=== PATIENT | male | born 1960 | race Caucasian/White ===

== ENCOUNTER 2020-12-23 17:26 | Emergency (ER) | payer OTHER ==
[~2020-12-23] VITALS: Ht 177.8 cm; Wt 109.3 kg
--- NOTE | 2020-12-23 17:55 | NUR ---
TO ER BED 5, BIB EMS TO ER, SNF CALLED 911 - HE HAD CONTACT WITH A COVID + PERSON ABOUT A WEEK AGO, WANTS TO MAKE SURE HE IS NOT INFECTED, AWAITING MD BERTRAND
--- NOTE | 2020-12-23 19:34 | NUR ---
covid rapid and pcr taken sent for lab
[2020-12-23] MEDS ORDERED: HYDROCODONE/APAP 5/325MG TABLET ONE (21:00)
[2020-12-23] MEDS ORDERED: HYDROCODONE/APAP 5/325MG TABLET PO ONE (21:00)
--- NOTE | 2020-12-23 21:19 | NUR ---
discharge paperwork signed, pt is to return back to facility
--- NOTE | 2020-12-23 21:19 | NUR ---
[facility] ETA [phone]
--- NOTE | 2020-12-23 22:25 | NUR ---
REPORT GIVEN TO MAHNAZ FROM [facility], PT WILL BE RETURNING TO FACILITY.
--- NOTE | 2020-12-23 22:29 | NUR ---
REPORT GIVEN TO EMS AT BEDSIDE.
[2020-12-23 22:40] VITALS: BP 134/64
== END 2020-12-23 22:40 ==
LOC: ER 18:28
DX: Z20.822 Contact with and (suspected) exposure to COVID-19 (principal); I69.354 Hemiplegia and hemiparesis following cerebral infarction affecting left non-dominant side; J44.9 Chronic obstructive pulmonary disease, unspecified; I10 Essential (primary) hypertension; E11.9 Type 2 diabetes mellitus without complications; Z88.2 Allergy status to sulfonamides; Z88.8 Allergy status to other drugs, medicaments and biological substances; Z91.041 Radiographic dye allergy status
CPT/HCPCS: 71045; 87426; 99284; C9803 ×2; U0003

== ENCOUNTER 2020-12-28 16:59 | Emergency (ER) | payer OTHER ==
[~2020-12-28] VITALS: Ht 177.8 cm; Wt 107.0 kg
--- NOTE | 2020-12-28 17:21 | NUR ---
CALLED DR. BRITO [phone]
--- NOTE | 2020-12-28 17:24 | NUR ---
DR. QUINONES CLAY WASHER
--- NOTE | 2020-12-28 17:25 | NUR ---
TO ER BED 13 FOR EVAL,DR BRITO PAGED TO VERIFY WHAT PRE-OP HE WANTS AND IF IT'S OKAY TO DO IT NOW
[2020-12-28] MEDS ORDERED: oxyCODONE/APAP (5/325 MG) 1 UDTAB TABLET PO ONE (18:00)
[2020-12-28] MEDS ORDERED: oxyCODONE/APAP (5/325 MG) 1 UDTAB TABLET ONE (18:04)
[2020-12-28 18:18] LABS: BASOPHILS # (AUTO) 0.1 K/uL (0.0-0.2); BASOPHILS % (AUTO) 0.9 % (0.0-2.0); EOSINOPHILS % (AUTO) 6.3 % (0.0-6.0); HEMATOCRIT 40 % (39-51); HEMOGLOBIN 12.8 g/dL (13.5-17.5); LYMPHOCYTES % (AUTO) 15.4 % (20.0-44.0); MEAN CORPUSCULAR HGB CONC 32 g/dl (31.0-36.0); MEAN CORPUSCULAR VOLUME 83 fL (80-96); MONOCYTES # (AUTO) 0.5 K/uL (0.1-1.30); MONOCYTES % (AUTO) 7.5 % (2.0-12.0); NEUTROPHILS # (AUTO) 4.4 K/uL (1.8-8.9); NEUTROPHILS % (AUTO) 69.9 % (43.0-81.0); PLATELET COUNT (AUTO) 323 K/uL (150-450); RED BLOOD CELL COUNT(AUTO) 4.85 MIL/uL (4.5-6.0); WHITE BLOOD COUNT (AUTO) 6.3 K/uL (4.3-11.0)
[2020-12-28 18:27] LABS: CALCIUM, SERUM 8.3 mg/dL (8.5-10.1); CARBON DIOXIDE 32 mmol/L (21-32); CHLORIDE 96 mmol/L (98-107); GLUCOSE 118 mg/dL (74-106); POTASSIUM 2.9 mmol/L (3.5-5.1); SODIUM SERUM 137 mmol/L (136-145); UREA NITROGEN, BLOOD 11 mg/dL (7-18)
[2020-12-28] MEDS ORDERED: POTASSIUM CHLORIDE 20 MEQ TAB.PRT.SR PO ONE ×2 (18:59→19:00)
[2020-12-28 19:40] VITALS: BP 132/78
--- NOTE | 2020-12-28 19:41 | NUR ---
Patient discharged to home in stable condition. Written and verbal after care instructions given. Patient verbalizes understanding of instruction.Mr Harrison on his electric wheelchair able to operate exit imnstruction given
== END 2020-12-28 19:42 | disposition home or self-care (01) ==
LOC: ER 17:06
DX: Z00.8 Encounter for other general examination (principal); E87.6 Hypokalemia; I11.0 Hypertensive heart disease with heart failure; I50.9 Heart failure, unspecified; J44.9 Chronic obstructive pulmonary disease, unspecified; E11.9 Type 2 diabetes mellitus without complications; Z86.73 Personal history of transient ischemic attack (TIA), and cerebral infarction without residual deficits; Z88.2 Allergy status to sulfonamides; Z88.8 Allergy status to other drugs, medicaments and biological substances
CPT/HCPCS: 36415; 80048-TC; 84484-TC; 85025-TC

== ENCOUNTER 2020-12-31 13:55 | Outpatient (CLI) | payer OTHER | END 2020-12-31 23:59 | disposition home or self-care (01) | LOC: LAB 13:55 | PROVIDERS: ATTEND Specialist | DX: Z01.812 Encounter for preprocedural laboratory examination (principal); Z20.822 Contact with and (suspected) exposure to COVID-19 | CPT/HCPCS: C9803; U0003 ==

== ENCOUNTER 2021-01-04 10:30 | Inpatient (IN) | payer OTHER ==
[~2021-01-04] VITALS: Ht 177.8 cm; Wt 110.2 kg
[2021-01-04 11:10] VITALS: BP 111/74
--- NOTE | 2021-01-04 11:10 | NUR ---
MS DATA REPORT ANALYST NOTES RECEIVED PATIENT DIRECT ADMIT FROM HOME VIA WHEELCHAIR FOR LEFT HIP REPLACEMENT DAY SURGERY TOMORROW 01/05/2021. PATIENT IS AWAKE AND A/OX4. ON O2 AT 3LPM VIA NASAL CANNULA TOLERATING WELL WITH NO COMPLAINTS OF SOB. NOT IN DISTRESS. WITH COMPLAINTS OF PAIN ON BOTH HIPS. COMFORT MEASURES PROVIDED. MADE COMFORTABLE ON BED. SAFETY MEASURES IN PLACE. CALL LIGHT WITHIN REACH. BED ON LOWEST AND LOCKED POSITION SIDE RAILS UP X2.
[2021-01-04 12:00] VITALS: BP 111/74
[2021-01-04] MEDS ORDERED: TRAZ-182 PO (13:49)
[2021-01-04] MEDS ORDERED: NA P133E RC (13:49)
[2021-01-04] MEDS ORDERED: IPRA3AMP23 IH (13:49)
[2021-01-04] MEDS ORDERED: DICL100G34 TP (13:49)
[2021-01-04] MEDS ORDERED: LACT1CAP71 PO (13:49)
[2021-01-04] MEDS ORDERED: DIPH-1062 PO (13:49)
[2021-01-04] MEDS ORDERED: ONDA-97 PO (13:49)
[2021-01-04] MEDS ORDERED: FERR325T23 PO (13:49)
[2021-01-04] MEDS ORDERED: DIAZ2TAB PO (13:49)
[2021-01-04] MEDS ORDERED: NYST15PO4 TP (13:49)
[2021-01-04] MEDS ORDERED: CLOT12CR TP (13:49)
[2021-01-04] MEDS ORDERED: CAPS42.55 TP (13:49)
[2021-01-04] MEDS ORDERED: FURO-144 PO (13:49)
[2021-01-04] MEDS ORDERED: TAMS-12 PO (13:49)
[2021-01-04] MEDS ORDERED: FOLI0.4T6 PO (13:49)
[2021-01-04] MEDS ORDERED: FLUO20CA42 PO (13:49)
[2021-01-04] MEDS ORDERED: LACT10SO58 PO (13:49)
[2021-01-04] MEDS ORDERED: ASPI-1169 PO (13:49)
[2021-01-04] MEDS ORDERED: DOXE50CA4 PO (13:49)
[2021-01-04] MEDS ORDERED: PENT400T17 PO (13:49)
[2021-01-04] MEDS ORDERED: VARE1TAB PO (13:49)
[2021-01-04] MEDS ORDERED: MICO71PO11 TP (13:49)
[2021-01-04] MEDS ORDERED: LOPE2CAP14 PO (13:49)
[2021-01-04] MEDS ORDERED: LAMO200T10 PO (13:49)
[2021-01-04] MEDS ORDERED: POLY17PO4 PO (13:49)
[2021-01-04] MEDS ORDERED: HYDR-500 PO (13:49)
[2021-01-04] MEDS ORDERED: AMIT25TA9 PO (13:49)
[2021-01-04] MEDS ORDERED: FLUT1BLS6 IH (13:49)
[2021-01-04] MEDS ORDERED: OXYC15TA2 PO (13:49)
[2021-01-04] MEDS ORDERED: PANT40TA2 PO (13:49)
[2021-01-04] MEDS ORDERED: LORA10TA7 PO (13:49)
[2021-01-04] MEDS ORDERED: DOCU-141 PO (13:49)
[2021-01-04] MEDS ORDERED: LISI20TA30 PO (13:49)
[2021-01-04] MEDS ORDERED: HYDR-3895 PO (13:49)
[2021-01-04] MEDS ORDERED: Z GUARD REMEDY 2 OZ OINT TP PRN (14:00)
[2021-01-04] MEDS ORDERED: ZOLPIDEM TARTRATE 5 MG TABLET PO PRN (14:00)
[2021-01-04] MEDS ORDERED: HYDROCODONE/APAP 5/325MG TABLET PO PRN (14:00)
[2021-01-04] MEDS ORDERED: HYDROCODONE/APAP 10/325MG TABLET PO PRN (14:00)
[2021-01-04] MEDS ORDERED: ONDANSETRON HCL/PF 4 MG/2 ML VIAL IVP PRN (14:00)
[2021-01-04] MEDS ORDERED: MAGNESIUM HYDROXIDE 30 ML UDC PO PRN (14:00)
[2021-01-04] MEDS ORDERED: MAG HYDROX/AL HYDROX/SIMETH 30 ML UDC PO PRN (14:00)
[2021-01-04] MEDS ORDERED: ACETAMINOPHEN 325 MG TABLET PO PRN (14:00)
[2021-01-04] MEDS: MORPHINE SULFATE INJ 2 MG/ML DISP.SYRIN IV PRN ×2 (15:15→20:42)
[2021-01-04 16:00] VITALS: BP 117/60
[2021-01-04] MEDS ORDERED: methylPREDNISolone SOD SUCC 125 MG/2ML VIAL IV ONE (16:30)
[2021-01-04] MEDS ORDERED: diphenhydrAMINE HCL 50 MG/ML VIAL IV ONE (16:30)
--- NOTE | 2021-01-04 16:43 | NUR ---
SPOKE WITH RADHA, NURSING MOLECULAR GENETIC PATHOLOGIST - PATIENT IS NOT CLEARED FOR SURGERY TOMORROW PER CARDIO (DR. WALLACE). SURGERY IS CANCELLED. NURSING MOLECULAR GENETIC PATHOLOGIST AWARE - STATED SHE WILL CALL LOCO IN OR.
[2021-01-04] MEDS ORDERED: METOPROLOL TARTRATE 25 MG TABLET ONE (16:44)
[2021-01-04] MEDS ORDERED: diphenhydrAMINE HCL 50 MG/ML VIAL ONE (16:44)
--- NOTE | 2021-01-04 16:58 | NUR ---
Spoke with 's surgery coordinator Karuna about CTA order in am and pending cardiac clearance per dr. Torres. Karuna stated that surgery will be canceled for tomorrow. Pt informed and he agreed with new plan of care.
[2021-01-04] MEDS: METOPROLOL TARTRATE 25 MG TABLET PO SCH ×2 (17:17→21:00)
[2021-01-04] MEDS ORDERED: methylPREDNISolone SOD SUCC 125 MG/2ML VIAL IV PRN (17:30)
--- NOTE | 2021-01-04 19:26 | NUR ---
MS RN CLOSING NOTES PATIENT RESTING ON BED AND A/O X4. ON O2 AT 3LPM VIA NASAL CANNULA TOLERATING WELL WITH NO COMPLAINTS OF SOB. NOT IN DISTRESS. WITH NO COMPLAINTS OF PAIN OR DISCOMFORT AT THIS TIME. MADE COMFORTABLE ON BED. SAFETY MEASURES IN PLACE. CALL LIGHT WITHIN REACH. BED ON LOWEST AND LOCKED POSITION SIDE RAILS UP X2. WILL ENDORSE TO NEXT SHIFT FOR ANGELIC.
--- NOTE | 2021-01-04 19:41 | NUR ---
MS RN OPENING NOTES PATIENT WAS LAST SEEN AWAKE IN BED RESTING. PATIENT'S ON O2 AT 3LPM VIA NASAL CANNULA WITH NO RESPIRATORY DISTRESS NOTED. KAMLESH MIDLINE GAUGE#18 NOTED. PATIENT'S IN NO ACUTE DISTRESS AT THIS TIME. SAFETY MEASURES IN PLACE: BED LOCKED, BED ALARM ON, SIDE RAILS UPX3, AND CALL LIGHT WITHIN REACH. WILL CONTINUE TO MONITOR THE PATIENT.
[2021-01-04 21:02] VITALS: BP 101/44
[2021-01-05] MEDS: MORPHINE SULFATE INJ 2 MG/ML DISP.SYRIN IV PRN ×6 (00:46→23:28)
[2021-01-05] MEDS: methylPREDNISolone SOD SUCC 40 MG/ML VIAL IV SCH ×2 (03:03→07:00)
[2021-01-05 06:26] LABS: BASOPHILS % (AUTO) 0.3 % (0.0-2.0); EOSINOPHILS % (AUTO) 4.2 % (0.0-6.0); HEMATOCRIT 34 % (39-51); HEMOGLOBIN 11.2 g/dL (13.5-17.5); LYMPHOCYTES # (AUTO) 0.5 K/uL (0.8-4.8); LYMPHOCYTES % (AUTO) 7.4 % (20.0-44.0); MEAN CORPUSCULAR HGB CONC 33 g/dl (31.0-36.0); MEAN CORPUSCULAR VOLUME 82 fL (80-96); MONOCYTES # (AUTO) 0.2 K/uL (0.1-1.30); MONOCYTES % (AUTO) 3.3 % (2.0-12.0); NEUTROPHILS # (AUTO) 5.8 K/uL (1.8-8.9); NEUTROPHILS % (AUTO) 84.8 % (43.0-81.0); PLATELET COUNT (AUTO) 259 K/uL (150-450); RED BLOOD CELL COUNT(AUTO) 4.15 MIL/uL (4.5-6.0); WHITE BLOOD COUNT (AUTO) 6.8 K/uL (4.3-11.0)
[2021-01-05 06:59] LABS: ALBUMIN 2.5 g/dL (3.4-5.0); BILIRUBIN,TOTAL 0.2 mg/dL (0.2-1.0); CALCIUM, SERUM 8.2 mg/dL (8.5-10.1); CREATININE 0.9 mg/dL (0.6-1.3); MAGNESIUM 1.5 mg/dL (1.8-2.4); PHOSPHORUS 2.5 mg/dL (2.5-4.9); POTASSIUM 3.9 mmol/L (3.5-5.1); TOTAL PROTEIN, SERUM 7.2 g/dL (6.4-8.2)
[2021-01-05] MEDS ORDERED: diphenhydrAMINE HCL 50 MG/ML VIAL IV SCH (07:00)
[2021-01-05 07:06] LABS: THYROID STIMULATING HORMONE 0.708 uIU/mL (0.358-3.74)
--- NOTE | 2021-01-05 07:17 | NUR ---
RN MS NOTES RECEIVED PATIENT ON BED, ASLEEP BUT EASILY AROUSABLE. IN NO APPARENT RESPIRATORY DISTRESS NOTED. BREATHING EVEN AND UNLABORED. NO S&SX OF PAIN AND DISCOMFORT. PT. WITH KAMLESH MIDLINE, INTACT AND PATENT. FREQUENT VISUAL CHECKS RENDERED TO ENSURE SAFETY AND COMFORT. CALL LIGHT WITHIN EASY REACH. ALL NEEDS ATTENDED. WILL CONTINUE TO MONITOR
[2021-01-05] MEDS ORDERED: PANTOPRAZOLE 40 MG TABLET.DR PO SCH (07:30)
--- NOTE | 2021-01-05 07:30 | NUR ---
MS RN CLOSING NOTES PATIENT WAS LAST SEEN SLEEPING IN BED. PATIENT'S ALERT AND ORIENTED X4. PATIENT'S ON O2 AT 3LPM VIA NASAL CANNULA WITH NO RESPIRATORY DISTRESS NOTED. KAMLESH MIDLINE GAUGE#18 NOTED. PATIENT'S IN NO ACUTE DISTRESS AT THIS TIME. SAFETY MEASURES IN PLACE: BED LOCKED, BED ALARM ON, SIDE RAILS UPX3, AND CALL LIGHT WITHIN REACH. WILL ENDORSE CARE TO THE DAY SHIFT NURSE.
[2021-01-05 08:00] VITALS: BP_SYST 103; BP_SYST 116; BP_DIAS 51; BP_DIAS 63
[2021-01-05] MEDS ORDERED: diphenhydrAMINE HCL 50 MG/ML VIAL IV PRN (08:00)
[2021-01-05] MEDS ORDERED: EPINEPHRINE (1:10,000) SYRINGE 1 MG/10 ML DISP.SYRIN IV PRN (08:00)
[2021-01-05] MEDS: METOPROLOL TARTRATE 25 MG TABLET PO SCH ×2 (09:00→20:16)
[2021-01-05] MEDS ORDERED: METOPROLOL TARTRATE INJ 5 MG/5 ML AMPUL ONE (09:22)
[2021-01-05] MEDS ORDERED: IOHEXOL-350 100 ML VIAL IV ONE (09:22)
[2021-01-05] MEDS ORDERED: CT SWABBABLE VALVE TRANS SET 1 EA INFUS.SET MC ONE (09:23)
[2021-01-05] MEDS ORDERED: IV NS 0.9% 250 ML IV ONE (09:23)
[2021-01-05] MEDS ORDERED: NITROGLYCERIN 0.4 MG/TAB BOTTLE SL ONE (10:00)
[2021-01-05] MEDS ORDERED: METOPROLOL TARTRATE INJ 5 MG/5 ML AMPUL IVP PRN (10:00)
[2021-01-05] MEDS: Magnesium 1GM/D5W 100ML PREMIX 100 ML IV SCH ×2 (12:34→13:43)
[2021-01-05] MEDS ORDERED: ATOR40TA PO (13:29)
[2021-01-05] MEDS ORDERED: METO25TA20 PO (13:29)
--- NOTE | 2021-01-05 14:25 | NUR ---
spoke with Karuna from Dr. Franklin's office, she stated okay to discharge pt home and office will call him with new surgery schedule. Dr. Ponce informed and discharge order received. Will inform pt.
[2021-01-05 16:00] VITALS: BP 133/62
--- NOTE | 2021-01-05 19:30 | NUR ---
RN MS NOTES PT AWAKE, ALERT AND ORIENTED, PAIN MEDS GIVEN ORDERED, SEEN BY DR. ROBLES, DISCHARGE ORDER GIVEN, DISCHARGE AND MEDICATION INSTRUCTIONS PROVIDED TO PT, VERBALIZED UNDERSTANDING, NEW PRESCRIPTIONS CALLED IN TO PT'S OWN PHARMACY, BELONGINGS ACCOUNTED FOR, ASSISTED PT TO WHEELCHAIR, PER RADIATION THERAPY TECHNICIAN ELECTRONIC PREPRESS OPERATOR TIME AT 1800, FOLLOWED UP WITH TRANSPORT SERVICE, STATED THAT THE EARLIEST THEY CAN ELECTRONIC PREPRESS OPERATOR PT IS 10PM, PT WOULD LIKE TO GO ON HIS OWN BUT CONVINCED PT TO STAY AND WAIT FOR THE AMBULANCE, PT AGREED, PLACED PT ON ROOM 325-2 FOR NOW WHILE WAITING FOR TRANSPORT BACK TO [facility], ENDORSED TO BINGO CASHIER NURSE FISH FOR CONTINUITY OF CARE.
--- NOTE | 2021-01-05 20:00 | NUR ---
received patient sitting in his wheelchair alert and orientated requesting "MY Morphine" "4mg" given with effective relief placed in bed to take a nap D/T P/U transport will be arriving 10 PM or Later 02 N/C in place at 3 liters
[2021-01-05 20:30] VITALS: BP 108/59
[2021-01-05] MEDS ORDERED: ATORVASTATIN 40 MG TABLET PO SCH (22:00)
--- NOTE | 2021-01-06 | NUR ---
[facility] transportation arrived 4 people to take the Patient Hunter Meléndez back to [facility] living [phone] call them [phone] toalrt them of his late arrival and they said he could come even at this hour w/c his 0s his clothing and phone and brown bag(tote) and blue plastic bag all with the patient. He remains alert and orientated X4
== END 2021-01-06 00:30 | DRG 351 ==
LOC: MED 10:30 → EDSTATUS 01-05 09:30 → MED 01-05 23:37
DX: M16.12 Unilateral primary osteoarthritis, left hip (principal); I11.0 Hypertensive heart disease with heart failure; I50.32 Chronic diastolic (congestive) heart failure; E11.9 Type 2 diabetes mellitus without complications; I25.10 Atherosclerotic heart disease of native coronary artery without angina pectoris; Z99.3 Dependence on wheelchair; G47.33 Obstructive sleep apnea (adult) (pediatric); I25.2 Old myocardial infarction; Z86.73 Personal history of transient ischemic attack (TIA), and cerebral infarction without residual deficits; Z87.891 Personal history of nicotine dependence; Z87.892 Personal history of anaphylaxis; Z91.041 Radiographic dye allergy status; J44.9 Chronic obstructive pulmonary disease, unspecified; Z88.2 Allergy status to sulfonamides
CPT/HCPCS: 75574; 80053-TC; 80061-TC; 83735-TC; 84100-TC; 84443-TC; 85025-TC; 87081-TC; 93307-TC; G0378; J1200; J2270; J2920; J2930; J3475; J3490; J7050; Q9967

== ENCOUNTER 2021-02-26 12:16 | Inpatient (IN) | payer OTHER ==
[~2021-02-26] VITALS: Ht 177.8 cm; Wt 109.8 kg
[~2021-02-26 12:16] MED LIST: AMIT25TA9 PO; ASPI-1169 PO; ATOR40TA PO; CAPS42.55 TP; DIAZ2TAB PO; DICL100G34 TP; DOCU-141 PO; DOXE50CA4 PO; FERR325T23 PO; FLUO20CA42 PO; FLUT1BLS6 IH; FOLI0.4T6 PO; FURO-144 PO; HYDR-500 PO; IPRA3AMP23 IH; LACT10SO58 PO; LACT1CAP71 PO; LAMO200T10 PO; LISI20TA30 PO; LOPE2CAP14 PO; LORA10TA7 PO; METO25TA20 PO; MICO71PO11 TP; NA P133E RC; NYST15PO4 TP; ONDA-97 PO; OXYC15TA2 PO; PANT40TA2 PO; PENT400T17 PO; POLY17PO4 PO; TAMS-12 PO; TRAZ-182 PO; VARE1TAB PO
--- NOTE | 2021-02-26 12:41 | NUR ---
c/o sob, nausea vomiting, and chest discomfort x today. PT AAOX4, VSS. PT SEEN & EVAL'D BY DR. OTERO. PLACED ON WATER POLLUTION SPECIALIST, SR. WILL CONT TO MONITOR.
--- NOTE | 2021-02-26 12:45 | NUR ---
IV LINE IS ESTABLISHED, BLOOD SPECIMEN COLLECTED AND SENT TO THE LAB. THE LINE IS SALINE LOCKED.
--- NOTE | 2021-02-26 12:46 | NUR ---
X-RAY TECH AT THE BEDSIDE
[2021-02-26] MEDS ORDERED: IPRATROPIUM NEB FS 0.5 MG/2.5 ML AMPUL.NEB ONE (13:01)
[2021-02-26] MEDS ORDERED: ALBUTEROL FS 2.5 MG/3 ML VIAL.NEB ONE (13:01)
[2021-02-26 13:02] LABS: BASOPHILS # (AUTO) 0.1 K/uL (0.0-0.2); BASOPHILS % (AUTO) 0.6 % (0.0-2.0); EOSINOPHILS % (AUTO) 1.8 % (0.0-6.0); HEMATOCRIT 27 % (39-51); HEMOGLOBIN 8.6 g/dL (13.5-17.5); LYMPHOCYTES # (AUTO) 1.1 K/uL (0.8-4.8); LYMPHOCYTES % (AUTO) 12.4 % (20.0-44.0); MEAN CORPUSCULAR HGB CONC 32 g/dl (31.0-36.0); MEAN CORPUSCULAR VOLUME 81 fL (80-96); MONOCYTES # (AUTO) 0.6 K/uL (0.1-1.30); MONOCYTES % (AUTO) 6.4 % (2.0-12.0); NEUTROPHILS # (AUTO) 7.2 K/uL (1.8-8.9); NEUTROPHILS % (AUTO) 78.8 % (43.0-81.0); PLATELET COUNT (AUTO) 396 K/uL (150-450); RED BLOOD CELL COUNT(AUTO) 3.28 MIL/uL (4.5-6.0); WHITE BLOOD COUNT (AUTO) 9.2 K/uL (4.3-11.0)
--- NOTE | 2021-02-26 13:11 | NUR ---
PATIENT GIVEN 5.0 ALBUTEROL AND 0.[address] OTERO'S VERBAL ORDER.
[2021-02-26] MEDS ORDERED: methylPREDNISolone SOD SUCC 125 MG/2ML VIAL IV ONE (13:30)
[2021-02-26] MEDS ORDERED: methylPREDNISolone SOD SUCC 125 MG/2ML VIAL ONE (13:30)
[2021-02-26 13:33] LABS: ALBUMIN 2.2 g/dL (3.4-5.0); BILIRUBIN,DIRECT 0.1 mg/dL (0.0-0.2); BILIRUBIN,TOTAL 0.2 mg/dL (0.2-1.0); CREATININE 3.7 mg/dL (0.6-1.3); TOTAL PROTEIN, SERUM 7.1 g/dL (6.4-8.2)
[2021-02-26 13:40] LABS: POTASSIUM 2.6 mmol/L (3.5-5.1)
--- NOTE | 2021-02-26 13:41 | NUR ---
MEDICATED PER ERMD ORDER, PT GILDARDO WELL. WILL CONT TO MONITOR.
--- NOTE | 2021-02-26 13:53 | NUR ---
CALLED [employer] [phone] COMMAND AND CONTROL OFFICER IS LEXY WILL BE PAGED.
[2021-02-26] MEDS ORDERED: CEFTRIAXONE 1GM BAG (ER ONLY) 50 ML IV ONE (13:58)
[2021-02-26] MEDS ORDERED: POTASSIUM CL. PREMIX PERIPHER. 50 ML IV SCH (14:00)
[2021-02-26] MEDS ORDERED: CEFTRIAXONE 1 G in IV D5W 50 ML IV ONE (14:00)
--- NOTE | 2021-02-26 14:04 | NUR ---
COVID SWAB DONE AND SENT TO THE LAB
[2021-02-26] MEDS ORDERED: POTASSIUM CL. PREMIX PERIPHER. 50 ML ONE (14:10)
--- NOTE | 2021-02-26 14:10 | NUR ---
LEXY SPEAKING WITH SHANNA.
--- NOTE | 2021-02-26 14:52 | NUR ---
REPORT GIVEN TO NURSE BREONNA
[2021-02-26] MEDS ORDERED: Magnesium 1GM/D5W 100ML PREMIX 100 ML IV ONE (15:30)
[2021-02-26] MEDS: Magnesium 1GM/D5W 100ML PREMIX 100 ML IV SCH ×6 (15:39→23:42)
[2021-02-26] MEDS ORDERED: MAGNESIUM HYDROXIDE 30 ML UDC PO PRN (17:00)
[2021-02-26] MEDS ORDERED: MAG HYDROX/AL HYDROX/SIMETH 30 ML UDC PO PRN (17:00)
[2021-02-26] MEDS ORDERED: ACETAMINOPHEN 325 MG TABLET PO PRN (17:00)
[2021-02-26] MEDS ORDERED: ZOLPIDEM TARTRATE 5 MG TABLET PO PRN (17:00)
[2021-02-26] MEDS ORDERED: ONDANSETRON HCL/PF 4 MG/2 ML VIAL IVP PRN (17:00)
[2021-02-26] MEDS ORDERED: Z GUARD REMEDY 2 OZ OINT TP PRN (17:00)
[2021-02-26] MEDS ORDERED: CEFTRIAXONE 1 G in IV D5W 50 ML IV SCH (17:00)
[2021-02-26] MEDS ORDERED: HYDROCODONE/APAP 5/325MG TABLET PO PRN (17:00)
--- NOTE | 2021-02-26 17:00 | NUR ---
RN NOTES RECEIVED PT FROM ER VIA GLADYS. AWAKE, A/O X4. ON 2L O2 VIA NC. DENIES PAIN. NO SOB OR ANY S/S OF DISTRESS NOTED. IV ACCESS ON L AC #18 INTACT, PATENT AND FLUSHED. BELONGING LIST CHECKED AND SIGNED. SKIN IS INTACT. VACCINATIONS ALL UP TO DATE. SAFETY MEASURES IN PLACE. CALL LIGHT WITHIN REACH. BED LOCKED AND IN LOWEST POSITION WITH SIDE RAILS UP X2. MOTORIZED WHEELCHAIR AT BEDSIDE. WILL CONTINUE TO MONITOR.
[2021-02-26] MEDS ORDERED: LORATADINE 10 MG TABLET PO PRN (17:30)
[2021-02-26] MEDS ORDERED: NA PHOS,M-B/NA PHOS,DI-BA 1 EA ENEMA RC PRN (17:30)
[2021-02-26] MEDS ORDERED: LACTULOSE 10 G/15 ML UDC (PYXIS) PO PRN (17:30)
[2021-02-26] MEDS ORDERED: LOPERAMIDE HCL (2 MG CAP) 2 MG CAPSULE PO PRN (17:30)
[2021-02-26] MEDS ORDERED: DOCUSATE SODIUM 100 MG CAPSULE PO PRN (17:30)
[2021-02-26] MEDS ORDERED: hydrOXYzine PAMOATE 25 MG CAPSULE PO PRN (18:00)
[2021-02-26] MEDS ORDERED: ONDANSETRON 4 MG TAB.RAPDIS PO PRN (18:00)
[2021-02-26] MEDS: AZITHROMYCIN 500 MG in IV D5W 250 ML IV SCH (18:18)
[2021-02-26] MEDS: PENTOXIFYLLINE 400 MG TABLET.SA PO SCH (18:18)
[2021-02-26] MEDS: IPRATROPIUM/ALBUTEROL INHALER IH SCH (18:19)
--- NOTE | 2021-02-26 19:29 | NUR ---
RN CLOSING NOTES NO SIGNIFICANT CHANGES THROUGHOUT THE SHIFT. ALL DUE MEDS GIVEN. NEEDS ATTENDED. KEPT CLEAN AND COMFORTABLE. SAFETY MEASURES IMPLEMENTED. ENDORSED TO NIGHT RN FOR ANGELIC.
--- NOTE | 2021-02-26 19:30 | NUR ---
RN NOTE RECEIVED PATIENT IN BED, AWAKE, ALERT, AND VERBALLY RESPONSIVE. BREATHING EVEN AND UNLABORED. NO SOB NOTED. TOLERATING OXYGEN 2L/MIN VIA NASAL CANNULA. HOB ELEVATED 35 DEGREES. NOTED WITH LEFT AC 20G PERIPHERAL IV. NOTED WITH IV FLUIDS RUNNING, AZITHROMYCIN AT 250 ML/HR AND MAGNESIUM. NO INFILTRATION NOTED. BED LOW, IN LOCKED POSITION. CALL LIGHT WITHIN REACH.
[2021-02-26 20:00] VITALS: BP 142/59
[2021-02-26] MEDS: DOXEPIN HCL (25 MG) 25 MG CAPSULE PO SCH (21:19)
[2021-02-26] MEDS: ATORVASTATIN 40 MG TABLET PO SCH (21:19)
[2021-02-26] MEDS: LamoTRIgine 100 MG TABLET PO SCH (21:20)
[2021-02-26] MEDS: HEPARIN SODIUM, PORCINE 5000 UNITS/1 ML VIAL SQ SCH (21:22)
[2021-02-26] MEDS: methylPREDNISolone SOD SUCC 125 MG/2ML VIAL IV SCH (21:23)
--- NOTE | 2021-02-26 21:25 | NUR ---
RN NOTE PATIENT REQUESTING FOR PAIN MEDICATION. STATES PAIN IS COMING FROM LEFT HIP. PATIENT RATES PAIN 7/10. PATIENT UNABLE TO MOVE EXTREMITY. NO REDNESS NOTED. ADMINISTERED NORCO 5-325 PER MD ORDER. WILL CONTINUE TO MONITOR. CALL LIGHT WITHIN REACH.
--- NOTE | 2021-02-26 21:40 | NUR ---
RN NOTE PATIENT REFUSED NORCO 5-325. PATIENT STATES HE DOES NOT WANT NORCO. EXPLAINED RISK AND BENEFIT TO PATIENT. STILL REFUSED. OFFERED TO BE REPOSITIONED. WILL CONTINUE TO MONITOR. CALL LIGHT WITHIN REACH.
[2021-02-27] VITALS: BP 100/48
--- NOTE | 2021-02-27 00:18 | NUR ---
RN VERIFIED WITH MDTRAVIS, REGARDING PATIENTS MAGNESIUM ORDER. PATIENT HAS RECEIVED 5GM OF MAGNESIUM. PER MD ORDER, STAT MAGNESIUM LEVEL. ORDER NOTED AND CARRIED OUT.
[2021-02-27] MEDS: IPRATROPIUM/ALBUTEROL INHALER IH SCH ×4 (01:07→17:02)
[2021-02-27 01:31] LABS: CALCIUM, SERUM 6.3 mg/dL (8.5-10.1); CREATININE 3.7 mg/dL (0.6-1.3)
[2021-02-27 01:34] LABS: POTASSIUM 2.8 mmol/L (3.5-5.1)
--- NOTE | 2021-02-27 01:37 | NUR ---
RN NOTE RECEIVED A CALL FROM LAB WITH RESULTS, PER CAITLIN, POTASSIUM IS 2.8 AND MAGNESIUM IS 2.0. MD INFORMED, AWAITING RESPONSE. WILL CONTINUE TO MONITOR.
--- NOTE | 2021-02-27 02:21 | NUR ---
RN NOTE PER MD ORDER, STOP MAGNESIUM.
[2021-02-27 04:00] VITALS: BP 122/55
[2021-02-27] MEDS ORDERED: POTASSIUM CHLORIDE 20 MEQ TAB.PRT.SR PO ONE (04:00)
--- NOTE | 2021-02-27 04:01 | NUR ---
RN NOTE PER TRAVIS STRAUSS, GIVE POTASSIUM 40 MEQ BY MOUTH ONCE. NOTED AND CARRIED OUT.
[2021-02-27] MEDS: methylPREDNISolone SOD SUCC 125 MG/2ML VIAL IV SCH ×3 (04:38→21:36)
[2021-02-27 06:48] LABS: BASOPHILS % (AUTO) 0.2 % (0.0-2.0); HEMATOCRIT 23 % (39-51); HEMOGLOBIN 7.4 g/dL (13.5-17.5); LYMPHOCYTES # (AUTO) 0.5 K/uL (0.8-4.8); LYMPHOCYTES % (AUTO) 10.4 % (20.0-44.0); MEAN CORPUSCULAR HGB CONC 33 g/dl (31.0-36.0); MEAN CORPUSCULAR VOLUME 82 fL (80-96); MONOCYTES # (AUTO) 0.1 K/uL (0.1-1.30); MONOCYTES % (AUTO) 2.5 % (2.0-12.0); NEUTROPHILS # (AUTO) 4.2 K/uL (1.8-8.9); NEUTROPHILS % (AUTO) 86.9 % (43.0-81.0); PLATELET COUNT (AUTO) 293 K/uL (150-450); RED BLOOD CELL COUNT(AUTO) 2.78 MIL/uL (4.5-6.0); WHITE BLOOD COUNT (AUTO) 4.8 K/uL (4.3-11.0)
--- NOTE | 2021-02-27 07:00 | NUR ---
RN NOTES RECEIVED PT ON BED, A/Ox4, ON 3L O2 N/C , NO SOB NOTED, O2 SAT WNL, IV SITES CLEAN,DRY AND INTACT, SR UP x3, CALL LIGHT WITHIN EASY REACH, BED LOCKED AND IN LOWEST POSITION, CONTINUE TO MONITOR .
[2021-02-27 07:17] LABS: THYROID STIMULATING HORMONE 0.2 uIU/mL (0.358-3.74)
[2021-02-27] MEDS ORDERED: PANTOPRAZOLE 40 MG TABLET.DR PO SCH (07:30)
[2021-02-27 07:34] LABS: CALCIUM, SERUM 6.3 mg/dL (8.5-10.1); CREATININE 3.7 mg/dL (0.6-1.3); PHOSPHORUS 4.2 mg/dL (2.5-4.9); POTASSIUM 3.3 mmol/L (3.5-5.1)
[2021-02-27 08:00] VITALS: BP 122/55
[2021-02-27] MEDS: FOLIC ACID 1 MG TABLET PO SCH (08:35)
[2021-02-27] MEDS: FERROUS SULFATE (325 MG) 325 MG/TAB TABLET PO SCH (08:36)
[2021-02-27] MEDS: TAMSULOSIN 0.4 MG CAP.SR.24H PO SCH (08:36)
[2021-02-27] MEDS: ASPIRIN 81 MG TAB.CHEW PO SCH (08:36)
[2021-02-27] MEDS: ACIDOPHILUS/BULGARICUS 1 EACH TAB.CHEW PO SCH (08:36)
[2021-02-27] MEDS: PANTOPRAZOLE 40 MG TABLET.DR PO SCH ×2 (08:36→16:26)
[2021-02-27] MEDS: FLUOXETINE HCL 20 MG CAPSULE PO SCH (08:36)
[2021-02-27] MEDS: TRAZODONE 50 MG TABLET PO SCH ×2 (08:36→16:25)
[2021-02-27] MEDS: POLYETHYLENE GLYCOL 3350 17 GM POWD.PACK PO SCH (08:36)
[2021-02-27] MEDS: NYSTATIN TOP POWDER 15 GM BOTTLE TP SCH ×2 (08:37→16:26)
[2021-02-27] MEDS: PENTOXIFYLLINE 400 MG TABLET.SA PO SCH ×3 (08:38→17:01)
[2021-02-27] MEDS: AMITRIPTYLINE HCL 25 MG TABLET PO SCH (08:38)
[2021-02-27] MEDS: HEPARIN SODIUM, PORCINE 5000 UNITS/1 ML VIAL SQ SCH ×2 (08:40→09:00)
[2021-02-27] MEDS: DIAZEPAM 2 MG TABLET PO SCH ×2 (08:43→16:25)
[2021-02-27] MEDS ORDERED: Medication Not On Formulary EA (Fluticasone/Umeclidin/Vilanter (Trelegy Ellipta 100-62.5 IH SCH (09:00)
[2021-02-27 12:00] VITALS: BP 121/62
[2021-02-27 12:42] LABS: BILIRUBIN,URINE NEGATIVE (NEGATIVE); LEUKOCYTE ESTERASE ,URINE LARGE (NEGATIVE); NITRITE, URINE NEGATIVE (NEGATIVE); PROTEIN,URINE 100 mg/dl (NEGATIVE); UGLUCOSE NEGATIVE (NEGATIVE); UROBILINOGEN,URINE 0.2 EU/dL (0.2)
[2021-02-27 12:46] LABS: COLOR,URINE BROWN (YELLOW)
[2021-02-27 12:51] LABS: CREATININE, URINE 83.3 MG/DL (30.0-125.0); URINE TOTAL PROTEIN 133.7 mg/dL (0-11.9)
[2021-02-27] MEDS ORDERED: MORPHINE SULFATE INJ 4 MG/ML DISP.SYRIN IV ONE (13:00)
[2021-02-27] MEDS: CEFTRIAXONE 2 G in IV D5W 100 ML IV SCH (13:02)
[2021-02-27 13:11] LABS: BACTERIA,URINE Many /HPF (None Seen); RBC,URINE TOO NUMEROUS TO COUN /HPF (0-2); SQUAMOUS EPITHELIAL CELL,UR Moderate /HPF (None Seen); WBC,URINE TOO NUMEROUS TO COUN /HPF (0-3)
[2021-02-27 16:00] VITALS: BP 126/64
[2021-02-27 16:46] LABS: EOSINOPHIL,URINE Few
[2021-02-27] MEDS: AZITHROMYCIN 500 MG in IV D5W 250 ML IV SCH (17:01)
--- NOTE | 2021-02-27 17:28 | NUR ---
RN NOTES UNABLE TO GIVE PO MEDS , PT IS LETHARGIC AND DOES NOT FOLLOW COMMAND, MD WEN, FAMILY REFUSED NGT PLACEMENT. Addendum: 02/27/21 at 1730 by JOSUÉ LONDON RN PLEASE DISREGARD ABOVE CHARTING , CHARTED ON WRONG PT
--- NOTE | 2021-02-27 18:29 | NUR ---
RN NOTES NO SIGNIFICANT CHANGES NOTED ON THIS SHIFT, WILL ENDORSE TO PUBLIC RELATIONS MANAGER NURSE FOR CONTINUITY OF CARE.
--- NOTE | 2021-02-27 19:30 | NUR ---
RN OPENING NOTE RECEIVED PATIENT IN BED. A/OX3. ON ISOLATION FOR R/O COVID. INFORMED PATIENT IT TAKES 3 DAYS FOR RESULTS TO COME BACK. HE IS SUSPECTING THAT WE ARE KEEPING HIM AND NOT TELLING HIM THAT HE HAS COVID/ PATIENT IS STILL IN R/IO PROCESS. ON OXYGEN 3L/MIN VIA NASAL CANNULA. RESPIRATIONS ARE EVEN AND UNLABORED. NO S/S SOB NOTED. STATES HIS PAIN IS A 6/10 BUT WILL WAIT UNTIL HIS MORPHINE IS DUE. TELE MONITOR READS SINUS RHYTHM WITH PVC HR 82. IN NO APPARENT DISTRESS. IV ACCESS IN LAC#20 PATENT AND SALINE LOCKED. BED IS LOW AND LOCKED, HOB ELEVTAED IN SEMI FOWLERS, SIDE RIALS UP X2, CALL LIGHT WITHIN REACH.
[2021-02-27 20:00] VITALS: BP 113/64
[2021-02-27] MEDS: ATORVASTATIN 40 MG TABLET PO SCH (21:36)
[2021-02-27] MEDS: LamoTRIgine 100 MG TABLET PO SCH (21:36)
[2021-02-27] MEDS: DOXEPIN HCL (25 MG) 25 MG CAPSULE PO SCH (21:36)
[2021-02-27] MEDS: MORPHINE SULFATE SR 15 MG TABLET.SA PO SCH (22:22)
[2021-02-28] VITALS: BP 123/68
[2021-02-28] MEDS: IPRATROPIUM/ALBUTEROL INHALER IH SCH ×4 (00:11→17:32)
[2021-02-28 04:00] VITALS: BP 123/64
[2021-02-28] MEDS: methylPREDNISolone SOD SUCC 125 MG/2ML VIAL IV SCH ×3 (06:03→21:15)
--- NOTE | 2021-02-28 07:33 | NUR ---
RN OPENING NOTES; RECEIVED PT SLEEPING, PT A/OX4, NO SOB NOTED, NO C/O PAIN AT THIS TIME. SAFETY MEASURES RENDERED, BED IN LOWEST POS. LOCKED WITH CALL LIGHT WITHIN REACH. WILL CONTINUE TO MONITOR.
--- NOTE | 2021-02-28 07:38 | NUR ---
RN NOTE RESTING IN BED. A/OX3. REMAINS ON OXYGEN 3L/MIN VIA NASAL CANNULA.NO RESP DISTRESS. NO C/O ADDITIONAL PAIN PATIENT IS SINUS RHYTHM. NO DISTRESS. LAC#20 SALINE LOCKED. BED REMAINS LOW AND LOCKED, HOB ELEVATED IN SEMI FOWLERS, SIDE RIALS UP X2, CALL LIGHT WITHIN REACH. WILL ENDORSE TO ONCOMING SHIFT.
[2021-02-28 08:00] VITALS: BP 123/64
[2021-02-28] MEDS: AMITRIPTYLINE HCL 25 MG TABLET PO SCH (08:02)
[2021-02-28] MEDS: FLUTICASONE/VILANTEROL 1 EACH BLST.W.DEV IH SCH (08:02)
[2021-02-28] MEDS: PENTOXIFYLLINE 400 MG TABLET.SA PO SCH ×3 (08:02→17:31)
[2021-02-28] MEDS: MORPHINE SULFATE SR 15 MG TABLET.SA PO SCH ×2 (09:03→21:16)
[2021-02-28] MEDS: FLUOXETINE HCL 20 MG CAPSULE PO SCH (09:03)
[2021-02-28] MEDS: PANTOPRAZOLE 40 MG TABLET.DR PO SCH ×2 (09:03→16:34)
[2021-02-28] MEDS: FOLIC ACID 1 MG TABLET PO SCH (09:03)
[2021-02-28] MEDS: TAMSULOSIN 0.4 MG CAP.SR.24H PO SCH (09:04)
[2021-02-28] MEDS: TRAZODONE 50 MG TABLET PO SCH ×2 (09:04→16:34)
[2021-02-28] MEDS: ASPIRIN 81 MG TAB.CHEW PO SCH (09:04)
[2021-02-28] MEDS: ACIDOPHILUS/BULGARICUS 1 EACH TAB.CHEW PO SCH (09:04)
[2021-02-28] MEDS: FERROUS SULFATE (325 MG) 325 MG/TAB TABLET PO SCH (09:04)
[2021-02-28] MEDS: POLYETHYLENE GLYCOL 3350 17 GM POWD.PACK PO SCH (09:04)
[2021-02-28] MEDS: DIAZEPAM 2 MG TABLET PO SCH ×2 (09:06→16:34)
[2021-02-28] MEDS: NYSTATIN TOP POWDER 15 GM BOTTLE TP SCH ×2 (09:07→16:36)
[2021-02-28 12:00] VITALS: BP 105/62
[2021-02-28] MEDS: CEFTRIAXONE 2 G in IV D5W 100 ML IV SCH (13:01)
[2021-02-28 16:00] VITALS: BP 112/68
[2021-02-28] MEDS ORDERED: IV NS 0.9% 500 ML IV ONE (16:30)
[2021-02-28 16:54] LABS: BASOPHILS % (AUTO) 0.1 % (0.0-2.0); HEMATOCRIT 23 % (39-51); HEMOGLOBIN 7.5 g/dL (13.5-17.5); LYMPHOCYTES # (AUTO) 0.8 K/uL (0.8-4.8); LYMPHOCYTES % (AUTO) 6.7 % (20.0-44.0); MEAN CORPUSCULAR HGB CONC 33 g/dl (31.0-36.0); MEAN CORPUSCULAR VOLUME 81 fL (80-96); MONOCYTES # (AUTO) 0.3 K/uL (0.1-1.30); MONOCYTES % (AUTO) 2.8 % (2.0-12.0); NEUTROPHILS # (AUTO) 10.2 K/uL (1.8-8.9); NEUTROPHILS % (AUTO) 90.4 % (43.0-81.0); PLATELET COUNT (AUTO) 332 K/uL (150-450); RED BLOOD CELL COUNT(AUTO) 2.87 MIL/uL (4.5-6.0); WHITE BLOOD COUNT (AUTO) 11.3 K/uL (4.3-11.0)
[2021-02-28] MEDS: AZITHROMYCIN 250 MG TABLET PO SCH (17:31)
[2021-02-28 17:37] LABS: BILIRUBIN,TOTAL 0.1 mg/dL (0.2-1.0); CALCIUM, SERUM 6.5 mg/dL (8.5-10.1); CREATININE 3.2 mg/dL (0.6-1.3); MAGNESIUM 1.6 mg/dL (1.8-2.4); PHOSPHORUS 4.2 mg/dL (2.5-4.9); POTASSIUM 3.5 mmol/L (3.5-5.1); TOTAL PROTEIN, SERUM 6.4 g/dL (6.4-8.2)
--- NOTE | 2021-02-28 18:28 | NUR ---
RN CLOSING NOTES; PT A/OX4, NO SOB NOTED, NO C/O PAIN AT THIS TIME. NO DISTRESS NOTED. ALL MEDICATION GIVEN AND TOLERATED WELL. PT KEPT CLEAN, DRY, AND COMFORTABLE. ALL SAFETY MEASURES RENDERED, BED IN LOWEST POS. LOCKED WITH CALL LIGHT WITHIN REACH. NO SIGNIFICANT CHANGES IN PT HEALTH STATUS DURING SHIFT. WILL ENDORSE TO POWERHOUSE ELECTRICIAN. PT IN STABLE CONDITION.
--- NOTE | 2021-02-28 19:20 | NUR ---
RN NOTE PT RECEIVED IN BED. PT IS ON 3L OF O2 VIA NC SHOWING NO S/S OF RESP DISTRESS. BREATHING EVEN AND UNLABORED. PT IS A/OX4. ON AUTOMATIC LATHE SETTER SHOWING NSR. SKIN INTACT. ON CARDIAC DIET. IV ACCESS NOTED ON RIGHT UPPER ARM MIDLINE #18. LINE FLUSHED, PATENT, AND INTACT WITH NO S/SX OF INFILTRATION. ALL SAFETY MEASURES IMPLEMENTED. CALL LIGHT WITHIN REACH. BED ALARM ON. BED LOCKED AND IN LOWEST POSITION. SIDE RAILS UP. WILL CONTINUE TO MONITOR AND ASSESS FOR ANY CHANGES DURING SHIFT.
[2021-02-28 19:22] LABS: LYMPHOCYTES % (MANUAL) 8 % (16-48); MONOCYTES % (MANUAL) 2 % (0-11.0); NEUTROPHILS % (MANUAL) 90 (42-76)
[2021-02-28 20:00] VITALS: BP 124/73
[2021-02-28] MEDS: LamoTRIgine 100 MG TABLET PO SCH (21:16)
[2021-02-28] MEDS: ATORVASTATIN 40 MG TABLET PO SCH (21:16)
[2021-02-28] MEDS: DOXEPIN HCL (25 MG) 25 MG CAPSULE PO SCH (21:16)
[2021-03-01] VITALS: BP 121/66
[2021-03-01] MEDS: Magnesium 1GM/D5W 100ML PREMIX 100 ML IV SCH ×2 (00:01→01:19)
[2021-03-01] MEDS: IPRATROPIUM/ALBUTEROL INHALER IH SCH ×4 (00:04→17:17)
[2021-03-01 04:00] VITALS: BP 120/60
[2021-03-01] MEDS: methylPREDNISolone SOD SUCC 125 MG/2ML VIAL IV SCH ×3 (05:36→21:48)
[2021-03-01 06:27] LABS: BASOPHILS % (AUTO) 0.1 % (0.0-2.0); HEMATOCRIT 23 % (39-51); HEMOGLOBIN 7.4 g/dL (13.5-17.5); LYMPHOCYTES # (AUTO) 0.9 K/uL (0.8-4.8); LYMPHOCYTES % (AUTO) 7.8 % (20.0-44.0); MEAN CORPUSCULAR HGB CONC 33 g/dl (31.0-36.0); MEAN CORPUSCULAR VOLUME 81 fL (80-96); MONOCYTES # (AUTO) 0.5 K/uL (0.1-1.30); MONOCYTES % (AUTO) 4.8 % (2.0-12.0); NEUTROPHILS # (AUTO) 9.8 K/uL (1.8-8.9); NEUTROPHILS % (AUTO) 87.3 % (43.0-81.0); PLATELET COUNT (AUTO) 318 K/uL (150-450); RED BLOOD CELL COUNT(AUTO) 2.78 MIL/uL (4.5-6.0); WHITE BLOOD COUNT (AUTO) 11.2 K/uL (4.3-11.0)
--- NOTE | 2021-03-01 06:33 | NUR ---
RN NOTE NO CHANGES IN PT CONDITION DURING SHIFT. PT IS ON 3L OF O2 VIA NC SHOWING NO S/S OF RESP DISTRESS. BREATHING EVEN AND UNLABORED. PT IS A/OX4. IV ACCESS NOTED ON RIGHT UPPER ARM MIDLINE #18. LINE FLUSHED, PATENT, AND INTACT WITH NO S/SX OF INFILTRATION. ALL DUE MEDS GIVEN ORDERED. ALL SAFETY MEASURES IMPLEMENTED. CALL LIGHT WITHIN REACH. BED ALARM ON. BED LOCKED AND IN LOWEST POSITION. SIDE RAILS UP. WILL ENDORSE TO MORNING SHIFT RN FOR ANGELIC.
[2021-03-01 07:03] LABS: MAGNESIUM 1.9 mg/dL (1.8-2.4); PHOSPHORUS 4.4 mg/dL (2.5-4.9); POTASSIUM 3.7 mmol/L (3.5-5.1)
--- NOTE | 2021-03-01 07:30 | NUR ---
RN OPEN NOTE PT RECEIVED RESTING IN BED WITH NO SIGN OF SOB OR DISTRESS AT THIS TIME, PT IS ON 3L/ MIN NC, TOLERATING WELL, BREATHING EVEN AND UNLABORED. PT IS A/OX4. MIDLINE ON RIGHT UPPER ARM, FLUSHING WELL, PATENT, AND INTACT WITH NO S/SX OF INFILTRATION. SAFETY MEASURES IMPLEMENTED. CALL LIGHT WITHIN REACH. BED ALARM ON. BED LOCKED AND IN LOWEST POSITION. SIDE RAILS UP. WILL CONTINUE TO MONITOR
[2021-03-01 08:00] VITALS: BP 127/65
[2021-03-01] MEDS: POLYETHYLENE GLYCOL 3350 17 GM POWD.PACK PO SCH (09:19)
[2021-03-01] MEDS: ACIDOPHILUS/BULGARICUS 1 EACH TAB.CHEW PO SCH (09:20)
[2021-03-01] MEDS: FOLIC ACID 1 MG TABLET PO SCH (09:20)
[2021-03-01] MEDS: MORPHINE SULFATE SR 15 MG TABLET.SA PO SCH ×2 (09:20→21:48)
[2021-03-01] MEDS: FLUOXETINE HCL 20 MG CAPSULE PO SCH (09:21)
[2021-03-01] MEDS: ASPIRIN 81 MG TAB.CHEW PO SCH (09:21)
[2021-03-01] MEDS: TAMSULOSIN 0.4 MG CAP.SR.24H PO SCH (09:21)
[2021-03-01] MEDS: FERROUS SULFATE (325 MG) 325 MG/TAB TABLET PO SCH (09:21)
[2021-03-01] MEDS: AMITRIPTYLINE HCL 25 MG TABLET PO SCH (09:22)
[2021-03-01] MEDS: DIAZEPAM 2 MG TABLET PO SCH ×2 (09:22→16:23)
[2021-03-01] MEDS: PANTOPRAZOLE 40 MG TABLET.DR PO SCH ×2 (09:22→16:23)
[2021-03-01] MEDS: TRAZODONE 50 MG TABLET PO SCH ×2 (09:22→16:23)
[2021-03-01] MEDS: FLUTICASONE/VILANTEROL 1 EACH BLST.W.DEV IH SCH (09:27)
[2021-03-01] MEDS: NYSTATIN TOP POWDER 15 GM BOTTLE TP SCH ×2 (09:27→16:23)
[2021-03-01] MEDS: PENTOXIFYLLINE 400 MG TABLET.SA PO SCH ×3 (09:44→17:17)
[2021-03-01 12:00] VITALS: BP 124/74
[2021-03-01 12:06] LABS: *SPE A/G RATIO 0.6 (0.7-1.7); *SPE ALPHA-1-GLOBULIN 0.3 g/dL (0.0-0.4); *SPE ALPHA-2-GLOBULIN 1.2 g/dL (0.4-1.0); *SPE BETA GLOBULIN 0.9 g/dL (0.7-1.3); *SPE M-SPIKE Not Observed g/dL (Not Observed)
[2021-03-01] MEDS: CEFTRIAXONE 2 G in IV D5W 100 ML IV SCH (13:30)
[2021-03-01 16:00] VITALS: BP 136/65
[2021-03-01] MEDS: AZITHROMYCIN 250 MG TABLET PO SCH (17:19)
--- NOTE | 2021-03-01 18:51 | NUR ---
RN CLOSING NOTE PT REMAINS RESTING IN BED WITH NO SIGN OF SOB OR DISTRESS AT THIS TIME, PT IS ON 3L/ MIN NC, TOLERATING WELL, BREATHING EVEN AND UNLABORED. PT IS A/OX4. MIDLINE ON RIGHT UPPER ARM, FLUSHING WELL, PATENT, AND INTACT WITH NO S/SX OF INFILTRATION. ALL NEEDS MET, SAFETY MEASURES IMPLEMENTED. CALL LIGHT WITHIN REACH. BED ALARM ON. BED LOCKED AND IN LOWEST POSITION. SIDE RAILS UP. WILL ENDORSE TO CHAIN BUILDER RN
--- NOTE | 2021-03-01 19:30 | NUR ---
RN OPENING NOTE RECEIVED PATIENT RESTING IN BED. A/OX3. ON OXYGEN 3L/MIN VIA NASAL CANNULA.NO RESP DISTRESS. C/O PAIN . TELE MONITOR READS SINUS RHYTHM. IN NO APPARENT DISTRESS. KAMLESH MIDLINE PATENT AND SALINE LOCKED. PATIENT STATES HE SPOKE WITH [facility] AND THEY HAVE ORDERED HIM A BIG BAG OF FLUIDS, INFORMED HIM I WILL LOOK AT THE ORDERS. BED IS LOW AND LOCKED, HOB ELEVATED IN SEMI FOWLERS, SIDE RIALS UP X2, CALL LIGHT WITHIN REACH.
[2021-03-01 20:00] VITALS: BP 139/82
[2021-03-01] MEDS: ATORVASTATIN 40 MG TABLET PO SCH (21:37)
[2021-03-01] MEDS: LamoTRIgine 100 MG TABLET PO SCH (21:37)
[2021-03-01] MEDS: IV NS 0.9% 1,000 ML IV PRN (21:37)
[2021-03-01] MEDS: DOXEPIN HCL (25 MG) 25 MG CAPSULE PO SCH (21:37)
[2021-03-02] VITALS: BP 129/73
[2021-03-02] MEDS: IPRATROPIUM/ALBUTEROL INHALER IH SCH ×4 (00:34→18:37)
[2021-03-02 04:00] VITALS: BP 135/71
[2021-03-02] MEDS: methylPREDNISolone SOD SUCC 125 MG/2ML VIAL IV SCH ×3 (05:58→21:06)
--- NOTE | 2021-03-02 07:17 | NUR ---
WOUND CARE CONSULT: PT PRESENTS WITH SOME REDNESS TO GROIN FOLDS AND PERINEUM, PRESENT ON ADMISSION. RECOMMENDATIONS MADE FOR SKIN PROTECTION. DISCUSSED WITH NURSING STAFF. MD IN AGREEMENT WITH PLAN OF CARE.
[2021-03-02 08:00] VITALS: BP 134/79
--- NOTE | 2021-03-02 08:22 | NUR ---
RN CLOSING NOTE RESTING IN BED. A/OX3. REMAINS ON OXYGEN 3L/MIN VIA NASAL CANNULA.NO RESP DISTRESS. PATIENT IS SINUS RHYTHM. NO DISTRESS. KAMLESH MIDLINE RUNNING NS@75ML/HR. BED IS LOW AND LOCKED, HOB ELEVATED IN SEMI FOWLERS, SIDE RIALS UP X2, CALL LIGHT WITHIN REACH. WILL ENDORSE TO ONCOMING SHIFT.
[2021-03-02 08:28] LABS: BASOPHILS % (AUTO) 0.1 % (0.0-2.0); HEMATOCRIT 23 % (39-51); HEMOGLOBIN 7.5 g/dL (13.5-17.5); LYMPHOCYTES # (AUTO) 0.9 K/uL (0.8-4.8); LYMPHOCYTES % (AUTO) 7.8 % (20.0-44.0); MEAN CORPUSCULAR HGB CONC 33 g/dl (31.0-36.0); MEAN CORPUSCULAR VOLUME 81 fL (80-96); MONOCYTES # (AUTO) 0.5 K/uL (0.1-1.30); MONOCYTES % (AUTO) 4.9 % (2.0-12.0); NEUTROPHILS # (AUTO) 9.6 K/uL (1.8-8.9); NEUTROPHILS % (AUTO) 87.2 % (43.0-81.0); PLATELET COUNT (AUTO) 325 K/uL (150-450); RED BLOOD CELL COUNT(AUTO) 2.78 MIL/uL (4.5-6.0)
[2021-03-02 08:44] LABS: CREATININE 2.8 mg/dL (0.6-1.3); MAGNESIUM 1.5 mg/dL (1.8-2.4); PHOSPHORUS 3.8 mg/dL (2.5-4.9); POTASSIUM 4.2 mmol/L (3.5-5.1)
[2021-03-02] MEDS: FOLIC ACID 1 MG TABLET PO SCH (08:50)
[2021-03-02] MEDS: FLUOXETINE HCL 20 MG CAPSULE PO SCH (08:50)
[2021-03-02] MEDS: TAMSULOSIN 0.4 MG CAP.SR.24H PO SCH (08:50)
[2021-03-02] MEDS: AMITRIPTYLINE HCL 25 MG TABLET PO SCH (08:50)
[2021-03-02] MEDS: MORPHINE SULFATE SR 15 MG TABLET.SA PO SCH ×2 (08:51→21:07)
[2021-03-02] MEDS: ACIDOPHILUS/BULGARICUS 1 EACH TAB.CHEW PO SCH (09:00)
[2021-03-02] MEDS: POLYETHYLENE GLYCOL 3350 17 GM POWD.PACK PO SCH (09:01)
[2021-03-02] MEDS: TRAZODONE 50 MG TABLET PO SCH ×2 (09:01→16:26)
[2021-03-02] MEDS: FERROUS SULFATE (325 MG) 325 MG/TAB TABLET PO SCH (09:01)
[2021-03-02] MEDS: ASPIRIN 81 MG TAB.CHEW PO SCH (09:01)
[2021-03-02] MEDS: PENTOXIFYLLINE 400 MG TABLET.SA PO SCH ×3 (09:01→18:04)
[2021-03-02] MEDS: DIAZEPAM 2 MG TABLET PO SCH ×2 (09:22→16:26)
[2021-03-02] MEDS: CLOTRIMAZOLE 1% 15 GM TUBE TP SCH ×2 (09:22→16:26)
[2021-03-02] MEDS: FLUTICASONE/VILANTEROL 1 EACH BLST.W.DEV IH SCH (09:29)
[2021-03-02] MEDS: NYSTATIN TOP POWDER 15 GM BOTTLE TP SCH ×2 (09:31→16:26)
[2021-03-02] MEDS: Magnesium 1GM/D5W 100ML PREMIX 100 ML IV SCH ×2 (09:59→11:17)
--- NOTE | 2021-03-02 11:10 | NUR ---
MS RN OPENING NOTE PT RECEIVED RESTING IN BED WITH NO SIGN OF SOB OR DISTRESS AT THIS TIME, PT IS ON 3L/ MIN NC, TOLERATING WELL, BREATHING EVEN AND UNLABORED. PT IS A/OX4. MIDLINE ON RIGHT UPPER ARM, FLUSHING WELL, PATENT, AND INTACT WITH NO S/SX OF INFILTRATION. SAFETY MEASURES IN PLACE. BED IN LOWEST LOCKED POSITION, CALL LIGHT WITHIN REACH.
[2021-03-02 12:00] VITALS: BP 129/71
[2021-03-02] MEDS: CEFTRIAXONE 2 G in IV D5W 100 ML IV SCH (14:31)
[2021-03-02 16:00] VITALS: BP 151/73
[2021-03-02] MEDS: AZITHROMYCIN 250 MG TABLET PO SCH (18:04)
[2021-03-02] MEDS: IV NS 0.9% 1,000 ML IV PRN (18:29)
--- NOTE | 2021-03-02 19:02 | NUR ---
MS RN CLOSING NOTES PT IS RESTING IN BED. A/OX4. REMAINS ON OXYGEN 3L/MIN VIA NASAL CANNULA. NO SIGNS OF RESP DISTRESS AND NO COMPLAINTS OF PAIN. PATIENT IS SINUS RHYTHM. KAMLESH MIDLINE RUNNING NS@75ML/HR. ALL SAFETY MEASURES IN PLACE. BED IN LOWEST AND LOCKED POSITION, HOB ELEVATED IN SEMI FOWLERS, SIDE RIALS UP X2, CALL LIGHT WITHIN REACH. WILL ENDORSE TO ONCOMING SHIFT.
--- NOTE | 2021-03-02 19:15 | NUR ---
RN NOTES RECEIVED REPORT FROM MORNING NURSE. PATIENT A/O X4 ABLE TO MAKE NEEDS KNOWN. NO SOB NO DISTRESS. WITH KAMLESH ML PATENT FLUSHES WELL NO INFILTRATION NOTED. WITH ONGOING IVF OF PNS @75CC/HR. WITH OXYGEN INHALATION AT 3LPM VIA NC. HOB ELEVATED ALL SAFETY MEASURES IN PLACE AT ALL TIMES. CALL LIGHT WITHIN REACH. BED ON LOWEST POSITION AND LOCKED. WILL CONTINUE TO MONITOR THE PATIENT
[2021-03-02] MEDS: MEROPENEM 1 G in IV NS 0.9% 100 ML IV SCH (19:44)
[2021-03-02 20:00] VITALS: BP 130/53
[2021-03-02] MEDS: ATORVASTATIN 40 MG TABLET PO SCH (21:07)
[2021-03-02] MEDS: LamoTRIgine 100 MG TABLET PO SCH (21:07)
[2021-03-02] MEDS: DOXEPIN HCL (25 MG) 25 MG CAPSULE PO SCH (21:07)
[2021-03-03] VITALS: BP 110/62
[2021-03-03] MEDS: IPRATROPIUM/ALBUTEROL INHALER IH SCH ×4 (00:21→17:24)
[2021-03-03 04:00] VITALS: BP 141/52
[2021-03-03] MEDS: methylPREDNISolone SOD SUCC 125 MG/2ML VIAL IV SCH ×3 (04:41→21:09)
[2021-03-03 06:15] LABS: HEMATOCRIT 22 % (39-51); HEMOGLOBIN 7.1 g/dL (13.5-17.5); LYMPHOCYTES # (AUTO) 0.8 K/uL (0.8-4.8); LYMPHOCYTES % (AUTO) 7.1 % (20.0-44.0); MEAN CORPUSCULAR HGB CONC 32 g/dl (31.0-36.0); MEAN CORPUSCULAR VOLUME 82 fL (80-96); MONOCYTES # (AUTO) 0.7 K/uL (0.1-1.30); MONOCYTES % (AUTO) 5.7 % (2.0-12.0); NEUTROPHILS # (AUTO) 10.4 K/uL (1.8-8.9); NEUTROPHILS % (AUTO) 87.2 % (43.0-81.0); PLATELET COUNT (AUTO) 313 K/uL (150-450); RED BLOOD CELL COUNT(AUTO) 2.69 MIL/uL (4.5-6.0); WHITE BLOOD COUNT (AUTO) 11.9 K/uL (4.3-11.0)
--- NOTE | 2021-03-03 06:42 | NUR ---
RN NOTES PATIENT REMAINS STABLE THE WHOLE SHIFT NO SIGNIFICANT CHANGES IN HEALTH CONDITION. NO DISTRESS NO SOB NOTED THIS SHIFT ALL DUE MEDS GIVEN ORDERED. KEPT CLEAN AND DRY AT ALL TIMES ALL NEEDS ATTENDED. HOB ELEVATED, CALL LIGHT WITHIN REACH. BED ON LOWEST POSITION AND LOCKED. ENDORSED
[2021-03-03] MEDS: MEROPENEM 1 G in IV NS 0.9% 100 ML IV SCH ×2 (06:43→20:14)
[2021-03-03 07:16] LABS: CALCIUM, SERUM 6.8 mg/dL (8.5-10.1); CREATININE 2.6 mg/dL (0.6-1.3); MAGNESIUM 1.6 mg/dL (1.8-2.4); POTASSIUM 4.3 mmol/L (3.5-5.1)
[2021-03-03 08:00] VITALS: BP 125/71
--- NOTE | 2021-03-03 08:01 | NUR ---
RN OPENING NOTE PATIENT RECEIVED IN BED, AWAKE, A&OX4. PATIENT ON 3L O2 NC WITH NO SIGNS OF LABORED BREATHING AT THIS TIME. RIGHT UA MIDLINE IN PLACE, PATENT WITH NO SIGNS OF INFILTRATION AND RUNNING NS AT 75CC/HR. NO SIGNS OF DISTRESS NOTED AT THIS TIME. BED LOCKED AND IN LOWEST POSITION, CALL LIGHT WITHIN REACH, 3 SIDE RAILS UP, BED ALARM ON. WILL CONTINUE TO MONITOR.
[2021-03-03] MEDS: POLYETHYLENE GLYCOL 3350 17 GM POWD.PACK PO SCH ×2 (09:00→09:07)
[2021-03-03] MEDS: TAMSULOSIN 0.4 MG CAP.SR.24H PO SCH (09:07)
[2021-03-03] MEDS: Magnesium 1GM/D5W 100ML PREMIX 100 ML IV SCH ×2 (09:07→10:13)
[2021-03-03] MEDS: ASPIRIN 81 MG TAB.CHEW PO SCH (09:07)
[2021-03-03] MEDS: ACIDOPHILUS/BULGARICUS 1 EACH TAB.CHEW PO SCH (09:07)
[2021-03-03] MEDS: NYSTATIN TOP POWDER 15 GM BOTTLE TP SCH ×2 (09:08→16:28)
[2021-03-03] MEDS: DIAZEPAM 2 MG TABLET PO SCH ×2 (09:08→16:28)
[2021-03-03] MEDS: TRAZODONE 50 MG TABLET PO SCH ×2 (09:08→16:28)
[2021-03-03] MEDS: CLOTRIMAZOLE 1% 15 GM TUBE TP SCH ×2 (09:08→16:28)
[2021-03-03] MEDS: FOLIC ACID 1 MG TABLET PO SCH (09:08)
[2021-03-03] MEDS: FERROUS SULFATE (325 MG) 325 MG/TAB TABLET PO SCH (09:08)
[2021-03-03] MEDS: FLUOXETINE HCL 20 MG CAPSULE PO SCH (09:08)
[2021-03-03] MEDS: PENTOXIFYLLINE 400 MG TABLET.SA PO SCH ×3 (09:08→17:24)
[2021-03-03] MEDS: IV NS 0.9% 1,000 ML IV PRN (09:09)
[2021-03-03] MEDS: FLUTICASONE/VILANTEROL 1 EACH BLST.W.DEV IH SCH (09:24)
[2021-03-03] MEDS: MORPHINE SULFATE SR 15 MG TABLET.SA PO SCH ×2 (09:26→21:09)
[2021-03-03] MEDS: AMITRIPTYLINE HCL 25 MG TABLET PO SCH (09:26)
[2021-03-03] MEDS ORDERED: PRED20TA PO (15:34)
[2021-03-03 16:00] VITALS: BP 139/73
--- NOTE | 2021-03-03 18:48 | NUR ---
RN CLOSING NOTE PATIENT IN HIS CHAIR, AWAKE, A&OX4. PATIENT ON 3L O2 NC WITH NO SIGNS OF LABORED BREATHING AT THIS TIME. RIGHT UA MIDLINE IN PLACE, PATENT WITH NO SIGNS OF INFILTRATION. AWAITING TRANSPORT FOR DISCHARGE, REPORT GIVEN TO RK PLASTICS PLATER AT [facility]. ALL NEEDS ATTENDED DURING SHIFT. NO SIGNS OF DISTRESS NOTED AT THIS TIME. BED LOCKED AND IN LOWEST POSITION, CALL LIGHT WITHIN REACH, 3 SIDE RAILS UP. WILL ENDORSE TO SUPERVISOR DECORATING NURSE.
--- NOTE | 2021-03-03 19:15 | NUR ---
RN NOTES RECEIVED REPORT FROM MORNING RN PATIENT IN HIS CHAIR A/O X4. NO SOB AT THIS TIME. WITH KAMLESH MIDLINE PATENT FLUSHES WELL. WITH OXYGEN INHALATION AT 3LPM VIA NC TOLERATED WELL. FOR POSSIBLE DC TONIGHT. VITAL SIGNS TAKEN AND RECORDED. WILL CONTINUE TO MONITOR
--- NOTE | 2021-03-03 19:30 | NUR ---
1929 Claritza from [facility] called and said ok to discharge patient to facility and they will deliver IV ATB once patient is there.
--- NOTE | 2021-03-03 19:41 | NUR ---
194 Called [facility] transportation for patient pickling operator spoke with Tequila and she said transportation was cancelled. Per Tequila they cannot transport patient tonight but will do tomorrow between 1230pm to 1pm. Patient was made aware and agreed.
--- NOTE | 2021-03-03 20:30 | NUR ---
RN NOTES PATIENT STILL IN THE UNIT FOR D/C TIMBO AM. PATIENT PUT BACK TO BED. WILL CONTINUE TO MONITOR
[2021-03-03] MEDS: DOXEPIN HCL (25 MG) 25 MG CAPSULE PO SCH (21:09)
[2021-03-03] MEDS: LamoTRIgine 100 MG TABLET PO SCH (21:09)
[2021-03-03] MEDS: ATORVASTATIN 40 MG TABLET PO SCH (21:09)
[2021-03-04] VITALS: BP 149/74
[2021-03-04] MEDS: IPRATROPIUM/ALBUTEROL INHALER IH SCH ×3 (00:20→12:04)
[2021-03-04] MEDS: IV NS 0.9% 1,000 ML IV PRN (00:21)
[2021-03-04] MEDS: methylPREDNISolone SOD SUCC 125 MG/2ML VIAL IV SCH (04:24)
[2021-03-04] MEDS: MEROPENEM 1 G in IV NS 0.9% 100 ML IV SCH (06:45)
--- NOTE | 2021-03-04 06:50 | NUR ---
RN NOTE PATIENT REMAINS STABLE THE WHOLE SHIFT NO SIGNIFICANT CHANGES IN HEALTH CONDITION. ALL DUE MEDS GIVEN ORDERED. ALL NEEDS ATTENDED. HOB ELEVATED. CALL LIGHT WITHIN REACH. FOR D/C TODAY.
--- NOTE | 2021-03-04 07:10 | NUR ---
RN OPENING NOTES RECEIVED PT IN BED. A/O X4. ON 3L O2 VIA NC. NO SOB OR ANY S/SX OF ACUTE DISTRESS AT THIS TIME. SATURATION @97%. IV ACCESS ON KAMLESH MIDLINE INTACT, PATENT AND FLUSHED. INFUSING NS @75 ML/HR. SAFETY MEASURES IMPLEMENTED. CALL LIGHT WITHIN REACH. BED LOCKED AND IN LOWEST POSITION WITH SIDE RAILS UP X3. WILL CONTINUE TO MONITOR.
[2021-03-04 08:00] VITALS: BP 135/58
[2021-03-04] MEDS: POLYETHYLENE GLYCOL 3350 17 GM POWD.PACK PO SCH (08:31)
[2021-03-04] MEDS: ACIDOPHILUS/BULGARICUS 1 EACH TAB.CHEW PO SCH (08:31)
[2021-03-04] MEDS: FLUOXETINE HCL 20 MG CAPSULE PO SCH (08:31)
[2021-03-04] MEDS: DIAZEPAM 2 MG TABLET PO SCH (08:31)
[2021-03-04] MEDS: AMITRIPTYLINE HCL 25 MG TABLET PO SCH (08:31)
[2021-03-04] MEDS: PENTOXIFYLLINE 400 MG TABLET.SA PO SCH (08:31)
[2021-03-04] MEDS: TAMSULOSIN 0.4 MG CAP.SR.24H PO SCH (08:31)
[2021-03-04] MEDS: FOLIC ACID 1 MG TABLET PO SCH (08:31)
[2021-03-04] MEDS: TRAZODONE 50 MG TABLET PO SCH (08:31)
[2021-03-04] MEDS: FERROUS SULFATE (325 MG) 325 MG/TAB TABLET PO SCH (08:31)
[2021-03-04] MEDS: ASPIRIN 81 MG TAB.CHEW PO SCH (08:31)
[2021-03-04] MEDS: CLOTRIMAZOLE 1% 15 GM TUBE TP SCH (08:32)
[2021-03-04] MEDS: NYSTATIN TOP POWDER 15 GM BOTTLE TP SCH (08:33)
[2021-03-04] MEDS: MORPHINE SULFATE SR 15 MG TABLET.SA PO SCH (08:36)
[2021-03-04] MEDS: FLUTICASONE/VILANTEROL 1 EACH BLST.W.DEV IH SCH (08:36)
--- NOTE | 2021-03-04 12:56 | NUR ---
RN NOTES DISCHARGED PT BACK TO FACILITY IN STABLE CONDITION. LEFT WITH HIS POWERED WHEELCHAIR ACCOMPANIED BY AMBULANCE CREW. NO SOB OR ANY DISTRESS. DENIES PAIN. VACCINATIONS ALL UP TO DATE. SKIN IS INTACT. DISCHARGE INSTRUCTIONS PROVIDED TO PT, VERBALIZED UNDERSTANDING. VS STABLE.
== END 2021-03-04 14:30 | disposition home health service (06) | DRG 140 ==
LOC: ER 12:33 → ICUOV 14:45 → TELE1 17:02 → TELE-TD 17:14 → TELE1 02-27 17:12 → MEDSG1 03-02 09:51
PROVIDERS: ADMIT Student in an Organized Health Care Education/Training Program; ATTEND Nurse Practitioner Family
PROC: 05H533Z Insertion of Infusion Device into Right Subclavian Vein, Percutaneous Approach (ICD-10-PCS; principal; 2021-02-28)
PROC: B546ZZA Ultrasonography of Right Subclavian Vein, Guidance (ICD-10-PCS; 2021-02-28)
DX: J44.1 Chronic obstructive pulmonary disease with (acute) exacerbation (principal); N17.0 Acute kidney failure with tubular necrosis; E44.0 Moderate protein-calorie malnutrition; N00.9 Acute nephritic syndrome with unspecified morphologic changes; D63.8 Anemia in other chronic diseases classified elsewhere; I69.354 Hemiplegia and hemiparesis following cerebral infarction affecting left non-dominant side; E11.9 Type 2 diabetes mellitus without complications; B96.1 Klebsiella pneumoniae [K. pneumoniae] as the cause of diseases classified elsewhere; Z99.81 Dependence on supplemental oxygen; N39.0 Urinary tract infection, site not specified; B96.20 Unspecified Escherichia coli [E. coli] as the cause of diseases classified elsewhere; D64.9 Anemia, unspecified; E78.5 Hyperlipidemia, unspecified; E83.42 Hypomagnesemia; I25.10 Atherosclerotic heart disease of native coronary artery without angina pectoris; J44.9 Chronic obstructive pulmonary disease, unspecified; E87.6 Hypokalemia; F17.200 Nicotine dependence, unspecified, uncomplicated; Z79.82 Long term (current) use of aspirin; Z99.3 Dependence on wheelchair; R07.9 Chest pain, unspecified; Z68.34 Body mass index [BMI] 34.0-34.9, adult; Z16.12 Extended spectrum beta lactamase (ESBL) resistance; M16.12 Unilateral primary osteoarthritis, left hip; I25.2 Old myocardial infarction; N40.1 Benign prostatic hyperplasia with lower urinary tract symptoms; Z20.822 Contact with and (suspected) exposure to COVID-19; I10 Essential (primary) hypertension
CPT/HCPCS: 36410; 36415; 71045-TC; 76770-TC; 80048-TC; 80053-TC; 80076-TC; 81001; 82550-TC; 82570-TC; 82728-TC; 83540-TC; 83735-TC; 83880; 83970; 84100-TC; 84155; 84155-TC; 84165; 84300-TC; 84439-TC; 84443-TC; 84484-TC; 85025-TC; 87081-TC; 87086-TC; 87186-TC; G0378; J0456; J0696; J1644; J2185; J2270; J2930; J3475; J3480; J7030; J7040; J7050; J7060; Q0177; U0003

== ENCOUNTER 2021-04-07 13:36 | Emergency (ER) | payer OTHER ==
[~2021-04-07] VITALS: Ht 177.8 cm; Wt 100.7 kg
[~2021-04-07 13:36] MED LIST changes: -DICL100G34 TP; -FURO-144 PO; -METO25TA20 PO; -MICO71PO11 TP; -NA P133E RC; -NYST15PO4 TP; +PRED20TA PO
--- NOTE | 2021-04-07 13:53 | NUR ---
BIB RA C/O BILATERAL LOWER EXTREMITY PAIN X 1 MONTH, WORSE TODAY. +NAUSEA/VOMITING. AAOX4, BREATHING EVEN AND UNLABORED. AWAITING MD FOR EVAL
--- NOTE | 2021-04-07 14:49 | NUR ---
PT LAYING IN BED. NO PRESENT COMPLAINTS. NEEDS MET
--- NOTE | 2021-04-07 15:22 | NUR ---
VS STABLE, WILL CONTINUE TO MONITOR
--- NOTE | 2021-04-07 16:03 | NUR ---
PT'S DIAPER CHANGED, ADDITIONAL BLANKETS GIVEN, VS STABLE
--- NOTE | 2021-04-07 17:20 | NUR ---
CLAIMS ACCOUNT MANAGER AT PT'S BEDSIDE
[2021-04-07 18:05] LABS: BASOPHILS % (AUTO) 0.6 % (0.0-2.0); EOSINOPHILS % (AUTO) 1.5 % (0.0-6.0); HEMATOCRIT 26 % (39-51); HEMOGLOBIN 8.7 g/dL (13.5-17.5); LYMPHOCYTES # (AUTO) 1.2 K/uL (0.8-4.8); LYMPHOCYTES % (AUTO) 28.1 % (20.0-44.0); MEAN CORPUSCULAR HGB CONC 34 g/dl (31.0-36.0); MEAN CORPUSCULAR VOLUME 88 fL (80-96); MONOCYTES # (AUTO) 0.5 K/uL (0.1-1.30); MONOCYTES % (AUTO) 11.4 % (2.0-12.0); NEUTROPHILS # (AUTO) 2.5 K/uL (1.8-8.9); NEUTROPHILS % (AUTO) 58.4 % (43.0-81.0); PLATELET COUNT (AUTO) 182 K/uL (150-450); RED BLOOD CELL COUNT(AUTO) 2.92 MIL/uL (4.5-6.0); WHITE BLOOD COUNT (AUTO) 4.3 K/uL (4.3-11.0)
[2021-04-07 18:19] LABS: CALCIUM, SERUM 7.3 mg/dL (8.5-10.1); CREATININE 2.5 mg/dL (0.6-1.3); POTASSIUM 3.5 mmol/L (3.5-5.1)
[2021-04-07 18:55] LABS: EOSINOPHILS % (MANUAL) 3 % (0-4); LYMPHOCYTES % (MANUAL) 31 % (16-48); MONOCYTES % (MANUAL) 4 % (0-11.0); NEUTROPHILS % (MANUAL) 62 (42-76)
--- NOTE | 2021-04-07 18:56 | NUR ---
[facility] ETA 90 MIN TO 2 HOURS
--- NOTE | 2021-04-07 19:53 | NUR ---
PATIENT BEING TRANSFERRED BACK TO FACILITY VIA AMBULANCE IN STABLE CONDITION WITH DISCHARGE PAPERS.
[2021-04-07 19:54] VITALS: BP 133/66
== END 2021-04-07 20:04 ==
LOC: ER 14:05
DX: G89.29 Other chronic pain (principal); M79.662 Pain in left lower leg; M79.661 Pain in right lower leg; I11.0 Hypertensive heart disease with heart failure; I50.9 Heart failure, unspecified; J44.9 Chronic obstructive pulmonary disease, unspecified; E11.9 Type 2 diabetes mellitus without complications; Z86.73 Personal history of transient ischemic attack (TIA), and cerebral infarction without residual deficits; Z88.2 Allergy status to sulfonamides; Z88.8 Allergy status to other drugs, medicaments and biological substances; Z79.899 Other long term (current) drug therapy; Z79.82 Long term (current) use of aspirin
CPT/HCPCS: 36415; 80048-TC; 85025-TC; 93970-TC

== ENCOUNTER 2021-04-11 23:32 | Inpatient (IN) | payer OTHER ==
[~2021-04-11] VITALS: Ht 208.3 cm; Wt 99.8 kg
[2021-04-12] MEDS ORDERED: HYDROCODONE/APAP 5/325MG TABLET PO ONE
[2021-04-12 00:05] LABS: BASOPHILS # (AUTO) 0.1 K/uL (0.0-0.2); BASOPHILS % (AUTO) 0.6 % (0.0-2.0); EOSINOPHILS % (AUTO) 2.3 % (0.0-6.0); HEMATOCRIT 26 % (39-51); HEMOGLOBIN 8.6 g/dL (13.5-17.5); LYMPHOCYTES # (AUTO) 1.5 K/uL (0.8-4.8); LYMPHOCYTES % (AUTO) 16.1 % (20.0-44.0); MEAN CORPUSCULAR HGB CONC 33 g/dl (31.0-36.0); MEAN CORPUSCULAR VOLUME 90 fL (80-96); MONOCYTES # (AUTO) 0.7 K/uL (0.1-1.30); NEUTROPHILS # (AUTO) 6.6 K/uL (1.8-8.9); PLATELET COUNT (AUTO) 256 K/uL (150-450); RED BLOOD CELL COUNT(AUTO) 2.93 MIL/uL (4.5-6.0)
[2021-04-12 00:25] LABS: CREATININE 2.4 mg/dL (0.6-1.3); POTASSIUM 3.6 mmol/L (3.5-5.1)
--- NOTE | 2021-04-12 00:25 | NUR ---
pt bibra c/o chest pain radiating to his shoulders, pt states pain 9/10.pt placed on monitor vss.
[2021-04-12] MEDS ORDERED: IPRATROPIUM NEB FS 0.5 MG/2.5 ML AMPUL.NEB NEB ONE (00:30)
[2021-04-12] MEDS ORDERED: predniSONE 20 MG TABLET PO ONE (00:30)
[2021-04-12] MEDS ORDERED: ALBUTEROL FS 2.5 MG/3 ML VIAL.NEB NEB ONE (00:30)
[2021-04-12] MEDS ORDERED: HYDROCODONE/APAP 5/325MG TABLET ONE (00:31)
[2021-04-12] MEDS ORDERED: predniSONE 20 MG TABLET ONE ×2 (00:32→00:33)
[2021-04-12] MEDS ORDERED: ALBUTEROL FS 2.5 MG/3 ML VIAL.NEB ONE (00:35)
[2021-04-12] MEDS ORDERED: IPRATROPIUM NEB FS 0.5 MG/2.5 ML AMPUL.NEB ONE (00:35)
[2021-04-12] MEDS ORDERED: MORPHINE SULFATE INJ 4 MG/ML DISP.SYRIN IV STA (00:41)
[2021-04-12] MEDS ORDERED: MORPHINE SULFATE INJ 4 MG/ML DISP.SYRIN ONE ×3 (00:44→22:00)
[2021-04-12 00:50] LABS: CALCIUM, SERUM 5.5 mg/dL (8.5-10.1)
[2021-04-12] MEDS ORDERED: DICYCLOMINE HCL 10 MG CAPSULE PO ONE ×2 (01:00→01:06)
--- NOTE | 2021-04-12 01:12 | NUR ---
[facility] SWAB COLLECTED AND SENT TO LAB. PATIENT'S BELONGINGS LIST DONE.
[2021-04-12] MEDS ORDERED: Calcium Gluconate 1GM/10ML 4.65 MEQ in IV D5W 50 ML IV ONE (02:30)
[2021-04-12] MEDS ORDERED: Calcium Gluconate 0.465 MEQ/ML VIAL IV ONE (03:07)
[2021-04-12] MEDS: HEPARIN SODIUM, PORCINE 5000 UNITS/1 ML VIAL SQ SCH ×3 (03:30→22:00)
[2021-04-12] MEDS ORDERED: ACETAMINOPHEN 325 MG TABLET PO PRN (03:30)
[2021-04-12] MEDS ORDERED: ONDANSETRON HCL/PF 4 MG/2 ML VIAL IVP PRN (03:30)
[2021-04-12] MEDS ORDERED: ALBUTEROL FS 2.5 MG/3 ML VIAL.NEB NEB PRN ×2 (04:00→08:30)
[2021-04-12] MEDS ORDERED: IPRATROPIUM NEB FS 0.5 MG/2.5 ML AMPUL.NEB NEB PRN ×2 (04:00→08:30)
[2021-04-12] MEDS ORDERED: HEPARIN SODIUM, PORCINE 5000 UNITS/1 ML VIAL ONE ×3 (05:15→21:59)
[2021-04-12] MEDS ORDERED: methylPREDNISolone SOD SUCC 125 MG/2ML VIAL ONE (05:16)
[2021-04-12] MEDS: methylPREDNISolone SOD SUCC 40 MG/ML VIAL IV SCH ×3 (05:18→22:00)
--- NOTE | 2021-04-12 06:22 | NUR ---
PT RESTING COMFORTABLY. VSS. STATED HE IS HUNGRY. GAVE PT FOOD.
[2021-04-12] MEDS ORDERED: LACTULOSE 10 G/15 ML UDC (PYXIS) PO PRN (09:30)
[2021-04-12] MEDS ORDERED: CHANTIX 1MG PO SCH (09:30)
[2021-04-12] MEDS: FERROUS SULFATE (325 MG) 325 MG/TAB TABLET PO SCH (09:30)
[2021-04-12] MEDS ORDERED: DOCUSATE SODIUM 100 MG CAPSULE PO PRN (09:30)
[2021-04-12] MEDS ORDERED: LORATADINE 10 MG TABLET PO PRN (09:30)
[2021-04-12] MEDS ORDERED: ASPIRIN 81 MG TAB.CHEW ONE (09:46)
[2021-04-12] MEDS: ASPIRIN 81 MG TAB.CHEW PO SCH (09:48)
[2021-04-12] MEDS: AMITRIPTYLINE HCL 25 MG TABLET PO SCH (10:30)
[2021-04-12] MEDS ORDERED: hydrOXYzine PAMOATE 25 MG CAPSULE PO PRN (10:30)
[2021-04-12 10:57] LABS: ALBUMIN 2.5 g/dL (3.4-5.0); PHOSPHORUS 4.2 mg/dL (2.5-4.9)
[2021-04-12] MEDS: CEFEPIME 1 GM in IV D5W 50 ML IV SCH ×2 (11:00→21:45)
[2021-04-12] MEDS: ACIDOPHILUS/BULGARICUS 1 EACH TAB.CHEW PO SCH (11:00)
--- NOTE | 2021-04-12 12:32 | NUR ---
HEPARIN 5000 UNITS HELD DUE TO PATIENT ALREADY RECEIVED A DOSE. PER TIM WOOD.
[2021-04-12] MEDS: MORPHINE SULFATE INJ 4 MG/ML DISP.SYRIN IV PRN ×2 (12:49→22:15)
--- NOTE | 2021-04-12 12:49 | NUR ---
PT C/O 10/09 PAIN. MORPHINE 4MG IVP GIVEN ORDERED.
[2021-04-12 13:04] LABS: MAGNESIUM 0.7 mg/dL (1.8-2.4)
[2021-04-12] MEDS: PENTOXIFYLLINE 400 MG TABLET.SA PO SCH ×2 (13:06→19:56)
[2021-04-12] MEDS ORDERED: methylPREDNISolone SOD SUCC 40 MG/ML VIAL ONE ×2 (13:12→22:00)
--- NOTE | 2021-04-12 13:46 | NUR ---
RECEIVED AN ORDER FROM TIM WOOD: MAGENSIUM 4G IV OVER 4 HOURS X1. THE ORDER IS READ BACK, VERIFIED. NOTED AND CARRIED OUT.
[2021-04-12] MEDS ORDERED: ALBUTEROL SULFATE 8 GM HFA.AER.AD IH PRN (14:30)
[2021-04-12] MEDS ORDERED: Magnesium 1GM/D5W 100ML PREMIX 100 ML IV ONE (14:46)
[2021-04-12] MEDS: Magnesium 1GM/D5W 100ML PREMIX PIGGYBACK IV SCH ×4 (14:52→17:42)
[2021-04-12] MEDS ORDERED: Magnesium 1GM/D5W 100ML PREMIX 300 ML IV ONE (16:01)
[2021-04-12] MEDS ORDERED: DIAZEPAM 5 MG TABLET ONE (16:27)
[2021-04-12] MEDS ORDERED: HYDROMORPHONE 1 MG/1 ML DISP.SYRIN ONE (16:27)
[2021-04-12] MEDS: DIAZEPAM 2 MG TABLET PO SCH (16:34)
[2021-04-12] MEDS: HYDROMORPHONE 1 MG/1 ML DISP.SYRIN IV PRN (16:35)
[2021-04-12] MEDS ORDERED: PANTOPRAZOLE 40 MG TABLET.DR PO SCH (17:00)
[2021-04-12] MEDS ORDERED: LOPERAMIDE HCL (2 MG CAP) 2 MG CAPSULE ONE (18:16)
--- NOTE | 2021-04-12 18:50 | NUR ---
bed assigned,203, for next shift
--- NOTE | 2021-04-12 20:22 | NUR ---
REPORT GIVEN TO LAURA VILLARREAL FOR ANGELIC
[2021-04-12] MEDS: LamoTRIgine 100 MG TABLET PO SCH (22:00)
[2021-04-12] MEDS: DOXEPIN HCL (25 MG) 25 MG CAPSULE PO SCH (22:00)
[2021-04-13 00:45] VITALS: BP 114/61
--- NOTE | 2021-04-13 00:54 | NUR ---
patient transferred, vss, no acute distress noted.
--- NOTE | 2021-04-13 01:00 | NUR ---
TELE/RN ADMITTING NOTE RECEIVED REPORT FROM MANAGER INVESTMENT CAITLIN. PATIENT ARRIVED TO UNIT VIA GURNEY AND STAFF MEMBER. PATIENT IS BEING ADMITTED FOR COPD EXACERBATION AND R/O PNA. PMHX INCLUDES CHF, COPD, CVA X 2 WITH LEFT SIDED WEAKNESS AND DM. PATIENT IS FULLY VACCINATED AGAINST COVID-19 WITH BOTH PFIZER DOSES AND BOOSTER. PATIENT IS ALERT AND ORIENTED X 4. ABLE TO MAKE NEEDS KNOWN. C/O PAIN TO LOWER BACK AND BLE - WILL ADMINISTER PAIN MEDICATION PER MD ORDERS. CONTINUES ON O2 4L VIA NC WITH NO S/SX OF RESPIRATORY DISTRESS NOTED. IV ACCESS TO RIGHT HAND #22G AND LEFT AC #20G BOTH INTACT AND PATENT. TELE MONITOR APPLIED WITH CURRENT READING SR. SKIN CHECK PERFORMED ON ADMISSION WITH NO SKIN ISSUES NOTED. BLE NON-PITTING EDEMA NOTED. PATIENT IS WHEELCHAIR BOUND. PATIENT ORIENTED TO ROOM, CALL LIGHT AND UNIT. CALL LIGHT WITHIN REACH. ASPIRATION, FALL AND SAFETY PRECAUTIONS MAINTAINED. WILL CONTINUE TO MONITOR.
--- NOTE | 2021-04-13 01:15 | NUR ---
TELE/RN NOTE PATIENT WITH C/O PAIN TO RIGHT HAND IV SITE. REQUESTING IV TO BE REMOVED. IV DISCONTINUED WITH PRESSURE DRESSING APPLIED. MINIMAL DRAINAGE NOTED. TIP OF CATH INTACT. PATIENT TOLERATED WELL. IV TO LEFT AC #20G INTACT, PATENT AND SALINE LOCKED.
[2021-04-13] MEDS: IPRATROPIUM BROMIDE 14 GM INHALER (or 12.9 GM) IH SCH ×2 (01:30→22:58)
--- NOTE | 2021-04-13 01:45 | NUR ---
TELE/RN NOTE ADMINISTERED PRN DILAUDID FOR LOWER BACK/BLE PAIN 09/09. WILL RECHECK PAIN LEVEL.
[2021-04-13] MEDS: HYDROMORPHONE 1 MG/1 ML DISP.SYRIN IV PRN ×4 (01:47→21:46)
--- NOTE | 2021-04-13 02:30 | NUR ---
TELE/RN NOTE PATIENT REQUESTING CONTINUOUS IVF. PATIENT STATES HE HAD THEM IN ER AND WOULD LIKE THEM CONTINUED UP HERE. REVIEWED PATIENTS MEDICAL HISTORY WITH CHF NOTED. EXPLAINED TO PATIENT RISKS/BENEFITS OF HAVING IVF WITH THIS DIAGNOSIS. PATIENT INSISTING ON HAVING THEM BECAUSE "MY URINE IS DARK - IM DEHYDRATED". PATIENT WITH GOOD PO INTAKE. NOTIFIED INFORMATION TECHNOLOGY ACCOUNT MANAGER MD NUNEZ WHO DOES NOT WANT IVF FOR THIS PATIENT AT THIS TIME. EXPLAINED TO PATIENT MD'S RESPONSE WITH PATIENT UNDERSTANDING.
[2021-04-13] MEDS ORDERED: LOPERAMIDE HCL (2 MG CAP) 2 MG CAPSULE ONE (03:01)
[2021-04-13] MEDS: LOPERAMIDE HCL (2 MG CAP) 2 MG CAPSULE PO PRN (03:05)
[2021-04-13] MEDS: methylPREDNISolone SOD SUCC 40 MG/ML VIAL IV SCH ×3 (05:25→21:18)
[2021-04-13] MEDS: MORPHINE SULFATE INJ 4 MG/ML DISP.SYRIN IV PRN ×3 (05:25→19:12)
--- NOTE | 2021-04-13 06:00 | NUR ---
TELE/RN CLOSING NOTE PATIENT CURRENTLY RESTING IN BED. AWAKE, ALERT AND ORIENTED X 4. ABLE TO MAKE NEEDS KNOWN. DENIES PAIN AT THIS TIME. CONTINUES ON O2 4L VIA NC WITH NO S/SX OF RESPIRATORY DISTRESS NOTED. IV ACCESS TO LEFT AC #20G INTACT, PATENT AND SALINE LOCKED. CONTINUES ON TELE MONITOR WITH CURRENT READING SR WITH PACS. CONTINUES WITH CONDOM CATH WITH CLEAR, YELLOW URINE DRAINING TO GRAVITY. CONTINUES ON IV ABX. CALL LIGHT WITHIN REACH. ASPIRATION, FALL AND SAFETY PRECAUTIONS MAINTAINED. WILL ENDORSE PLAN OF CARE TO ONCOMING SHIFT.
[2021-04-13 07:04] LABS: BASOPHILS % (AUTO) 0.1 % (0.0-2.0); HEMATOCRIT 22 % (39-51); HEMOGLOBIN 7.3 g/dL (13.5-17.5); LYMPHOCYTES # (AUTO) 0.7 K/uL (0.8-4.8); LYMPHOCYTES % (AUTO) 7.5 % (20.0-44.0); MEAN CORPUSCULAR HGB CONC 34 g/dl (31.0-36.0); MEAN CORPUSCULAR VOLUME 87 fL (80-96); MONOCYTES # (AUTO) 0.5 K/uL (0.1-1.30); MONOCYTES % (AUTO) 4.9 % (2.0-12.0); NEUTROPHILS # (AUTO) 8.4 K/uL (1.8-8.9); NEUTROPHILS % (AUTO) 87.5 % (43.0-81.0); PLATELET COUNT (AUTO) 218 K/uL (150-450); RED BLOOD CELL COUNT(AUTO) 2.51 MIL/uL (4.5-6.0); WHITE BLOOD COUNT (AUTO) 9.6 K/uL (4.3-11.0)
--- NOTE | 2021-04-13 07:23 | NUR ---
RN NOTE PATIENT IS IN BED WITH HOB AT SEMI FOWLERS POSITION. PATIENT IS ON NC 4L WITH NO SIGNS OF LABORED BREATHING. PATIENT IS AOX4. LAC 20G IS PATENT AND INTACT. BED IS LOCKED IN THE LOWEST POSITION, 3 GUARD RAILS RAISED, CALL PERRY WITHIN REACH, AND ALL HOSPITAL SAFETY PRECAUTIONS ARE BEING FOLLOWED. WILL CONTINUE TO MONITOR THROUGHOUT SHIFT.
[2021-04-13 07:31] LABS: CALCIUM, SERUM 6.2 mg/dL (8.5-10.1); CREATININE 2.2 mg/dL (0.6-1.3); MAGNESIUM 1.6 mg/dL (1.8-2.4); PHOSPHORUS 4.1 mg/dL (2.5-4.9); POTASSIUM 3.8 mmol/L (3.5-5.1)
--- NOTE | 2021-04-13 08:30 | NUR ---
RN NOTE NOTIFIED DR. ADAMES X2 FOR PATIENTS DOWNTRENDING HGB AND IF HE WANTS TO STILL ADMINISTER THE HEPARIN. AWAITING RESPONSE.
[2021-04-13] MEDS: FLUOXETINE HCL 20 MG CAPSULE PO SCH (08:32)
[2021-04-13] MEDS: TAMSULOSIN 0.4 MG CAP.SR.24H PO SCH (08:32)
[2021-04-13] MEDS: ASPIRIN 81 MG TAB.CHEW PO SCH (08:32)
[2021-04-13] MEDS: FERROUS SULFATE (325 MG) 325 MG/TAB TABLET PO SCH (08:32)
[2021-04-13] MEDS: ACIDOPHILUS/BULGARICUS 1 EACH TAB.CHEW PO SCH (08:32)
[2021-04-13] MEDS: FOLIC ACID 1 MG TABLET PO SCH (08:32)
[2021-04-13] MEDS: LISINOPRIL (20MG) 20 MG TABLET PO SCH (08:32)
[2021-04-13] MEDS: POLYETHYLENE GLYCOL 3350 17 GM POWD.PACK PO SCH ×2 (08:32→08:51)
[2021-04-13] MEDS: HEPARIN SODIUM, PORCINE 5000 UNITS/1 ML VIAL SQ SCH ×2 (09:00→21:00)
[2021-04-13] MEDS: CEFEPIME 1 GM in IV D5W 50 ML IV SCH ×2 (09:01→21:48)
[2021-04-13] MEDS: PENTOXIFYLLINE 400 MG TABLET.SA PO SCH ×3 (09:01→17:07)
[2021-04-13] MEDS: Magnesium 1GM/D5W 100ML PREMIX 100 ML IV SCH ×2 (09:02→10:52)
[2021-04-13] MEDS: AMITRIPTYLINE HCL 25 MG TABLET PO SCH (10:05)
[2021-04-13] MEDS: DIAZEPAM 2 MG TABLET PO SCH ×2 (10:06→17:07)
[2021-04-13] MEDS ORDERED: Calcium Gluconate 1GM/10ML 4.65 MEQ in IV D5W 50 ML IV ONE (12:00)
[2021-04-13] MEDS ORDERED: INFLUENZA VACCINE 2021-22 0.5 ML DISP.SYRIN IM ONE (12:00)
--- NOTE | 2021-04-13 18:57 | NUR ---
RN NOTE PATIENT IS IN BED WITH HOB AT SEMI FOWLERS POSITION. PATIENT IS ON NC 4L WITH NO SIGNS OF LABORED BREATHING. PATIENT IS AOX4. KAMLESH PICC IS PATENT AND INTACT. BED IS LOCKED IN THE LOWEST POSITION, 3 GUARD RAILS RAISED, CALL PERRY WITHIN REACH, AND ALL HOSPITAL SAFETY PRECAUTIONS ARE BEING FOLLOWED. WILL ENDORSE TO RECEIVER SETTER RN.
[2021-04-13 20:00] VITALS: BP 106/66
--- NOTE | 2021-04-13 20:33 | NUR ---
CONTINUITY OF CARE Patient in bed, awake. KAMLESH PICC line intact. On supplemental Oxygen at 4L via NC. Denies SOB. Pe patient patient less pain after Morphine was given. PCR test pending. Contact/Droplet precaution maintained.
[2021-04-13] MEDS: DOXEPIN HCL (25 MG) 25 MG CAPSULE PO SCH (21:16)
[2021-04-13] MEDS: LamoTRIgine 100 MG TABLET PO SCH (21:16)
[2021-04-14] VITALS: BP 128/74
--- NOTE | 2021-04-14 00:08 | NUR ---
ANTICOAGULANT H/H 7.06/[address] Mcgrath with orders to hold Heparin injection 2100 dose.
[2021-04-14] MEDS: IPRATROPIUM BROMIDE 14 GM INHALER (or 12.9 GM) IH SCH ×4 (01:30→19:30)
[2021-04-14] MEDS: MORPHINE SULFATE INJ 4 MG/ML DISP.SYRIN IV PRN ×4 (02:24→22:47)
--- NOTE | 2021-04-14 02:26 | NUR ---
INHALER Atrovent inhaler non administer, too close from previous administration.
[2021-04-14 04:00] VITALS: BP 130/81
[2021-04-14] MEDS: methylPREDNISolone SOD SUCC 40 MG/ML VIAL IV SCH ×2 (05:19→12:50)
[2021-04-14] MEDS: HYDROMORPHONE 1 MG/1 ML DISP.SYRIN IV PRN ×3 (05:36→20:46)
[2021-04-14 05:56] LABS: BASOPHILS % (AUTO) 0.1 % (0.0-2.0); HEMATOCRIT 22 % (39-51); HEMOGLOBIN 7.3 g/dL (13.5-17.5); LYMPHOCYTES # (AUTO) 0.9 K/uL (0.8-4.8); LYMPHOCYTES % (AUTO) 9.3 % (20.0-44.0); MEAN CORPUSCULAR HGB CONC 34 g/dl (31.0-36.0); MEAN CORPUSCULAR VOLUME 87 fL (80-96); MONOCYTES # (AUTO) 0.5 K/uL (0.1-1.30); MONOCYTES % (AUTO) 5.6 % (2.0-12.0); NEUTROPHILS # (AUTO) 8.2 K/uL (1.8-8.9); PLATELET COUNT (AUTO) 240 K/uL (150-450); RED BLOOD CELL COUNT(AUTO) 2.51 MIL/uL (4.5-6.0); WHITE BLOOD COUNT (AUTO) 9.7 K/uL (4.3-11.0)
--- NOTE | 2021-04-14 06:20 | NUR ---
END OF SHIFT REPORT Patient is A/O x4. On Oxygen support 4L Oxygen via NC. Sinus rhythm in the Tele monitor. Denies chest pain. KAMLESH PICC line intact. On IV abx. Afebrile. Lower back pain managed with PRN Morphine and Dilaudid. Pending sputum for resp cx w/ G/S. No sputum available to collect at this time. Will endorse to oncoming RN. Covid PCR test pending result.
[2021-04-14 06:40] LABS: CALCIUM, SERUM 6.6 mg/dL (8.5-10.1); CREATININE 1.9 mg/dL (0.6-1.3); POTASSIUM 4.5 mmol/L (3.5-5.1)
[2021-04-14 08:00] VITALS: BP 126/74
--- NOTE | 2021-04-14 08:00 | NUR ---
ms rn received on bed, awake,alert,oriented x4,not in any form of distress ,respirations even and unlabored,no sob noted, lungs are clear,abdomen soft,positive bowel sounds,denies pain at this time,all needs attended.
[2021-04-14] MEDS: POLYETHYLENE GLYCOL 3350 17 GM POWD.PACK PO SCH ×2 (09:00→09:04)
[2021-04-14] MEDS: CEFEPIME 1 GM in IV D5W 50 ML IV SCH ×2 (09:03→20:16)
[2021-04-14] MEDS: TAMSULOSIN 0.4 MG CAP.SR.24H PO SCH (09:04)
[2021-04-14] MEDS: ACIDOPHILUS/BULGARICUS 1 EACH TAB.CHEW PO SCH (09:04)
[2021-04-14] MEDS: PENTOXIFYLLINE 400 MG TABLET.SA PO SCH ×3 (09:04→16:52)
[2021-04-14] MEDS: DIAZEPAM 2 MG TABLET PO SCH ×2 (09:04→16:52)
[2021-04-14] MEDS: FOLIC ACID 1 MG TABLET PO SCH (09:04)
[2021-04-14] MEDS: AMITRIPTYLINE HCL 25 MG TABLET PO SCH (09:05)
[2021-04-14] MEDS: FLUOXETINE HCL 20 MG CAPSULE PO SCH (09:05)
[2021-04-14] MEDS: FERROUS SULFATE (325 MG) 325 MG/TAB TABLET PO SCH (09:05)
[2021-04-14] MEDS: ASPIRIN 81 MG TAB.CHEW PO SCH (09:05)
[2021-04-14] MEDS: LISINOPRIL (20MG) 20 MG TABLET PO SCH (09:06)
[2021-04-14] MEDS: NICOTINE PATCH (14MG) 14 MG PATCH.TD24 TD SCH (09:07)
[2021-04-14] MEDS: HEPARIN SODIUM, PORCINE 5000 UNITS/1 ML VIAL SQ SCH ×2 (09:27→20:15)
[2021-04-14] MEDS: FLUTICASONE/VILANTEROL 1 EACH BLST.W.DEV IH SCH (09:28)
--- NOTE | 2021-04-14 09:30 | NUR ---
ms dan breakfast served,due meds given,tolerated well.
--- NOTE | 2021-04-14 14:27 | NUR ---
ms rn on bed, all needs attended.
--- NOTE | 2021-04-14 15:54 | NUR ---
ms dan was seen by victor hugo w/ orders made and carried out.
[2021-04-14 16:00] VITALS: BP 128/61
--- NOTE | 2021-04-14 17:40 | NUR ---
ms rn on bed, no distress noted.
[2021-04-14] MEDS ORDERED: oxyCODONE IR immediate release 5 MG PO PRN ×2 (18:00)
[2021-04-14 20:18] VITALS: BP 131/67
[2021-04-14] MEDS: LamoTRIgine 100 MG TABLET PO SCH (22:38)
[2021-04-14] MEDS: DOXEPIN HCL (25 MG) 25 MG CAPSULE PO SCH (22:38)
[2021-04-15] MEDS: IPRATROPIUM BROMIDE 14 GM INHALER (or 12.9 GM) IH SCH ×4 (01:30→19:30)
[2021-04-15 02:55] VITALS: BP 123/75
[2021-04-15 04:00] VITALS: BP 130/66
[2021-04-15] MEDS: HYDROMORPHONE 1 MG/1 ML DISP.SYRIN IV PRN ×3 (04:08→17:47)
--- NOTE | 2021-04-15 07:02 | NUR ---
PIN PUSHER NOTES AWAKE & RESPONSIVE. NOT IN ANY DISTRESS. NO SOB NOTED. DENIES ANY PAIN OR DISCOMFORT AT THIS TIME. ON TELE SR @ 75 WITH PICC LINE PATENT & INTACT. AM CARE DONE. MONITORED ACCORDINGLY. CALL LIGHT WITHIN REACH. BED IN LOWEST POSITION. SR UP X 3 WITH BED ALARM ON FOR SAFETY. WILL ENDORSE TO NEXT SHIFT.
[2021-04-15 07:53] LABS: CALCIUM, SERUM 7.4 mg/dL (8.5-10.1); MAGNESIUM 1.6 mg/dL (1.8-2.4); POTASSIUM 4.1 mmol/L (3.5-5.1)
[2021-04-15 08:00] VITALS: BP 128/73
--- NOTE | 2021-04-15 08:00 | NUR ---
RN OPENING NOTE PT IN STABLE CONDITION. WILL CONTINUE TO MONITOR.
[2021-04-15] MEDS: PENTOXIFYLLINE 400 MG TABLET.SA PO SCH ×3 (08:25→17:47)
[2021-04-15] MEDS: methylPREDNISolone SOD SUCC 40 MG/ML VIAL IV SCH (08:26)
[2021-04-15] MEDS: AMITRIPTYLINE HCL 25 MG TABLET PO SCH (08:26)
[2021-04-15] MEDS: ASPIRIN 81 MG TAB.CHEW PO SCH (08:26)
[2021-04-15] MEDS: TAMSULOSIN 0.4 MG CAP.SR.24H PO SCH (08:26)
[2021-04-15] MEDS: FERROUS SULFATE (325 MG) 325 MG/TAB TABLET PO SCH (08:26)
[2021-04-15] MEDS: FLUOXETINE HCL 20 MG CAPSULE PO SCH (08:27)
[2021-04-15] MEDS: DIAZEPAM 2 MG TABLET PO SCH ×2 (08:27→17:47)
[2021-04-15] MEDS: FOLIC ACID 1 MG TABLET PO SCH (08:27)
[2021-04-15] MEDS: ACIDOPHILUS/BULGARICUS 1 EACH TAB.CHEW PO SCH (08:27)
[2021-04-15] MEDS: MORPHINE SULFATE INJ 4 MG/ML DISP.SYRIN IV PRN (08:27)
[2021-04-15] MEDS: POLYETHYLENE GLYCOL 3350 17 GM POWD.PACK PO SCH (08:27)
[2021-04-15] MEDS: NICOTINE PATCH (14MG) 14 MG PATCH.TD24 TD SCH (08:27)
[2021-04-15] MEDS: HEPARIN SODIUM, PORCINE 5000 UNITS/1 ML VIAL SQ SCH ×2 (08:32→21:42)
[2021-04-15] MEDS: Magnesium 1GM/D5W 100ML PREMIX 100 ML IV SCH ×2 (08:48→09:51)
[2021-04-15] MEDS: LOPERAMIDE HCL (2 MG CAP) 2 MG CAPSULE PO PRN ×2 (08:48→22:53)
[2021-04-15] MEDS: FLUTICASONE/VILANTEROL 1 EACH BLST.W.DEV IH SCH (08:49)
[2021-04-15] MEDS: LISINOPRIL (20MG) 20 MG TABLET PO SCH (08:49)
[2021-04-15] MEDS: CEFEPIME 1 GM in IV D5W 50 ML IV SCH (09:51)
[2021-04-15 12:00] VITALS: BP 140/82
[2021-04-15 16:00] VITALS: BP 120/62
[2021-04-15] MEDS: CEFEPIME 2 GM in IV D5W 100 ML IV SCH (17:47)
[2021-04-15] MEDS: MORPHINE SULFATE IR 15 MG TABLET PO PRN (18:05)
--- NOTE | 2021-04-15 19:30 | NUR ---
RN opening notes Received Pt from morning nurse. Pt is laying in bed comfortably watching TV. Pt is alert and orientedX4. Respiration is normal in 2 L NC. No SOB. No S/s of distress noted. KAMLESH midline is clean, intact and SL. LAC# 20 is clean, intact and SL. Tele monitor showed SR. Condom cath is intact and draining yellow urine. safety precautions is maintained. Bed at low position, brakes locked, side rails upX3, hob elevated, bed alarm is on and call light is within reach. Will continue to monitor.
--- NOTE | 2021-04-15 19:57 | NUR ---
RN NOTE PT IN STABLE CONDITION. REPORT GIVEN TO NIGHT NURSE FOR ANGELIC.
[2021-04-15 20:00] VITALS: BP 137/73
[2021-04-15] MEDS: LamoTRIgine 100 MG TABLET PO SCH (21:32)
[2021-04-15] MEDS: DOXEPIN HCL (25 MG) 25 MG CAPSULE PO SCH (21:32)
--- NOTE | 2021-04-15 22:58 | NUR ---
RN notes Pt is having soft BM no diarrhea and requesting imodium. Pt stated "I don't want to poop again." Explained risks and benefits. Administered imodium 2mg/po/prn as ordered per Pt' requested. Will continue to monitor.
[2021-04-16] VITALS: BP_SYST 121; BP_SYST 122; BP_DIAS 52; BP_DIAS 59
[2021-04-16] MEDS: HYDROMORPHONE 1 MG/1 ML DISP.SYRIN IV PRN ×5 (01:08→21:05)
--- NOTE | 2021-04-16 01:08 | NUR ---
RN notes Pt is complaining of back and hip pain 10/10 on pain scale and requesting pain meds. Administered dilaudid 1mg/iv push/prn as ordered for pain. VS is stable. Safety precautions is maintained. Will continue to monitor.
[2021-04-16] MEDS: IPRATROPIUM BROMIDE 14 GM INHALER (or 12.9 GM) IH SCH ×3 (01:13→13:39)
[2021-04-16 04:00] VITALS: BP 108/59
[2021-04-16] MEDS: CEFEPIME 2 GM in IV D5W 100 ML IV SCH ×2 (06:17→17:45)
--- NOTE | 2021-04-16 06:30 | NUR ---
RN closing notes Pt is resting in bed comfortably. Pt is alert and orientedX4. Respiration is normal in 2 L NC. No SOB. No S/s of distress noted. KAMLESH midline is clean, intact and SL. LAC# 20 is clean, intact and SL. Tele monitor showed SR. Routine meds were given as ordered. Kept Pt clean, dry and comfortable. Condom cath is intact and draining yellow urine. safety precautions is maintained. Bed at low position, brakes locked, side rails upX3, hob elevated, bed alarm is on and call light is within reach. Will endorse to am nurse for ANGELIC.
[2021-04-16] MEDS: MORPHINE SULFATE IR 15 MG TABLET PO PRN ×2 (06:35→22:22)
--- NOTE | 2021-04-16 07:30 | NUR ---
CLINIC ASSISTANT NOTES PT IN BED, AWAKE, ALERT AND ORIENTED, NO COMPLAINT OF PAIN AT THIS TIME, RESPIRATIONS NORMAL, ON 2L OF O2 VIA N/C, WITH O2 SAT OF 99%, CALL LIGHT WITHIN REACG, NEEDS ATTENDED.
[2021-04-16 08:00] VITALS: BP 105/56
[2021-04-16] MEDS: ASPIRIN 81 MG TAB.CHEW PO SCH (08:28)
[2021-04-16] MEDS: NICOTINE PATCH (14MG) 14 MG PATCH.TD24 TD SCH (08:28)
[2021-04-16] MEDS: FERROUS SULFATE (325 MG) 325 MG/TAB TABLET PO SCH (08:28)
[2021-04-16] MEDS: TAMSULOSIN 0.4 MG CAP.SR.24H PO SCH (08:28)
[2021-04-16] MEDS: ACIDOPHILUS/BULGARICUS 1 EACH TAB.CHEW PO SCH (08:28)
[2021-04-16] MEDS: PENTOXIFYLLINE 400 MG TABLET.SA PO SCH ×3 (08:28→17:45)
[2021-04-16] MEDS: FLUOXETINE HCL 20 MG CAPSULE PO SCH (08:28)
[2021-04-16] MEDS: POLYETHYLENE GLYCOL 3350 17 GM POWD.PACK PO SCH ×2 (08:28→08:50)
[2021-04-16] MEDS: FOLIC ACID 1 MG TABLET PO SCH (08:28)
[2021-04-16] MEDS: predniSONE 20 MG TABLET PO SCH (08:29)
[2021-04-16] MEDS: AMITRIPTYLINE HCL 25 MG TABLET PO SCH (08:29)
[2021-04-16] MEDS: DIAZEPAM 2 MG TABLET PO SCH ×2 (08:30→17:45)
[2021-04-16] MEDS: HEPARIN SODIUM, PORCINE 5000 UNITS/1 ML VIAL SQ SCH ×2 (08:32→21:02)
[2021-04-16] MEDS: FLUTICASONE/VILANTEROL 1 EACH BLST.W.DEV IH SCH (08:48)
[2021-04-16] MEDS: LISINOPRIL (20MG) 20 MG TABLET PO SCH (08:50)
[2021-04-16 12:00] VITALS: BP 119/58
--- NOTE | 2021-04-16 12:16 | NUR ---
RAISIN SEPARATOR OPERATOR NOTES PT IN BED, AWAKE, ALERT AND ORIENTED, NO COMPLAINT AT THIS TIME, SEEN AND EXAMINED BY DR. WOOD, PLAN OF CARE DISCUSSED WITH PT, VERBALIZED UNDERSTANDING, NEW ORDERS GIVEN, NOTED AND CARRIED OUT.
--- NOTE | 2021-04-16 18:48 | NUR ---
RN MS NOTES PT IN BED, RESTING, PAIN MEDS GIVEN ORDERED, PM MEDS ADMINISTERED SCHEDULED, PM CARE RENDERED, ASSISTED WITH DINNER, CONDOM CATH IN PLACE, DRAINING WELL WITH CLEAR, YELLOW URINE, KEPT COMFORTABLE IN BED.
--- NOTE | 2021-04-16 19:27 | NUR ---
PHOSPHORUS PROCESSING SUPERVISOR NOTES PT IN BED, AWAKE, ALERT AND ORIENTED, NO COMPLAINT OF PAIN AT THIS TIME, RESPIRATIONS NORMAL, ON 2L OF O2 VIA N/C, WITH O2 SAT OF 99%, CALL LIGHT WITHIN REACH, NEEDS ATTENDED.
[2021-04-16 20:00] VITALS: BP_SYST 131; BP_SYST 152; BP_DIAS 76; BP_DIAS 95
[2021-04-16] MEDS: LamoTRIgine 100 MG TABLET PO SCH (21:03)
[2021-04-16] MEDS: DOXEPIN HCL (25 MG) 25 MG CAPSULE PO SCH (21:03)
--- NOTE | 2021-04-16 21:05 | NUR ---
FITTER WELDER NOTES PRN DILAUDID GIVEN FOR PACK PAIN TOLERATED WELL WILL CONTINUE TO MONITOR.
--- NOTE | 2021-04-16 22:22 | NUR ---
SILK WASHING MACHINE OPERATOR NOTES PRN MORPHINE GIVEN FOR BACK PAIN TOLERATED WELL. WILL CONTINUE TO MONITOR.
[2021-04-17] MEDS: HYDROMORPHONE 1 MG/1 ML DISP.SYRIN IV PRN ×6 (01:18→21:33)
--- NOTE | 2021-04-17 01:18 | NUR ---
NEWS AGENT NOTES PRN DILAUDID GIVEN FOR BACK PIN TOLERATED WELL. WILL CONTINUE TO MONITOR.
[2021-04-17 04:00] VITALS: BP 121/62
[2021-04-17] MEDS: CEFEPIME 2 GM in IV D5W 100 ML IV SCH ×2 (05:26→17:17)
--- NOTE | 2021-04-17 06:00 | NUR ---
CURLING MACHINE OPERATOR NOTES PRN DILAUDID GIVEN FOR BACK PAIN TOLERATED WELL. WILL CONTINUE TO MONITOR.
--- NOTE | 2021-04-17 07:25 | NUR ---
TAPE COATER OPENING NOTES RECEIVED PATIENT ON BED, AWAKE, VERBALLY RESPONSIVE, NO SIGNS OF ACUTE DISTRESS NOTED. ON O2 @2LPM VIA N/C, NO SOB NOTED, BREATHING EVEN AND UNLABORED. ON TELE MONITOR WITH CURRENT READING OF SR @78. IV ACCESS ON KAMLESH PICC LINE AND LAC #20G, INTACT AND PATENT. SAFETY MEASURES IN PLACE. WILL CONTINUE TO MONITOR.
[2021-04-17 07:55] LABS: CREATININE 1.9 mg/dL (0.6-1.3); POTASSIUM 4.1 mmol/L (3.5-5.1)
[2021-04-17] MEDS: PENTOXIFYLLINE 400 MG TABLET.SA PO SCH ×3 (08:19→17:18)
[2021-04-17] MEDS: predniSONE 20 MG TABLET PO SCH (08:44)
[2021-04-17] MEDS: TAMSULOSIN 0.4 MG CAP.SR.24H PO SCH (08:44)
[2021-04-17] MEDS: DIAZEPAM 2 MG TABLET PO SCH ×2 (08:44→16:52)
[2021-04-17] MEDS: NICOTINE PATCH (14MG) 14 MG PATCH.TD24 TD SCH (08:44)
[2021-04-17] MEDS: ASPIRIN 81 MG TAB.CHEW PO SCH (08:44)
[2021-04-17] MEDS: FLUOXETINE HCL 20 MG CAPSULE PO SCH (08:44)
[2021-04-17] MEDS: FOLIC ACID 1 MG TABLET PO SCH (08:44)
[2021-04-17] MEDS: ACIDOPHILUS/BULGARICUS 1 EACH TAB.CHEW PO SCH (08:44)
[2021-04-17] MEDS: FERROUS SULFATE (325 MG) 325 MG/TAB TABLET PO SCH (08:44)
[2021-04-17] MEDS: AMITRIPTYLINE HCL 25 MG TABLET PO SCH (08:44)
[2021-04-17] MEDS: POLYETHYLENE GLYCOL 3350 17 GM POWD.PACK PO SCH (08:45)
[2021-04-17] MEDS: HEPARIN SODIUM, PORCINE 5000 UNITS/1 ML VIAL SQ SCH (08:48)
[2021-04-17] MEDS: FLUTICASONE/VILANTEROL 1 EACH BLST.W.DEV IH SCH (08:49)
[2021-04-17] MEDS: LOPERAMIDE HCL (2 MG CAP) 2 MG CAPSULE PO PRN (08:49)
[2021-04-17] MEDS: LISINOPRIL (20MG) 20 MG TABLET PO SCH (09:00)
[2021-04-17] MEDS: MORPHINE SULFATE IR 15 MG TABLET PO PRN (15:05)
--- NOTE | 2021-04-17 18:55 | NUR ---
MS RN CLOSING NOTES PATIENT ON BED, AWAKE, VERBALLY RESPONSIVE, NO SIGNS OF ACUTE DISTRESS NOTED. ON O2 @2LPM VIA N/C SATTING @97%, NO SOB NOTED, BREATHING EVEN AND UNLABORED. ALL DUE MEDS GIVEN TOLERATED WELL. MEDICATED FOR PAIN NEEDED. IV ACCESS ON KAMLESH PICC LINE AND LAC #20G, INTACT AND PATENT. SAFETY MEASURES IN PLACE. WILL ENDORSE TO NEXT SHIFT.
[2021-04-17] MEDS: IPRATROPIUM BROMIDE 14 GM INHALER (or 12.9 GM) IH SCH (19:30)
[2021-04-17 20:00] VITALS: BP 120/72
[2021-04-17] MEDS: DOXEPIN HCL (25 MG) 25 MG CAPSULE PO SCH (21:33)
[2021-04-17] MEDS: LamoTRIgine 100 MG TABLET PO SCH (21:33)
--- NOTE | 2021-04-17 21:47 | NUR ---
atrovent inhaler not at bedside or in cubby. Will call pharm in AM -non-emergency.
--- NOTE | 2021-04-17 22:47 | NUR ---
Dr. Mcgrath paged because Hgb 7.3 (on 04/14)and hasn't been repeated in 3 days. New order to check CBC now and if less than 7 hold heparin.
--- NOTE | 2021-04-18 00:20 | NUR ---
lab PRESENT FOR CBC DRAW
[2021-04-18 01:28] LABS: BASOPHILS % (AUTO) 0.1 % (0.0-2.0); EOSINOPHILS % (AUTO) 1.8 % (0.0-6.0); HEMATOCRIT 22 % (39-51); HEMOGLOBIN 7.3 g/dL (13.5-17.5); LYMPHOCYTES # (AUTO) 1.4 K/uL (0.8-4.8); LYMPHOCYTES % (AUTO) 16.2 % (20.0-44.0); MEAN CORPUSCULAR HGB CONC 33 g/dl (31.0-36.0); MEAN CORPUSCULAR VOLUME 88 fL (80-96); MONOCYTES # (AUTO) 0.4 K/uL (0.1-1.30); MONOCYTES % (AUTO) 5.1 % (2.0-12.0); NEUTROPHILS # (AUTO) 6.8 K/uL (1.8-8.9); NEUTROPHILS % (AUTO) 76.8 % (43.0-81.0); PLATELET COUNT (AUTO) 261 K/uL (150-450); RED BLOOD CELL COUNT(AUTO) 2.51 MIL/uL (4.5-6.0); WHITE BLOOD COUNT (AUTO) 8.8 K/uL (4.3-11.0)
[2021-04-18] MEDS: IPRATROPIUM BROMIDE 14 GM INHALER (or 12.9 GM) IH SCH (01:38)
[2021-04-18] MEDS: HEPARIN SODIUM, PORCINE 5000 UNITS/1 ML VIAL SQ SCH ×2 (01:45→08:27)
--- NOTE | 2021-04-18 01:46 | NUR ---
cbc RESULTS JUST CAME BACK. hGB IS HOLDING STEADY AT 7.3 BUT IS NOW TOO LATE TO ADMIN 2100 DOSE FROM LAST NIGHT. NON-ADMIN. CONTINUE IN AM.
--- NOTE | 2021-04-18 01:47 | NUR ---
Atrovent inhaler found -put at bedside. administered.
[2021-04-18] MEDS: HYDROMORPHONE 1 MG/1 ML DISP.SYRIN IV PRN ×3 (03:11→12:49)
--- NOTE | 2021-04-18 04:04 | NUR ---
Urine collected called lab for pickup
[2021-04-18] MEDS: CEFEPIME 2 GM in IV D5W 100 ML IV SCH (05:26)
[2021-04-18] MEDS: MORPHINE SULFATE IR 15 MG TABLET PO PRN (05:34)
--- NOTE | 2021-04-18 06:07 | NUR ---
RN CLOSING NOTES Patient has been stable A&Ox4 overnight. Pain managed with PRN dilaudid and morphine. KAMLESH PICC line flushed and patent -both ports. Tolerating IV ABX well, no ase. Still pending UA results.
[2021-04-18 07:44] LABS: CALCIUM, SERUM 7.4 mg/dL (8.5-10.1); CREATININE 1.5 mg/dL (0.6-1.3); POTASSIUM 4.1 mmol/L (3.5-5.1)
--- NOTE | 2021-04-18 07:55 | NUR ---
MS RN OPENING NOTE RECEIVED PT ASLEEP IN BED, EASY TO AROUSE. ALERT AND ORIENTED X 2, FORGETFUL WITH CONFUSION. PT ON 2L O2 VIA NASAL CANNULA, TOLERATING WELL. BREATHING IS EVEN AND UNLABORED. NO S/SX OF DISTRESS NOTED. NO C/O PAIN. IV ACCESS KAMLESH PICC AND LAC#20 PATENT AND INTACT.CONDOM CATH INTACT AND PATENT. SAFETY MEASURES IN PLACE WITH BED LOCKED AND LOW POSITION;SIDE RAILS UP X2. CALL LIGHT IS WITHIN REACH. WILL MONITOR PATIENT FOR CHANGES IN CONDITION.
[2021-04-18 08:00] VITALS: BP 137/66
[2021-04-18] MEDS: predniSONE 20 MG TABLET PO SCH (08:24)
[2021-04-18] MEDS: TAMSULOSIN 0.4 MG CAP.SR.24H PO SCH (08:24)
[2021-04-18] MEDS: AMITRIPTYLINE HCL 25 MG TABLET PO SCH (08:24)
[2021-04-18] MEDS: ASPIRIN 81 MG TAB.CHEW PO SCH (08:24)
[2021-04-18] MEDS: FOLIC ACID 1 MG TABLET PO SCH (08:24)
[2021-04-18] MEDS: DIAZEPAM 2 MG TABLET PO SCH (08:24)
[2021-04-18] MEDS: FERROUS SULFATE (325 MG) 325 MG/TAB TABLET PO SCH (08:25)
[2021-04-18] MEDS: FLUOXETINE HCL 20 MG CAPSULE PO SCH (08:25)
[2021-04-18] MEDS: NICOTINE PATCH (14MG) 14 MG PATCH.TD24 TD SCH (08:30)
[2021-04-18] MEDS: PENTOXIFYLLINE 400 MG TABLET.SA PO SCH ×2 (08:30→12:49)
[2021-04-18] MEDS: POLYETHYLENE GLYCOL 3350 17 GM POWD.PACK PO SCH (08:30)
[2021-04-18] MEDS: ACIDOPHILUS/BULGARICUS 1 EACH TAB.CHEW PO SCH (08:30)
[2021-04-18] MEDS: FLUTICASONE/VILANTEROL 1 EACH BLST.W.DEV IH SCH (08:30)
[2021-04-18 08:42] VITALS: BP 137/66
[2021-04-18] MEDS: LISINOPRIL (20MG) 20 MG TABLET PO SCH (08:42)
--- NOTE | 2021-04-18 14:00 | NUR ---
SOLAR PROJECT MANAGER NOTES PT WAS PICKED UP AT THIS TIME WITH STABLE VITAL SIGNS. NO S/SX OF DISTRESS. BREATHING IS EVEN AND UNLABORED. IV ACCESS KEPT IN PLACE X2. FC KEPT IN PLACE. ALL BELONGINGS ACCOUNTED FOR AND RETURNED. ID BAND REMOVED. REPORT GIVEN TO LAURA CARRASQUILLO AT [facility].
--- NOTE | 2021-04-18 15:16 | NUR ---
RN NOTE SPOKE WITH LAURA BECKMAN AT [facility] AND GAVE REPORT.
[2021-04-18 18:10] LABS: BILIRUBIN,URINE NEGATIVE (NEGATIVE); COLOR,URINE YELLOW (YELLOW); LEUKOCYTE ESTERASE ,URINE NEGATIVE (NEGATIVE); NITRITE, URINE NEGATIVE (NEGATIVE); PH,URINE 5.5 (5.0-8.0); PROTEIN,URINE NEGATIVE (NEGATIVE); UGLUCOSE NEGATIVE (NEGATIVE); UROBILINOGEN,URINE 0.2 EU/dL (0.2)
[2021-04-18 18:16] LABS: BACTERIA,URINE None seen /HPF (None Seen); RBC,URINE 21-50 /HPF (0-2); WBC,URINE 0-2 /HPF (0-3)
[2021-04-18 18:17] LABS: YEAST,URINE Moderate /HPF (None Seen)
== END 2021-04-18 14:30 | DRG 139 ==
LOC: ER 23:34 → TRANSITION 04-12 00:38 → TELE2 04-12 18:49 → MEDSG2 04-17 09:33
PROVIDERS: ADMIT Nurse Practitioner Acute Care; ATTEND Nurse Practitioner Acute Care
PROC: 02HV33Z Insertion of Infusion Device into Superior Vena Cava, Percutaneous Approach (ICD-10-PCS; principal; 2021-04-13)
PROC: B548ZZA Ultrasonography of Superior Vena Cava, Guidance (ICD-10-PCS; 2021-04-13)
DX: J15.9 Unspecified bacterial pneumonia (principal); N17.0 Acute kidney failure with tubular necrosis; D63.8 Anemia in other chronic diseases classified elsewhere; E83.51 Hypocalcemia; E88.09 Other disorders of plasma-protein metabolism, not elsewhere classified; I69.354 Hemiplegia and hemiparesis following cerebral infarction affecting left non-dominant side; I50.32 Chronic diastolic (congestive) heart failure; R07.9 Chest pain, unspecified; I48.91 Unspecified atrial fibrillation; E66.9 Obesity, unspecified; E83.42 Hypomagnesemia; E87.6 Hypokalemia; I11.0 Hypertensive heart disease with heart failure; J44.1 Chronic obstructive pulmonary disease with (acute) exacerbation; Z87.440 Personal history of urinary (tract) infections; Z87.891 Personal history of nicotine dependence; Z79.82 Long term (current) use of aspirin; J44.0 Chronic obstructive pulmonary disease with (acute) lower respiratory infection; F32.A Depression, unspecified; Z20.822 Contact with and (suspected) exposure to COVID-19; I25.10 Atherosclerotic heart disease of native coronary artery without angina pectoris; Z68.23 Body mass index [BMI] 23.0-23.9, adult; Z71.3 Dietary counseling and surveillance; J90 Pleural effusion, not elsewhere classified; G47.30 Sleep apnea, unspecified; Z99.3 Dependence on wheelchair; G89.4 Chronic pain syndrome; N40.0 Benign prostatic hyperplasia without lower urinary tract symptoms; Z99.81 Dependence on supplemental oxygen; E11.9 Type 2 diabetes mellitus without complications
CPT/HCPCS: 36415; 71045-TC; 71250-TC; 80048-TC; 80061-TC; 81001; 82040-TC; 82570-TC; 83735-TC; 83970; 84100-TC; 84300-TC; 84484-TC; 85025-TC; 86140-TC; 87081-TC; 87086-TC; A4349; G0378; J0610; J0692; J1170; J1644; J2270; J2405; J2920; J2930; J3475; J7030; J7050; J7060; Q0177; Q2036; U0003

== ENCOUNTER 2021-04-29 12:41 | Inpatient (IN) | payer OTHER ==
[~2021-04-29] VITALS: Ht 177.8 cm; Wt 92.5 kg
[~2021-04-29 12:41] MED LIST changes: -ATOR40TA PO; -CAPS42.55 TP; -PRED20TA PO
--- NOTE | 2021-04-29 12:41 | NUR ---
PT BIB SELF C/O SOB. PT WAS ADMITTED AT [facility] FOR [facility] 3 DAYS AGO. PT IS AAOX4, NOT IN RESPIRATORY DISTRESS, HOOKED TO [place], KEPT RESTED AND COMFORTABLE. WILL CONTINUE TO MONITOR.
--- NOTE | 2021-04-29 13:14 | NUR ---
CALLED TO TRIAGE, NO ANSWER
--- NOTE | 2021-04-29 13:26 | NUR ---
AT BEDSIDE FOR EVAL.
--- NOTE | 2021-04-29 13:52 | NUR ---
UNABLE TO ESTABLISHED IV LINE. CALLED HOUSE SUP FOR MIDLINE.
[2021-04-29] MEDS ORDERED: FUROSEMIDE 40 MG/4 ML VIAL IV ONE (14:30)
--- NOTE | 2021-04-29 14:44 | NUR ---
MID LINE RN AT BEDSIDE.
[2021-04-29] MEDS ORDERED: FUROSEMIDE 40 MG/4 ML VIAL ONE (15:13)
[2021-04-29 15:45] LABS: BASOPHILS # (AUTO) 0.1 K/uL (0.0-0.2); BASOPHILS % (AUTO) 0.8 % (0.0-2.0); EOSINOPHILS % (AUTO) 5.7 % (0.0-6.0); HEMATOCRIT 23 % (39-51); HEMOGLOBIN 7.4 g/dL (13.5-17.5); LYMPHOCYTES % (AUTO) 19.1 % (20.0-44.0); MEAN CORPUSCULAR HGB CONC 33 g/dl (31.0-36.0); MEAN CORPUSCULAR VOLUME 89 fL (80-96); MONOCYTES # (AUTO) 0.9 K/uL (0.1-1.30); MONOCYTES % (AUTO) 8.3 % (2.0-12.0); NEUTROPHILS % (AUTO) 66.1 % (43.0-81.0); PLATELET COUNT (AUTO) 240 K/uL (150-450); RED BLOOD CELL COUNT(AUTO) 2.54 MIL/uL (4.5-6.0); WHITE BLOOD COUNT (AUTO) 10.7 K/uL (4.3-11.0)
[2021-04-29] MEDS ORDERED: HYDR4TAB4 PO (15:48)
[2021-04-29] MEDS ORDERED: MORP15TA PO (15:48)
[2021-04-29] MEDS ORDERED: MORPHINE SULFATE INJ 4 MG/ML DISP.SYRIN ONE (15:50)
[2021-04-29] MEDS ORDERED: MORPHINE SULFATE INJ 2 MG/ML DISP.SYRIN IV ONE (16:00)
[2021-04-29] MEDS ORDERED: MAGNESIUM HYDROXIDE 30 ML UDC PO PRN (17:00)
[2021-04-29] MEDS ORDERED: LACTULOSE 10 G/15 ML UDC (PYXIS) PO PRN (17:00)
[2021-04-29] MEDS ORDERED: LORATADINE 10 MG TABLET PO PRN (17:00)
[2021-04-29] MEDS ORDERED: Z GUARD REMEDY 4 OZ OINT TP PRN (17:00)
[2021-04-29] MEDS ORDERED: ACETAMINOPHEN 325 MG TABLET PO PRN (17:00)
[2021-04-29] MEDS ORDERED: MAG HYDROX/AL HYDROX/SIMETH 30 ML UDC PO PRN (17:00)
[2021-04-29] MEDS ORDERED: LOPERAMIDE HCL (2 MG CAP) 2 MG CAPSULE PO PRN (17:00)
[2021-04-29 17:07] LABS: CALCIUM, SERUM 8.9 mg/dL (8.5-10.1); CARBON DIOXIDE 24 mmol/L (21-32); CHLORIDE 102 mmol/L (98-107); CREATININE 2.8 mg/dL (0.6-1.3); GLUCOSE 100 mg/dL (74-106); SODIUM SERUM 134 mmol/L (136-145); UREA NITROGEN, BLOOD 49 mg/dL (7-18)
[2021-04-29 17:20] LABS: ALANINE AMINOTRANSFERASE 30 U/L (12-78); ALBUMIN 2.7 g/dL (3.4-5.0); ALKALINE PHOSPHATASE 71 U/L (46-116); ASPARTATE AMINOTRANSFERASE 16 U/L (15-37); BILIRUBIN,DIRECT 0.1 mg/dL (0.0-0.2); BILIRUBIN,TOTAL 0.2 mg/dL (0.2-1.0); TOTAL PROTEIN, SERUM 7.2 g/dL (6.4-8.2)
[2021-04-29] MEDS ORDERED: hydrOXYzine PAMOATE 25 MG CAPSULE PO PRN (17:30)
[2021-04-29] MEDS ORDERED: DIAZEPAM 5 MG TABLET ONE (17:34)
[2021-04-29] MEDS ORDERED: PANTOPRAZOLE 40 MG TABLET.DR PO ONE (17:34)
[2021-04-29] MEDS ORDERED: TRAZODONE 50 MG TABLET ONE (17:35)
[2021-04-29] MEDS ORDERED: LEVE500T9 PO (17:37)
[2021-04-29] MEDS ORDERED: CARV3.12 PO (17:37)
[2021-04-29] MEDS ORDERED: ATOR40TA PO (17:37)
[2021-04-29] MEDS ORDERED: FURO-144 PO (17:37)
[2021-04-29] MEDS ORDERED: OXYC15TA2 PO (17:37)
[2021-04-29] MEDS ORDERED: PRED20TA PO (17:37)
[2021-04-29] MEDS ORDERED: METO25TA6 PO (17:37)
[2021-04-29] MEDS: PANTOPRAZOLE 40 MG TABLET.DR PO SCH (17:50)
[2021-04-29] MEDS: TRAZODONE 50 MG TABLET PO SCH (17:50)
[2021-04-29] MEDS: DIAZEPAM 2 MG TABLET PO SCH (17:50)
[2021-04-29] MEDS: IPRATROPIUM/ALBUTEROL INHALER IH SCH (18:00)
[2021-04-29] MEDS ORDERED: PENTOXIFYLLINE 400 MG TABLET.SA PO SCH (18:00)
[2021-04-29] MEDS ORDERED: methylPREDNISolone SOD SUCC 125 MG/2ML VIAL ONE (18:02)
[2021-04-29] MEDS ORDERED: methylPREDNISolone SOD SUCC 40 MG/ML VIAL ONE (18:02)
[2021-04-29] MEDS: methylPREDNISolone SOD SUCC 40 MG/ML VIAL IV SCH (18:03)
--- NOTE | 2021-04-29 18:35 | NUR ---
COMBIVENT INHALER NOT AVAILABLE.
[2021-04-29] MEDS ORDERED: HYDROMORPHONE HCL 2 MG TABLET ONE (18:37)
[2021-04-29] MEDS ORDERED: LOPERAMIDE HCL (2 MG CAP) 2 MG CAPSULE ONE (18:37)
[2021-04-29] MEDS: HYDROMORPHONE HCL 2 MG TABLET PO PRN (18:38)
[2021-04-29] MEDS ORDERED: FUROSEMIDE 40 MG/4 ML VIAL IV SCH (21:00)
--- NOTE | 2021-04-29 21:16 | NUR ---
TRANSFERRED TO 304 VIA ACLS
[2021-04-29 21:20] VITALS: BP 106/62
--- NOTE | 2021-04-29 21:20 | NUR ---
RN NOTE RECEIVED PATIENT FROM ER VIA GURNEY ACCOMPANIED BY 2 ER STAFF AND TRANSFERRED TO BED VIA 2 PERSON ASSIST. PT IS AO X 4, IN NO SIGN OF ACUTE DISTRESS, RESPIRATIONS EVEN AND UNLABORED, SATURATION AT 99% ON 4L VIA NC. COMPREHENSIVE PHYSICAL ASSESSMENT AND PATIENT CARE DONE. NO SKIN ISSUES NOTED. NOTED KAMLESH MIDLINE, PATENT AND FLUSHING WELL, NO S/S OF INFECTION NOTED. SAFETY MEASURES AND ISOLATION PRECAUTION IN PLACE, CALL LIGHT WITHIN REACH OF PATIENT, BED ON LOWEST POSITION, SIDE RAILS UP X 2. WILL CONTINUE MONITOR AND ASSESS THROUGHOUT THE SHIFT. WILL CARRY OUT MD ORDERS ACCORDINGLY. CEMENT FINISHER HELPER MADE AWARE.
[2021-04-29] MEDS: MORPHINE SULFATE IR 15 MG TABLET PO SCH (21:44)
[2021-04-29] MEDS: LamoTRIgine 100 MG TABLET PO SCH (21:45)
[2021-04-29] MEDS: DOXEPIN HCL (25 MG) 25 MG CAPSULE PO SCH (21:46)
[2021-04-30] VITALS (7 sets, daily range): BP systolic 91–113; BP diastolic 50–72
[2021-04-30] MEDS: methylPREDNISolone SOD SUCC 40 MG/ML VIAL IV SCH ×2 (00:09→05:10)
[2021-04-30] MEDS: HYDROMORPHONE HCL 2 MG TABLET PO PRN ×2 (00:09→03:49)
[2021-04-30] MEDS: IPRATROPIUM/ALBUTEROL INHALER IH SCH ×4 (00:20→20:13)
[2021-04-30 07:23] LABS: BASOPHILS % (AUTO) 0.2 % (0.0-2.0); EOSINOPHILS % (AUTO) 0.2 % (0.0-6.0); HEMATOCRIT 21 % (39-51); HEMOGLOBIN 7.1 g/dL (13.5-17.5); LYMPHOCYTES # (AUTO) 0.9 K/uL (0.8-4.8); LYMPHOCYTES % (AUTO) 11.1 % (20.0-44.0); MEAN CORPUSCULAR HGB CONC 33 g/dl (31.0-36.0); MEAN CORPUSCULAR VOLUME 88 fL (80-96); MONOCYTES # (AUTO) 0.1 K/uL (0.1-1.30); MONOCYTES % (AUTO) 1.5 % (2.0-12.0); NEUTROPHILS # (AUTO) 7.3 K/uL (1.8-8.9); PLATELET COUNT (AUTO) 228 K/uL (150-450); RED BLOOD CELL COUNT(AUTO) 2.43 MIL/uL (4.5-6.0); WHITE BLOOD COUNT (AUTO) 8.4 K/uL (4.3-11.0)
--- NOTE | 2021-04-30 07:30 | NUR ---
AUTOMATIC FURNACE OPERATOR OPENING NOTES RECEIVED PATIENT ON BED AWAKE AND A/O X4. ON TELE MONITOR CURRENTLY READING SINUS RHYTHM AT 78BPM. ON O2 AT 4LPM TOLERATING WELL. NO SOB NOTED. NOT IN DISTRESS. WITH IV ACCESS AT RIGHT UPPER ARM MIDLINE G18 SALINE LOCKED, PATENT AND INTACT. SAFETY MEASURES IN PLACED. CALL LIGHT WITHIN REACH. BED ON LOWEST LOCKED POSITION, SIDE RAILS UP X2. WILL CONTINUE TO MONITOR.
[2021-04-30 07:36] LABS: CALCIUM, SERUM 8.3 mg/dL (8.5-10.1); CREATININE 2.9 mg/dL (0.6-1.3)
[2021-04-30 08:04] LABS: MAGNESIUM 1.2 mg/dL (1.8-2.4); POTASSIUM 6.4 mmol/L (3.5-5.1)
[2021-04-30] MEDS ORDERED: SODIUM POLYSTYRENE SULFONATE 15 G/60 ML BOTTLE PO ONE (08:30)
[2021-04-30] MEDS ORDERED: FERROUS SULFATE (325 MG) 325 MG/TAB TABLET PO SCH (09:00)
[2021-04-30] MEDS ORDERED: Medication Not On Formulary EA (Fluticasone/Umeclidin/Vilanter (Trelegy Ellipta 100-62.5 IH SCH (09:00)
[2021-04-30] MEDS: MORPHINE SULFATE IR 15 MG TABLET PO SCH ×2 (09:00→21:54)
[2021-04-30] MEDS ORDERED: LISINOPRIL (20MG) 20 MG TABLET PO SCH (09:00)
[2021-04-30] MEDS: POLYETHYLENE GLYCOL 3350 17 GM POWD.PACK PO SCH (09:00)
[2021-04-30] MEDS: TAMSULOSIN 0.4 MG CAP.SR.24H PO SCH (09:28)
[2021-04-30] MEDS: PANTOPRAZOLE 40 MG TABLET.DR PO SCH ×2 (09:28→16:34)
[2021-04-30] MEDS: ASPIRIN 81 MG TAB.CHEW PO SCH (09:28)
[2021-04-30] MEDS: DIAZEPAM 2 MG TABLET PO SCH ×2 (09:28→16:34)
[2021-04-30] MEDS: FLUOXETINE HCL 20 MG CAPSULE PO SCH (09:28)
[2021-04-30] MEDS: FOLIC ACID 1 MG TABLET PO SCH (09:28)
[2021-04-30] MEDS: AMITRIPTYLINE HCL 25 MG TABLET PO SCH (09:29)
[2021-04-30] MEDS: TRAZODONE 50 MG TABLET PO SCH ×2 (09:29→16:34)
[2021-04-30] MEDS: LACTOBACILLUS RHAMNOSUS GG 1 EACH CAP.SPRINK PO SCH (09:29)
[2021-04-30] MEDS: FUROSEMIDE 100 MG/10 ML VIAL IV SCH ×3 (09:30→17:30)
[2021-04-30] MEDS: HEPARIN SODIUM, PORCINE 5000 UNITS/1 ML VIAL SQ SCH ×2 (09:30→21:56)
[2021-04-30] MEDS ORDERED: INSULIN REGULAR, HUMAN 100 UNIT/ML 10 ML VIAL IV ONE (10:30)
[2021-04-30] MEDS ORDERED: DEXTROSE 50%-WATER 50 ML DISP.SYRIN IVP ONE (10:30)
[2021-04-30] MEDS ORDERED: Calcium Gluconate 1GM/10ML 4.65 MEQ in IV D5W 50 ML IV ONE (11:00)
[2021-04-30] MEDS: HYDROMORPHONE INJ 2 MG/ML DISP.SYRIN IV PRN ×3 (14:19→19:56)
--- NOTE | 2021-04-30 14:25 | NUR ---
RN NOTES GIVEN PATIENT DILAUDID 4MG IV AT 0929 FOR GENERALIZED PAIN AT THE SCALE OF 8/10 BUT FORGOT TO SCAN THE MEDICATION.
--- NOTE | 2021-04-30 19:30 | NUR ---
ASSISTANT ACTIVITIES DIRECTOR CLOSING NOTES PATIENT ON BED AWAKE AND A/O X4. ON TELE MONITOR CURRENTLY READING SINUS RHYTHM AT 81BPM. ON O2 AT 4LPM TOLERATING WELL. NO SOB NOTED. NOT IN DISTRESS. WITH IV ACCESS AT RIGHT UPPER ARM MIDLINE G18 SALINE LOCKED, PATENT AND INTACT. DUE MEDS GIVEN. SAFETY MEASURES IN PLACED. CALL LIGHT WITHIN REACH. BED ON LOWEST LOCKED POSITION, SIDE RAILS UP X2. WILL ENDORSE TO NEXT SHIFT FOR ANGELIC.
--- NOTE | 2021-04-30 20:30 | NUR ---
RN NOTE RECEIVED PATIENT ALERT ORIENTED X4 VERBALLY RESPONSIVE ON 4L OXYGEN VIA NASAL CANNULA, O2:99% IV SITE IS RIGHT UPPER ARM INTACT PATENT,CONDOM CATHETER IN PLACE URINE DRAINING YELLOW AND CLEAR BY GRAVITY,SAFETY MEASURE IMPLEMENT,BED IN LOW POSITION AND LOCKED,CALL LIGHT WITHIN REACH CONTINUE TO MONITOR
[2021-04-30] MEDS: DOXEPIN HCL (25 MG) 25 MG CAPSULE PO SCH (22:09)
[2021-04-30] MEDS: LamoTRIgine 100 MG TABLET PO SCH (22:09)
--- NOTE | 2021-04-30 22:45 | NUR ---
RN NOTE REPORT GIVEN TO KANDY SANCHEZ FOR CONTINUATION OF CARE
--- NOTE | 2021-04-30 22:50 | NUR ---
DESIGN ARCHITECT NOTES RECEIVED REPORT FROM TAWNY. PATIENT LAYING AWAKE IN BED. A/O X4. PATIENT WITH REGULAR AND UNLABORED BREATHING, ON 4 LPM VIA NASAL CANULA TOLERATED WELL. NO SIGNS AND SYMPTOMS OF DISCOMFORT AT THIS TIME. NO COMPLAINS OF PAIN OR DISCOMFORT AT THIS TIME. IV ACCESS KAMLESH MIDLINE SL. IV ACCESS PATENT AND INTACT. SAFETY PRECAUTIONS ENFORCED WITH BED LOCKED AND AT LOWEST POSITION. SIDERAILS UP X2. CALL LIGHT WITHIN REACH AT ALL TIMES. WILL CONTINUE TO MONITOR PATIENT.
[2021-05-01] VITALS (11 sets, daily range): BP systolic 87–105; BP diastolic 49–59
[2021-05-01] MEDS: HYDROMORPHONE INJ 2 MG/ML DISP.SYRIN IV PRN ×6 (00:10→20:35)
[2021-05-01] MEDS: IPRATROPIUM/ALBUTEROL INHALER IH SCH ×4 (00:39→17:17)
[2021-05-01 07:05] LABS: BASOPHILS # (AUTO) 0.1 K/uL (0.0-0.2); BASOPHILS % (AUTO) 0.9 % (0.0-2.0); EOSINOPHILS % (AUTO) 2.6 % (0.0-6.0); LYMPHOCYTES # (AUTO) 2.8 K/uL (0.8-4.8); LYMPHOCYTES % (AUTO) 23.6 % (20.0-44.0); MEAN CORPUSCULAR HGB CONC 33 g/dl (31.0-36.0); MEAN CORPUSCULAR VOLUME 88 fL (80-96); MONOCYTES # (AUTO) 0.7 K/uL (0.1-1.30); MONOCYTES % (AUTO) 6.2 % (2.0-12.0); NEUTROPHILS # (AUTO) 7.8 K/uL (1.8-8.9); NEUTROPHILS % (AUTO) 66.7 % (43.0-81.0); PLATELET COUNT (AUTO) 203 K/uL (150-450); RED BLOOD CELL COUNT(AUTO) 2.18 MIL/uL (4.5-6.0); WHITE BLOOD COUNT (AUTO) 11.8 K/uL (4.3-11.0)
--- NOTE | 2021-05-01 07:10 | NUR ---
MARRIAGE AND FAMILY THERAPIST OPENING NOTES RECEIVED PT IN BED, AWAKE, AO X4, VERBALLY RESPONSIVE, NO SIGNS OF ACUTE DISTRESS NOTED. ON O2 @4LPM VIA N/C. NO SOB NOTED. WITH IV ACCESS ON KAMLESH MIDLINE, SL. CONDOM CATH INTACT, DRAINING CLEAR YELLOW URINE. ON SENIOR CATEGORY MANAGER WITH CURRENT READING OF NSR @68. SAFETY MEASURES IN PLACE. WILL CONTINUE TO MONITOR.
[2021-05-01 07:14] LABS: HEMATOCRIT 19 % (39-51); HEMOGLOBIN 6.4 g/dL (13.5-17.5)
[2021-05-01 07:15] LABS: ALBUMIN 2.5 g/dL (3.4-5.0); BILIRUBIN,TOTAL 0.1 mg/dL (0.2-1.0); CALCIUM, SERUM 7.8 mg/dL (8.5-10.1); CREATININE 2.6 mg/dL (0.6-1.3); PHOSPHORUS 5.4 mg/dL (2.5-4.9); POTASSIUM 5.8 mmol/L (3.5-5.1); TOTAL PROTEIN, SERUM 6.5 g/dL (6.4-8.2)
--- NOTE | 2021-05-01 07:35 | NUR ---
HAND BUTTON SPLITTER CLOSING NOTES PATIENT STILL LAYING AWAKE IN BED. A/O X4. PATIENT WITH REGULAR AND UNLABORED BREATHING, ON 4 LPM VIA NASAL CANULA TOLERATED WELL. NO SIGNS AND SYMPTOMS OF DISCOMFORT AT THIS TIME. NO COMPLAINS OF PAIN OR DISCOMFORT AT THIS TIME. PATIENT ON TELE MONITOR READING SR @ 82 BPM. IV ACCESS KAMLESH MIDLINE SL. IV ACCESS PATENT AND INTACT. SAFETY PRECAUTIONS ENFORCED WITH BED LOCKED AND AT LOWEST POSITION. SIDERAILS UP X2. CALL LIGHT WITHIN REACH AT ALL TIMES. WILL ENDORSE CONTINUITY OF CARE TO DAY SHIFT NURSE.
[2021-05-01 07:43] LABS: MAGNESIUM 1.1 mg/dL (1.8-2.4)
--- NOTE | 2021-05-01 08:15 | NUR ---
RN NOTES MD MADE AWRE REGARDING PATIENTS HGB (6.4) WITH NEW ORDERS RECEIVED, CARRIED OUT.
[2021-05-01] MEDS: PANTOPRAZOLE 40 MG TABLET.DR PO SCH ×2 (08:36→16:13)
[2021-05-01] MEDS: TRAZODONE 50 MG TABLET PO SCH ×2 (08:36→16:13)
[2021-05-01] MEDS: FLUOXETINE HCL 20 MG CAPSULE PO SCH (08:36)
[2021-05-01] MEDS: TAMSULOSIN 0.4 MG CAP.SR.24H PO SCH (08:36)
[2021-05-01] MEDS: AMITRIPTYLINE HCL 25 MG TABLET PO SCH (08:36)
[2021-05-01] MEDS: DIAZEPAM 2 MG TABLET PO SCH ×2 (08:37→16:13)
[2021-05-01] MEDS: LACTOBACILLUS RHAMNOSUS GG 1 EACH CAP.SPRINK PO SCH (08:37)
[2021-05-01] MEDS: FOLIC ACID 1 MG TABLET PO SCH (08:37)
[2021-05-01] MEDS: MORPHINE SULFATE IR 15 MG TABLET PO SCH ×2 (08:37→20:28)
[2021-05-01] MEDS: ASPIRIN 81 MG TAB.CHEW PO SCH (08:37)
[2021-05-01 08:38] LABS: EOSINOPHILS % (MANUAL) 4 % (0-4); LYMPHOCYTES % (MANUAL) 21 % (16-48); MONOCYTES % (MANUAL) 7 % (0-11.0); NEUTROPHILS % (MANUAL) 68 (42-76)
[2021-05-01] MEDS: POLYETHYLENE GLYCOL 3350 17 GM POWD.PACK PO SCH (08:41)
[2021-05-01] MEDS: HEPARIN SODIUM, PORCINE 5000 UNITS/1 ML VIAL SQ SCH ×2 (08:41→20:32)
--- NOTE | 2021-05-01 08:41 | NUR ---
RN NOTES HEPARIN DOSE HELD R/T LOW HGB (6.4).
[2021-05-01] MEDS ORDERED: SODIUM POLYSTYRENE SULFONATE 15 G/60 ML BOTTLE PO ONE (11:00)
--- NOTE | 2021-05-01 11:40 | NUR ---
RN NOTES BLOOD TRANSFUSION OF 1 UNIT PRBC STARTED, WILL MONITOR FOR A/R. VITAL SIGNS RECORDED.
--- NOTE | 2021-05-01 11:55 | NUR ---
RN NOTES BLOOD TRANSFUSION OF 1 UNIT PRBC ONGOING. NO ADVERSE REACTION NOTED. VITAL SIGNS TAKEN AND RECORDED. WILL CONTINUE TO MONITOR.
[2021-05-01 14:50] LABS: THYROID STIMULATING HORMONE 1.703 uIU/mL (0.358-3.74)
--- NOTE | 2021-05-01 18:54 | NUR ---
CHOIR ACCOMPANIST CLOSING NOTES PATIENT IN BED, AWAKE, A/O X4, VERBALLY RESPONSIVE, NO SIGNS OF ACUTE DISTRESS NOTED. REMAINS ON O2 @4LPM VIA N/C. NO SOB NOTED. WITH IV ACCESS ON KAMLESH MIDLINE #18G, INTACT AND PATENT, SL. CONDOM CATH INTACT, DRAINING CLEAR YELLOW URINE. ON STUNT WOMAN WITH CURRENT READING OF NSR @77. S/P BLOOD TRANSFUSION OF 1UNIT PRBC, NO ADVERSE REACTION NOTED. ALL DUE MEDS GIVEN, MEDICATED FOR PAIN NEEDED. SAFETY MEASURES MAINTAINED, BED LOCKED AND IN LOWEST POSITION, SR UP, CALL LIGHT PLACED WITHIN EASY REACH. WILL ENDORSE TO NEXT SHIFT.
--- NOTE | 2021-05-01 19:30 | NUR ---
UNDRAPED ARTIST MODEL OPENING NOTES RECEIVED REPORT AT PATIENT'S BEDSIDE. PATIENT IS COMMUNICATIVE. ALERT AND ORIENTED X4. SPO2 STABLE ON O2 @4LPM VIA N/C. NO SOB NOTED. IV TO KAMLESH MIDLINE #18G SL, DRESSING C/D/I. FLUSHED AND PATENT. NO S/SX OF ERYTHEMA/INFILTRATION TO OR SURROUNDING INSERTION SITE. CONDOM CATH INTACT, DRAINING CLEAR YELLOW URINE. TELEMETRY READING SR 77. S/P BLOOD TRANSFUSION OF 1UNIT PRBC, NO ADVERSE REACTION NOTED. BED IN LOW/LOCKED POSITION, SIDE RAILS UP X2. HOB ELEVATED TO SEMI-FOWLERS POSITION. PATIENT DEMONSTRATES ABILITY TO USE CALL LIGHT AND VERBALIZE NEEDS EFFECTIVELY. CALL LIGHT AND FREQUENTLY USED ITEMS WITHIN REACH.
--- NOTE | 2021-05-01 20:32 | NUR ---
PHLEBOTOMY LAB ASSISTANT NOTE: HEPARIN HELD D/T HGB 6.4, HCT 19
[2021-05-01] MEDS: DOXEPIN HCL (25 MG) 25 MG CAPSULE PO SCH (21:15)
[2021-05-01] MEDS: LamoTRIgine 100 MG TABLET PO SCH (21:15)
--- NOTE | 2021-05-02 00:17 | NUR ---
FIELD ACCOUNT DIRECTOR NOTE: ADJUSTED/REPOSITIONED PATIENT IN BED, SUPINE. PATIENT SLEEPING, SNORING. RR EVEN AND UNLABORED. EASILY AROUSED BY VOICE COMMAND, IS A&O X4; STATES, "I FEEL FINE." REASSESSED BP 113/55, HR 88. PATIENT IN NAD.
[2021-05-02 00:23] VITALS: BP 113/55
[2021-05-02 04:00] VITALS: BP 111/51
[2021-05-02 06:03] LABS: BASOPHILS % (AUTO) 0.2 % (0.0-2.0); HEMATOCRIT 25 % (39-51); HEMOGLOBIN 8.4 g/dL (13.5-17.5); LYMPHOCYTES # (AUTO) 0.7 K/uL (0.8-4.8); LYMPHOCYTES % (AUTO) 5.8 % (20.0-44.0); MEAN CORPUSCULAR HGB CONC 34 g/dl (31.0-36.0); MEAN CORPUSCULAR VOLUME 88 fL (80-96); MONOCYTES # (AUTO) 0.5 K/uL (0.1-1.30); MONOCYTES % (AUTO) 4.6 % (2.0-12.0); NEUTROPHILS # (AUTO) 10.4 K/uL (1.8-8.9); NEUTROPHILS % (AUTO) 87.4 % (43.0-81.0); PLATELET COUNT (AUTO) 169 K/uL (150-450); RED BLOOD CELL COUNT(AUTO) 2.82 MIL/uL (4.5-6.0); WHITE BLOOD COUNT (AUTO) 11.9 K/uL (4.3-11.0)
--- NOTE | 2021-05-02 06:15 | NUR ---
WARDROBE STYLIST NOTE: STOOL SAMPLE COLLECTED FOR OCCULT BLOOD SCREEN, PICKED UP BY LAB. STOOL LOOSE AND LIGHT BROWN. NO OVERT SIGNS OF BLOOD.
--- NOTE | 2021-05-02 07:04 | NUR ---
RISK ASSESSMENT ANALYST CLOSING NOTES: PATIENT AWAKE AND COMMUNICATIVE. ALERT AND ORIENTED X4. NAD AND VSS. SLEPT WELL THROUGHOUT MAJORITY OF THE NIGHT. SPO2 STABLE ON O2 @4LPM VIA N/C. NO SOB NOTED. IV TO KAMLESH MIDLINE #18G SL, DRESSING C/D/I. NO S/SX OF ERYTHEMA/INFILTRATION TO OR SURROUNDING INSERTION SITE. CONDOM CATH INTACT, DRAINING CLEAR YELLOW URINE. TELEMETRY READING SR 80'S. S/P BLOOD TRANSFUSION OF 1UNIT PRBC, NO ADVERSE REACTION NOTED. BED IN LOW/LOCKED POSITION, SIDE RAILS UP X2. HOB ELEVATED TO SEMI-FOWLERS POSITION. PATIENT DEMONSTRATES ABILITY TO USE CALL LIGHT AND VERBALIZE NEEDS EFFECTIVELY. CALL LIGHT AND FREQUENTLY USED ITEMS WITHIN REACH.
[2021-05-02] MEDS: BUDESONIDE RESPULE INH 0.5 MG/2 ML AMPUL.NEB NEB SCH ×2 (07:05→15:00)
--- NOTE | 2021-05-02 07:25 | NUR ---
CRM SPECIALIST OPENING NOTES RECEIVED PT IN BED, AWAKE, A/O X4, VERBALLY RESPONSIVE, NO SIGNS OF ACUTE DISTRESS NOTED. REMAINS ON O2 @4LPM VIA N/C. NO SOB NOTED. NO C/O PAIN OR DISCOMFORT AT THIS TIME. WITH IV ACCESS ON KAMLESH MIDLINE, INTACT AND PATENT, SL. CONDOM CATH INTACT, DRAINING CLEAR YELLOW URINE. ON ADJUNCT FACULTY WITH CURRENT READING OF NSR @99. SAFETY MEASURES IN PLACE. BED LOCKED AND IN LOWEST POSITION, SR UP, CALL LIGHT PLACED WITHIN EASY REACH. WILL CONTINUE TO MONITOR.
[2021-05-02 08:00] VITALS: BP 104/54
[2021-05-02 08:04] LABS: CALCIUM, SERUM 7.9 mg/dL (8.5-10.1); CREATININE 2.3 mg/dL (0.6-1.3); PHOSPHORUS 5.1 mg/dL (2.5-4.9); POTASSIUM 5.3 mmol/L (3.5-5.1)
[2021-05-02 08:15] LABS: IRON, SERUM 59 ug/dl (50-175); TOTAL IRON BINDING CAPACITY 207 ug/dl (250-450)
[2021-05-02] MEDS: HEPARIN SODIUM, PORCINE 5000 UNITS/1 ML VIAL SQ SCH ×2 (08:39→21:51)
[2021-05-02] MEDS: AMITRIPTYLINE HCL 25 MG TABLET PO SCH (08:47)
[2021-05-02] MEDS: TRAZODONE 50 MG TABLET PO SCH ×2 (08:47→16:47)
[2021-05-02] MEDS: MORPHINE SULFATE IR 15 MG TABLET PO SCH ×2 (08:47→21:00)
[2021-05-02] MEDS: ASPIRIN 81 MG TAB.CHEW PO SCH (08:47)
[2021-05-02] MEDS: FLUOXETINE HCL 20 MG CAPSULE PO SCH (08:47)
[2021-05-02] MEDS: LACTOBACILLUS RHAMNOSUS GG 1 EACH CAP.SPRINK PO SCH (08:47)
[2021-05-02] MEDS: PANTOPRAZOLE 40 MG TABLET.DR PO SCH ×2 (08:47→16:47)
[2021-05-02] MEDS: DIAZEPAM 2 MG TABLET PO SCH ×2 (08:47→16:47)
[2021-05-02] MEDS: TAMSULOSIN 0.4 MG CAP.SR.24H PO SCH (08:47)
[2021-05-02] MEDS: FOLIC ACID 1 MG TABLET PO SCH (08:47)
[2021-05-02] MEDS: POLYETHYLENE GLYCOL 3350 17 GM POWD.PACK PO SCH (08:48)
[2021-05-02 08:51] LABS: OCCULT BLOOD STOOL NEGATIVE (NEGATIVE)
[2021-05-02] MEDS: HYDROMORPHONE INJ 2 MG/ML DISP.SYRIN IV PRN ×4 (09:07→21:42)
--- NOTE | 2021-05-02 09:21 | NUR ---
WOUND CARE CONSULT: PT PRESENTS WITH REDNESS AND IRRITATION TO LOWER LEGS WITH SOME SCRATCH BLOOM, PRESENT ON ADMISSION. DPM CONSULT CALLED TO DR PUENTES. RECOMMENDATIONS MADE FOR SKIN PROTECTION. DISCUSSED WITH NURSING STAFF. CONDOM CATH IN USE. MD IN AGREEMENT WITH PLAN OF CARE.
[2021-05-02] MEDS ORDERED: BUMETANIDE INJ 16 MG in IV NS 0.9% 16 ML IV ONE (10:00)
[2021-05-02] MEDS ORDERED: Magnesium 1GM/D5W 100ML PREMIX 100 ML IV SCH (10:00)
[2021-05-02] MEDS ORDERED: SODIUM POLYSTYRENE SULFONATE 15 G/60 ML BOTTLE PO ONE (10:00)
[2021-05-02] MEDS: Magnesium 1GM/D5W 100ML PREMIX 100 ML IV SCH ×2 (10:01→11:17)
[2021-05-02 12:00] VITALS: BP 96/50
[2021-05-02] MEDS: IPRATROPIUM/ALBUTEROL INHALER IH SCH ×4 (12:06→17:12)
[2021-05-02] MEDS: PENTOXIFYLLINE 400 MG TABLET.SA PO SCH ×5 (13:37→17:10)
[2021-05-02 16:00] VITALS: BP 90/48
[2021-05-02] MEDS: CLOTRIMAZOLE/BETAMETASONE DIPROPIONATE 15 GM TUBE TP SCH (16:49)
[2021-05-02] MEDS: methylPREDNISolone SOD SUCC 125 MG/2ML VIAL IV SCH ×2 (17:41→21:47)
--- NOTE | 2021-05-02 18:49 | NUR ---
CHEMISTRY QUALITY CONTROL TECHNICIAN CLOSING NOTES PATIENT IN BED, AWAKE, A/O X4, VERBALLY RESPONSIVE, NO SIGNS OF ACUTE DISTRESS NOTED. REMAINS ON O2 @4LPM VIA N/C, SATURATING @97%. NO SOB NOTED. WITH IV ACCESS ON KAMLESH MIDLINE #18G, INTACT AND PATENT, SL. CONDOM CATH INTACT, DRAINING CLEAR YELLOW URINE. ON LAV CREWMAN WITH CURRENT READING OF NSR @88. ALL DUE MEDS GIVEN, MEDICATED FOR PAIN NEEDED. SAFETY MEASURES MAINTAINED, BED LOCKED AND IN LOWEST POSITION, SR UP, CALL LIGHT PLACED WITHIN EASY REACH. WILL ENDORSE TO NEXT SHIFT.
--- NOTE | 2021-05-02 19:45 | NUR ---
CONDUIT MECHANIC OPENING NOTE RECEIVED PATIENT IN BED. A/OX4. NO S/S OF APPARENT DISTRESS ON 4LPM OF O2 VIA NC. TELE MONITOR READING SR. PAIN TOLERABLE AT THIS TIME PER PATIENT. KAMLESH MIDLINE IN SALINE LOCK, NO FLUIDS RUNNING AT THIS TIME. PATIENT NOTED TO HAVE OWN ELECTRIC WHEELCHAIR AT BED SIDE. SAFETY IN PLACE. WILL CONTINUE WITH PATIENT CARE PLAN.
[2021-05-02] MEDS: IPRATROPIUM NEB FS 0.5 MG/2.5 ML AMPUL.NEB NEB SCH (19:50)
[2021-05-02] MEDS: ALBUTEROL FS 2.5 MG/3 ML VIAL.NEB NEB SCH (19:50)
--- NOTE | 2021-05-02 19:57 | NUR ---
Pt recvd awake and verbal on 4 lpm NC 96% SPO2, pt advise he uses bipap at night, Charge nurse klever informed that order is needed.
[2021-05-02 20:00] VITALS: BP 93/44
--- NOTE | 2021-05-02 20:53 | NUR ---
ACCOUNT ASSOCIATE NOTE CALLED [facility] DOCTOR FOR BiPAP ORDER BECAUSE PER PATIENT HE USES BiPAP AT HOME. PER WILL NUNEZ IT IS OKAY. PER CHARGE NURSE GOMEZ JUST PUT IN THE ORDER MISCELLANEOUS OK TO GIVE BIPAP. ORDER CARRIED OUT.
[2021-05-02] MEDS: LamoTRIgine 100 MG TABLET PO SCH (21:52)
[2021-05-02] MEDS: DOXEPIN HCL (25 MG) 25 MG CAPSULE PO SCH (21:53)
--- NOTE | 2021-05-02 22:00 | NUR ---
DIGITAL CAMPAIGN MANAGER NOTE PATIENT REFUSED SCHEDULED 2100 MORPHINE IR TAB, PATIENT RATHER WOULD HAVE THE DILAUDID. PER PATIENT'S REQUEST GIVEN DILAUDID. RETURNED UNOPENED TAB OF MORPHINE IN THE OMNICELL.
--- NOTE | 2021-05-02 23:59 | NUR ---
LUMBER CHAIN OFFBEARER NOTE ORDER PUT IN CPAP. RT IN THE ROOM RIGHT NOW TO PUT PATIENT ON BiPAP.
[2021-05-03] VITALS: BP 107/53
--- NOTE | 2021-05-03 00:15 | NUR ---
RT PT PLACED ON NOC BIPAP PER MILLING OPERATOR MAYRA ORDER. PT ADVISE HIS SETTINGS ARE IPAP 14, EPAP 7, RR 12 FIO2 36%. BIPAP PLUGGED INTO RED OUTLET, ALARMS ARE ON AND AUDIBLE. PT COMFORTABLE ON CURRENT SETTINGS WITH NO RESPIRATORY DISTRESS NOTED. WILL CONTINUE TO MONITOR
--- NOTE | 2021-05-03 00:21 | NUR ---
ENGINEER BYPRODUCT NOTE BiPAP SETTIN/7, RR-12, 36%. PER RT SHE BASED IT ON PATIENT'S CLAIMED SETTING AT HOME. WILL MONITOR.
[2021-05-03] MEDS: ALBUTEROL FS 2.5 MG/3 ML VIAL.NEB NEB SCH ×4 (01:44→20:16)
[2021-05-03] MEDS: IPRATROPIUM NEB FS 0.5 MG/2.5 ML AMPUL.NEB NEB SCH ×4 (01:44→20:16)
--- NOTE | 2021-05-03 02:36 | NUR ---
RT FIO2 INCREASED TO 50% DUE TO DESATURATION. RN INFORMED.
--- NOTE | 2021-05-03 03:37 | NUR ---
OTR OWNER OPERATOR NOTE PATIENT TAKEN OFF BiPAP PER PATIENT REQUEST.
[2021-05-03 04:00] VITALS: BP 98/45
--- NOTE | 2021-05-03 04:22 | NUR ---
SCHOOL BASED THERAPIST NOTE RECHECKED BP: 98/45. O2 TITRATED TO 5LPM VIA NC BECAUSE SATURATING IN THE MD 80'S ON 4LPM. SATURATION 90% ON 5LPM . PATIENT HX OF COPD. PATIENT MOUTH BREATHER. PATIENT STABLE.
[2021-05-03] MEDS: IPRATROPIUM/ALBUTEROL INHALER IH SCH ×4 (05:08→18:40)
[2021-05-03] MEDS: methylPREDNISolone SOD SUCC 125 MG/2ML VIAL IV SCH ×3 (05:09→21:15)
[2021-05-03 06:41] LABS: BASOPHILS % (AUTO) 0.1 % (0.0-2.0); HEMATOCRIT 23 % (39-51); HEMOGLOBIN 7.9 g/dL (13.5-17.5); LYMPHOCYTES # (AUTO) 0.5 K/uL (0.8-4.8); LYMPHOCYTES % (AUTO) 4.5 % (20.0-44.0); MEAN CORPUSCULAR HGB CONC 35 g/dl (31.0-36.0); MEAN CORPUSCULAR VOLUME 88 fL (80-96); MONOCYTES # (AUTO) 0.3 K/uL (0.1-1.30); MONOCYTES % (AUTO) 2.8 % (2.0-12.0); NEUTROPHILS # (AUTO) 9.3 K/uL (1.8-8.9); NEUTROPHILS % (AUTO) 92.6 % (43.0-81.0); PLATELET COUNT (AUTO) 166 K/uL (150-450); RED BLOOD CELL COUNT(AUTO) 2.58 MIL/uL (4.5-6.0); WHITE BLOOD COUNT (AUTO) 10.1 K/uL (4.3-11.0)
[2021-05-03] MEDS: BUDESONIDE RESPULE INH 0.5 MG/2 ML AMPUL.NEB NEB SCH ×2 (07:05→14:36)
[2021-05-03 07:19] LABS: CREATININE 2.4 mg/dL (0.6-1.3); MAGNESIUM 1.4 mg/dL (1.8-2.4); PHOSPHORUS 5.3 mg/dL (2.5-4.9); POTASSIUM 4.5 mmol/L (3.5-5.1)
--- NOTE | 2021-05-03 07:36 | NUR ---
BABBITTER CLOSING NO SIGNIFICANT CHANGE SINCE LAST ENDORSEMENT. REPORT GIVEN TO RUDY FOR CONTINUITY OF CARE.
--- NOTE | 2021-05-03 07:45 | NUR ---
RN OPENING NOTES PATIENT AWAKE IN BED RESTING. A/O X4. NO S/S OF PAIN NOTED AT THIS TIME. ON ROOM AIR, NO DISTRESS OR SHORTNESS OF BREATH NOTED. IV KAMLESH MIDLINE INTACT, PATENT AND FLUSHING WELL. PATIENT HAS AN EXTERNAL ELECTRONIC RESOURCES LIBRARIAN, NO CARDIAC DISTRESS NOTED. FALL AND SAFETY MEASURES IN PLACE, BED ALARM ON, BED IN LOW AND LOCK POSITION, CALL LIGHT AND TABLE WITHIN EASY REACH SIDE RAILS UP X2. WILL CONTINUE TO MONITOR.
[2021-05-03 08:00] VITALS: BP 107/50
[2021-05-03 08:06] LABS: IMMUNOGLOBULIN A, SERUM 377 mg/dL (90-386); IMMUNOGLOBULIN G, SERUM 889 mg/dL (603-1613); IMMUNOGLOBULIN M, SERUM 29 mg/dL (20-172)
[2021-05-03] MEDS: POLYETHYLENE GLYCOL 3350 17 GM POWD.PACK PO SCH ×2 (09:00→10:12)
[2021-05-03] MEDS ORDERED: PRED50TA PO (09:50)
[2021-05-03 10:07] LABS: *SPE A/G RATIO 0.8 (0.7-1.7); *SPE ALPHA-1-GLOBULIN 0.3 g/dL (0.0-0.4); *SPE M-SPIKE 0.2 g/dL (Not Observed)
[2021-05-03] MEDS: FLUOXETINE HCL 20 MG CAPSULE PO SCH (10:12)
[2021-05-03] MEDS: PANTOPRAZOLE 40 MG TABLET.DR PO SCH ×2 (10:12→18:20)
[2021-05-03] MEDS: ASPIRIN 81 MG TAB.CHEW PO SCH (10:12)
[2021-05-03] MEDS: FOLIC ACID 1 MG TABLET PO SCH (10:13)
[2021-05-03] MEDS: MORPHINE SULFATE IR 15 MG TABLET PO SCH ×2 (10:13→21:00)
[2021-05-03] MEDS: DIAZEPAM 2 MG TABLET PO SCH ×2 (10:13→18:20)
[2021-05-03] MEDS: AMITRIPTYLINE HCL 25 MG TABLET PO SCH (10:13)
[2021-05-03] MEDS: LACTOBACILLUS RHAMNOSUS GG 1 EACH CAP.SPRINK PO SCH (10:13)
[2021-05-03] MEDS: TRAZODONE 50 MG TABLET PO SCH ×2 (10:13→18:20)
[2021-05-03] MEDS: TAMSULOSIN 0.4 MG CAP.SR.24H PO SCH (10:13)
[2021-05-03] MEDS: HEPARIN SODIUM, PORCINE 5000 UNITS/1 ML VIAL SQ SCH ×2 (10:15→21:20)
[2021-05-03] MEDS ORDERED: HYDROMORPHONE HCL 2 MG TABLET PO PRN (10:30)
[2021-05-03] MEDS: PENTOXIFYLLINE 400 MG TABLET.SA PO SCH ×3 (11:04→18:20)
[2021-05-03] MEDS: CLOTRIMAZOLE/BETAMETASONE DIPROPIONATE 15 GM TUBE TP SCH ×2 (11:04→18:20)
[2021-05-03] MEDS: Magnesium 1GM/D5W 100ML PREMIX 100 ML IV SCH ×2 (11:04→18:48)
[2021-05-03] MEDS: ONDANSETRON HCL/PF 4 MG/2 ML VIAL IVP PRN ×2 (11:33→18:24)
[2021-05-03 12:00] VITALS: BP 111/66
[2021-05-03] MEDS: HYDROMORPHONE 1 MG/1 ML DISP.SYRIN IV PRN ×3 (12:31→21:20)
[2021-05-03 16:00] VITALS: BP 121/62
[2021-05-03] MEDS ORDERED: Magnesium 1GM/D5W 100ML PREMIX 100 ML IV SCH (19:00)
--- NOTE | 2021-05-03 19:00 | NUR ---
RN NOTES PATIENT VOMITED TWICE DURING THE MORNING SHIFT. FIRST WAS ABOUT 350 ML EMESIS OUTPUT AND SECOND ONE WAS ABOUT 300 ML EMESIS OUTPUT. I GAVE PATIENT SHAKIRA, DOCTOR BONNY WAS NOTIFIED, NO NEW ORDERS. WILL ENDORSE TO NEXT SHIFT.
--- NOTE | 2021-05-03 19:32 | NUR ---
RN CLOSING NOTES PATIENT AWAKE IN BED RESTING. A/O X4. NO S/S OF PAIN NOTED AT THIS TIME. ON ROOM AIR, NO DISTRESS OR SHORTNESS OF BREATH NOTED. IV LAC #20G INTACT, PATENT AND FLUSHING WELL. PATIENT HAS AN EXTERNAL BUSINESS CASE ANALYST, NO CARDIAC DISTRESS NOTED. FALL AND SAFETY MEASURES IN PLACE, BED ALARM ON, BED IN LOW AND LOCK POSITION, CALL LIGHT AND TABLE WITHIN EASY REACH SIDE RAILS UP X2. WILL ENDORSE TO LANDING MAN.
--- NOTE | 2021-05-03 19:33 | NUR ---
RN OPENING NOTES RECEIVED PT IN BED, ASLEEP, AWAKENS TO VERBAL STIMULI. AOx4, ABLE TO MAKE NEEDS KNOWN. ON 4LPM VIA NC AND TOLERATING WELL. NO SOB NOTED. NO S/SX OF RESPIRATORY DISTRESS NOTED. TELE MONITOR DETECTS SINUS RHYTHM WITH RATE IN 60s. IV ACCESS IN KAMLESH MIDLINE. IV IS INTACT, PATENT, AND FLUSHING WELL. SAFETY PRECAUTIONS IN PLACE: BED IN LOWEST, LOCKED POSITION, SIDERAILS UPx2, AND BRAKES ON. TABLE AND CALL LIGHT WITHIN REACH. WILL CONTINUE TO MONITOR.
[2021-05-03 20:00] VITALS: BP 123/71
[2021-05-03] MEDS ORDERED: ONDANSETRON HCL/PF 4 MG/2 ML VIAL IV ONE (21:00)
[2021-05-03] MEDS: LamoTRIgine 100 MG TABLET PO SCH (21:13)
[2021-05-03] MEDS: DOXEPIN HCL (25 MG) 25 MG CAPSULE PO SCH (21:15)
[2021-05-04] VITALS: BP 103/50
[2021-05-04] MEDS: ALBUTEROL FS 2.5 MG/3 ML VIAL.NEB NEB SCH ×3 (01:10→14:59)
[2021-05-04] MEDS: IPRATROPIUM NEB FS 0.5 MG/2.5 ML AMPUL.NEB NEB SCH ×3 (01:10→14:59)
[2021-05-04] MEDS: ONDANSETRON HCL/PF 4 MG/2 ML VIAL IV PRN ×2 (01:19→09:35)
[2021-05-04] MEDS: HYDROMORPHONE 1 MG/1 ML DISP.SYRIN IV PRN ×3 (01:19→17:24)
[2021-05-04 04:00] VITALS: BP 91/46
[2021-05-04] MEDS: methylPREDNISolone SOD SUCC 125 MG/2ML VIAL IV SCH ×2 (05:03→13:15)
[2021-05-04] MEDS: IPRATROPIUM/ALBUTEROL INHALER IH SCH ×3 (06:01→13:22)
--- NOTE | 2021-05-04 06:44 | NUR ---
RN CLOSING NOTES PT IN BED, ASLEEP, AWAKENS TO VERBAL STIMULI. AOx4, ABLE TO MAKE NEEDS KNOWN. ON 4LPM VIA NC AND TOLERATING WELL. NO SOB NOTED. NO S/SX OF RESPIRATORY DISTRESS NOTED. TELE MONITOR DETECTS SINUS RHYTHM WITH RATE IN 60s. IV ACCESS IN [place] MIDLINE. IV IS INTACT, PATENT, AND FLUSHING WELL. ALL NEEDS MET. PT KEPT CLEAN AND DRY. TREATED PAIN AND N/V TWICE DURING SHIFT WITH ZOFRAN AND DILAUDID. TWO EPISODES OF EMESIS, ABOUT 500 ML. SAFETY PRECAUTIONS IN PLACE: BED IN LOWEST, LOCKED POSITION, SIDERAILS UPx2, AND BRAKES ON. TABLE AND CALL LIGHT WITHIN REACH. WILL ENDORSE TO ONCOMING SHIFT FOR ANGELIC.
[2021-05-04 07:13] LABS: CALCIUM, SERUM 8.3 mg/dL (8.5-10.1); CREATININE 2.3 mg/dL (0.6-1.3); MAGNESIUM 1.4 mg/dL (1.8-2.4); PHOSPHORUS 5.3 mg/dL (2.5-4.9); POTASSIUM 3.7 mmol/L (3.5-5.1)
[2021-05-04 07:18] LABS: HEMATOCRIT 21 % (39-51); HEMOGLOBIN 7.3 g/dL (13.5-17.5); LYMPHOCYTES # (AUTO) 0.8 K/uL (0.8-4.8); LYMPHOCYTES % (AUTO) 7.5 % (20.0-44.0); MEAN CORPUSCULAR HGB CONC 35 g/dl (31.0-36.0); MEAN CORPUSCULAR VOLUME 88 fL (80-96); MONOCYTES # (AUTO) 0.5 K/uL (0.1-1.30); MONOCYTES % (AUTO) 4.5 % (2.0-12.0); NEUTROPHILS # (AUTO) 9.1 K/uL (1.8-8.9); PLATELET COUNT (AUTO) 217 K/uL (150-450); RED BLOOD CELL COUNT(AUTO) 2.42 MIL/uL (4.5-6.0); WHITE BLOOD COUNT (AUTO) 10.3 K/uL (4.3-11.0)
[2021-05-04 08:00] VITALS: BP 103/49
[2021-05-04] MEDS: BUDESONIDE RESPULE INH 0.5 MG/2 ML AMPUL.NEB NEB SCH ×2 (08:04→14:59)
[2021-05-04] MEDS: DIAZEPAM 2 MG TABLET PO SCH ×2 (09:00→17:00)
[2021-05-04] MEDS: HEPARIN SODIUM, PORCINE 5000 UNITS/1 ML VIAL SQ SCH (09:00)
[2021-05-04] MEDS: PANTOPRAZOLE 40 MG TABLET.DR PO SCH ×2 (09:00→17:23)
[2021-05-04] MEDS: Magnesium 1GM/D5W 100ML PREMIX 100 ML IV SCH ×2 (09:00→10:24)
[2021-05-04] MEDS: LACTOBACILLUS RHAMNOSUS GG 1 EACH CAP.SPRINK PO SCH (09:00)
[2021-05-04] MEDS: POLYETHYLENE GLYCOL 3350 17 GM POWD.PACK PO SCH (09:00)
[2021-05-04] MEDS: MORPHINE SULFATE IR 15 MG TABLET PO SCH (09:00)
[2021-05-04] MEDS: FLUOXETINE HCL 20 MG CAPSULE PO SCH (09:00)
[2021-05-04] MEDS: FOLIC ACID 1 MG TABLET PO SCH (09:01)
[2021-05-04] MEDS: ASPIRIN 81 MG TAB.CHEW PO SCH (09:01)
[2021-05-04] MEDS: AMITRIPTYLINE HCL 25 MG TABLET PO SCH (09:01)
[2021-05-04] MEDS: TRAZODONE 50 MG TABLET PO SCH ×2 (09:05→17:23)
[2021-05-04] MEDS: PENTOXIFYLLINE 400 MG TABLET.SA PO SCH ×2 (09:05→13:15)
[2021-05-04] MEDS: TAMSULOSIN 0.4 MG CAP.SR.24H PO SCH (09:05)
[2021-05-04] MEDS: CLOTRIMAZOLE/BETAMETASONE DIPROPIONATE 15 GM TUBE TP SCH ×2 (09:34→17:24)
--- NOTE | 2021-05-04 10:30 | NUR ---
Patient Hgb level 7.3 this morning, informed MD and received order d/c heparin. Noted and carry out.
[2021-05-04 12:00] VITALS: BP 96/52
[2021-05-04 16:00] VITALS: BP 100/46
--- NOTE | 2021-05-04 18:30 | NUR ---
Given discharge instruction include hop picker new medications. patient in stable condition.
== END 2021-05-04 21:42 | disposition home or self-care (01) | DRG 194 ==
LOC: ER 12:49 → TRANSITION 16:42 → TELE 19:37 → MED 05-04 19:11
PROVIDERS: ADMIT Internal Medicine; ATTEND Internal Medicine
PROC: 05H533Z Insertion of Infusion Device into Right Subclavian Vein, Percutaneous Approach (ICD-10-PCS; 2021-04-29)
PROC: B546ZZA Ultrasonography of Right Subclavian Vein, Guidance (ICD-10-PCS; 2021-04-29)
PROC: 30233N1 Transfusion of Nonautologous Red Blood Cells into Peripheral Vein, Percutaneous Approach (ICD-10-PCS; principal; 2021-05-01)
DX: I13.0 Hypertensive heart and chronic kidney disease with heart failure and stage 1 through stage 4 chronic kidney disease, or unspecified chronic kidney disease (principal); J96.21 Acute and chronic respiratory failure with hypoxia; N17.0 Acute kidney failure with tubular necrosis; E46 Unspecified protein-calorie malnutrition; D63.8 Anemia in other chronic diseases classified elsewhere; E83.51 Hypocalcemia; I69.354 Hemiplegia and hemiparesis following cerebral infarction affecting left non-dominant side; I50.33 Acute on chronic diastolic (congestive) heart failure; D72.829 Elevated white blood cell count, unspecified; E11.22 Type 2 diabetes mellitus with diabetic chronic kidney disease; I25.10 Atherosclerotic heart disease of native coronary artery without angina pectoris; N18.9 Chronic kidney disease, unspecified; E66.9 Obesity, unspecified; E83.42 Hypomagnesemia; Z79.82 Long term (current) use of aspirin; Z87.440 Personal history of urinary (tract) infections; Z87.891 Personal history of nicotine dependence; Z99.3 Dependence on wheelchair; G47.30 Sleep apnea, unspecified; G89.4 Chronic pain syndrome; F32.A Depression, unspecified; J44.1 Chronic obstructive pulmonary disease with (acute) exacerbation; E87.5 Hyperkalemia; Z20.822 Contact with and (suspected) exposure to COVID-19; N40.0 Benign prostatic hyperplasia without lower urinary tract symptoms; Z74.09 Other reduced mobility; Z68.29 Body mass index [BMI] 29.0-29.9, adult; Y23.0XXS Shotgun discharge, undetermined intent, sequela; I87.2 Venous insufficiency (chronic) (peripheral); D47.2 Monoclonal gammopathy; R53.1 Weakness; Z79.891 Long term (current) use of opiate analgesic; Z99.81 Dependence on supplemental oxygen
CPT/HCPCS: 36410; 36415; 71045-TC; 80048-TC; 80053-TC; 80076-TC; 82232; 82272-TC; 82668; 82728-TC; 82784; 83540-TC; 83735-TC; 83880; 84100-TC; 84132-TC; 84155; 84165; 84443-TC; 84484-TC; 85025-TC; 85610-TC; 85730-TC; 86334; 86850-TC; 87081-TC; 94799-TC; A4349; C9803; G0378; J0610; J1170; J1644; J1815; J1940; J2270; J2405; J2920; J2930; J3475; J3490; J7050; J7060; P9016; Q0177

== ENCOUNTER 2021-05-23 15:50 | Emergency (ER) | payer OTHER ==
[~2021-05-23] VITALS: Ht 172.7 cm; Wt 93.2 kg
[~2021-05-23 15:50] MED LIST changes: +ATOR40TA PO; +CARV3.12 PO; +FURO-144 PO; +HYDR4TAB4 PO; +LEVE500T9 PO; +METO25TA6 PO; +MORP15TA PO; -ONDA-97 PO; -POLY17PO4 PO; +PRED20TA PO; +PRED50TA PO
--- NOTE | 2021-05-23 16:00 | NUR ---
DR SMITH AT THE BEDSIDE
--- NOTE | 2021-05-23 16:03 | NUR ---
[id number] FOR NON-RADIATING BURNING CP 08/09 STARTED 2 HR IRRADIATED FUEL HANDLER AND LOWER MID ABD PAIN 07/10 X2 DAYS. DENIES N/V. ALSO, C/O SOB. RESPIRATION REGULAR AND UNLABORED. ATTACHED TO THE MONITOR. WARM BLANKET PROVIDED FOR COMFORT. WILL CONTINUE TO MONITOR THE PATIENT.
[2021-05-23 16:18] LABS: BASOPHILS # (AUTO) 0.1 K/uL (0.0-0.2); BASOPHILS % (AUTO) 1.4 % (0.0-2.0); EOSINOPHILS % (AUTO) 3.3 % (0.0-6.0); HEMATOCRIT 25 % (39-51); HEMOGLOBIN 8.5 g/dL (13.5-17.5); LYMPHOCYTES # (AUTO) 2.5 K/uL (0.8-4.8); LYMPHOCYTES % (AUTO) 24.3 % (20.0-44.0); MEAN CORPUSCULAR HGB CONC 34 g/dl (31.0-36.0); MEAN CORPUSCULAR VOLUME 88 fL (80-96); MONOCYTES # (AUTO) 0.8 K/uL (0.1-1.30); MONOCYTES % (AUTO) 7.9 % (2.0-12.0); NEUTROPHILS # (AUTO) 6.5 K/uL (1.8-8.9); NEUTROPHILS % (AUTO) 63.1 % (43.0-81.0); PLATELET COUNT (AUTO) 374 K/uL (150-450); RED BLOOD CELL COUNT(AUTO) 2.83 MIL/uL (4.5-6.0); WHITE BLOOD COUNT (AUTO) 10.3 K/uL (4.3-11.0)
[2021-05-23] MEDS ORDERED: TIOT4MIS5 IH (16:24)
[2021-05-23] MEDS ORDERED: FLUO60SO3 TP (16:24)
[2021-05-23] MEDS ORDERED: LORA-259 SL (16:24)
[2021-05-23] MEDS ORDERED: ACET650S11 RC (16:24)
[2021-05-23] MEDS ORDERED: CLOT15CR27 TP (16:24)
[2021-05-23] MEDS ORDERED: ASPI-1420 PO (16:24)
[2021-05-23] MEDS ORDERED: ONDA4TAB11 SL (16:24)
[2021-05-23] MEDS ORDERED: NALO4SPR (16:24)
[2021-05-23] MEDS ORDERED: PROM118S5 PO (16:24)
[2021-05-23] MEDS ORDERED: BISA10SU11 RC (16:24)
[2021-05-23] MEDS ORDERED: NITR0.4T48 SL (16:24)
[2021-05-23] MEDS ORDERED: DICL100G34 TP (16:24)
[2021-05-23] MEDS ORDERED: MORP100S3 PO (16:24)
[2021-05-23] MEDS ORDERED: ATRO2DRO4 SL (16:24)
[2021-05-23] MEDS ORDERED: HYDR-500 PO (16:24)
[2021-05-23] MEDS ORDERED: HYDR-3895 PO (16:24)
[2021-05-23] MEDS ORDERED: CAPS42.55 TP (16:24)
[2021-05-23] MEDS ORDERED: MORPHINE SULFATE INJ 2 MG/ML DISP.SYRIN IV ONE ×2 (16:30→20:00)
[2021-05-23] MEDS ORDERED: MORPHINE SULFATE INJ 4 MG/ML DISP.SYRIN ONE ×2 (16:31→19:58)
[2021-05-23 17:04] LABS: EOSINOPHILS % (MANUAL) 2 % (0-4); LYMPHOCYTES % (MANUAL) 28 % (16-48); MONOCYTES % (MANUAL) 7 % (0-11.0); NEUTROPHILS % (MANUAL) 63 (42-76)
[2021-05-23 18:18] LABS: CALCIUM, SERUM 8.2 mg/dL (8.5-10.1); CARBON DIOXIDE 29 mmol/L (21-32); CHLORIDE 97 mmol/L (98-107); CREATININE 1.6 mg/dL (0.6-1.3); GLUCOSE 108 mg/dL (74-106); POTASSIUM 3.8 mmol/L (3.5-5.1); SODIUM SERUM 133 mmol/L (136-145); UREA NITROGEN, BLOOD 20 mg/dL (7-18)
--- NOTE | 2021-05-23 20:53 | NUR ---
report given to de at [facility] at
--- NOTE | 2021-05-23 20:58 | NUR ---
[facility] ETA BACK TO FACILITY: 75-90 MIN
[2021-05-23 21:43] LABS: ALANINE AMINOTRANSFERASE 19 U/L (12-78); ALBUMIN 2.8 g/dL (3.4-5.0); ALKALINE PHOSPHATASE 79 U/L (46-116); ASPARTATE AMINOTRANSFERASE 16 U/L (15-37); BILIRUBIN,TOTAL 0.2 mg/dL (0.2-1.0); TOTAL PROTEIN, SERUM 6.5 g/dL (6.4-8.2)
--- NOTE | 2021-05-23 23:20 | NUR ---
[facility] HERE FOR TRANSPORT. PATIENT IN STABLE CONDITION WITH DISCHARGE PAPERS GIVEN.
[2021-05-23 23:21] VITALS: BP 136/80
== END 2021-05-23 23:49 ==
LOC: ER 15:55
DX: R07.89 Other chest pain (principal); G89.29 Other chronic pain; M79.606 Pain in leg, unspecified; I11.0 Hypertensive heart disease with heart failure; I50.9 Heart failure, unspecified; J44.9 Chronic obstructive pulmonary disease, unspecified; E11.9 Type 2 diabetes mellitus without complications; Z86.73 Personal history of transient ischemic attack (TIA), and cerebral infarction without residual deficits; Z91.013 Allergy to seafood; Z88.2 Allergy status to sulfonamides; Z91.040 Latex allergy status; Z88.8 Allergy status to other drugs, medicaments and biological substances; Z79.891 Long term (current) use of opiate analgesic; Z79.1 Long term (current) use of non-steroidal anti-inflammatories (NSAID); Z79.82 Long term (current) use of aspirin; Z79.52 Long term (current) use of systemic steroids; Z79.899 Other long term (current) drug therapy
CPT/HCPCS: 36415; 71045; 80048; 80076; 83880; 84484 ×2; 85007; 85025; 85378; 93005 ×2; 96374; 96376; 99285; J2270 ×2

== ENCOUNTER 2021-07-09 05:27 | Inpatient (IN) | payer OTHER ==
[~2021-07-09] VITALS: Ht 172.7 cm; Wt 97.5 kg
[~2021-07-09 05:27] MED LIST changes: +ACET650S11 RC; -ASPI-1169 PO; +ASPI-1420 PO; +ATRO2DRO4 SL; +BISA10SU11 RC; +CAPS42.55 TP; +CLOT15CR27 TP; -DIAZ2TAB PO; +DICL100G34 TP; -FLUO20CA42 PO; +FLUO60SO3 TP; +HYDR-3895 PO; -LACT10SO58 PO; -LOPE2CAP14 PO; +LORA-259 SL; +MORP100S3 PO; +NALO4SPR; +NITR0.4T48 SL; +ONDA4TAB11 SL; -PRED50TA PO; +PROM118S5 PO; +TIOT4MIS5 IH; -VARE1TAB PO
--- NOTE | 2021-07-09 05:40 | NUR ---
SUBHASH FROM [facility] C/O CHEST PAIN AND SOB after being changed in facility. pt A/O x 3 placed on NRB 15L O2. sat 96%. v/s stable.
--- NOTE | 2021-07-09 05:57 | NUR ---
business office technician at bedside
--- NOTE | 2021-07-09 06:38 | NUR ---
Labs collected and sent to lab
[2021-07-09 07:00] LABS: BASOPHILS % (AUTO) 0.3 % (0.0-2.0); EOSINOPHILS % (AUTO) 1.7 % (0.0-6.0); HEMATOCRIT 22 % (39-51); HEMOGLOBIN 7.4 g/dL (13.5-17.5); LYMPHOCYTES # (AUTO) 0.9 K/uL (0.8-4.8); LYMPHOCYTES % (AUTO) 10.2 % (20.0-44.0); MEAN CORPUSCULAR HGB CONC 33 g/dl (31.0-36.0); MEAN CORPUSCULAR VOLUME 87 fL (80-96); MONOCYTES # (AUTO) 0.5 K/uL (0.1-1.30); MONOCYTES % (AUTO) 5.2 % (2.0-12.0); NEUTROPHILS # (AUTO) 7.5 K/uL (1.8-8.9); NEUTROPHILS % (AUTO) 82.6 % (43.0-81.0); PLATELET COUNT (AUTO) 269 K/uL (150-450); RED BLOOD CELL COUNT(AUTO) 2.57 MIL/uL (4.5-6.0)
[2021-07-09 07:23] LABS: CALCIUM, SERUM 6.9 mg/dL (8.5-10.1); CARBON DIOXIDE 29 mmol/L (21-32); CHLORIDE 100 mmol/L (98-107); CREATININE 1.5 mg/dL (0.6-1.3); GLUCOSE 118 mg/dL (74-106); POTASSIUM 3.2 mmol/L (3.5-5.1); SODIUM SERUM 137 mmol/L (136-145); UREA NITROGEN, BLOOD 13 mg/dL (7-18)
[2021-07-09 07:27] LABS: ALANINE AMINOTRANSFERASE 9 U/L (12-78); ALBUMIN 2.2 g/dL (3.4-5.0); ALKALINE PHOSPHATASE 71 U/L (46-116); ASPARTATE AMINOTRANSFERASE 11 U/L (15-37); BILIRUBIN,DIRECT 0.1 mg/dL (0.0-0.2); BILIRUBIN,TOTAL 0.2 mg/dL (0.2-1.0); TOTAL PROTEIN, SERUM 6.4 g/dL (6.4-8.2)
--- NOTE | 2021-07-09 09:45 | NUR ---
GOT BED 109 AFTER 1100
[2021-07-09] MEDS ORDERED: ASPIRIN 81 MG TAB.CHEW PO ONE (10:30)
[2021-07-09] MEDS ORDERED: ATROPINE SULFATE OPHTH SOLN 15 ML BOTTLE SL PRN (11:30)
[2021-07-09] MEDS ORDERED: predniSONE 20 MG TABLET PO SCH (11:30)
[2021-07-09] MEDS ORDERED: Medication Not On Formulary EA (Levetiracetam (Keppra) 750 MG) PO SCH (11:30)
[2021-07-09] MEDS ORDERED: Medication Not On Formulary EA (Tiotropium Bromide (Spiriva Respimat) 2 PUFF) IH SCH (11:30)
[2021-07-09] MEDS: FUROSEMIDE 40 MG/4 ML VIAL IV SCH ×3 (11:59→20:10)
[2021-07-09] MEDS ORDERED: Z GUARD REMEDY 4 OZ OINT TP PRN (12:00)
[2021-07-09] MEDS ORDERED: IPRATROPIUM/ALBUTEROL INHALER IH SCH (12:00)
[2021-07-09] MEDS: TAMSULOSIN 0.4 MG CAP.SR.24H PO SCH (12:00)
[2021-07-09] MEDS ORDERED: MAGNESIUM HYDROXIDE 30 ML UDC PO PRN (12:00)
[2021-07-09] MEDS: ASPIRIN EC 81 MG TABLET.DR PO SCH (12:00)
[2021-07-09] MEDS ORDERED: HYDROCODONE/APAP 10/325MG TABLET PO PRN (12:00)
[2021-07-09] MEDS ORDERED: NALOXONE PREFILLED SYRINGE 2 MG/2 ML SYRINGE IJ PRN (12:00)
[2021-07-09] MEDS ORDERED: DEXTROSE 50%-WATER 50 ML DISP.SYRIN IV PRN (12:00)
[2021-07-09] MEDS ORDERED: ACETAMINOPHEN 325 MG TABLET PO PRN (12:00)
[2021-07-09] MEDS ORDERED: MAG HYDROX/AL HYDROX/SIMETH 30 ML UDC PO PRN (12:00)
[2021-07-09] MEDS ORDERED: CEFEPIME 1 GM in IV D5W 50 ML IV SCH (12:00)
[2021-07-09] MEDS: LISINOPRIL (20MG) 20 MG TABLET PO SCH (12:01)
[2021-07-09] MEDS ORDERED: predniSONE 20 MG TABLET ONE (12:05)
[2021-07-09] MEDS ORDERED: LISINOPRIL (20MG) 20 MG TABLET ONE (12:05)
[2021-07-09] MEDS ORDERED: FUROSEMIDE 40 MG/4 ML VIAL ONE (12:05)
[2021-07-09] MEDS ORDERED: TAMSULOSIN 0.4 MG CAP.SR.24H ONE (12:05)
[2021-07-09] MEDS ORDERED: ASPIRIN 81 MG TAB.CHEW ONE (12:06)
[2021-07-09] MEDS: POTASSIUM CHLORIDE 20 MEQ TAB.PRT.SR PO SCH ×3 (12:13→15:45)
[2021-07-09] MEDS: PANTOPRAZOLE 40 MG TABLET.DR PO SCH ×2 (12:13→16:42)
--- NOTE | 2021-07-09 12:15 | NUR ---
TRANSFERRED PT TO [facility] 109 PER PROTOCOL. REPORT GIVEN TO ISMAEL SANCHEZ AT BEDSIDE. VS STABLE. DENIES PAIN
[2021-07-09] MEDS: IPRATROPIUM NEB FS 0.5 MG/2.5 ML AMPUL.NEB NEB SCH ×4 (12:30→23:43)
--- NOTE | 2021-07-09 12:30 | NUR ---
RN OPENING NOTE PT AWAKE UPON ASSESSMENT. RECD PT FROM ER STABLE. REPORT RECEIVED FROM ALISON. PT A/0X4. PT BREATHING EVEN AND UNLABORED ON 6L NC WITH 02SAT OF 97%. PT HAS KAMLESH ML INTACT AND PATENT. PT IS NSR ON TELE. PT HAS BILATERAL LOWER LEG CELLULITIS. WOUND CONSULT ORDERED. PT V/S FOLLOWS T 98.8 136/66 98HR RR 22 02 94%. PT IS STABLE AT PRESENT TIME. ALL SAFETY MEASURES IN PLACE. BED IN LOWEST POSITION. WHEELS LOCKED. CALL LIGHT WITHIN REACH. WILL CONTINUE TO MONITOR.
[2021-07-09] MEDS ORDERED: ONDANSETRON HCL/PF 4 MG/2 ML VIAL ONE (12:33)
[2021-07-09] MEDS ORDERED: MORPHINE SULFATE INJ 4 MG/ML DISP.SYRIN ONE (12:34)
[2021-07-09] MEDS: HYDROMORPHONE 1 MG/1 ML DISP.SYRIN IV PRN ×2 (12:49→16:44)
[2021-07-09] MEDS: CEFEPIME 2 GM in IV D5W 100 ML IV SCH (13:38)
[2021-07-09] MEDS: PENTOXIFYLLINE 400 MG TABLET.SA PO SCH ×2 (13:39→16:44)
[2021-07-09] MEDS: methylPREDNISolone SOD SUCC 40 MG/ML VIAL IV SCH ×2 (13:39→21:23)
[2021-07-09] MEDS: BLOOD SUGAR DIAGNOSTIC 1 EACH STRIP IN SCH ×3 (13:53→21:24)
[2021-07-09] MEDS: INSULIN REGULAR, HUMAN 100 UNIT/ML 3 ML VIAL SQ PRN ×3 (13:56→21:29)
[2021-07-09 16:00] VITALS: BP 118/58
[2021-07-09] MEDS ORDERED: POTASSIUM CHLORIDE 20 MEQ TAB.PRT.SR PO ONE (16:00)
--- NOTE | 2021-07-09 16:00 | NUR ---
RT NOTE PATIENT AWAKE/ALERT. PATIENT REFUSED ABG AT THIS TIME AND STATES WANTING IT DONE AFTER DINNER. NO SOB NOTED AT THIS TIME. RN NOTIFIED AND AWARE.
[2021-07-09] MEDS: ALBUTEROL FS 2.5 MG/3 ML VIAL.NEB NEB SCH ×3 (16:23→23:43)
[2021-07-09] MEDS: CARVEDILOL 3.125 MG TABLET PO SCH (16:43)
--- NOTE | 2021-07-09 17:23 | NUR ---
RN NOTE CHANGE DILAUDID PRN MED TO MORPHINE 4MG Q4H PER LEAD MASON TENDER NINA. Addendum: 07/09/21 at 1838 by ISMAEL MCCANN RN MORPHINE Q4HR PRN FOR SEVERE PAIN.
[2021-07-09] MEDS ORDERED: APIXABAN 5 MG TABLET PO SCH (17:30)
--- NOTE | 2021-07-09 18:38 | NUR ---
RN CLOSING NOTE PT REMAINED STABLE THROUGHOUT SHIFT. PT RESTING IN BED. PT A/0X4. PT BREATHING EVEN AND UNLABORED ON 6L NC WITH 02SAT OF 97%. PT HAS KAMLESH ML INTACT AND PATENT SALINE LOCK. PT IS NSR ON TELE. PT HAS CONDOM CATHETER INTACT AND PATENT DRAINING CLEAR YELLOW URINE. ALL SAFETY MEASURES IN PLACE. BED IN LOWEST POSITION. WHEELS LOCKED. CALL LIGHT WITHIN REACH. WILL ENDORSE TO ETL DATABASE DEVELOPER RN.
[2021-07-09 20:00] VITALS: BP 99/58
--- NOTE | 2021-07-09 20:00 | NUR ---
EIGHT ARM OPERATOR OPENING NOTE PATIENT AWAKE IN BED, ALERT/ORIENTED X 4, PT ABLE TO MAKE NEEDS KNOWN. PATIENT STABLE ON 6 LPM OF OXYGEN VIA NASAL CANNULA, NO S/S OF DISTRESS OR SOB NOTED, BREATHING EVEN AND UNLABORED, SPO2: 99%. PT ON EXTERNAL MOLECULAR BIOLOGY SCIENTIST READING SINUS RHYTHM, HR: 88. CONDOM CATHETER INTACT AND DRAINING YELLOW URINE. DRESSING ON BILATERAL LEGS CLEAN, DRY AND INTACT. KAMLESH MIDLINE INTACT AND FLUSHING WELL, SALINE LOCKED. SAFETY MEASURES IN PLACE: CALL LIGHT WITHIN REACH, SIDE RAILS UP X 2, BED LOCKED IN LOWEST POSITION, HOB ELEVATED, BED ALARM ON. WILL CONTINUE TO MONITOR PATIENT
[2021-07-09] MEDS: MORPHINE SULFATE INJ 4 MG/ML DISP.SYRIN IV PRN (21:01)
[2021-07-09 21:06] LABS: ABG BASE EXCESS 4.7 mmol/L; ABG PCO2 42.3 mmHg (35.0-45.0); ABG PH 7.455 (7.350-7.450); ABG PO2 84.2 mmHg (75.0-100.0); COHb 0.3 % (0.5-1.5); MetHb 0.5 % (0.0-1.5); O2Hb 95.1 % (94.0-97.0); SITE, ABG Right Radial; VENT MODE, BG Nasal Cannula
[2021-07-09] MEDS: ATORVASTATIN 40 MG TABLET PO SCH (21:23)
[2021-07-09] MEDS: TRAZODONE 50 MG TABLET PO SCH (21:23)
[2021-07-09] MEDS: DOXEPIN HCL (25 MG) 25 MG CAPSULE PO SCH (21:24)
[2021-07-09] MEDS: LamoTRIgine 100 MG TABLET PO SCH (21:24)
[2021-07-10] VITALS (12 sets, daily range): BP systolic 98–136; BP diastolic 43–86
[2021-07-10] MEDS: CEFEPIME 2 GM in IV D5W 100 ML IV SCH ×2 (01:00→16:30)
[2021-07-10] MEDS: MORPHINE SULFATE INJ 4 MG/ML DISP.SYRIN IV PRN ×5 (01:01→21:08)
[2021-07-10] MEDS: IPRATROPIUM NEB FS 0.5 MG/2.5 ML AMPUL.NEB NEB SCH ×6 (03:53→23:33)
[2021-07-10] MEDS: ALBUTEROL FS 2.5 MG/3 ML VIAL.NEB NEB SCH ×6 (03:54→23:33)
[2021-07-10] MEDS: methylPREDNISolone SOD SUCC 40 MG/ML VIAL IV SCH ×3 (05:04→21:08)
--- NOTE | 2021-07-10 07:09 | NUR ---
BOOT MAKER CLOSING NOTE PATIENT AWAKE IN BED, ALERT/ORIENTED X 4, PT ABLE TO MAKE NEEDS KNOWN. PATIENT STABLE ON 6 LPM OF OXYGEN VIA NASAL CANNULA, NO S/S OF DISTRESS OR SOB NOTED, BREATHING EVEN AND UNLABORED. PT ON EXTERNAL ELECTRICAL SYSTEMS DESIGNER READING SINUS RHYTHM, HR: 69. CONDOM CATHETER INTACT AND DRAINING YELLOW URINE. DRESSING ON BILATERAL LEGS CLEAN, DRY AND INTACT. KAMLESH MIDLINE INTACT AND FLUSHING WELL, SALINE LOCKED. MEDICATIONS GIVEN ORDERED, PT NEEDS MET THROUGHOUT SHIFT. SAFETY MEASURES IN PLACE: CALL LIGHT WITHIN REACH, SIDE RAILS UP X 2, BED LOCKED IN LOWEST POSITION, HOB ELEVATED, BED ALARM ON. WILL ENDORSE TO DAY SHIFT NURSE FOR CONTINUITY OF CARE
--- NOTE | 2021-07-10 07:57 | NUR ---
RN OPENING NOTES Patient seen comfortably lying in bed, no apparent distress noted, respirations even and unlabored, no shortness of breath, denies any pain or discomfort at this time, no grimacing. Call light left within reach, safety precautions in place, brakes locked, side rails up X 2, will monitor closely for any changes.
[2021-07-10 08:03] LABS: BASOPHILS % (AUTO) 0.1 % (0.0-2.0); LYMPHOCYTES # (AUTO) 0.6 K/uL (0.8-4.8); LYMPHOCYTES % (AUTO) 8.6 % (20.0-44.0); MEAN CORPUSCULAR HGB CONC 33 g/dl (31.0-36.0); MEAN CORPUSCULAR VOLUME 87 fL (80-96); MONOCYTES # (AUTO) 0.2 K/uL (0.1-1.30); MONOCYTES % (AUTO) 3.3 % (2.0-12.0); NEUTROPHILS # (AUTO) 5.7 K/uL (1.8-8.9); PLATELET COUNT (AUTO) 196 K/uL (150-450); RED BLOOD CELL COUNT(AUTO) 2.08 MIL/uL (4.5-6.0); WHITE BLOOD COUNT (AUTO) 6.5 K/uL (4.3-11.0)
--- NOTE | 2021-07-10 08:06 | NUR ---
Received a call from laboratory spoke to Yobany Neves regarding patients hgb level which resulted to 6.0 previously 7.4, patient seen comfortably lying in bed, no apparent distress noted, no s/s of bleeding, no unusual bleeding noted. Hospitalist made aware and ordered repeat H&H STAT will continue to monitor for any changes.
[2021-07-10 08:07] LABS: HEMATOCRIT 18 % (39-51)
[2021-07-10] MEDS: INSULIN REGULAR, HUMAN 100 UNIT/ML 3 ML VIAL SQ PRN ×4 (08:23→22:58)
[2021-07-10] MEDS: FLUTICASONE/VILANTEROL 1 EACH BLST.W.DEV IH SCH (08:28)
[2021-07-10] MEDS: TAMSULOSIN 0.4 MG CAP.SR.24H PO SCH (08:28)
[2021-07-10] MEDS: PENTOXIFYLLINE 400 MG TABLET.SA PO SCH ×3 (08:28→17:10)
[2021-07-10] MEDS: PANTOPRAZOLE 40 MG TABLET.DR PO SCH ×2 (08:28→17:10)
[2021-07-10] MEDS: AMITRIPTYLINE HCL 25 MG TABLET PO SCH (08:28)
[2021-07-10] MEDS: TRAZODONE 50 MG TABLET PO SCH ×2 (08:28→21:22)
[2021-07-10] MEDS: BLOOD SUGAR DIAGNOSTIC 1 EACH STRIP IN SCH ×4 (08:36→22:52)
[2021-07-10] MEDS: LISINOPRIL (20MG) 20 MG TABLET PO SCH (09:00)
[2021-07-10] MEDS: CARVEDILOL 3.125 MG TABLET PO SCH ×2 (09:00→17:10)
[2021-07-10] MEDS: ASPIRIN EC 81 MG TABLET.DR PO SCH (09:00)
[2021-07-10 09:49] LABS: LYMPHOCYTES % (MANUAL) 7 % (16-48); MONOCYTES % (MANUAL) 3 % (0-11.0); NEUTROPHILS % (MANUAL) 90 (42-76)
[2021-07-10 09:59] LABS: HEMOGLOBIN 6.3 g/dL (13.5-17.5)
--- NOTE | 2021-07-10 09:59 | NUR ---
Received a call from laboratory spoke to Yobany Neves regarding patients hgb level which resulted to 6.3 previously 6.0, patient seen comfortably lying in bed, no dizziness, no unusual bruising, no apparent distress noted, no s/s of bleeding, noted. Hospitalist made aware that engineering mathematician already ordered blood transfusion 1 pack RBCs, hospitalist agreed with order, call light left within patient's reach, will continue to monitor for any changes.
[2021-07-10 10:39] LABS: ALBUMIN 1.9 g/dL (3.4-5.0); BILIRUBIN,TOTAL 0.1 mg/dL (0.2-1.0); CREATININE 1.7 mg/dL (0.6-1.3); PHOSPHORUS 3.2 mg/dL (2.5-4.9); POTASSIUM 3.7 mmol/L (3.5-5.1); TOTAL PROTEIN, SERUM 5.7 g/dL (6.4-8.2)
[2021-07-10] MEDS: FUROSEMIDE 100 MG/10 ML VIAL IV SCH ×3 (10:46→17:11)
[2021-07-10] MEDS: POTASSIUM CHLORIDE 20 MEQ TAB.PRT.SR PO SCH ×3 (10:47→12:32)
--- NOTE | 2021-07-10 11:08 | NUR ---
Received a call from laboratory spoke to Marvin Chen regarding patients Magnesium level, patient seen comfortably lying in bed, no dizziness, no palpitations, no apparent distress noted, hospitalist made aware and ordered Magnesium 2gram to be given intravenously. Call light left within patient's reach, will continue to monitor for any changes.
[2021-07-10 11:10] LABS: MAGNESIUM 1.1 mg/dL (1.8-2.4)
[2021-07-10 11:27] LABS: IRON, SERUM 19 ug/dl (50-175); TOTAL IRON BINDING CAPACITY 229 ug/dl (250-450)
[2021-07-10 12:33] LABS: FERRITIN 505 ng/mL (8-388)
--- NOTE | 2021-07-10 15:00 | NUR ---
Patient seen by hospitalist and stated that medical records from [facility] needs to be obtained, called medical records phone [phone], fax number [phone]; [phone], spoke to Anna and she stated that records from May 2021 and July 2021 will be faxed to [phone]. Will properly endorse to next shift.
[2021-07-10] MEDS: Magnesium 1GM/D5W 100ML PREMIX 100 ML IV SCH ×4 (17:06→23:31)
[2021-07-10] MEDS: ONDANSETRON HCL/PF 4 MG/2 ML VIAL IVP PRN ×2 (17:34→23:52)
--- NOTE | 2021-07-10 19:30 | NUR ---
COMPLAINT MANAGER OPENING NOTE RECEIVED PT AWAKE IN BED. A/O X4, ABLE TO MAKE NEEDS KNOWN, NO PAIN OR DISCOMFORT AT THIS TIME. PT ON 6 LPM VIA NC, SATURATING WELL. NO SOB OR S/S OF RESPIRATORY DISTRESS NOTED. ON EXTERNAL EYEGLASS CUTTER READING SR 82 BPM. IV ACCESS KAMLESH MIDLINE SL, INTACT AND PATENT. SAFETY PRECAUTIONS IN PLACE. BED IN LOWEST LOCKED POSITION, HOB ELEVATED, SIDE RAILS UP X2, AND CALL LIGHT AND TABLE WITHIN REACH. ALL NEED MET AT THIS TIME.
--- NOTE | 2021-07-10 19:50 | NUR ---
RN CLOSING NOTES Patient lying in bed, no shortness of breath, respirations even and unlabored, no apparent distress noted, no dizziness, no palpitations, no chest pain, remained afebrile. All due medications given per MD order, tolerating well. Pain medications given per MD order when non pharmacological measures ineffective. Patient S/P blood transfusion today (one pack RBCs), tolerated blood transfusion well, no rashes, no shortness of breath, no itching, no signs and symptoms of fluid overload, vital signs remained within normal limits. Patient has an order for IV ATB, IV midline site on right upper arm remained patent, intact, flushing well, covered with dry dressings, no swelling, and no redness, no c/o pain or discomfort at site. No s/s of hypo or hyperglycemia, no tremors, no change in level of consciousness, insulin given per sliding scale as needed per MD order. Aspiration precautions observed at all times, kept head of bed elevated, all needs anticipated, kept clean and dry, patient repositioned frequently, safety precautions in place, frequent visual checks rendered, side rails up X 2, brakes locked, call light left within reach, will endorse to next shift for continuity of care.
[2021-07-10] MEDS: ATORVASTATIN 40 MG TABLET PO SCH (22:29)
[2021-07-10] MEDS: LamoTRIgine 100 MG TABLET PO SCH (22:29)
[2021-07-10] MEDS: DOXEPIN HCL (25 MG) 25 MG CAPSULE PO SCH (22:29)
--- NOTE | 2021-07-10 23:53 | NUR ---
RN NOTE PT COMPLAINED OF AN EPISODE OF EMESIS. ADMINISTERED ZOFRAN FOR NAUSEA ORDERED.
[2021-07-11] VITALS: BP 124/65
[2021-07-11] MEDS: Magnesium 1GM/D5W 100ML PREMIX 100 ML IV SCH ×2 (00:31→02:15)
[2021-07-11] MEDS: CEFEPIME 2 GM in IV D5W 100 ML IV SCH ×2 (01:31→13:27)
[2021-07-11] MEDS: MORPHINE SULFATE INJ 4 MG/ML DISP.SYRIN IV PRN ×3 (01:40→22:35)
[2021-07-11 04:00] VITALS: BP 132/77
--- NOTE | 2021-07-11 04:45 | NUR ---
RN NOTE PT HAD 3 MORE EPISODES OF EMESIS. LAST EPISODE WAS ABOUT 50 ML OF COFFEE GROUND COLORED EMESIS. AWAITING LAB TO COME SO THAT WE CAN MONITOR H/H. CLEANED UP PT AND MADE COMFORTABLE. ALL NEEDS MET AT THIS TIME.
[2021-07-11] MEDS: methylPREDNISolone SOD SUCC 40 MG/ML VIAL IV SCH ×3 (05:08→21:58)
[2021-07-11] MEDS: ALBUTEROL FS 2.5 MG/3 ML VIAL.NEB NEB SCH ×6 (05:22→23:20)
[2021-07-11] MEDS: IPRATROPIUM NEB FS 0.5 MG/2.5 ML AMPUL.NEB NEB SCH ×6 (05:22→23:20)
--- NOTE | 2021-07-11 06:37 | NUR ---
RIVET PASSER CLOSING NOTE PT AWAKE IN BED. A/O X4, ABLE TO MAKE NEEDS KNOWN, NO PAIN OR DISCOMFORT AT THIS TIME. PT ON 6 LPM VIA NC, SATURATING WELL. NO SOB OR S/S OF RESPIRATORY DISTRESS NOTED. ON EXTERNAL PROGRAM COORDINATOR READING SR 80 BPM. IV ACCESS KAMLESH MIDLINE SL, INTACT AND PATENT. ALL DUE MEDS GIVEN ORDERED. SAFETY PRECAUTIONS IN PLACE AT ALL TIMES. BED IN LOWEST LOCKED POSITION, HOB ELEVATED, SIDE RAILS UP X2, AND CALL LIGHT AND TABLE WITHIN REACH. ALL NEEDS MET AT THIS TIME. WILL ENDORSE TO ONCOMING NURSE FOR ANGELIC.
[2021-07-11 06:48] LABS: HEMATOCRIT 26 % (39-51); HEMOGLOBIN 8.9 g/dL (13.5-17.5); LYMPHOCYTES # (AUTO) 1.1 K/uL (0.8-4.8); MEAN CORPUSCULAR HGB CONC 34 g/dl (31.0-36.0); MEAN CORPUSCULAR VOLUME 86 fL (80-96); MONOCYTES # (AUTO) 0.7 K/uL (0.1-1.30); MONOCYTES % (AUTO) 5.6 % (2.0-12.0); NEUTROPHILS # (AUTO) 11.4 K/uL (1.8-8.9); NEUTROPHILS % (AUTO) 86.4 % (43.0-81.0); PLATELET COUNT (AUTO) 299 K/uL (150-450); WHITE BLOOD COUNT (AUTO) 13.2 K/uL (4.3-11.0)
--- NOTE | 2021-07-11 07:30 | NUR ---
ASSURANCE MANAGER OPENING NOTES: RECEIVED PATIENT ALERT ,ORIENTED X 4 ,RESPIRATION IS EVEN AND UNLABORED, ON O2 2LVIA NC,NO SOB NOTED, RIGHT UPPER ARM MIDLINE PATENT, INTACT AND FLUSHED WELL, CONDOM CATH IN PLACE., BED KEPT IN LOW AND LOCKED POSITION,CALL LIGHT WITHIN REACH, ALL NEEDS MET
[2021-07-11] MEDS: BLOOD SUGAR DIAGNOSTIC 1 EACH STRIP IN SCH ×4 (07:49→22:24)
[2021-07-11] MEDS: ONDANSETRON HCL/PF 4 MG/2 ML VIAL IVP PRN ×2 (07:51→14:11)
[2021-07-11 07:58] LABS: ALBUMIN 2.3 g/dL (3.4-5.0); BILIRUBIN,TOTAL 0.4 mg/dL (0.2-1.0); CALCIUM, SERUM 7.5 mg/dL (8.5-10.1); CREATININE 1.7 mg/dL (0.6-1.3); MAGNESIUM 2.6 mg/dL (1.8-2.4); PHOSPHORUS 3.9 mg/dL (2.5-4.9); POTASSIUM 3.5 mmol/L (3.5-5.1); TOTAL PROTEIN, SERUM 6.7 g/dL (6.4-8.2)
[2021-07-11 08:00] VITALS: BP 137/73
[2021-07-11] MEDS: AMITRIPTYLINE HCL 25 MG TABLET PO SCH (08:45)
[2021-07-11] MEDS: LISINOPRIL (20MG) 20 MG TABLET PO SCH (08:46)
[2021-07-11] MEDS: PANTOPRAZOLE 40 MG TABLET.DR PO SCH ×2 (08:47→16:16)
[2021-07-11] MEDS: TAMSULOSIN 0.4 MG CAP.SR.24H PO SCH (08:47)
[2021-07-11] MEDS: CARVEDILOL 3.125 MG TABLET PO SCH ×2 (08:47→17:28)
[2021-07-11] MEDS: TRAZODONE 50 MG TABLET PO SCH ×2 (08:48→21:00)
[2021-07-11] MEDS: PENTOXIFYLLINE 400 MG TABLET.SA PO SCH ×3 (08:50→18:15)
[2021-07-11] MEDS: FLUTICASONE/VILANTEROL 1 EACH BLST.W.DEV IH SCH (08:51)
[2021-07-11] MEDS: INSULIN REGULAR, HUMAN 100 UNIT/ML 3 ML VIAL SQ PRN ×2 (08:57→22:29)
--- NOTE | 2021-07-11 09:00 | NUR ---
WOUND CARE CONSULT: PT PRESENTS WITH DRY INTACT DRESSINGS TO BILATERAL LOWER LEGS WHICH HE REFUSED TO HAVE REMOVED. ADMISSION PHOTOS INDICATE REDNESS WITH SOME EXCORIATED AREAS AND DISCOLORATION, PRESENT ON ADMISSION. DR PUENTES NOTIFIED OF DPM CONSULT REQUEST. RECOMMENDATIONS MADE FOR SKIN PROTECTION. DISCUSSED WITH NURSING STAFF. M D IN AGREEMENT WITH PLAN OF CARE.
[2021-07-11 12:00] VITALS: BP 135/81
[2021-07-11] MEDS: IV NS 0.9% 1,000 ML IV PRN ×2 (12:28→23:30)
[2021-07-11] MEDS ORDERED: PANTOPRAZOLE 40 MG VIAL IV SCH (15:00)
[2021-07-11 15:07] LABS: HEMOGLOBIN 9.2 g/dL (13.5-17.5)
[2021-07-11 16:00] VITALS: BP 153/83
[2021-07-11] MEDS ORDERED: METOCLOPRAMIDE HCL 10 MG/2 ML VIAL IV PRN (18:00)
--- NOTE | 2021-07-11 19:26 | NUR ---
BRUSH MAKER NOTES: RECEIVED A CALL FROM NINA ADAMES GANG RIPSAW OPERATOR PATIENT WITH POSSIBLE BOWEL ISCHEMIA, PATIENT NEED TO BE NPO, HE PLACED AN ORDER FOR STAT CT SCAN OF ABDOMEN WITH CONTRAST(CONTRAST IS USED DOES NOT CONTAIN IODINE, PT MADE AWARE
--- NOTE | 2021-07-11 19:36 | NUR ---
RN OPENING NOTES: RECEIVED PT IN BED AWAKE, ALERTX4 AND VERBALLY RESPONSIVE. ON O2 AT 6L/MIN VIA N/C AND PT TOLERATED WELL. BREATHING EVEN AND UNLABORED. NO SOB NOTED. IV ACCESS ON KAMLESH MIDLINE INTACT AND PATENT, RUNNING NS 100CC/HR/. NO C/O PAIN OR DISCOMFORT. NO ACUTE DISTRESS. PT STARTED NPO NOW DUE TO WILL HAVE CT OF THE ABDOMEN/PELVIS WITH CONTRAST. ALL SAFETY MEASURES IN PLACE. BED IN LOWEST POSITION AND LOCKED. SIDE RAILS UP X2, PLACE CALL LIGHT WITH IN REACH. WILL CONTINUE TO MONITOR
[2021-07-11 20:00] VITALS: BP 148/74
[2021-07-11 20:05] LABS: CALCIUM, SERUM 7.9 mg/dL (8.5-10.1); CREATININE 1.7 mg/dL (0.6-1.3)
[2021-07-11 20:14] LABS: POTASSIUM 3.4 mmol/L (3.5-5.1)
--- NOTE | 2021-07-11 20:16 | NUR ---
RN CLOSING NOTES Patient lying in bed, no shortness of breath, respirations even and unlabored, no apparent distress noted, no dizziness, no palpitations, no chest pain, remained afebrile. All due medications given per MD order, tolerating well. Pain medications given per MD order when non pharmacological measures ineffective. PATIENT START NPO PER CRIMPING MACHINE OPERATOR NINA ADAMES FOR ABNORMAL CT ABDOMEN., vital signs remained within normal limits. Patient has an order for IV FLUID NS AT 100 ML/HR DUE TO MULTIPLE EPISODES OF VOMITING., IV midline site on right upper arm remained patent, intact, flushing well, covered with dry dressings, no swelling, and no redness, no c/o pain or discomfort at site. No s/s of hypo or hyperglycemia, no tremors, no change in level of consciousness, . Aspiration precautions observed at all times, kept head of bed elevated, all needs anticipated, kept clean and dry, patient repositioned frequently, safety precautions in place, frequent visual checks rendered, side rails up X 2, brakes locked, call light left within reach, will endorse to next shift for continuity of care.
--- NOTE | 2021-07-11 20:34 | NUR ---
RN NOTES: RECEIVED CRITICAL LAB RESULTS. TALKED TO YAMINI. CO2 LEVEL 44. NOTIFIED DR ISABEL CHOW WITH NNO. WILL CONTINUE TO MONITOR
--- NOTE | 2021-07-11 21:34 | NUR ---
RN NOTES: RADIOLOGY CALLED, TALKED TO MARELY AND MENTIONED PT'S CREATININE LEVEL 1.7, JUST WANT TO KNOW IF IT'S OKAY TO DO THE CT SCAN ON ABDOMEN WITH CONTRAST. NOTIFIED GERALDO CUTLER AND STATED OKAY TO DO THE CT SCAN. MADE AWARE RADIOLOGY.
[2021-07-11] MEDS: LamoTRIgine 100 MG TABLET PO SCH (22:00)
[2021-07-11] MEDS: DOXEPIN HCL (25 MG) 25 MG CAPSULE PO SCH (22:00)
[2021-07-11] MEDS: ATORVASTATIN 40 MG TABLET PO SCH (22:00)
[2021-07-11] MEDS ORDERED: acetaZOLAMIDE SODIUM 500 MG/VIAL VIAL ONE (22:14)
--- NOTE | 2021-07-11 22:15 | NUR ---
RN NOTES: ALL PO MEDS ON HOLD BECAUSE PT REMAIN NPO DUE TO CT SCAN ON ABDOMEN W/ CONTRAST. WILL CONTINUE TO MONITOR
[2021-07-11] MEDS: acetaZOLAMIDE SODIUM 500 MG/VIAL VIAL IV SCH (22:17)
--- NOTE | 2021-07-11 22:39 | NUR ---
RN NOTES: PT'S BLOOD SUGAR 137, 2 UNITS OF REGULAR INSULIN GIVEN PER SLIDING SCALE. NO S/S OF HYPER/HYPOGLYCEMIA. C/O SEVERE PAIN ON BOTH LOWER LEG9/10 PAIN SCALE. MORPHINE GIVEN PER PRN ORDERED. WILL CONTINUE TO MONITOR
[2021-07-12] MEDS: CEFEPIME 2 GM in IV D5W 100 ML IV SCH ×2 (01:16→13:23)
[2021-07-12] MEDS: MORPHINE SULFATE INJ 4 MG/ML DISP.SYRIN IV PRN ×4 (03:32→21:02)
--- NOTE | 2021-07-12 03:40 | NUR ---
RN NOTES: C/O SEVERE PAIN ON BOTH LOWER LEG, 9/10 PAIN SCALE. MORPHINE GIVEN PER PRN ORDERED. WILL CONTINUE TO MONITOR
[2021-07-12] MEDS: IPRATROPIUM NEB FS 0.5 MG/2.5 ML AMPUL.NEB NEB SCH ×5 (03:54→19:54)
[2021-07-12] MEDS: ALBUTEROL FS 2.5 MG/3 ML VIAL.NEB NEB SCH ×5 (03:54→19:54)
[2021-07-12 04:00] VITALS: BP 131/68
[2021-07-12] MEDS: methylPREDNISolone SOD SUCC 40 MG/ML VIAL IV SCH ×3 (05:00→21:10)
--- NOTE | 2021-07-12 06:32 | NUR ---
RN CLOSING NOTES: PT IN BED AWAKE, ALERT X 4 AND VERBALLY RESPONSIVE. ON O2 AT 6L/MIN VIA N/C, O2 SAT 100% AND PT TOLERATED WELL. BREATHING EVEN AND UNLABORED. NO SOB. IV ACCESS ON KAMLESH MIDLINE INTACT AND PATENT, RUNNING NS 125CC/HR/. NO C/O PAIN OR DISCOMFORT. NO ACUTE DISTRESS. PT STILL NPO DUE TO WILL HAVE CT OF THE ABDOMEN/PELVIS WITH CONTRAST. ALL DUE MEDS GIVEN ORDERED. ALL SAFETY MEASURES IN PLACE. BED IN LOWEST POSITION AND LOCKED. SIDE RAILS UP X2, PLACE CALL LIGHT WITH IN REACH. WILL ENDORSE TO MORNING SHIFT NURSE. Addendum: 07/12/21 at 0701 by YADIRA PRADHAN RN WRONG CHART
--- NOTE | 2021-07-12 06:36 | NUR ---
RN CLOSING NOTES: PT IN BED AWAKE, ALERT X 4 AND VERBALLY RESPONSIVE. ON O2 AT 6L/MIN VIA N/C, O2 SAT 100% AND PT TOLERATED WELL. BREATHING EVEN AND UNLABORED. NO SOB. IV ACCESS ON KAMLESH MIDLINE INTACT AND PATENT, RUNNING NS 125CC/HR/. NO C/O PAIN OR DISCOMFORT. NO ACUTE DISTRESS. PT STILL NPO DUE TO WILL HAVE CT OF THE ABDOMEN/PELVIS WITH CONTRAST. ALL IV MEDS GIVEN ORDERED. PO MEDS ON HOLD DUE TO NPO STATUS. ALL SAFETY MEASURES IN PLACE. BED IN LOWEST POSITION AND LOCKED. SIDE RAILS UP X2, PLACE CALL LIGHT WITH IN REACH. WILL ENDORSE TO MORNING SHIFT NURSE.
[2021-07-12 07:30] LABS: CALCIUM, SERUM 7.5 mg/dL (8.5-10.1); CREATININE 1.5 mg/dL (0.6-1.3); POTASSIUM 3.2 mmol/L (3.5-5.1)
[2021-07-12 07:37] LABS: HEMATOCRIT 23 % (39-51); HEMOGLOBIN 7.9 g/dL (13.5-17.5); LYMPHOCYTES # (AUTO) 0.9 K/uL (0.8-4.8); LYMPHOCYTES % (AUTO) 11.3 % (20.0-44.0); MEAN CORPUSCULAR HGB CONC 35 g/dl (31.0-36.0); MEAN CORPUSCULAR VOLUME 88 fL (80-96); MONOCYTES # (AUTO) 0.5 K/uL (0.1-1.30); MONOCYTES % (AUTO) 6.2 % (2.0-12.0); NEUTROPHILS # (AUTO) 6.5 K/uL (1.8-8.9); NEUTROPHILS % (AUTO) 82.5 % (43.0-81.0); PLATELET COUNT (AUTO) 258 K/uL (150-450); WHITE BLOOD COUNT (AUTO) 7.9 K/uL (4.3-11.0)
[2021-07-12 08:00] VITALS: BP 137/89
[2021-07-12] MEDS: PENTOXIFYLLINE 400 MG TABLET.SA PO SCH ×3 (08:00→17:21)
[2021-07-12] MEDS: BLOOD SUGAR DIAGNOSTIC 1 EACH STRIP IN SCH ×4 (08:53→21:32)
[2021-07-12] MEDS: CARVEDILOL 3.125 MG TABLET PO SCH ×2 (09:00→17:00)
[2021-07-12] MEDS: AMITRIPTYLINE HCL 25 MG TABLET PO SCH (09:00)
[2021-07-12] MEDS: TAMSULOSIN 0.4 MG CAP.SR.24H PO SCH (09:00)
[2021-07-12] MEDS: LISINOPRIL (20MG) 20 MG TABLET PO SCH (09:00)
[2021-07-12] MEDS: TRAZODONE 50 MG TABLET PO SCH ×2 (09:00→21:00)
[2021-07-12] MEDS: PANTOPRAZOLE 40 MG TABLET.DR PO SCH ×2 (09:00→17:00)
[2021-07-12] MEDS ORDERED: IV NS 0.9% 250 ML IV ONE (09:26)
[2021-07-12] MEDS ORDERED: IOHEXOL-300 100 ML VIAL IV ONE (09:26)
[2021-07-12] MEDS: IV NS 0.9% 1,000 ML IV PRN ×2 (09:34→21:23)
[2021-07-12] MEDS: FLUTICASONE/VILANTEROL 1 EACH BLST.W.DEV IH SCH (09:57)
--- NOTE | 2021-07-12 10:58 | NUR ---
RN OPENING NOTE PT IN BED ASLEEP. A/0X4. ON O2 AT 6L/MIN VIA N/C, O2 SAT 100% AND PT TOLERATED WELL. BREATHING EVEN AND UNLABORED. NO SOB. IV ACCESS ON KAMLESH MIDLINE INTACT AND PATENT, RUNNING NS 125CC/HR/. NO C/O PAIN OR DISCOMFORT. NO ACUTE DISTRESS. PT STILL NPO DUE TO WILL HAVE CT OF THE ABDOMEN/PELVIS WITH CONTRAST. PO MEDS ON HOLD DUE TO NPO STATUS. ALL SAFETY MEASURES IN PLACE. BED IN LOWEST POSITION AND LOCKED. SIDE RAILS UP X2, PLACE CALL LIGHT WITH IN REACH. WILL CONTINUE TO MONITOR
[2021-07-12] MEDS: POTASSIUM CL. PREMIX PERIPHER. 50 ML IV SCH ×3 (11:14→13:54)
[2021-07-12 12:00] VITALS: BP 137/89
--- NOTE | 2021-07-12 13:45 | NUR ---
RN NOTE ALL PO MEDS HELD DUE TO NPO STATUS. ALL IV MEDS ADM PER MD ORDER.
--- NOTE | 2021-07-12 15:30 | NUR ---
RN NOTE MAINTAIN NPO STATUS POST CT W/CONTRAST PER MD CABRERA.
[2021-07-12 16:00] VITALS: BP 118/63
--- NOTE | 2021-07-12 18:55 | NUR ---
RN CLOSING NOTE PT REMAINED STABLE THROUGHOUT SHIFT. PT RESTING IN BED. A/0X4. ON O2 AT 5L/MIN VIA N/C, O2 SAT 100% AND PT TOLERATING WELL. BREATHING EVEN AND UNLABORED. NO SOB. IV ACCESS ON KAMLESH MIDLINE INTACT AND PATENT, RUNNING NS 125CC/HR/. NO C/O PAIN OR DISCOMFORT. NO ACUTE DISTRESS. PT STILL NPO PER MD ORDER. PO MEDS ON HOLD DUE TO NPO STATUS. ALL NEEDS MET. ALL SAFETY MEASURES IN PLACE. BED IN LOWEST POSITION AND LOCKED. SIDE RAILS UP X2, PLACE CALL LIGHT WITH IN REACH. WILL ENDORSE TO SLOT FLOOR PERSON RN.
--- NOTE | 2021-07-12 19:40 | NUR ---
RN OPENING NOTES: RECEIVED PT IN BED AWAKE, ALERTX4 AND VERBALLY RESPONSIVE. ON O2 AT 4L/MIN VIA N/C AND PT TOLERATED WELL. BREATHING EVEN AND UNLABORED. NO SOB NOTED. IV ACCESS ON KAMLESH MIDLINE INTACT AND PATENT, RUNNING NS 125CC/HR/. NO C/O PAIN OR DISCOMFORT. NO ACUTE DISTRESS. PT STILL NPO S/P ABDOMEN/PELVIS WITH CONTRAST. ALL SAFETY MEASURES IN PLACE. BED IN LOWEST POSITION AND LOCKED. SIDE RAILS UP X2, PLACE CALL LIGHT WITH IN REACH. WILL CONTINUE TO MONITOR
[2021-07-12 20:00] VITALS: BP 133/64
--- NOTE | 2021-07-12 21:05 | NUR ---
RN NOTES: PT C/O PAIN ON BOTH LOWER EXTREMITIES, 9/10 PAIN SCALE. MORPHINE GIVEN PRN ORDERED. WILL CONTINUE TO MONITOR
[2021-07-12] MEDS: acetaZOLAMIDE SODIUM 500 MG/VIAL VIAL IV SCH (21:11)
--- NOTE | 2021-07-12 21:33 | NUR ---
RN NOTES: BLOOD SUGAR 100. NO COVERAGE NEEDED. NO S/S OF HYPER/HYPOGLYCEMIA. WILL CONTINUE TO MONITOR
[2021-07-12] MEDS: LamoTRIgine 100 MG TABLET PO SCH (22:00)
[2021-07-12] MEDS: ATORVASTATIN 40 MG TABLET PO SCH (22:00)
[2021-07-12] MEDS: DOXEPIN HCL (25 MG) 25 MG CAPSULE PO SCH (22:00)
--- NOTE | 2021-07-12 22:55 | NUR ---
RN NOTES: ALL PO MEDS ON HOLD DUE TO PT STILL NPO. WILL CONTINUE TO MONITOR
[2021-07-13] MEDS: CEFEPIME 2 GM in IV D5W 100 ML IV SCH ×2 (01:07→13:43)
[2021-07-13] MEDS: MORPHINE SULFATE INJ 4 MG/ML DISP.SYRIN IV PRN ×5 (02:04→21:11)
--- NOTE | 2021-07-13 02:10 | NUR ---
RN NOTES: PT STILL C/O PAIN ON BOTH LOWER EXTREMITIES, 9/10 PAIN SCALE. MORPHINE GIVEN PRN ORDERED. WILL CONTINUE TO MONITOR
[2021-07-13] MEDS: ALBUTEROL FS 2.5 MG/3 ML VIAL.NEB NEB SCH ×6 (03:55→19:55)
[2021-07-13] MEDS: IPRATROPIUM NEB FS 0.5 MG/2.5 ML AMPUL.NEB NEB SCH ×6 (03:55→19:55)
[2021-07-13 04:00] VITALS: BP 129/70
[2021-07-13] MEDS: methylPREDNISolone SOD SUCC 40 MG/ML VIAL IV SCH ×3 (05:10→16:00)
[2021-07-13 06:19] LABS: CALCIUM, SERUM 7.6 mg/dL (8.5-10.1); CREATININE 1.3 mg/dL (0.6-1.3); MAGNESIUM 2.3 mg/dL (1.8-2.4); POTASSIUM 3.4 mmol/L (3.5-5.1)
[2021-07-13 06:25] LABS: BASOPHILS % (AUTO) 0.1 % (0.0-2.0); EOSINOPHILS % (AUTO) 0.1 % (0.0-6.0); HEMATOCRIT 22 % (39-51); HEMOGLOBIN 7.4 g/dL (13.5-17.5); LYMPHOCYTES # (AUTO) 0.9 K/uL (0.8-4.8); LYMPHOCYTES % (AUTO) 16.7 % (20.0-44.0); MEAN CORPUSCULAR HGB CONC 34 g/dl (31.0-36.0); MEAN CORPUSCULAR VOLUME 91 fL (80-96); MONOCYTES # (AUTO) 0.4 K/uL (0.1-1.30); MONOCYTES % (AUTO) 6.7 % (2.0-12.0); NEUTROPHILS # (AUTO) 4.1 K/uL (1.8-8.9); NEUTROPHILS % (AUTO) 76.4 % (43.0-81.0); PLATELET COUNT (AUTO) 214 K/uL (150-450); RED BLOOD CELL COUNT(AUTO) 2.43 MIL/uL (4.5-6.0); WHITE BLOOD COUNT (AUTO) 5.4 K/uL (4.3-11.0)
--- NOTE | 2021-07-13 06:36 | NUR ---
RN CLOSING NOTES: PT IN BED AWAKE, ALERT X 4 AND VERBALLY RESPONSIVE. ON O2 AT 4L/MIN VIA N/C, O2 SAT 97% AND PT TOLERATED WELL. BREATHING EVEN AND UNLABORED. NO SOB. IV ACCESS ON KAMLESH MIDLINE INTACT AND PATENT, RUNNING NS 125CC/HR/. NO C/O PAIN OR DISCOMFORT. NO ACUTE DISTRESS. PT STILL NPO. ALL IV MEDS GIVEN ORDERED. PO MEDS ON HOLD DUE TO NPO STATUS. ALL SAFETY MEASURES IN PLACE. BED IN LOWEST POSITION AND LOCKED. SIDE RAILS UP X2, PLACE CALL LIGHT WITH IN REACH. WILL ENDORSE TO MORNING SHIFT NURSE.
[2021-07-13] MEDS: BLOOD SUGAR DIAGNOSTIC 1 EACH STRIP IN SCH ×4 (07:30→21:27)
[2021-07-13] MEDS: IV NS 0.9% 1,000 ML IV PRN ×2 (07:38→16:43)
--- NOTE | 2021-07-13 07:48 | NUR ---
RN NOTES AWAKE AND VERBALLY RESPONSIVE, ABLE TO MAKE NEEDS KNOWN. REQUESTED FOR MORPHINE FOR PAIN; ASSESSED ACCORDINGLY. NPO AT THIS TIME. NO COMPLAINT OF NAUSEA/VOMITING. WILL CONTINUE TO MONITOR.
[2021-07-13] MEDS: PENTOXIFYLLINE 400 MG TABLET.SA PO SCH ×3 (08:00→16:15)
[2021-07-13] MEDS: TRAZODONE 50 MG TABLET PO SCH ×2 (08:01→21:07)
[2021-07-13] MEDS: AMITRIPTYLINE HCL 25 MG TABLET PO SCH (08:02)
[2021-07-13] MEDS: TAMSULOSIN 0.4 MG CAP.SR.24H PO SCH (08:02)
[2021-07-13] MEDS: PANTOPRAZOLE 40 MG TABLET.DR PO SCH ×2 (08:02→16:14)
[2021-07-13] MEDS: CARVEDILOL 3.125 MG TABLET PO SCH ×2 (08:04→16:14)
[2021-07-13] MEDS: LISINOPRIL (20MG) 20 MG TABLET PO SCH (08:04)
[2021-07-13] MEDS: FLUTICASONE/VILANTEROL 1 EACH BLST.W.DEV IH SCH (08:16)
--- NOTE | 2021-07-13 10:16 | NUR ---
RN NOTES PATIENT SEEN BY DR. CABRERA AT BEDSIDE, MADE AWARE OF PLAN OF CARE.
[2021-07-13] MEDS: POTASSIUM CL. PREMIX PERIPHER. 50 ML IV SCH ×2 (11:19→12:30)
[2021-07-13 12:00] VITALS: BP 138/71
[2021-07-13] MEDS: INSULIN REGULAR, HUMAN 100 UNIT/ML 3 ML VIAL SQ PRN (12:09)
[2021-07-13] MEDS: VANCOMYCIN 1 GM in IV D5W 250ml IV SCH ×2 (13:01→23:14)
--- NOTE | 2021-07-13 17:40 | NUR ---
RN NOTES CONDOM CATH CHANGED SECONDARY TO BEING DISLODGED.
[2021-07-13] MEDS ORDERED: CEFTRIAXONE 1 G in IV D5W 50 ML IV SCH (18:00)
--- NOTE | 2021-07-13 18:52 | NUR ---
RN NOTES ANDREW BARFIELD ABLE TO SPEAK W/ PATIENT'S UNCLE, ARPAN; INFORMED THAT PATIENT WANTS TO SPEAK W/ HIM WELL. EXPLAINED SITUATION TO PATIENT AND VERBALIZED UNDERSTANDING BUT HAS MOMENTS OF OUTBURSTS. IVF CONTINUOUS. CONDOM CATH IN PLACE, DRAINING YELLOW-COLORED URINE. SAFETY MEASURES MAINTAINED. WILL ENDORSE TO IRONWORKER APPRENTICE SHOP RN FOR ANGELIC.
[2021-07-13 20:00] VITALS: BP 141/57
--- NOTE | 2021-07-13 20:53 | NUR ---
RN NOTE INFORMED COMMERCIAL CLEANER DR. TRAVIS DINH THAT PATIENT IS VERY UPSET. HAD COFFEE GROUND EMESIS 07/11/21, HAS BEEN NPO. NO GI CONSULT DONE. DR. PETERSEN, GI DOC IS AWARE. PATIENT IS REQUESTING TO ADVANCE DIET SINCE NO ONE HAS SEEN HIM NOR ANY PROCEDURES ARE SCHEDULED. RECEIVED ORDER FOR CLEAR LIQUID DIET. ORDER READ BACK NOTED AND CARRIED OUT.
[2021-07-13] MEDS: ATORVASTATIN 40 MG TABLET PO SCH (21:06)
[2021-07-13] MEDS: LamoTRIgine 100 MG TABLET PO SCH (21:06)
[2021-07-13] MEDS: acetaZOLAMIDE SODIUM 500 MG/VIAL VIAL IV SCH (21:07)
[2021-07-13] MEDS: DOXEPIN HCL (25 MG) 25 MG CAPSULE PO SCH (21:08)
[2021-07-14] MEDS: IPRATROPIUM NEB FS 0.5 MG/2.5 ML AMPUL.NEB NEB SCH ×7 (00:28→23:29)
[2021-07-14] MEDS: ALBUTEROL FS 2.5 MG/3 ML VIAL.NEB NEB SCH ×7 (00:28→23:29)
[2021-07-14] MEDS: IV NS 0.9% 1,000 ML IV PRN ×3 (01:58→19:50)
[2021-07-14] MEDS: MORPHINE SULFATE INJ 4 MG/ML DISP.SYRIN IV PRN ×4 (01:59→19:51)
[2021-07-14 04:00] VITALS: BP 121/57
--- NOTE | 2021-07-14 06:36 | NUR ---
RN CLOSING NOTE PATIENT RESTING IN BED. VERY UPSET THAT HAS NOT BEEN CONSULTED BY PAIN MANAGEMENT OR GI. A/OX4. ON OXYGEN 3L VIA NASAL CANNULA. NO RESPIRATORY DISTRESS. MANAGED PAIN WITH MORPHINE X2. IV RUNNING NS@125ML/HR. CONDOM CATH IN PLACE. NO BM THIS SHIFT. ADVANCED DIET TO CLEAR LIQUIDS PER DR. ROBLES ORDER. NO EPISODE OF EMESIS. SAFETY MEASURES IN PLACE.
[2021-07-14 07:00] LABS: CALCIUM, SERUM 7.5 mg/dL (8.5-10.1); CREATININE 1.3 mg/dL (0.6-1.3); MAGNESIUM 2.1 mg/dL (1.8-2.4); PHOSPHORUS 2.3 mg/dL (2.5-4.9)
[2021-07-14 07:17] LABS: BASOPHILS % (AUTO) 0.1 % (0.0-2.0); EOSINOPHILS % (AUTO) 0.3 % (0.0-6.0); HEMATOCRIT 22 % (39-51); HEMOGLOBIN 7.3 g/dL (13.5-17.5); LYMPHOCYTES # (AUTO) 1.6 K/uL (0.8-4.8); LYMPHOCYTES % (AUTO) 14.7 % (20.0-44.0); MEAN CORPUSCULAR HGB CONC 33 g/dl (31.0-36.0); MEAN CORPUSCULAR VOLUME 90 fL (80-96); MONOCYTES # (AUTO) 0.6 K/uL (0.1-1.30); MONOCYTES % (AUTO) 5.3 % (2.0-12.0); NEUTROPHILS # (AUTO) 8.8 K/uL (1.8-8.9); NEUTROPHILS % (AUTO) 79.6 % (43.0-81.0); PLATELET COUNT (AUTO) 227 K/uL (150-450); RED BLOOD CELL COUNT(AUTO) 2.48 MIL/uL (4.5-6.0); WHITE BLOOD COUNT (AUTO) 11.1 K/uL (4.3-11.0)
--- NOTE | 2021-07-14 07:27 | NUR ---
MS RN OPENING NOTES: RECEIVED PATIENT IN BED. A/O X4 AND VERBALLY RESPONSIVE. ON OXYGEN 3LITERS VIA NC , O2 SAT 98% AND PT TOLERATING WELL. BREATHING EVEN AND UNLABORED. IV ACCESS ON KAMLESH MIDLINE INTACT AND PATENT. NO S/S OF INFILTRATIONS. RUNNING NS @ 125 ML/HR. NO C/O PAIN OR DISCOMFORT. NO ACUTE DISTRESS. ALL SAFETY PRECAUTIONS IN PLACE. BED IN LOWEST POSITION AND LOCKED. SIDE RAILS UP X2. PLACE CALL LIGHT WITHIN REACH. WILL CONTINUE TO MONITOR.
[2021-07-14] MEDS: BLOOD SUGAR DIAGNOSTIC 1 EACH STRIP IN SCH ×4 (07:56→22:40)
[2021-07-14] MEDS: PENTOXIFYLLINE 400 MG TABLET.SA PO SCH ×3 (08:18→17:44)
[2021-07-14] MEDS: TRAZODONE 50 MG TABLET PO SCH ×2 (08:18→21:29)
[2021-07-14] MEDS: TAMSULOSIN 0.4 MG CAP.SR.24H PO SCH (08:18)
[2021-07-14] MEDS: AMITRIPTYLINE HCL 25 MG TABLET PO SCH (08:18)
[2021-07-14] MEDS: methylPREDNISolone SOD SUCC 40 MG/ML VIAL IV SCH (08:18)
[2021-07-14] MEDS: PANTOPRAZOLE 40 MG TABLET.DR PO SCH ×2 (08:19→16:00)
[2021-07-14] MEDS: FLUTICASONE/VILANTEROL 1 EACH BLST.W.DEV IH SCH (08:19)
[2021-07-14] MEDS: LISINOPRIL (20MG) 20 MG TABLET PO SCH (08:36)
[2021-07-14] MEDS: CARVEDILOL 3.125 MG TABLET PO SCH ×2 (08:36→16:00)
[2021-07-14] MEDS: POTASSIUM CHLORIDE 20 MEQ TAB.PRT.SR PO SCH ×3 (10:08→12:33)
[2021-07-14] MEDS: VANCOMYCIN 1 GM in IV D5W 250ml IV SCH ×2 (11:02→23:00)
[2021-07-14 12:00] VITALS: BP 145/63
--- NOTE | 2021-07-14 15:40 | NUR ---
WRECKING SUPERVISOR NOTES: PATIENT IN BED AWAKE, DENIED ANY PAIN OR DISCOMFORT, CONDOM CATH DISLODGED, REPLACED CONDOM CATHETER AND SECURED,ble DRESSING DONE, PATIENT NOT IN ANY DISTRESS, CONTINUE IVF OF NORMAL SALINE AT 125ML/HR,SIGNED CONSENT FOR EGD IN AM, BED REMAIN IN LOW AND LOCKEWD POSITION
[2021-07-14 16:00] VITALS: BP 139/70
[2021-07-14] MEDS ORDERED: K PHOS NEUTRAL 250 MG TABLET PO ONE (16:00)
--- NOTE | 2021-07-14 19:00 | NUR ---
RN CLOSING NOTES: PATIENT IN BED AWAKE, ALERT AND ORIENTED X 4 ,RESPIRATION IS EVEN AND UNLABORED,NO SOB NOTED. ALL DUE MEDS WAS GIVEN ORDERED,CONDOM CATH IN PLACE, RIGHT UPPER ARM MIDLINE PATENT FLUSHED WELL , ONGOING IVF OF NORMAL SALINE AT 125 ML/HR WELL TOLERATED. BED KEPT IN LOW AND LOCKED POSITION,AL NEEDS MET, ENDORSE TO TOOL PUSHER NURSE PT WILL BE NPO MIDNIGHT FOR EGD AT 6AM.
--- NOTE | 2021-07-14 19:15 | NUR ---
RN OPENING NOTES RECEIVED PATIENT ON BED, AWAKE, A/O X 4 . ON NASAL CANULA @ 3LPM SATING AT 98%. RESPIRATORY EVEN AND UNLABORED, NO SOB NOTED. REMAIN AFEBRILE. NO S/S OF DISTRESS NOTED. NOTED WITH KAMLESH MID LINE INTACT PATENT, FLUSHED WITH NS. NO INFILTRATION NOTED AT SITE. RUNNING WITH NS 1L @ 50 ML/HR. WITH CONDOM CATHETER DRAINING VIA GRAVITY WITH CLEAR YELLOW URINE. SAFETY MEASURE PROVIDED. BED IN LOWEST POSITION, LOCKED. BED ALARM ARMED. CONTINUE TO MONITOR.
--- NOTE | 2021-07-14 19:51 | NUR ---
RN NOTES PATIENT C/O OF 9/10 HIP AND BILATERAL LOWER EXTREMITIES PAIN, MORPHINE 4MG GIVEN, BP- 145/66, PULSE- 71, RR- 20.
[2021-07-14 20:00] VITALS: BP 145/66
[2021-07-14] MEDS: LamoTRIgine 100 MG TABLET PO SCH (21:29)
[2021-07-14] MEDS: ATORVASTATIN 40 MG TABLET PO SCH (21:30)
[2021-07-14] MEDS: DOXEPIN HCL (25 MG) 25 MG CAPSULE PO SCH (21:31)
--- NOTE | 2021-07-14 22:00 | NUR ---
RN NOTES PATIENT PLACE ON NPO PRIOR TO PROCEDURE TOMORROW.
[2021-07-14] MEDS: INSULIN REGULAR, HUMAN 100 UNIT/ML 3 ML VIAL SQ PRN (22:41)
--- NOTE | 2021-07-14 22:41 | NUR ---
RN NOTES BLOOD SUGAR 101 mg/dL, NO INSULIN COVERAGE PER SLIDING SCALE.
--- NOTE | 2021-07-14 23:35 | NUR ---
RN NOTES RECEIVED VANCO TROUGH RESULT- 21, HOLD VANCO DOSE @ 2300, CHARGE NURSE AWARE.
[2021-07-15] MEDS: MORPHINE SULFATE INJ 4 MG/ML DISP.SYRIN IV PRN ×4 (02:55→20:03)
--- NOTE | 2021-07-15 02:55 | NUR ---
RN NOTES PATIENT C/O OF 8/10 HIP AND BILATERAL LOWER EXTREMITIES PAIN, MORPHINE 4MG GIVEN, BP- 134/68, PULSE- 67, RR- 20.
[2021-07-15] MEDS: ALBUTEROL FS 2.5 MG/3 ML VIAL.NEB NEB SCH ×6 (03:12→23:30)
[2021-07-15] MEDS: IPRATROPIUM NEB FS 0.5 MG/2.5 ML AMPUL.NEB NEB SCH ×6 (03:12→23:30)
[2021-07-15 04:00] VITALS: BP 130/62
--- NOTE | 2021-07-15 05:33 | NUR ---
RN NOTES LATEST BLOOD SUGAR- 85mg/dL @ 0530
--- NOTE | 2021-07-15 05:39 | NUR ---
RN NOTES PATIENT PICKED UP BY 2 OR NURSE FOR EGD PROCEDURE, ALL CONSENT DONE, PRE OP CHECK LIST DONE, PATIENT IN STABLE CONDITION.
[2021-07-15 06:08] LABS: CALCIUM, SERUM 7.3 mg/dL (8.5-10.1); PHOSPHORUS 1.5 mg/dL (2.5-4.9); POTASSIUM 3.4 mmol/L (3.5-5.1)
[2021-07-15] MEDS ORDERED: ANESTHESIA TRAY IN PYXIS 1 EA TRAY MC ONE (06:24)
[2021-07-15 06:40] LABS: BASOPHILS % (AUTO) 0.1 % (0.0-2.0); EOSINOPHILS % (AUTO) 2.8 % (0.0-6.0); HEMATOCRIT 22 % (39-51); HEMOGLOBIN 7.4 g/dL (13.5-17.5); LYMPHOCYTES # (AUTO) 2.2 K/uL (0.8-4.8); LYMPHOCYTES % (AUTO) 23.3 % (20.0-44.0); MEAN CORPUSCULAR HGB CONC 34 g/dl (31.0-36.0); MEAN CORPUSCULAR VOLUME 88 fL (80-96); MONOCYTES # (AUTO) 0.5 K/uL (0.1-1.30); NEUTROPHILS # (AUTO) 6.5 K/uL (1.8-8.9); NEUTROPHILS % (AUTO) 68.8 % (43.0-81.0); PLATELET COUNT (AUTO) 198 K/uL (150-450); RED BLOOD CELL COUNT(AUTO) 2.49 MIL/uL (4.5-6.0); WHITE BLOOD COUNT (AUTO) 9.5 K/uL (4.3-11.0)
--- NOTE | 2021-07-15 07:00 | NUR ---
RN NOTES PATIENT CAME BACK FROM EGD PROCEDURE, PER DR. PETERSEN, CONTINUE MEDS, RESUME DIET. PATIENT COMPLAIN OF 8/10 HIP AND BILATERAL LOWER EXTREMITIES PAIN, MORPHINE 4MG GIVEN.
--- NOTE | 2021-07-15 07:30 | NUR ---
RN OPENING NOTES: NIGHT NURSE NOTES: PATIENT IN BED ASLEEP BUT RESPONSIVE TO VERBAL STIMULI, DENIED ANY PAIN OR DISCOMFORT, CONDOM CATH IN PLACE. NOT IN ANY DISTRESS, CONTINUE IVF OF NORMAL SALINE AT 50ML/HR. PER NIGHT RN PATIENT JUST CAME BACK FROM EGD WITHOUT ANY SIGNIFICANT FINDINGS. BED REMAIN IN LOW AND LOCKED POSITION
[2021-07-15] MEDS: BLOOD SUGAR DIAGNOSTIC 1 EACH STRIP IN SCH ×4 (07:37→21:37)
[2021-07-15 08:00] VITALS: BP 130/62
[2021-07-15] MEDS: PENTOXIFYLLINE 400 MG TABLET.SA PO SCH ×3 (08:57→17:06)
[2021-07-15] MEDS: TRAZODONE 50 MG TABLET PO SCH ×2 (08:58→21:25)
[2021-07-15] MEDS: AMITRIPTYLINE HCL 25 MG TABLET PO SCH (08:58)
[2021-07-15] MEDS: TAMSULOSIN 0.4 MG CAP.SR.24H PO SCH (08:58)
[2021-07-15] MEDS: LISINOPRIL (20MG) 20 MG TABLET PO SCH (08:58)
[2021-07-15] MEDS: PANTOPRAZOLE 40 MG TABLET.DR PO SCH ×2 (08:58→17:06)
[2021-07-15] MEDS: methylPREDNISolone SOD SUCC 40 MG/ML VIAL IV SCH (08:59)
[2021-07-15] MEDS: CARVEDILOL 3.125 MG TABLET PO SCH ×2 (08:59→17:06)
[2021-07-15] MEDS: FLUTICASONE/VILANTEROL 1 EACH BLST.W.DEV IH SCH (09:07)
[2021-07-15] MEDS ORDERED: POTASSIUM CHLORIDE 20 MEQ TAB.PRT.SR PO SCH (10:00)
[2021-07-15] MEDS ORDERED: K PHOS NEUTRAL 250 MG TABLET PO ONE (10:00)
[2021-07-15] MEDS: VANCOMYCIN 500 MG in IV D5W 100ml IV SCH ×2 (11:23→22:55)
--- NOTE | 2021-07-15 11:50 | NUR ---
RN NOTES: RT AT BEDSIDE ASKING PT TO DRAW ABG ORDERED PATIENT ASKED TO TAKE MORPHINE ORDERED NEEDED BEFORE ABG DRAWN,MORPHINE 4 MG IV GIVEN, O2 SAT 975,NO SOB, WELL TOLERATED AND HE ASKED THE RT TO DRAW THE ABG.
[2021-07-15 12:13] LABS: ABG BASE EXCESS -0.8 mmol/L; ABG OXYGEN SATURATION 89.6 % (92.0-98.5); ABG PCO2 33.7 mmHg (35.0-45.0); ABG PH 7.449 (7.350-7.450); ABG PO2 53.4 mmHg (75.0-100.0); AaDO2 77.6 mmHg; COHb 0.9 % (0.5-1.5); MetHb 0.2 % (0.0-1.5); O2Hb 88.6 % (94.0-97.0); SITE, ABG Right Radial; VENT MODE, BG NASAL CANNULA
[2021-07-15] MEDS: SOD FERRIC GLUC 125 MG in IV NS 0.9% 100 ML IV SCH (14:13)
--- NOTE | 2021-07-15 15:30 | NUR ---
RN NOTES: RELAYED ABG RESULT TO DR TYLER DRAWN WHILE PT ON 1 LITER OXYGEN WITH ORDER TO INCREASE OXYGEN TO 1.5 LITER/NC, OXYGEN ADJUSTED, RESPIRATION IS EVEN AND UNLABORED, NO SOB NOTED
[2021-07-15 16:00] VITALS: BP 137/67
[2021-07-15] MEDS: IV NS 0.9% 1,000 ML IV PRN (17:14)
--- NOTE | 2021-07-15 19:10 | NUR ---
N OPENING NOTES RECEIVED PATIENT ON BED, AWAKE, ALERT AND VERBALLY RESPONSIVE . ON NASAL CANULA @ 1.5LPM SATING AT 98%. RESPIRATORY EVEN AND UNLABORED, NO SOB NOTED. REMAIN AFEBRILE. NO S/S OF DISTRESS NOTED. NOTED WITH KAMLESH MID LINE INTACT PATENT, FLUSHED WITH NS. NO INFILTRATION NOTED AT SITE. RUNNING WITH NS 1L @ 50 ML/HR. WITH CONDOM CATHETER DRAINING VIA GRAVITY WITH CLEAR YELLOW URINE. SAFETY MEASURE PROVIDED. BED IN LOWEST POSITION, LOCKED. BED ALARM ARMED. CONTINUE TO MONITOR.
--- NOTE | 2021-07-15 19:28 | NUR ---
RN closing notes: PATIENT in bed awake , alert x 4. A/OX4. ON OXYGEN 1.5L VIA NASAL CANNULA. NO RESPIRATORY DISTRESS. MANAGED PAIN WITH MORPHINE X1. IV RUNNING NS@50ML/HR. CONDOM CATH IN PLACE. NO BM THIS SHIFT. TOLERATED REGULAR DIET,BLE CELLULITIS DRESSING CHANGED. NO EPISODE OF EMESIS. SAFETY MEASURES IN PLACE, CALL LIGHT WITHIN REACH, LL NEEDS MET, ENDORSE TO CLERICAL OFFICE
--- NOTE | 2021-07-15 20:04 | NUR ---
RN NOTES RN NOTES PATIENT C/O OF 9/10 HIP AND BILATERAL LOWER EXTREMITIES PAIN, MORPHINE 4MG GIVEN, BP- 133/72, PULSE- 62, RR- 18.
[2021-07-15] MEDS: ATORVASTATIN 40 MG TABLET PO SCH (21:24)
[2021-07-15] MEDS: LamoTRIgine 100 MG TABLET PO SCH (21:25)
[2021-07-15] MEDS: DOXEPIN HCL (25 MG) 25 MG CAPSULE PO SCH (21:28)
[2021-07-15] MEDS: INSULIN REGULAR, HUMAN 100 UNIT/ML 3 ML VIAL SQ PRN (21:37)
[2021-07-16] VITALS: BP 133/72
[2021-07-16] MEDS: IPRATROPIUM NEB FS 0.5 MG/2.5 ML AMPUL.NEB NEB SCH ×6 (03:21→23:27)
[2021-07-16] MEDS: ALBUTEROL FS 2.5 MG/3 ML VIAL.NEB NEB SCH ×6 (03:22→23:27)
[2021-07-16] MEDS: MORPHINE SULFATE INJ 4 MG/ML DISP.SYRIN IV PRN ×5 (04:54→22:43)
--- NOTE | 2021-07-16 04:54 | NUR ---
RN NOTES PATIENT C/O OF 9/10 HIP AND BILATERAL LOWER EXTREMITIES PAIN, MORPHINE 4MG GIVEN, BP- 145/81, PULSE- 66, RR- 17.
[2021-07-16 07:12] LABS: CALCIUM, SERUM 7.3 mg/dL (8.5-10.1); POTASSIUM 3.5 mmol/L (3.5-5.1)
--- NOTE | 2021-07-16 07:18 | NUR ---
RN NOTES PATIENT REMAIN STABLE. RESPIRATORY EVEN AND UNLABORED, NO SOB NOTED. REMAIN AFEBRILE. NO S/S OF DISTRESS NOTED. RUNNING WITH NS 1L @ 50 ML/HR. WITH CONDOM CATHETER DRAINING VIA GRAVITY WITH CLEAR YELLOW URINE. SAFETY MEASURE PROVIDED. BED IN LOWEST POSITION, LOCKED. BED ALARM ARMED. CONTINUE TO MONITOR.
[2021-07-16] MEDS: BLOOD SUGAR DIAGNOSTIC 1 EACH STRIP IN SCH ×4 (07:30→21:10)
[2021-07-16 08:00] VITALS: BP 146/76
[2021-07-16] MEDS: PENTOXIFYLLINE 400 MG TABLET.SA PO SCH ×3 (08:47→17:34)
[2021-07-16] MEDS: TRAZODONE 50 MG TABLET PO SCH ×2 (08:47→21:24)
[2021-07-16] MEDS: TAMSULOSIN 0.4 MG CAP.SR.24H PO SCH (08:47)
[2021-07-16] MEDS: PANTOPRAZOLE 40 MG TABLET.DR PO SCH ×2 (08:47→17:36)
[2021-07-16] MEDS: AMITRIPTYLINE HCL 25 MG TABLET PO SCH (08:48)
[2021-07-16] MEDS: LISINOPRIL (20MG) 20 MG TABLET PO SCH (08:49)
[2021-07-16] MEDS: CARVEDILOL 3.125 MG TABLET PO SCH ×2 (08:49→17:35)
[2021-07-16] MEDS: FLUTICASONE/VILANTEROL 1 EACH BLST.W.DEV IH SCH (09:00)
[2021-07-16] MEDS: methylPREDNISolone SOD SUCC 40 MG/ML VIAL IV SCH (09:01)
[2021-07-16] MEDS: VANCOMYCIN 500 MG in IV D5W 100ml IV SCH ×2 (11:00→23:13)
[2021-07-16] MEDS: LOPERAMIDE HCL (2 MG CAP) 2 MG CAPSULE PO PRN (13:48)
[2021-07-16] MEDS: SOD FERRIC GLUC 125 MG in IV NS 0.9% 100 ML IV SCH (14:00)
[2021-07-16 16:00] VITALS: BP 142/68
--- NOTE | 2021-07-16 19:30 | NUR ---
CONTINUITY OF CARE Patient in bed, upset and angry. Alert Oriented x4. IV fluids not infusing, KAMLESH midline infiltrated per report, awaiting PICC line nurse to insert new Midline. Made comfortable in bed, appreciated care.
--- NOTE | 2021-07-16 19:50 | NUR ---
MIDLINE BULMARO 18 gauge inserted by PICC nurse. Continue IVF. KAMLESH midline cath removed, gauze applied, no bleeding.
[2021-07-16 20:00] VITALS: BP 110/74
--- NOTE | 2021-07-16 20:00 | NUR ---
FAMILY CONCERN Patient on the phone with his uncle/person to notify,next of kin- Martha wants to speak with the nurse. Primary nurse Helen, informed Martha plan of care-IVF, abx, pain control. Martha wants to know more updates, explained that I need to look into the chart to get more updates. Martha questioned why there is no labs in the hosp on weekends, discussed to Martha some test like culture takes 2-3 days to be resulted or some test would be sent out to other lab, but there is lab in the hosp even weekends. Martha states, patient spitted blood yesterday and nothing is being done. Informed Martha that there was no report patient spitted blood yesterday but will look into it and review the chart. Explained to Martha, the need to see other patient and make shift rounds. Martha wants to speak with the Charge nurse.
[2021-07-16] MEDS: INSULIN REGULAR, HUMAN 100 UNIT/ML 3 ML VIAL SQ PRN (21:10)
[2021-07-16] MEDS: IV NS 0.9% 1,000 ML IV PRN (21:13)
[2021-07-16] MEDS: LamoTRIgine 100 MG TABLET PO SCH (21:25)
[2021-07-16] MEDS: ATORVASTATIN 40 MG TABLET PO SCH (21:25)
[2021-07-16] MEDS: DOXEPIN HCL (25 MG) 25 MG CAPSULE PO SCH (21:26)
--- NOTE | 2021-07-16 23:29 | NUR ---
FAMILY CONCERN 20:30 LAURA Palmer updated patients Uncle. Patient apologized to Primary LAURA Cervantes for his uncle rudeness.
--- NOTE | 2021-07-17 00:30 | NUR ---
DIARRHEA Patient requested medication for diarrhea, PRATEEK Zapata states, patient had 4x bowel movement, stool not loose, not watery but soft and large. Patient with current order for C diff stool pending. Discussed with patient if he's having diarrhea, nurse to collect specimen for C Diff test, that stool needs to meet criteria for testing prior sending to the lab so as to give him the right treatment and medication for his diarrhea, patient verbalized understanding.
[2021-07-17 04:00] VITALS: BP 128/62
[2021-07-17] MEDS: IPRATROPIUM NEB FS 0.5 MG/2.5 ML AMPUL.NEB NEB SCH ×6 (04:08→23:30)
[2021-07-17] MEDS: ALBUTEROL FS 2.5 MG/3 ML VIAL.NEB NEB SCH ×6 (04:08→23:30)
[2021-07-17] MEDS: MORPHINE SULFATE INJ 4 MG/ML DISP.SYRIN IV PRN ×4 (04:42→20:42)
--- NOTE | 2021-07-17 06:14 | NUR ---
END OF SHIFT REPORT Patient is Alert Oriented x4. BULMARO Midline cath intact, IV fluids infusing. On IV abx Remains afebrile. Moises hips and leg pain managed with Morphine. VSS. Good appetite. Patient changes mood easily, irritable at times but appreciative and thank nurses for care given to him. No episode of loose stool, watery diarrhea in the last 11 hours of shift. New skin redness on perianal, gluteal and scrotal area, patient refused Zguard, education declined, patient request cream in purple tube but forgot name of the cream. Wound consult placed. Offload heels at all times, educate on skin injury prevention. Continue IV abx as planned. Will endorse to oncoming RN.
--- NOTE | 2021-07-17 07:30 | NUR ---
MS RN OPENING NOTES RECEIVED PATIENT ON BED, AWAKE AND A/O X4. ON O2 AT 2LPM VIA NASAL CANNULA TOLERATING WELL. NO SOB NOTED. NOT IN DISTRESS. WITH NO COMPLAINTS OF PAIN OR DISCOMFORT AT THIS TIME. WITH IV ACCESS AT LEFT UPPER ARM MIDLINE WITH IV NS AT 50ML/HR INFUSING WELL. SAFETY MEASURES IN PLACED. CALL LIGHT WITHIN REACH. BED ON LOWEST LOCKED POSITION, SIDE RAILS UP X2. WILL CONTINUE TO MONITOR.
[2021-07-17 07:45] LABS: CALCIUM, SERUM 7.3 mg/dL (8.5-10.1); POTASSIUM 3.1 mmol/L (3.5-5.1)
[2021-07-17 08:00] VITALS: BP 148/69
[2021-07-17 08:59] LABS: BASOPHILS % (AUTO) 0.1 % (0.0-2.0); EOSINOPHILS % (AUTO) 4.6 % (0.0-6.0); HEMATOCRIT 23 % (39-51); HEMOGLOBIN 7.8 g/dL (13.5-17.5); LYMPHOCYTES # (AUTO) 2.5 K/uL (0.8-4.8); MEAN CORPUSCULAR HGB CONC 33 g/dl (31.0-36.0); MEAN CORPUSCULAR VOLUME 88 fL (80-96); MONOCYTES # (AUTO) 0.4 K/uL (0.1-1.30); NEUTROPHILS # (AUTO) 7.1 K/uL (1.8-8.9); NEUTROPHILS % (AUTO) 67.3 % (43.0-81.0); PLATELET COUNT (AUTO) 168 K/uL (150-450); RED BLOOD CELL COUNT(AUTO) 2.65 MIL/uL (4.5-6.0); WHITE BLOOD COUNT (AUTO) 10.6 K/uL (4.3-11.0)
[2021-07-17] MEDS: LISINOPRIL (20MG) 20 MG TABLET PO SCH (09:00)
[2021-07-17] MEDS ORDERED: POTASSIUM CHLORIDE 20 MEQ TAB.PRT.SR PO ONE (09:30)
[2021-07-17] MEDS: BLOOD SUGAR DIAGNOSTIC 1 EACH STRIP IN SCH ×4 (09:34→23:41)
[2021-07-17] MEDS: PENTOXIFYLLINE 400 MG TABLET.SA PO SCH ×3 (09:35→17:31)
[2021-07-17] MEDS: methylPREDNISolone SOD SUCC 40 MG/ML VIAL IV SCH (09:36)
[2021-07-17] MEDS: CARVEDILOL 3.125 MG TABLET PO SCH ×2 (09:36→16:39)
[2021-07-17] MEDS: TAMSULOSIN 0.4 MG CAP.SR.24H PO SCH (09:36)
[2021-07-17] MEDS: AMITRIPTYLINE HCL 25 MG TABLET PO SCH (09:36)
[2021-07-17] MEDS: PANTOPRAZOLE 40 MG TABLET.DR PO SCH ×2 (09:36→16:38)
--- NOTE | 2021-07-17 09:36 | NUR ---
RN NOTES PATIENT WITH COMPLAINTS OF LEFT HIP PAIN AT 8/10 AND IS ASKING FOR MORPHINE. MORPHINE 4MG IV WAS GIVEN FOR PAIN.
[2021-07-17] MEDS: TRAZODONE 50 MG TABLET PO SCH ×2 (09:37→20:42)
[2021-07-17] MEDS ORDERED: POTASSIUM CHLORIDE 20 MEQ TAB.PRT.SR PO SCH (10:00)
[2021-07-17] MEDS: VANCOMYCIN 500 MG in IV D5W 100ml IV SCH ×2 (10:58→23:17)
[2021-07-17] MEDS: predniSONE 20 MG TABLET PO SCH (12:06)
[2021-07-17] MEDS: LOPERAMIDE HCL (2 MG CAP) 2 MG CAPSULE PO PRN ×2 (12:20→22:36)
[2021-07-17] MEDS: FLUTICASONE/VILANTEROL 1 EACH BLST.W.DEV IH SCH (12:20)
[2021-07-17] MEDS: SOD FERRIC GLUC 125 MG in IV NS 0.9% 100 ML IV SCH (14:37)
[2021-07-17 16:00] VITALS: BP 128/65
--- NOTE | 2021-07-17 18:30 | NUR ---
MS RN CLOSING NOTES PATIENT ON BED, AWAKE AND A/O X4. ON O2 AT 2LPM VIA NASAL CANNULA TOLERATING WELL. NO SOB NOTED. NOT IN DISTRESS. WITH NO COMPLAINTS OF PAIN OR DISCOMFORT AT THIS TIME. WITH IV ACCESS AT LEFT UPPER ARM MIDLINE, SALINE LOCKED, PATENT AND INTACT. WITH CONDOM CATHETER DRAINING CLEAR YELLOW URINE AT 1550ML. DUE MEDS GIVEN. SAFETY MEASURES IN PLACED. CALL LIGHT WITHIN REACH. BED ON LOWEST LOCKED POSITION, SIDE RAILS UP X2. WILL ENDORSE TO NEXT SHIFT FOR ANGELIC.
--- NOTE | 2021-07-17 19:25 | NUR ---
MS RN OPENING NOTES RECEIVED PATIENT LAYING AWAKE IN BED. A/O X4. PATIENT WITH REGULAR AND UNLABORED BREATHING ON 2 LPM VIA NASAL CANULA, TOLERATED WELL. NO SIGNS AND SYMPTOMS OF DISTRESS NOTED AT THIS TIME. NO COMPLAINS OF PAIN OR DISCOMFORT AT THIS TIME. IV ACCESS BULMARO MIDLINE SL . IV ACCESS PATENT AND INTACT. SAFETY PRECAUTIONS ENFORCED WITH BED LOCKED AND AT LOWEST POSITION. SIDERAILS UP X2. CALL LIGHT WITHIN REACH AT ALL TIMES. WILL CONTINUE TO MONITOR PATIENT.
[2021-07-17 20:00] VITALS: BP 132/69
[2021-07-17] MEDS ORDERED: LOPERAMIDE HCL (2 MG CAP) 2 MG CAPSULE ONE (22:31)
[2021-07-17] MEDS: ATORVASTATIN 40 MG TABLET PO SCH (22:36)
[2021-07-17] MEDS: LamoTRIgine 100 MG TABLET PO SCH (22:36)
[2021-07-17] MEDS: DOXEPIN HCL (25 MG) 25 MG CAPSULE PO SCH (22:37)
[2021-07-18] VITALS: BP 132/69
[2021-07-18] MEDS: MORPHINE SULFATE INJ 4 MG/ML DISP.SYRIN IV PRN ×5 (00:59→21:10)
[2021-07-18] MEDS: IPRATROPIUM NEB FS 0.5 MG/2.5 ML AMPUL.NEB NEB SCH ×4 (01:44→23:14)
[2021-07-18] MEDS: ALBUTEROL FS 2.5 MG/3 ML VIAL.NEB NEB SCH ×4 (01:44→23:14)
[2021-07-18 06:10] LABS: EOSINOPHILS % (AUTO) 0.9 % (0.0-6.0); HEMATOCRIT 24 % (39-51); HEMOGLOBIN 7.8 g/dL (13.5-17.5); LYMPHOCYTES # (AUTO) 1.6 K/uL (0.8-4.8); LYMPHOCYTES % (AUTO) 15.6 % (20.0-44.0); MEAN CORPUSCULAR HGB CONC 33 g/dl (31.0-36.0); MEAN CORPUSCULAR VOLUME 89 fL (80-96); MONOCYTES # (AUTO) 0.5 K/uL (0.1-1.30); MONOCYTES % (AUTO) 4.6 % (2.0-12.0); NEUTROPHILS # (AUTO) 8.2 K/uL (1.8-8.9); NEUTROPHILS % (AUTO) 78.9 % (43.0-81.0); PLATELET COUNT (AUTO) 164 K/uL (150-450); RED BLOOD CELL COUNT(AUTO) 2.67 MIL/uL (4.5-6.0); WHITE BLOOD COUNT (AUTO) 10.5 K/uL (4.3-11.0)
[2021-07-18 06:59] LABS: CALCIUM, SERUM 7.6 mg/dL (8.5-10.1)
--- NOTE | 2021-07-18 07:05 | NUR ---
MS RN CLOSING NOTES PATIENT STILL LAYING AWAKE IN BED. A/O X4. PATIENT WITH REGULAR AND UNLABORED BREATHING ON 2 LPM VIA NASAL CANULA, TOLERATED WELL. NO SIGNS AND SYMPTOMS OF DISTRESS NOTED AT THIS TIME. NO COMPLAINS OF PAIN OR DISCOMFORT AT THIS TIME. IV ACCESS BULMARO MIDLINE SL . IV ACCESS PATENT AND INTACT. SAFETY PRECAUTIONS ENFORCED WITH BED LOCKED AND AT LOWEST POSITION. SIDERAILS UP X2. CALL LIGHT WITHIN REACH AT ALL TIMES. WILL ENDORSE CONTINUITY OF CARE TO DAY SHIFT NURSE.
--- NOTE | 2021-07-18 07:30 | NUR ---
RN NOTES PT FOUND SEMI FOWLERS, APPEARS TO BE SLEEPING, DISPLAYING NO S/S OF DISTRESS, FLACC = 0 AND BREATHING IS EVEN AND UNLABORED ON 1L O2 NC. L UA MIDLINE IS PATIENT AND INTACT. CONDOM CATH ON WITH RESERVOIR BELOW PATIENT DRAINING BY GRAVITY. RN WILL MONITOR AND TREAT THROUGHOUT SHIFT. SAFETY MEASURES IN PLACE, BED LOCKED AND IN LOWEST POSITION, SIDE RAILS UPX2, CALL LIGHT WITHIN REACH, BED ALARM ARMED.
[2021-07-18] MEDS: BLOOD SUGAR DIAGNOSTIC 1 EACH STRIP IN SCH ×4 (07:55→22:38)
[2021-07-18 08:00] VITALS: BP 136/60
--- NOTE | 2021-07-18 08:30 | NUR ---
MD VISIT DR PUGA SPOKE TO PT, ANSWERED QUESTIONS, DISCUSSED POC. GAVE ORDERS: 0.9% NS AT 75 ML/HR PRN. LAURA ACKNOWLEDGED AND WILL EXECUTE ORDERS DIRECTED. Addendum: 07/18/21 at 0957 by CK PEDRAZA RN ALSO ORDERED PAIN MANAGEMENT CONSULT
[2021-07-18] MEDS: PENTOXIFYLLINE 400 MG TABLET.SA PO SCH ×3 (08:40→17:41)
[2021-07-18] MEDS: TRAZODONE 50 MG TABLET PO SCH ×2 (08:40→21:17)
[2021-07-18] MEDS: AMITRIPTYLINE HCL 25 MG TABLET PO SCH (08:40)
[2021-07-18] MEDS: PANTOPRAZOLE 40 MG TABLET.DR PO SCH ×2 (08:40→17:41)
[2021-07-18] MEDS: IV NS 0.9% 1,000 ML IV PRN (08:40)
[2021-07-18] MEDS: LISINOPRIL (20MG) 20 MG TABLET PO SCH (08:41)
[2021-07-18] MEDS: FLUTICASONE/VILANTEROL 1 EACH BLST.W.DEV IH SCH (08:41)
[2021-07-18] MEDS: CARVEDILOL 3.125 MG TABLET PO SCH ×2 (08:41→17:41)
[2021-07-18] MEDS: predniSONE 20 MG TABLET PO SCH (08:41)
[2021-07-18] MEDS: TAMSULOSIN 0.4 MG CAP.SR.24H PO SCH (08:41)
--- NOTE | 2021-07-18 10:09 | NUR ---
WOUND CARE CONSULT: PT SEEN FOR SLIGHT REDNESS TO PERINEUM AND LOWER BUTTOCKS. PT STATES IS SENSITIVE TO Z GUARD AND PREFERS BARRIER CREAM IN WHITE AND GREEN TUBE. CALMOSEPTINE ORDERED FROM PHARMACY. DISCUSSED SKIN PROTECTION WITH NURSING STAFF. MD IN AGREEMENT WITH PLAN OF CARE.
[2021-07-18 10:15] LABS: BAND % (MANUAL) 6 % (0.0-5.0); LYMPHOCYTES % (MANUAL) 14 % (16-48); MONOCYTES % (MANUAL) 2 % (0-11.0); NEUTROPHILS % (MANUAL) 78 (42-76)
[2021-07-18] MEDS: LOPERAMIDE HCL (2 MG CAP) 2 MG CAPSULE PO PRN ×2 (11:11→21:11)
[2021-07-18] MEDS: VANCOMYCIN 500 MG in IV D5W 100ml IV SCH ×2 (11:13→23:34)
[2021-07-18] MEDS: CALMOSEPTINE TP SCH (13:24)
[2021-07-18] MEDS: SOD FERRIC GLUC 125 MG in IV NS 0.9% 100 ML IV SCH (14:17)
[2021-07-18] MEDS: APIXABAN 2.5 MG TABLET PO SCH (17:47)
[2021-07-18] MEDS: INSULIN REGULAR, HUMAN 100 UNIT/ML 3 ML VIAL SQ PRN (17:47)
[2021-07-18 18:00] VITALS: BP 127/75
--- NOTE | 2021-07-18 19:30 | NUR ---
RN NOTES PT FOUND SEMI FOWLERS, DISPLAYING NO S/S OF DISTRESS, PT ENDORSES 5/10 PAIN AND BREATHING IS EVEN AND UNLABORED ON 1L O2 NC. L UA MIDLINE IS PATIENT AND INTACT. CONDOM CATH ON WITH RESERVOIR BELOW PATIENT DRAINING BY GRAVITY. SBAR AND REPORT GIVEN TO SUPERVISOR BEAM DEPARTMENT RN, ALL QUESTIONS ANSWERED. SAFETY MEASURES IN PLACE, BED LOCKED AND IN LOWEST POSITION, SIDE RAILS UPX2, CALL LIGHT WITHIN REACH, BED ALARM ARMED. PT ENDORSED IN STABLE CONDITION FOR ANGELIC.
--- NOTE | 2021-07-18 19:46 | NUR ---
RN OPENING NOTES: RECEIVED PT IN BED AWAKE, ALERTX4 AND VERBALLY RESPONSIVE. ON O2 AT 2L/MIN VIA N/C AND PT TOLERATED WELL. BREATHING EVEN AND UNLABORED. NO SOB NOTED. IV ACCESS ON BULMARO MIDLINE INTACT AND PATENT, RUNNING NS 75CC/HR/. NO C/O PAIN OR DISCOMFORT. NO ACUTE DISTRESS. ALL SAFETY MEASURES IN PLACE. BED IN LOWEST POSITION AND LOCKED. SIDE RAILS UP X2, PLACE CALL LIGHT WITH IN REACH. WILL CONTINUE TO MONITOR
[2021-07-18 20:00] VITALS: BP 136/67
--- NOTE | 2021-07-18 21:14 | NUR ---
RN NOTES: PT C/O SEVERE PAIN ON BOTH HIP, 9/10 PAIN SCALE. MORPHINE GIVEN PER PRN ORDERED. PT TOLERATED WELL. WILL CONTINUE TO MONITOR
--- NOTE | 2021-07-18 21:15 | NUR ---
RN NOTES: IMODIUM 2 MG CAP GIVEN FOR EPISODE OF DIARRHEA. WILL CONTINUE TO MONITOR
[2021-07-18] MEDS: LamoTRIgine 100 MG TABLET PO SCH (21:17)
[2021-07-18] MEDS: ATORVASTATIN 40 MG TABLET PO SCH (21:17)
[2021-07-18] MEDS: DOXEPIN HCL (25 MG) 25 MG CAPSULE PO SCH (21:21)
--- NOTE | 2021-07-18 22:54 | NUR ---
RN NOTES: BLOOD SUGAR 81. NO COVERAGE NEEDED. NO S/S OF HYPER/HYPOGLYCEMIA. WILL CONTINUE TO MONITOR
[2021-07-19] MEDS: IV NS 0.9% 1,000 ML IV PRN ×2 (01:01→18:51)
[2021-07-19] MEDS: IPRATROPIUM NEB FS 0.5 MG/2.5 ML AMPUL.NEB NEB SCH ×6 (03:32→23:22)
[2021-07-19] MEDS: ALBUTEROL FS 2.5 MG/3 ML VIAL.NEB NEB SCH ×6 (03:32→23:22)
[2021-07-19 04:00] VITALS: BP 124/53
[2021-07-19] MEDS: MORPHINE SULFATE INJ 4 MG/ML DISP.SYRIN IV PRN ×5 (05:38→23:04)
--- NOTE | 2021-07-19 05:45 | NUR ---
RN NOTES: PT STILL C/O SEVERE PAIN ON BOTH HIP, 9/10 PAIN SCALE. MORPHINE GIVEN PER PRN ORDERED. PT TOLERATED WELL. WILL CONTINUE TO MONITOR
--- NOTE | 2021-07-19 06:50 | NUR ---
RN CLOSING NOTES: PT IN BED AWAKE, ALERTX4 AND VERBALLY RESPONSIVE. ON O2 AT 2L/MIN VIA N/C, O2 SAT 98%AND PT TOLERATED WELL. BREATHING EVEN AND UNLABORED. NO SOB. IV ACCESS ON BULMARO MIDLINE INTACT AND PATENT, NO BLEEDING NOTED. RUNNING NS 75CC/HR/. NO C/O PAIN OR DISCOMFORT. NO ACUTE DISTRESS. ALL DUE MEDS GIVEN ORDERED. ALL SAFETY MEASURES IN PLACE. BED IN LOWEST POSITION AND LOCKED. SIDE RAILS UP X2, PLACE CALL LIGHT WITH IN REACH. WILL ENDORSE TO MORNING SHIFT NURSE.
[2021-07-19 07:09] LABS: CALCIUM, SERUM 7.3 mg/dL (8.5-10.1); POTASSIUM 3.4 mmol/L (3.5-5.1)
[2021-07-19 07:14] LABS: BASOPHILS % (AUTO) 0.1 % (0.0-2.0); EOSINOPHILS % (AUTO) 2.5 % (0.0-6.0); HEMATOCRIT 25 % (39-51); HEMOGLOBIN 8.2 g/dL (13.5-17.5); LYMPHOCYTES # (AUTO) 2.7 K/uL (0.8-4.8); LYMPHOCYTES % (AUTO) 25.1 % (20.0-44.0); MEAN CORPUSCULAR HGB CONC 33 g/dl (31.0-36.0); MEAN CORPUSCULAR VOLUME 89 fL (80-96); MONOCYTES # (AUTO) 0.6 K/uL (0.1-1.30); MONOCYTES % (AUTO) 5.3 % (2.0-12.0); NEUTROPHILS # (AUTO) 7.3 K/uL (1.8-8.9); PLATELET COUNT (AUTO) 173 K/uL (150-450); RED BLOOD CELL COUNT(AUTO) 2.75 MIL/uL (4.5-6.0); WHITE BLOOD COUNT (AUTO) 10.9 K/uL (4.3-11.0)
--- NOTE | 2021-07-19 07:30 | NUR ---
RN OPENING NOTES RECEIVED PATIENT IN BED. ALERT VERBALLY RESPONSIVE. NOT IN DISTRESS, NO COMPLAINTS OF PAIN NOTED. O2 @ 2LPM VIA NC SATING 98%. BULMARO MIDLINE PATENT AND INTACT WITH IVF RUNNING NS @ 75CCHR. WITH CONDOM CATHETER IN PLACE DRAINING TO YELLOW COLORED URINE. BED TO LOWEST POSITION AND LOCKED. CALL LIGHT WITHIN REACH.
[2021-07-19] MEDS: TAMSULOSIN 0.4 MG CAP.SR.24H PO SCH (08:33)
[2021-07-19] MEDS: predniSONE 20 MG TABLET PO SCH (08:33)
[2021-07-19] MEDS: TRAZODONE 50 MG TABLET PO SCH ×2 (08:33→21:43)
[2021-07-19] MEDS: PANTOPRAZOLE 40 MG TABLET.DR PO SCH ×2 (08:33→16:08)
[2021-07-19] MEDS: FLUTICASONE/VILANTEROL 1 EACH BLST.W.DEV IH SCH (08:33)
[2021-07-19] MEDS: PENTOXIFYLLINE 400 MG TABLET.SA PO SCH ×3 (08:33→17:45)
[2021-07-19] MEDS: AMITRIPTYLINE HCL 25 MG TABLET PO SCH (08:33)
[2021-07-19] MEDS: CARVEDILOL 3.125 MG TABLET PO SCH ×2 (08:33→16:08)
[2021-07-19] MEDS: LISINOPRIL (20MG) 20 MG TABLET PO SCH (08:34)
[2021-07-19] MEDS: APIXABAN 2.5 MG TABLET PO SCH ×2 (08:35→16:11)
[2021-07-19] MEDS: BLOOD SUGAR DIAGNOSTIC 1 EACH STRIP IN SCH ×4 (08:35→21:52)
[2021-07-19] MEDS: INSULIN REGULAR, HUMAN 100 UNIT/ML 3 ML VIAL SQ PRN ×3 (08:36→16:56)
[2021-07-19] MEDS: CALMOSEPTINE TP SCH (08:37)
[2021-07-19] MEDS ORDERED: POTASSIUM CHLORIDE 20 MEQ TAB.PRT.SR PO SCH (10:00)
--- NOTE | 2021-07-19 13:12 | NUR ---
RN NOTES RAPID COVID TEST ORDERED. SPECIMEN COLLECTED AND BROUGHT BACK TO LAB.
[2021-07-19] MEDS: SOD FERRIC GLUC 125 MG in IV NS 0.9% 100 ML IV SCH (14:22)
[2021-07-19] MEDS: LOPERAMIDE HCL (2 MG CAP) 2 MG CAPSULE PO PRN (14:31)
--- NOTE | 2021-07-19 18:55 | NUR ---
RN CLOSING NOTES PATIENT AWAKE IN BED. O2 @ 1LPM VIA NC SATING 98%. NOT IN DISTRESS. C/O PAIN ON HIP WITH PAIN SCORE OF 9. PRN PAIN MEDS GIVEN. BULMARO MIDLINE INTACT WITH IVF RUNNING NS @ 75CC/HR. CONDOM CATHETER IN PLACE DRAINING TO PALE YELLOW COLORED URINE. RAPID COVID TEST DONE TODAY PER CASE MANAGEMENT. WITH PT EVAL ORDER TODAY. BED TO LOWEST POSITION AND LOCKED. CALL LIGHT WITHIN REACH. WILL ENDORSE TO BULK PALLET BUILDER NURSE ON DUTY.
[2021-07-19 20:00] VITALS: BP 121/73
[2021-07-19] MEDS: LamoTRIgine 100 MG TABLET PO SCH (21:41)
[2021-07-19] MEDS: DOXEPIN HCL (25 MG) 25 MG CAPSULE PO SCH (21:42)
[2021-07-19] MEDS: ATORVASTATIN 40 MG TABLET PO SCH (21:43)
--- NOTE | 2021-07-19 23:10 | NUR ---
RN NOTE PATIENT REQUESTING FOR PAIN MEDICATION FOR PAIN LEVEL 8/10. STATES PAIN IS FROM LEFT AND RIGHT HIP. NO REDNESS NOTED. PATIENT ALSO STATES BILATERAL LOWER EXTREMITIES ARE IN PAIN FROM CELLULITIS. ADMINISTERED MORPHINE 4MG/1ML PER MD ORDER. WILL CONTINUE TO MONITOR.
[2021-07-20] MEDS: MORPHINE SULFATE INJ 4 MG/ML DISP.SYRIN IV PRN ×4 (03:21→15:39)
[2021-07-20] MEDS: ALBUTEROL FS 2.5 MG/3 ML VIAL.NEB NEB SCH ×4 (03:45→14:46)
[2021-07-20] MEDS: IPRATROPIUM NEB FS 0.5 MG/2.5 ML AMPUL.NEB NEB SCH ×4 (03:45→14:46)
[2021-07-20 04:00] VITALS: BP 128/60
[2021-07-20] MEDS: IV NS 0.9% 1,000 ML IV PRN (06:30)
[2021-07-20 07:26] LABS: CALCIUM, SERUM 6.8 mg/dL (8.5-10.1); CREATININE 1.1 mg/dL (0.6-1.3)
--- NOTE | 2021-07-20 07:28 | NUR ---
RN OPENING NOTE PATIENT RECEIVED IN BED, RESTING. PATIENT ON 1L O2 NC WITH NO SIGNS OF LABORED BREATHING AT THIS TIME. ALVES CATH IN PLACE, PATENT. LEFT UA 18G IV IN PLACE RUNNING NS AT 75CC/HR. NO SIGNS OF ACUTE DISTRESS NOTED AT THIS TIME. BED LOCKED AND IN LOWEST POSITION, CALL LIGHT WITHIN REACH, 2 SIDE RAILS UP. WILL CONTINUE TO MONITOR.
[2021-07-20] MEDS: BLOOD SUGAR DIAGNOSTIC 1 EACH STRIP IN SCH ×2 (07:45→11:33)
[2021-07-20 08:00] VITALS: BP 133/44
[2021-07-20 08:11] LABS: BASOPHILS % (AUTO) 0.2 % (0.0-2.0); EOSINOPHILS % (AUTO) 4.1 % (0.0-6.0); HEMATOCRIT 24 % (39-51); HEMOGLOBIN 7.8 g/dL (13.5-17.5); MEAN CORPUSCULAR HGB CONC 33 g/dl (31.0-36.0); MEAN CORPUSCULAR VOLUME 90 fL (80-96); MONOCYTES % (AUTO) 4.9 % (2.0-12.0); NEUTROPHILS % (AUTO) 65.8 % (43.0-81.0); PLATELET COUNT (AUTO) 174 K/uL (150-450); WHITE BLOOD COUNT (AUTO) 10.7 K/uL (4.3-11.0)
[2021-07-20 08:12] LABS: LYMPHOCYTES # (AUTO) 2.7 K/uL (0.8-4.8); MONOCYTES # (AUTO) 0.5 K/uL (0.1-1.30)
[2021-07-20] MEDS: TAMSULOSIN 0.4 MG CAP.SR.24H PO SCH (08:27)
[2021-07-20] MEDS: CALMOSEPTINE TP SCH (08:27)
[2021-07-20] MEDS: CARVEDILOL 3.125 MG TABLET PO SCH (08:27)
[2021-07-20] MEDS: TRAZODONE 50 MG TABLET PO SCH (08:27)
[2021-07-20] MEDS: PENTOXIFYLLINE 400 MG TABLET.SA PO SCH ×2 (08:27→12:41)
[2021-07-20] MEDS: PANTOPRAZOLE 40 MG TABLET.DR PO SCH (08:27)
[2021-07-20] MEDS: AMITRIPTYLINE HCL 25 MG TABLET PO SCH (08:27)
[2021-07-20] MEDS: LISINOPRIL (20MG) 20 MG TABLET PO SCH (08:28)
[2021-07-20] MEDS: APIXABAN 2.5 MG TABLET PO SCH (08:29)
[2021-07-20] MEDS: FLUTICASONE/VILANTEROL 1 EACH BLST.W.DEV IH SCH (08:29)
[2021-07-20] MEDS ORDERED: predniSONE 20 MG TABLET PO SCH (09:00)
[2021-07-20] MEDS: POTASSIUM CHLORIDE 20 MEQ TAB.PRT.SR PO SCH ×3 (09:11→11:03)
--- NOTE | 2021-07-20 09:58 | NUR ---
RN NOTE MAGNESIUM OF 0.8 RECEIVED FROM LAB. REPORTED TO KEYANA MOSHER.
[2021-07-20] MEDS ORDERED: Magnesium 1GM/D5W 100ML PREMIX 100 ML IV SCH (10:30)
[2021-07-20] MEDS: Magnesium 1GM/D5W 100ML PREMIX 100 ML IV SCH ×4 (10:34→14:20)
[2021-07-20] MEDS: LOPERAMIDE HCL (2 MG CAP) 2 MG CAPSULE PO PRN (11:42)
[2021-07-20 14:03] LABS: EOSINOPHILS % (MANUAL) 2 % (0-4); LYMPHOCYTES % (MANUAL) 27 % (16-48); MONOCYTES % (MANUAL) 6 % (0-11.0); NEUTROPHILS % (MANUAL) 65 (42-76)
[2021-07-20] MEDS ORDERED: PRED20TA PO (14:28)
[2021-07-20 15:46] LABS: CALCIUM, SERUM 6.9 mg/dL (8.5-10.1); CREATININE 1.1 mg/dL (0.6-1.3); POTASSIUM 3.8 mmol/L (3.5-5.1)
[2021-07-20 16:00] VITALS: BP 135/85
--- NOTE | 2021-07-20 16:56 | NUR ---
RN NOTE PATIENT DISCHARGED ORDER. PATIENT LEFT FACILITY WITH AMBULANCE CREW. REPORT GIVEN TO JOE AT [facility]. MIDLINE REMOVED PER SNF REQUEST.
[2021-07-20] MEDS ORDERED: APIXABAN 5 MG TABLET PO SCH (17:00)
== END 2021-07-20 17:10 | DRG 197 ==
LOC: ER 05:32 → TELE1 10:32 → MEDSG1 07-11 09:09
PROVIDERS: ADMIT Nurse Practitioner Acute Care; ATTEND Registered Nurse
PROC: 05H533Z Insertion of Infusion Device into Right Subclavian Vein, Percutaneous Approach (ICD-10-PCS; 2021-07-09)
PROC: B546ZZA Ultrasonography of Right Subclavian Vein, Guidance (ICD-10-PCS; 2021-07-09)
PROC: 30233N1 Transfusion of Nonautologous Red Blood Cells into Peripheral Vein, Percutaneous Approach (ICD-10-PCS; 2021-07-10)
PROC: 0DB68ZX Excision of Stomach, Via Natural or Artificial Opening Endoscopic, Diagnostic (ICD-10-PCS; principal; 2021-07-15)
PROC: 05H633Z Insertion of Infusion Device into Left Subclavian Vein, Percutaneous Approach (ICD-10-PCS; 2021-07-16)
PROC: B547ZZA Ultrasonography of Left Subclavian Vein, Guidance (ICD-10-PCS; 2021-07-16)
DX: I82.A11 Acute embolism and thrombosis of right axillary vein (principal); N17.0 Acute kidney failure with tubular necrosis; J96.91 Respiratory failure, unspecified with hypoxia; J69.0 Pneumonitis due to inhalation of food and vomit; I50.33 Acute on chronic diastolic (congestive) heart failure; E46 Unspecified protein-calorie malnutrition; D68.59 Other primary thrombophilia; K92.0 Hematemesis; E87.1 Hypo-osmolality and hyponatremia; I11.0 Hypertensive heart disease with heart failure; E86.1 Hypovolemia; J15.9 Unspecified bacterial pneumonia; D68.69 Other thrombophilia; E87.3 Alkalosis; E11.22 Type 2 diabetes mellitus with diabetic chronic kidney disease; L03.115 Cellulitis of right lower limb; L03.116 Cellulitis of left lower limb; R07.9 Chest pain, unspecified; G40.909 Epilepsy, unspecified, not intractable, without status epilepticus; I25.10 Atherosclerotic heart disease of native coronary artery without angina pectoris; D47.2 Monoclonal gammopathy; I82.B11 Acute embolism and thrombosis of right subclavian vein; E87.6 Hypokalemia; Z20.822 Contact with and (suspected) exposure to COVID-19; E83.42 Hypomagnesemia; E88.09 Other disorders of plasma-protein metabolism, not elsewhere classified; G89.4 Chronic pain syndrome; I13.0 Hypertensive heart and chronic kidney disease with heart failure and stage 1 through stage 4 chronic kidney disease, or unspecified chronic kidney disease; I87.2 Venous insufficiency (chronic) (peripheral); J44.1 Chronic obstructive pulmonary disease with (acute) exacerbation; Z86.16 Personal history of COVID-19; Z87.440 Personal history of urinary (tract) infections; K20.90 Esophagitis, unspecified without bleeding; K29.70 Gastritis, unspecified, without bleeding; E78.5 Hyperlipidemia, unspecified; D64.9 Anemia, unspecified; J44.0 Chronic obstructive pulmonary disease with (acute) lower respiratory infection; J90 Pleural effusion, not elsewhere classified; I69.354 Hemiplegia and hemiparesis following cerebral infarction affecting left non-dominant side; F32.A Depression, unspecified; N40.0 Benign prostatic hyperplasia without lower urinary tract symptoms; Z79.891 Long term (current) use of opiate analgesic; Z74.09 Other reduced mobility; Y24.8XXS Other firearm discharge, undetermined intent, sequela; J98.11 Atelectasis; N18.9 Chronic kidney disease, unspecified; Z74.01 Bed confinement status; Z79.899 Other long term (current) drug therapy; Z88.2 Allergy status to sulfonamides; K63.89 Other specified diseases of intestine; E66.9 Obesity, unspecified; Z68.32 Body mass index [BMI] 32.0-32.9, adult; M79.662 Pain in left lower leg; M79.661 Pain in right lower leg; F17.200 Nicotine dependence, unspecified, uncomplicated; E11.9 Type 2 diabetes mellitus without complications; L97.829 Non-pressure chronic ulcer of other part of left lower leg with unspecified severity; L97.819 Non-pressure chronic ulcer of other part of right lower leg with unspecified severity
CPT/HCPCS: 36410; 36415; 36600; 71045-TC; 80048-TC; 80053-TC; 80076-TC; 80202-TC; 82728-TC; 82803-TC; 82962-TC; 83540-TC; 83605-TC; 83735-TC; 83880; 84100-TC; 84484-TC; 85025-TC; 85027-TC; 85730-TC; 86803; 86850-TC; 87040-TC; 87081-TC; 87806; 88305-TC; 88313-TC; 88342; 93307-TC; 93970-TC; 94799-TC; 97112-TC; 97530-TC; A4349; A6253; G0378; J0692; J0696; J1120; J1170; J1815; J1940; J2270; J2405; J2704; J2765; J2916; J2920; J3370; J3475; J3480; J3490; J7030; J7050; J7060; P9016; Q9967

== ENCOUNTER 2021-08-10 20:24 | Inpatient (IN) | payer OTHER ==
[~2021-08-10] VITALS: Ht 170.2 cm; Wt 91.4 kg
[~2021-08-10 20:24] MED LIST changes: -CLOT15CR27 TP; -FLUO60SO3 TP; -FURO-144 PO; -HYDR4TAB4 PO; -LORA-259 SL; -MORP100S3 PO; -OXYC15TA2 PO; -PROM118S5 PO
--- NOTE | 2021-08-10 20:30 | NUR ---
SUBHASH FROM SNF C/O SOB. NORMALLY ON BIPAP WAS SATTING IN THE 80'S NOW ON NON REBREATHER SATTING 97% 15L. PT A/OX3. CONNECTED PT TO POX AND MONITOR. SAFETY MEASURES IN PLACE.
[2021-08-10] MEDS ORDERED: NITROGLYCERIN 0.4 MG/TAB BOTTLE ONE (20:40)
--- NOTE | 2021-08-10 20:46 | NUR ---
COVID SWAB DONE AND SENT TO LAB.
[2021-08-10] MEDS ORDERED: ENALAPRILAT DIHYD. (2.5MG/2ML) 1.25 MG/ML VIAL IV ONE ×2 (20:57→21:00)
[2021-08-10] MEDS ORDERED: FUROSEMIDE 40 MG/4 ML VIAL ONE (20:57)
[2021-08-10] MEDS ORDERED: FUROSEMIDE 40 MG/4 ML VIAL IV ONE (21:00)
[2021-08-10] MEDS ORDERED: NITROGLYCERIN 0.4 MG/TAB BOTTLE SL ONE (21:00)
[2021-08-10 21:16] LABS: BASOPHILS % (AUTO) 0.3 % (0.0-2.0); EOSINOPHILS % (AUTO) 4.5 % (0.0-6.0); HEMATOCRIT 26 % (39-51); HEMOGLOBIN 8.7 g/dL (13.5-17.5); LYMPHOCYTES # (AUTO) 1.5 K/uL (0.8-4.8); LYMPHOCYTES % (AUTO) 18.7 % (20.0-44.0); MEAN CORPUSCULAR HGB CONC 33 g/dl (31.0-36.0); MEAN CORPUSCULAR VOLUME 88 fL (80-96); MONOCYTES # (AUTO) 0.5 K/uL (0.1-1.30); MONOCYTES % (AUTO) 6.6 % (2.0-12.0); NEUTROPHILS # (AUTO) 5.5 K/uL (1.8-8.9); NEUTROPHILS % (AUTO) 69.9 % (43.0-81.0); PLATELET COUNT (AUTO) 342 K/uL (150-450); RED BLOOD CELL COUNT(AUTO) 2.99 MIL/uL (4.5-6.0); WHITE BLOOD COUNT (AUTO) 7.9 K/uL (4.3-11.0)
[2021-08-10 21:31] LABS: CALCIUM, SERUM 8.5 mg/dL (8.5-10.1); CARBON DIOXIDE 31 mmol/L (21-32); CHLORIDE 100 mmol/L (98-107); CREATININE 1.1 mg/dL (0.6-1.3); GLUCOSE 90 mg/dL (74-106); POTASSIUM 3.2 mmol/L (3.5-5.1); SODIUM SERUM 139 mmol/L (136-145); UREA NITROGEN, BLOOD 9 mg/dL (7-18)
--- NOTE | 2021-08-10 21:32 | NUR ---
RAC #22G S/L; PATENT AND INTACT
--- NOTE | 2021-08-10 21:32 | NUR ---
TITRATED PT FROM 15LPM NRB TO SIMPLE MASK 8LPM; SATTING WELL AT 100%.
[2021-08-10 21:43] LABS: ALANINE AMINOTRANSFERASE 11 U/L (12-78); ALBUMIN 2.6 g/dL (3.4-5.0); ALKALINE PHOSPHATASE 84 U/L (46-116); ASPARTATE AMINOTRANSFERASE 13 U/L (15-37); BILIRUBIN,DIRECT 0.1 mg/dL (0.0-0.2); BILIRUBIN,TOTAL 0.4 mg/dL (0.2-1.0); TOTAL PROTEIN, SERUM 6.9 g/dL (6.4-8.2)
--- NOTE | 2021-08-10 23:04 | NUR ---
VIDHI SAUSAGE STUFFER AT PT'S BEDSIDE
--- NOTE | 2021-08-10 23:24 | NUR ---
REPORT GIVEN TO GOLDEN PALU RN FOR ANGELIC
[2021-08-10] MEDS ORDERED: MORPHINE SULFATE INJ 2 MG/ML DISP.SYRIN IV PRN (23:30)
[2021-08-10] MEDS ORDERED: NITROGLYCERIN 0.4 MG/TAB BOTTLE SL PRN (23:30)
[2021-08-10] MEDS ORDERED: POTASSIUM CL. PREMIX PERIPHER. 50 ML IV SCH (23:30)
[2021-08-10] MEDS ORDERED: VANCOMYCIN 1.5 GM in IV D5W 500ml IV ONE (23:45)
--- NOTE | 2021-08-10 23:59 | NUR ---
PT TRANSFERRING TO [facility] VIA ACLS PROTOCOL. VSS
[2021-08-11] VITALS: BP 146/81
--- NOTE | 2021-08-11 00:10 | NUR ---
PRODUCT DESIGN ENGINEER NOTE A/OX4. ON 8L VIA SIMPLE MASK. RESPIRATIONS ARE EVEN AND UNLABORED. C/O PAIN IN BLE/ BILATERAL HIPS. SINUS RHYTHM HR 86 ON THE MONITOR. IV IS INFILTRATED. BLE EDEMA. PHOTOS TAKEN AND PLACED IN CHART. WASTE MINIMIZATION TECHNICIAN OBTAINED VITAL SIGNS AND COMPLETED BELONGING LIST. BED IS LOW AND LOCKED, HOB ELEVATED IN SEMI FOWLERS, ARY LIGHT WITHIN REACH.
[2021-08-11] MEDS ORDERED: DEXTROSE 50%-WATER 50 ML DISP.SYRIN IV PRN (00:30)
[2021-08-11] MEDS: methylPREDNISolone SOD SUCC 40 MG/ML VIAL IV SCH ×2 (00:30→09:35)
[2021-08-11] MEDS: ENOXAPARIN SODIUM 40 MG/0.4 ML DISP.SYRIN SQ SCH ×2 (00:43→21:32)
--- NOTE | 2021-08-11 02:24 | NUR ---
RN NOTE INFORMED SPEECH TEACHER CARMENZA MOSHER NP THAT PATIENT CAME TO UNIT WITH INFILTRATED IV SITE. PATIENT VERY UPSET THAT HE BEEN POKED MULTIPLE TIMES. ATTEMPTS HAVE BEEN MADE TO PLACE A NEW IV. PATIENT UPSET. ORDER FOR 40MEQ IV POTASSIUM. RECEIVED ORDER FOR 40 KDUR POX1. INFORMED HER THAT PATIENT REQUEST BIPAP. RECEIVED ORDER FOR RT TO PLACE PATIENT ON BIPAP. PATIENT IS ALSO STATING HE IS IN PAIN. CAN NOT GIVE MORPHINE IV D/T NO IV SITE. RECEIVED ORDER TO CONTINUE HOME MED MORPHINE 30MG PO Q12HR. ORDERS READ BACK NOTED AND CARRIED OUT. Addendum: 08/11/21 at 0545 by GOLDEN RODRIGUEZ RN was unable to administer vanco and solumedrol d/t no iv access
[2021-08-11] MEDS ORDERED: MORPHINE SULFATE SR 30 MG TABLET.SA PO PRN (02:30)
[2021-08-11] MEDS ORDERED: MORPHINE SULFATE IR 15 MG TABLET PO PRN (02:30)
[2021-08-11] MEDS ORDERED: POTASSIUM CHLORIDE 20 MEQ TAB.PRT.SR PO ONE (02:30)
[2021-08-11] MEDS ORDERED: MORPHINE SULFATE SR 15 MG TABLET.SA ONE (02:58)
[2021-08-11] MEDS ORDERED: MORPHINE SULFATE SR 30 MG TABLET.SA PO SCH (03:00)
--- NOTE | 2021-08-11 03:45 | NUR ---
RT pt placed on bipap per order. placed on settings: ST 14/7 R 15 30%. tolerating settings well. bipap plugged in to red outlet. ambu bag at beside. alarms on and audible.
[2021-08-11 04:00] VITALS: BP 122/69
[2021-08-11 04:56] LABS: BILIRUBIN,URINE NEGATIVE (NEGATIVE); COLOR,URINE LIGHT YELLOW (YELLOW); LEUKOCYTE ESTERASE ,URINE NEGATIVE (NEGATIVE); NITRITE, URINE NEGATIVE (NEGATIVE); PROTEIN,URINE NEGATIVE (NEGATIVE); UGLUCOSE NEGATIVE (NEGATIVE); UROBILINOGEN,URINE 0.2 EU/dL (0.2)
--- NOTE | 2021-08-11 06:05 | NUR ---
RN CLOSING NOTE PATIENT IS RESTING IN BED. A/OX4. TITRATED PATIENT DOWN TO 4L O2. NO RESPIRATORY DISTRESS. NOC BIPAP WITH HOME SETTING LAST NIGHT. C/O BLE PAIN, MORPHINE GIVEN ORDERED. SINUS RHTYHM ON THE MONITOR. CONDOM CATHETER IN PLACE. URINE CULTURE COLLECTED. NO BM. WOUND CULTURE COLLECTED. PENDING WOUND CONSULT. PENDING RESPIRATORY CULTURE TO BE COLLECTED. PATIENT STILL DOES NOT HAVE AN IV ACCESS. VERY UPSET, WAITING FOR MIDLINE TO BE PLACED. ORDER FOR CARDIO CONSULT. BED IS LOW AND LOCKED, HOB ELEVATED IN SEMI FOWLERS, SIDE RAILS UP X2, CALL LIGHT WITHIN REACH. WILL ENDORSE TO ONCOMING SHIFT.
[2021-08-11 06:56] LABS: BACTERIA,URINE None seen /HPF (None Seen); RBC,URINE 0-2 /HPF (0-2); SQUAMOUS EPITHELIAL CELL,UR Rare /HPF (None Seen); WBC,URINE NONE SEEN /HPF (0-3)
[2021-08-11 07:08] LABS: BASOPHILS % (AUTO) 0.3 % (0.0-2.0); CALCIUM, SERUM 8.4 mg/dL (8.5-10.1); CREATININE 1.1 mg/dL (0.6-1.3); EOSINOPHILS % (AUTO) 3.6 % (0.0-6.0); HEMATOCRIT 24 % (39-51); HEMOGLOBIN 8.2 g/dL (13.5-17.5); LYMPHOCYTES # (AUTO) 1.4 K/uL (0.8-4.8); MEAN CORPUSCULAR HGB CONC 33 g/dl (31.0-36.0); MEAN CORPUSCULAR VOLUME 87 fL (80-96); MONOCYTES # (AUTO) 0.8 K/uL (0.1-1.30); NEUTROPHILS # (AUTO) 5.6 K/uL (1.8-8.9); NEUTROPHILS % (AUTO) 69.1 % (43.0-81.0); PLATELET COUNT (AUTO) 338 K/uL (150-450); POTASSIUM 2.9 mmol/L (3.5-5.1); RED BLOOD CELL COUNT(AUTO) 2.79 MIL/uL (4.5-6.0); WHITE BLOOD COUNT (AUTO) 8.1 K/uL (4.3-11.0)
[2021-08-11 07:09] LABS: ALBUMIN 2.4 g/dL (3.4-5.0); BILIRUBIN,TOTAL 0.3 mg/dL (0.2-1.0); MAGNESIUM 1.5 mg/dL (1.8-2.4); PHOSPHORUS 4.2 mg/dL (2.5-4.9); TOTAL PROTEIN, SERUM 6.3 g/dL (6.4-8.2)
--- NOTE | 2021-08-11 07:30 | NUR ---
RN OPENING NOTE PATIENT IS RESTING IN BED. A/OX4. NO RESPIRATORY DISTRESS. SINUS RHTYHM ON THE MONITOR. CONDOM CATHETER IN PLACE DRAINING CLEAR YELLOW URINE. PATIENT DOES NOT HAVE AN IV ACCESS. WAITING FOR MIDLINE TO BE PLACED. ORDER FOR CARDIO CONSULT. ALL SAFETY MEASURE NOTED AND ACCOUNTED FOR. BED IS LOW AND LOCKED, HOB ELEVATED IN SEMI FOWLERS, SIDE RAILS UP X2, CALL LIGHT WITHIN REACH. WILL CONTINUE TO MONITOR.
[2021-08-11 08:00] VITALS: BP 121/68
[2021-08-11 08:04] LABS: THYROID STIMULATING HORMONE 1.08 uIU/mL (0.358-3.74)
--- NOTE | 2021-08-11 08:57 | NUR ---
WOUND CARE CONSULT: PT PRESENTS WITH WARM, RED SWOLLEN LOWER LEGS, PRESENT ON ADMISSION. RECOMMENDATIONS MADE FOR SKIN PROTECTION. DISCUSSED WITH NURSING STAFF. DR PUENTES NOTIFIED OF DPM CONSULT REQUEST. IN AGREEMENT WITH PLAN OF CARE. PT USES CONDOM CATH.
[2021-08-11] MEDS: CALMOSEPTINE TP SCH (09:00)
[2021-08-11] MEDS: FUROSEMIDE 40 MG/4 ML VIAL IV SCH (09:35)
[2021-08-11] MEDS ORDERED: POTASSIUM CHLORIDE 20 MEQ TAB.PRT.SR PO SCH (10:00)
[2021-08-11] MEDS ORDERED: MAGNESIUM OXIDE 400 MG TABLET PO ONE (10:00)
[2021-08-11] MEDS: VANCOMYCIN 1.25 GM in IV D5W 250 ML IV SCH ×2 (10:07→21:29)
[2021-08-11] MEDS: MORPHINE SULFATE INJ 2 MG/ML DISP.SYRIN IV PRN ×3 (10:07→21:33)
[2021-08-11] MEDS: BLOOD SUGAR DIAGNOSTIC 1 EACH STRIP VI SCH ×4 (10:08→23:29)
[2021-08-11 12:00] VITALS: BP 130/64
--- NOTE | 2021-08-11 12:57 | NUR ---
RN NOTE MORPHINE MS CONTINE 15MG PO NOT ADM AT 08/10. PER LIME SLAKER NURSE AND PHARMACY THIS WAS WRONG DOSAGE AND WAS CORRECTED PRIOR TO ADM.
[2021-08-11] MEDS: LEVOFLOXACIN (250MG) 250 MG TABLET PO SCH (15:07)
[2021-08-11 15:40] LABS: ABG BASE EXCESS 6.3 mmol/L; ABG PCO2 40.3 mmHg (35.0-45.0); ABG PH 7.491 (7.350-7.450); COHb 0.3 % (0.5-1.5); MetHb 0.2 % (0.0-1.5); O2Hb 96.5 % (94.0-97.0); SITE, ABG Right Radial; VENT MODE, BG 5l nc
[2021-08-11 16:00] VITALS: BP 116/60
--- NOTE | 2021-08-11 18:46 | NUR ---
RN CLOSING NOTE PT REMAINED STABLE THROUGHOUT SHIFT. PATIENT IS RESTING IN BED. A/OX4. NO RESPIRATORY DISTRESS. SINUS RHTYHM ON THE MONITOR. CONDOM CATHETER IN PLACE DRAINING CLEAR YELLOW URINE. PATIENT HAS KAMLESH ML SL ORDER FOR CARDIO CONSULT. ALL SAFETY MEASURE NOTED AND ACCOUNTED FOR. BED IS LOW AND LOCKED, HOB ELEVATED IN SEMI FOWLERS, SIDE RAILS UP X2, CALL LIGHT WITHIN REACH. WILL ENDORSE TO TECHNICAL DOCUMENT WRITER RN.
--- NOTE | 2021-08-11 19:30 | NUR ---
RN OPENING NOTE RECEIVED PATIENT IN BED, ALERT ORIENTED X4. WITH O2 VIA NC AT 4L TOLERATING WELL, NO RESPIRATORY DISTRESS NOTED. ON TELEMONITORING CURRENTLY READING SR AT 84 BPM. WITH CONDOM CATHETER IN PLACE DRAINING CLEAR YELLOW URINE. WITH IV ACCESS AT R ML 20G PATENT AND INTACT. CALL LIGHT WITHIN REACH, BED IN LOWEST AND LOCKED, HOB ELEVATED IN SEMI FOWLERS, SIDE RAILS UP X2, WILL CONTINUE TO MONITOR THROUGHOUT THE SHIFT.
[2021-08-11] MEDS: ALBUTEROL FS 2.5 MG/0.5 ML VIAL.NEB NEB SCH (19:50)
[2021-08-11] MEDS: IPRATROPIUM NEB FS 0.5 MG/2.5 ML AMPUL.NEB NEB SCH (19:50)
[2021-08-11 20:00] VITALS: BP 111/58
[2021-08-11] MEDS: MUPIROCIN OINT 2% 22 GM TUBE NS SCH (21:32)
--- NOTE | 2021-08-11 22:30 | NUR ---
RN NOTE BS CHECKED AT 117 MG/DL; NO COVERAGE GIVEN
[2021-08-12] VITALS: BP 144/64
[2021-08-12] MEDS: MORPHINE SULFATE INJ 2 MG/ML DISP.SYRIN IV PRN ×5 (02:34→21:46)
[2021-08-12 04:00] VITALS: BP 135/84
--- NOTE | 2021-08-12 06:51 | NUR ---
RN CLOSING NOTE PATIENT IN BED AWAKE, A/O X4. WITH O2 VIA NC AT 4L TOLERATING WELL, NO RESPIRATORY DISTRESS NOTED AT THIS TIME. ABLE TO MAKE NEEDS KNOWN, ON TELEMONITORING CURRENTLY READING SR AT 73 BPM. WITH CONDOM CATHETER IN PLACE DRAINING CLEAR YELLOW URINE. WITH IV ACCESS AT R ML 20G PATENT AND INTACT. ALL DUE MEDS GIVEN PER MD ORDER, ALL SAFETY PRECAUTIONS IN PLACE, CALL LIGHT WITHIN REACH, BED IN LOWEST AND LOCKED, HOB ELEVATED IN SEMI FOWLERS, SIDE RAILS UP X2, WILL ENDORSE TO DAY SHIFT NURSE.
--- NOTE | 2021-08-12 07:30 | NUR ---
RN OPENING NOTE PATIENT IS RESTING IN BED. A/OX4. NO RESPIRATORY DISTRESS. SINUS RHTYHM ON THE MONITOR. CONDOM CATHETER IN PLACE DRAINING CLEAR YELLOW URINE. PATIENT HAS KAMLESH ML SL ALL SAFETY MEASURE NOTED AND ACCOUNTED FOR. BED IS LOW AND LOCKED, HOB ELEVATED IN SEMI FOWLERS, SIDE RAILS UP X2, CALL LIGHT WITHIN REACH. WILL CONTINUE TO MONITOR.
[2021-08-12] MEDS: IPRATROPIUM NEB FS 0.5 MG/2.5 ML AMPUL.NEB NEB SCH ×4 (07:43→19:35)
[2021-08-12] MEDS: ALBUTEROL FS 2.5 MG/0.5 ML VIAL.NEB NEB SCH ×4 (07:44→19:35)
[2021-08-12 08:00] VITALS: BP 132/51
[2021-08-12] MEDS: MUPIROCIN OINT 2% 22 GM TUBE NS SCH ×2 (08:50→21:57)
[2021-08-12] MEDS: methylPREDNISolone SOD SUCC 40 MG/ML VIAL IV SCH (08:51)
[2021-08-12] MEDS: CALMOSEPTINE TP SCH (08:51)
[2021-08-12] MEDS: FUROSEMIDE 40 MG/4 ML VIAL IV SCH (08:51)
[2021-08-12] MEDS: VANCOMYCIN 1.25 GM in IV D5W 250 ML IV SCH ×2 (09:13→21:49)
[2021-08-12] MEDS: BLOOD SUGAR DIAGNOSTIC 1 EACH STRIP VI SCH ×4 (09:28→22:00)
[2021-08-12 12:00] VITALS: BP 133/68
[2021-08-12] MEDS: LEVOFLOXACIN (250MG) 250 MG TABLET PO SCH (15:07)
[2021-08-12] MEDS ORDERED: HYDROCODONE/APAP 5/325MG TABLET PO PRN (15:30)
[2021-08-12 15:39] LABS: BASOPHILS % (AUTO) 0.1 % (0.0-2.0); HEMATOCRIT 26 % (39-51); HEMOGLOBIN 8.6 g/dL (13.5-17.5); LYMPHOCYTES # (AUTO) 0.6 K/uL (0.8-4.8); LYMPHOCYTES % (AUTO) 8.3 % (20.0-44.0); MEAN CORPUSCULAR HGB CONC 33 g/dl (31.0-36.0); MEAN CORPUSCULAR VOLUME 88 fL (80-96); MONOCYTES # (AUTO) 0.2 K/uL (0.1-1.30); MONOCYTES % (AUTO) 2.7 % (2.0-12.0); NEUTROPHILS # (AUTO) 6.9 K/uL (1.8-8.9); NEUTROPHILS % (AUTO) 88.9 % (43.0-81.0); PLATELET COUNT (AUTO) 372 K/uL (150-450); RED BLOOD CELL COUNT(AUTO) 2.94 MIL/uL (4.5-6.0); WHITE BLOOD COUNT (AUTO) 7.7 K/uL (4.3-11.0)
[2021-08-12] MEDS: LOPERAMIDE HCL (2 MG CAP) 2 MG CAPSULE PO PRN ×2 (15:43→22:06)
[2021-08-12 16:00] VITALS: BP 133/67
[2021-08-12 16:04] LABS: CALCIUM, SERUM 8.4 mg/dL (8.5-10.1); CREATININE 1.3 mg/dL (0.6-1.3); POTASSIUM 4.3 mmol/L (3.5-5.1)
[2021-08-12] MEDS: INSULIN REGULAR, HUMAN 100 UNIT/ML 3 ML VIAL SQ PRN (17:18)
--- NOTE | 2021-08-12 18:35 | NUR ---
RN CLOSING NOTE PT REMAINED STABLE THROUGHOUT SHIFT. PATIENT IS RESTING IN BED. A/OX4. NO RESPIRATORY DISTRESS. SINUS RHTYHM ON THE TELE MONITOR. CONDOM CATHETER IN PLACE DRAINING CLEAR YELLOW URINE. PATIENT HAS KAMLESH ML SL INTACT AND PATENT. ALL SAFETY MEASURE NOTED AND ACCOUNTED FOR. BED IS LOW AND LOCKED, HOB ELEVATED IN SEMI FOWLERS, SIDE RAILS UP X2, CALL LIGHT WITHIN REACH. WILL ENDORSE TO HEAD OF MARKETING RN.
--- NOTE | 2021-08-12 19:10 | NUR ---
RN NOTES RECEIVED REPORT FROM MORNING RN. PATIENT IN BED A/O X3 ABLE TO MAKE NEEDS KNOWN. WITH OXYGEN INHALATION AT 3 LPM VIA NASAL CANULA TOLERATING WELL SATING 97%. NO SOB NO DISTRESS NOTED AT THIS TIME. WITH IV ACCESS AT KAMLESH MIDLINE PATENT FLUSHES WELL. VITAL SIGNS TAKEN AND RECORDED AFEBRILE. ALL SAFETY MEASURES IN PLACE AT ALL TIMES. BED ON LOWEST POSITION AND LOCKED. CALL LIGHT WITHIN REACH WILL CLOSELY MONITOR THE PATIENT
[2021-08-12 20:00] VITALS: BP 129/60
[2021-08-12] MEDS: ENOXAPARIN SODIUM 40 MG/0.4 ML DISP.SYRIN SQ SCH (21:47)
--- NOTE | 2021-08-12 23:17 | NUR ---
RT NOTE PT REFUSED TO BE PLACED ON BIPAP. SAID HES OK, NOT FEELING LIKE HE HAS TO GO ON. SPO2 100% HR 77 CURRENTLY. TOLD HIM BENEFITS TO BEING ON BIPAP. PT UNDERSTOOD. TOLD ME TO COME BACK TO CHECK ON HIM T/O SHIFT TO SEE HOW HE IS FEELING. DATACAP DEVELOPER AWARE. NO SOB NOTED. NO INCREASED WOB NOTED. NO S/S OF ACUTE RESPIRATORY DISTRESS NOTED. WILL CONTINUE TO MONITOR T/O SHIFT.
[2021-08-13] VITALS: BP 115/70
--- NOTE | 2021-08-13 00:43 | NUR ---
RT NOTE PT REFUSED TO BE PLACED ON BIPAP (2nd attempt). SPO2 98-99% HR 71-79 CURRENTLY. HAZARDOUS MATERIALS HANDLER AWARE. NO SOB NOTED. NO INCREASED WOB NOTED. NO S/S OF ACUTE RESPIRATORY DISTRESS NOTED. WILL CONTINUE TO MONITOR T/O SHIFT.
[2021-08-13] MEDS: MORPHINE SULFATE INJ 2 MG/ML DISP.SYRIN IV PRN ×3 (02:11→10:50)
[2021-08-13 04:00] VITALS: BP 135/76
--- NOTE | 2021-08-13 06:57 | NUR ---
RN NOTES PATIENT REMAINS STABLE NO SIGNIFICANT CHANGES IN HEALTH CONDITION. ALL DUE MEDS GIVEN ORDERED. PAIN MEDICATION GIVEN EVERY 4 HOURS PER PATIENT REQUEST. ALL SAFETY MEASURES IN PLACE AT ALL TIMES. HOB ELEVATED. CALL LIGHT WITHIN REACH. PATIENT REFUSED BIPAP DURING TYHE NIGHT RISK AND BENEFITS EXPLAINED STILL REFUSED. FREQUENT VISUAL MONITORING RENDERED. ENDORSED TO MORNING RN FOR ANGELIC
[2021-08-13] MEDS: IPRATROPIUM NEB FS 0.5 MG/2.5 ML AMPUL.NEB NEB SCH ×4 (07:35→18:46)
[2021-08-13] MEDS: ALBUTEROL FS 2.5 MG/0.5 ML VIAL.NEB NEB SCH ×4 (07:35→18:46)
[2021-08-13 08:00] VITALS: BP 145/64
--- NOTE | 2021-08-13 08:42 | NUR ---
PATIENT REFUSED TX DUE TO PATIENT SLEEPIING NAD SAMEER LIM NOTIFIED Addendum: 08/13/21 at 0843 by ANGELES MENDEZ RT Amended: Links added.
[2021-08-13] MEDS: methylPREDNISolone SOD SUCC 40 MG/ML VIAL IV SCH (09:18)
[2021-08-13] MEDS: BLOOD SUGAR DIAGNOSTIC 1 EACH STRIP VI SCH ×4 (09:18→21:59)
[2021-08-13] MEDS: FUROSEMIDE 40 MG/4 ML VIAL IV SCH (09:18)
[2021-08-13] MEDS: CALMOSEPTINE TP SCH (09:18)
[2021-08-13] MEDS: MUPIROCIN OINT 2% 22 GM TUBE NS SCH ×2 (09:27→21:01)
[2021-08-13 09:28] LABS: CALCIUM, SERUM 8.1 mg/dL (8.5-10.1); CREATININE 1.3 mg/dL (0.6-1.3)
[2021-08-13] MEDS: LOPERAMIDE HCL (2 MG CAP) 2 MG CAPSULE PO PRN ×2 (10:49→19:37)
[2021-08-13] MEDS: VANCOMYCIN 1.25 GM in IV D5W 250 ML IV SCH ×2 (11:37→22:00)
[2021-08-13 12:00] VITALS: BP 137/70
[2021-08-13] MEDS ORDERED: NITROGLYCERIN 0.4 MG/TAB BOTTLE SL PRN (13:00)
[2021-08-13] MEDS ORDERED: DOCUSATE SODIUM 100 MG CAPSULE PO PRN (13:00)
[2021-08-13] MEDS ORDERED: BISACODYL SUPP (10 MG) 10 MG/SUPP.RECT SUPP.RECT RC PRN (13:00)
[2021-08-13] MEDS ORDERED: ONDANSETRON 4 MG TAB.RAPDIS SL PRN (13:00)
[2021-08-13] MEDS ORDERED: ATROPINE SULFATE OPHTH SOLN 15 ML BOTTLE SL PRN (13:00)
[2021-08-13] MEDS ORDERED: ACETAMINOPHEN 650 MG/SUPP.RECT RC PRN (13:00)
[2021-08-13] MEDS ORDERED: TRELEGY ELLIPTA XX SCH (13:00)
[2021-08-13] MEDS ORDERED: hydrOXYzine PAMOATE 25 MG CAPSULE PO PRN ×2 (13:00→13:30)
[2021-08-13] MEDS ORDERED: LORATADINE 10 MG TABLET PO PRN (13:00)
[2021-08-13] MEDS ORDERED: DICLOFENAC TOPICAL 100 GM GEL..GM. TP PRN (13:00)
[2021-08-13] MEDS: VITAMINS A AND D 56.7 GM TUBE TP SCH (13:18)
[2021-08-13] MEDS: PENTOXIFYLLINE 400 MG TABLET.SA PO SCH ×2 (13:20→17:21)
[2021-08-13] MEDS ORDERED: CAPSAICIN 0.075% CREAM 60 GM TUBE TP PRN (13:30)
[2021-08-13] MEDS ORDERED: NALOXONE HCL 0.4 MG/ML AMPUL IV PRN (13:30)
[2021-08-13] MEDS ORDERED: IPRATROPIUM NEB FS 0.5 MG/2.5 ML AMPUL.NEB NEB SCH (13:30)
[2021-08-13] MEDS: LEVOFLOXACIN (250MG) 250 MG TABLET PO SCH (15:13)
[2021-08-13] MEDS: HYDROCODONE/APAP 5/325MG TABLET PO PRN (15:14)
[2021-08-13 16:00] VITALS: BP 133/67
[2021-08-13] MEDS: PANTOPRAZOLE 40 MG TABLET.DR PO SCH (16:54)
[2021-08-13] MEDS: CARVEDILOL 3.125 MG TABLET PO SCH (16:55)
--- NOTE | 2021-08-13 18:04 | NUR ---
RN NOTE PT RESTING IN BED, AWAKE ALERT AND RESPONSIVE. ON O2 VIA NC @4L, TOLERATING WELL, PT NOT IN RESPIRATORY DISTRESS. PT IS ON TELE MONITOR AND IS SR. PT ON CONDOM CATH DRAINING WELL. DUE MEDICATIONS GIVEN, MORNING CARE DONE. NEEDS ATTENDED. SAFETY MEASURES FOLLOWED.
--- NOTE | 2021-08-13 19:13 | NUR ---
RT NOTE ASKED PT WHAT TIME HE WANTED TO GO ON THE BIPAP. PT STATED HE WILL CALL ME WHEN HE WANTS TO GO ON. RN ABE NOTIFIED. NO SOB OR S/S OF ACUTE RESPIRATORY DISTRESS NOTED. WILL CONTINUE TO MONITOR T/O SHIFT.
[2021-08-13 20:00] VITALS: BP 129/70
[2021-08-13] MEDS ORDERED: MORPHINE SULFATE SR 30 MG TABLET.SA PO SCH (21:00)
[2021-08-13] MEDS: LEVETIRACETAM (250 MG) 250 MG TABLET PO SCH (21:03)
[2021-08-13] MEDS: ENOXAPARIN SODIUM 40 MG/0.4 ML DISP.SYRIN SQ SCH (21:03)
[2021-08-13] MEDS: TRAZODONE 50 MG TABLET PO SCH (21:03)
[2021-08-13] MEDS ORDERED: MORPHINE SULFATE SR 15 MG TABLET.SA ONE (21:06)
[2021-08-13] MEDS: METOPROLOL TARTRATE 25 MG TABLET PO SCH (21:06)
[2021-08-13] MEDS: ATORVASTATIN 40 MG TABLET PO SCH (21:34)
[2021-08-13] MEDS: DOXEPIN HCL (25 MG) 25 MG CAPSULE PO SCH (21:49)
[2021-08-13] MEDS: LamoTRIgine 100 MG TABLET PO SCH (22:00)
--- NOTE | 2021-08-13 22:41 | NUR ---
RT NOTE PT REFUSED TO GO ON NOC BIPAP. STATED HE FEELS FINE. RN NOTIFIED. WILL CONTINUE TO MONITOR T/O SHIFT. NO SOB NOTED. NO S/S OF ACUTE RESPIRATORY DISTRESS NOTED
[2021-08-14] VITALS: BP 136/74
--- NOTE | 2021-08-14 04:52 | NUR ---
RN CLOSING NOTES: 2100 went to the [facility]el to remove his ordered 30 mg PO Q12 dose The [facility] flashed notice not in stock Went to the [facility] in ICU and pulled out Morphine sulfate extented release 2/ 15 mg tablets called Johana Goel and wanted to know if I could change the medication to exyended release she texted back "Is that what the pharmacist suggested?" Called the technical healthcare consultant Pharmacist GAURAV and she stated that Morphine sulfate SR and Morphine Sulfate Extended Release are the same. Morphine Sulfate extended release 30 mg given and effective condem cath in place skin intact o2 2 liters thru the night sats 97 - 100%
[2021-08-14 05:12] VITALS: BP 130/81
--- NOTE | 2021-08-14 07:52 | NUR ---
RN OPENING NOTE PATIENT RECEIVED IN BED, AO X 4. ABLE TO RESPONDS ALL STIMULI. IN NO ACUTE DISTRESS NOTED. RESPIRATORY EVEN AND UNLABORED ON OXYGEN AT 3Ls VIA NC. SKIN IS WARM TO TOUCH, KEEP CLEAN/DRY. KEPT ELEVATED HOB FOR ENSURE AIRWAY AND ASPIRATION PRECAUTION, ALSO LOWEST POSITION OF THE BED, S/R UP X 3, BED ALARM IS ON AT ALL THE TIMES. ALL SAFETY PRECAUTION APPLIED. CALL LIGHT WITHIN REACH, WILL CONTINUE TO MONITOR.
[2021-08-14 08:00] VITALS: BP 127/83
[2021-08-14] MEDS: BLOOD SUGAR DIAGNOSTIC 1 EACH STRIP VI SCH ×4 (08:25→22:08)
[2021-08-14] MEDS: IPRATROPIUM NEB FS 0.5 MG/2.5 ML AMPUL.NEB NEB SCH ×4 (08:31→20:27)
[2021-08-14] MEDS: ALBUTEROL FS 2.5 MG/0.5 ML VIAL.NEB NEB SCH ×4 (08:31→20:27)
[2021-08-14] MEDS: FUROSEMIDE 40 MG/4 ML VIAL IV SCH (08:37)
[2021-08-14] MEDS: methylPREDNISolone SOD SUCC 40 MG/ML VIAL IV SCH (08:37)
[2021-08-14] MEDS: ACIDOPHILUS/BULGARICUS 1 EACH TAB.CHEW PO SCH (08:37)
[2021-08-14] MEDS: AMITRIPTYLINE HCL 25 MG TABLET PO SCH (08:37)
[2021-08-14] MEDS: FOLIC ACID 1 MG TABLET PO SCH (08:37)
[2021-08-14] MEDS: PENTOXIFYLLINE 400 MG TABLET.SA PO SCH ×3 (08:37→17:06)
[2021-08-14] MEDS: METOPROLOL TARTRATE 25 MG TABLET PO SCH ×2 (08:38→21:00)
[2021-08-14] MEDS: CARVEDILOL 3.125 MG TABLET PO SCH ×2 (08:38→16:19)
[2021-08-14] MEDS: ASPIRIN EC 81 MG TABLET.DR PO SCH (08:38)
[2021-08-14] MEDS: TAMSULOSIN 0.4 MG CAP.SR.24H PO SCH (08:38)
[2021-08-14] MEDS: PANTOPRAZOLE 40 MG TABLET.DR PO SCH ×2 (08:39→16:19)
[2021-08-14] MEDS: LEVETIRACETAM (250 MG) 250 MG TABLET PO SCH ×2 (08:39→21:34)
[2021-08-14] MEDS: LISINOPRIL (20MG) 20 MG TABLET PO SCH (08:39)
[2021-08-14] MEDS: predniSONE 20 MG TABLET PO SCH (08:39)
[2021-08-14] MEDS: FERROUS SULFATE (325 MG) 325 MG/TAB TABLET PO SCH (08:39)
[2021-08-14] MEDS: TRAZODONE 50 MG TABLET PO SCH ×2 (08:39→21:35)
[2021-08-14] MEDS: VITAMINS A AND D 56.7 GM TUBE TP SCH (08:39)
[2021-08-14] MEDS: MUPIROCIN OINT 2% 22 GM TUBE NS SCH ×2 (08:40→21:35)
[2021-08-14] MEDS: Z GUARD REMEDY 4 OZ OINT TP SCH (08:40)
[2021-08-14 09:25] LABS: CREATININE 1.5 mg/dL (0.6-1.3); POTASSIUM 4.1 mmol/L (3.5-5.1)
[2021-08-14] MEDS: VANCOMYCIN 1.25 GM in IV D5W 250 ML IV SCH (10:09)
[2021-08-14 12:00] VITALS: BP 97/54
[2021-08-14] MEDS: MORPHINE SULFATE SR 15 MG TABLET.SA PO SCH ×2 (12:06→21:36)
[2021-08-14] MEDS: INSULIN REGULAR, HUMAN 100 UNIT/ML 3 ML VIAL SQ PRN ×2 (12:09→22:19)
[2021-08-14 16:00] VITALS: BP 95/48
[2021-08-14] MEDS: LEVOFLOXACIN (250MG) 250 MG TABLET PO SCH (16:19)
[2021-08-14] MEDS: *INSULIN REGULAR(HUMULIN R)HUM 100 UNIT/ML VIAL SQ PRN (17:08)
--- NOTE | 2021-08-14 18:55 | NUR ---
RN CLOSING NOTE PATIENT IN BED, IN NO ACUTE DISTRESS OBSERVED. SKIN IS WARM TO TOUCH KEEP CLEAN/DRY. RESPIRATORY EVEN AND UNLABORED ON OXYGEN AT 2Ls. NO ADVERSE REACTION OBSERVED FORM ABX. KEPT ELEVATED HOB FOR ENSURE AIRWAY AND ASPIRATION PRECAUTION, AND LOWEST POSITION OF THE BED FOR SAFETY. CALL LIGHT WITHIN REACH, WILL ENDORSE TO LATHE OPERATOR.
[2021-08-14 20:00] VITALS: BP 103/58
[2021-08-14] MEDS: ATORVASTATIN 40 MG TABLET PO SCH (21:34)
[2021-08-14] MEDS: LamoTRIgine 100 MG TABLET PO SCH (21:34)
[2021-08-14] MEDS: ENOXAPARIN SODIUM 40 MG/0.4 ML DISP.SYRIN SQ SCH (22:01)
[2021-08-14] MEDS: DOXEPIN HCL (25 MG) 25 MG CAPSULE PO SCH (22:04)
[2021-08-15] VITALS (7 sets, daily range): BP systolic 94–115; BP diastolic 46–65
--- NOTE | 2021-08-15 00:18 | NUR ---
RT NOTE: PATIENT REFUSED BIPAP, RISK AND BENEFITS EXPLAINED, RN ELADIA AWARE. PATIENT FOUND ON ROOM AIR AND TOLERATING WELL SPO2 95%, RR 18. NO RESPIRATORY DISTRESS NOTED AT THIS TIME.
[2021-08-15 06:23] LABS: BASOPHILS % (AUTO) 0.1 % (0.0-2.0); EOSINOPHILS % (AUTO) 0.6 % (0.0-6.0); HEMATOCRIT 28 % (39-51); LYMPHOCYTES # (AUTO) 3.4 K/uL (0.8-4.8); LYMPHOCYTES % (AUTO) 21.7 % (20.0-44.0); MEAN CORPUSCULAR HGB CONC 33 g/dl (31.0-36.0); MEAN CORPUSCULAR VOLUME 88 fL (80-96); MONOCYTES # (AUTO) 1.3 K/uL (0.1-1.30); MONOCYTES % (AUTO) 8.5 % (2.0-12.0); NEUTROPHILS # (AUTO) 10.7 K/uL (1.8-8.9); NEUTROPHILS % (AUTO) 69.1 % (43.0-81.0); PLATELET COUNT (AUTO) 464 K/uL (150-450); RED BLOOD CELL COUNT(AUTO) 3.14 MIL/uL (4.5-6.0); WHITE BLOOD COUNT (AUTO) 15.5 K/uL (4.3-11.0)
--- NOTE | 2021-08-15 06:54 | NUR ---
CLOSING NOTES, PATIENT IN BED AWAKE NO SOB/ACUTE DISTRESS OVER NIGHT, NSR IN TELE MONITOR, KAMLESH MIDLINE IN PLACE PATENT AND INTACT, TOLERATE ROOM AIR MOST OF THE NIGHT, AT THIS TIME AT 2LPM VIA NC WITH OPTIMAL O2 SAT LEVEL, WITH DC PLANNING POSSIBLE TODAY, OTHERWISE NO SIGNIFICANT CHANGE IN CONDITION DURING THE NIGHT, DRY AND CLEAN, BED LOCKED AND IN LOWEST POSITION, S/R OF BED X2 UP, WILL ENDORSE CONTINUITY OF CARE TO ONCOMING NURSE.
--- NOTE | 2021-08-15 07:30 | NUR ---
FINANCE SPECIALIST AM NOTE PATIENT IN BED, AO X 4. ABLE TO RESPONDS ALL STIMULI. ON 2L O2 VIA NASAL CANULA, O2 SAT AT 99%, IN NO ACUTE DISTRESS NOTED. RESPIRATION EVEN AND UNLABORED, SR HR 73 ON MONITOR. DENIES CHEST PAIN/DISCOMFORT. KAMLESH MIDLINE FLUSHES WELL, SITE CLEAR. SEE NURSING FLOWSHEET FOR SKIN ISSUES. CARDIAC DIET. SKIN IS WARM TO TOUCH, KEEP CLEAN/DRY. KEPT ELEVATED HOB FOR ENSURE AIRWAY AND ASPIRATION PRECAUTION, BED LOW LOCKED, SR UP X 3, BED ALARM IS ON AT ALL THE TIMES. ALL SAFETY PRECAUTION APPLIED. CALL LIGHT WITHIN REACH, WILL CONTINUE TO MONITOR.
[2021-08-15 07:33] LABS: POTASSIUM 4.9 mmol/L (3.5-5.1)
[2021-08-15] MEDS: ALBUTEROL FS 2.5 MG/0.5 ML VIAL.NEB NEB SCH ×4 (07:44→19:58)
[2021-08-15] MEDS: IPRATROPIUM NEB FS 0.5 MG/2.5 ML AMPUL.NEB NEB SCH ×4 (07:44→19:58)
[2021-08-15 07:45] LABS: BAND % (MANUAL) 4 % (0.0-5.0); LYMPHOCYTES % (MANUAL) 27 % (16-48); METAMYELOCYTES % 1 % (0-0); MONOCYTES % (MANUAL) 8 % (0-11.0); MYELOCYTES % 1 % (0-0); NEUTROPHILS % (MANUAL) 59 (42-76)
[2021-08-15] MEDS: BLOOD SUGAR DIAGNOSTIC 1 EACH STRIP VI SCH ×4 (07:59→21:30)
[2021-08-15 08:08] LABS: CALCIUM, SERUM 8.4 mg/dL (8.5-10.1)
[2021-08-15] MEDS: AMITRIPTYLINE HCL 25 MG TABLET PO SCH (08:28)
[2021-08-15] MEDS: FUROSEMIDE 40 MG/4 ML VIAL IV SCH (08:28)
[2021-08-15] MEDS: LEVETIRACETAM (250 MG) 250 MG TABLET PO SCH ×2 (08:29→21:13)
[2021-08-15] MEDS: ACIDOPHILUS/BULGARICUS 1 EACH TAB.CHEW PO SCH (08:32)
[2021-08-15] MEDS: FERROUS SULFATE (325 MG) 325 MG/TAB TABLET PO SCH (08:32)
[2021-08-15] MEDS: FOLIC ACID 1 MG TABLET PO SCH (08:33)
[2021-08-15] MEDS: PENTOXIFYLLINE 400 MG TABLET.SA PO SCH ×3 (08:33→17:24)
[2021-08-15] MEDS: LISINOPRIL (20MG) 20 MG TABLET PO SCH (08:33)
[2021-08-15] MEDS: CARVEDILOL 3.125 MG TABLET PO SCH ×2 (08:33→17:00)
[2021-08-15] MEDS: ASPIRIN EC 81 MG TABLET.DR PO SCH (08:34)
[2021-08-15] MEDS: MORPHINE SULFATE SR 15 MG TABLET.SA PO SCH ×2 (08:34→21:13)
[2021-08-15] MEDS: TRAZODONE 50 MG TABLET PO SCH ×2 (08:51→21:13)
[2021-08-15] MEDS: predniSONE 20 MG TABLET PO SCH (08:51)
[2021-08-15] MEDS: TAMSULOSIN 0.4 MG CAP.SR.24H PO SCH (08:51)
[2021-08-15] MEDS: PANTOPRAZOLE 40 MG TABLET.DR PO SCH ×2 (08:51→17:24)
[2021-08-15] MEDS: Z GUARD REMEDY 4 OZ OINT TP SCH (08:53)
[2021-08-15] MEDS: VITAMINS A AND D 56.7 GM TUBE TP SCH (08:53)
[2021-08-15] MEDS: MUPIROCIN OINT 2% 22 GM TUBE NS SCH ×2 (08:54→21:14)
--- NOTE | 2021-08-15 09:30 | NUR ---
RN NOTES DUE MEDS GIVEN
[2021-08-15] MEDS ORDERED: VANCOMYCIN 1.25 GM in IV D5W 250 ML IV SCH (10:00)
[2021-08-15] MEDS: LEVOFLOXACIN (250MG) 250 MG TABLET PO SCH (15:31)
--- NOTE | 2021-08-15 18:02 | NUR ---
RN NOTES PT C/O IRRITATION ON RT SIDE, BASE OF PENIS. PHOTOS TAKEN. NOTIFIED DR. ROSANGELA WOOD, ORDERED FOR WOUND CONSULT. CARRIED OUT.
--- NOTE | 2021-08-15 18:45 | NUR ---
NAVAL AIRCREWMAN TACTICAL HELICOPTER CLOSING NOTE PATIENT IN BED, RESTING COMFORTABLY, AO X 4. ABLE TO RESPONDS ALL STIMULI. ON 2L O2 VIA NASAL CANULA, O2 SAT AT 96%, IN NO ACUTE DISTRESS NOTED. RESPIRATION EVEN AND UNLABORED, SR HR 90 ON MONITOR. DENIES CHEST PAIN/DISCOMFORT. KAMLESH MIDLINE FLUSHES WELL, SITE CLEAR. CARDIAC DIET. SKIN IS WARM TO TOUCH, KEEP CLEAN/DRY. KEPT ELEVATED HOB FOR ENSURE AIRWAY AND ASPIRATION PRECAUTION, BED LOW LOCKED, SR UP X 3, BED ALARM IS ON AND AT ALL THE TIMES. ALL SAFETY PRECAUTION APPLIED. CALL LIGHT WITHIN REACH, ALL NEEDS MET AT THIS TIME, NO OTHER SIGNIFICANT CHANGE IN CONDITION. PM CARE DONE EARLIER. WILL ENDORSE TO NEXT SHIFT FOR ANGELIC.
[2021-08-15] MEDS: LamoTRIgine 100 MG TABLET PO SCH (21:13)
[2021-08-15] MEDS: ATORVASTATIN 40 MG TABLET PO SCH (21:14)
[2021-08-15] MEDS: DOXEPIN HCL (25 MG) 25 MG CAPSULE PO SCH (21:14)
[2021-08-15] MEDS: ENOXAPARIN SODIUM 40 MG/0.4 ML DISP.SYRIN SQ SCH (21:15)
[2021-08-15] MEDS: *INSULIN REGULAR(HUMULIN R)HUM 100 UNIT/ML VIAL SQ PRN (21:30)
[2021-08-15] MEDS: LOPERAMIDE HCL (2 MG CAP) 2 MG CAPSULE PO PRN (21:54)
--- NOTE | 2021-08-15 23:00 | NUR ---
RT NOTE PT REFUSING NOC BIPAP. RISK AND BENEFITS EXPLAINED. PT ON NASAL CANNULA 2 LPM O2 W/ NO RESP DISTRESS NOTED.
[2021-08-16] VITALS: BP 96/47
[2021-08-16 04:00] VITALS: BP 94/43
--- NOTE | 2021-08-16 06:58 | NUR ---
RN CLOSING NOTES, PATIENT IN BED AWAKE, NO SOB/ACUTE DISTRESS OVER NIGHT, NSR IN TELE MONITOR, TOLERATE ROOM AIR MOST OF THE NIGHT, AT THIS TIME AT 2LPM VIA NC WITH OPTIMAL O2 SAT LEVEL, KAMLESH MIDLINE IN PLACE PATENT AND INTACT S/L, OTHERWISE NO SIGNIFICANT CHANGE IN CONDITION DURING THE NIGHT, DRY AND CLEAN, BED LOCKED AND IN LOWEST POSITION, S/R OF BED X2 UP, WILL ENDORSE CONTINUITY OF CARE TO ONCOMING NURSE.
--- NOTE | 2021-08-16 07:25 | NUR ---
RN OPENING NOTE RECEIVED PATIENT IN BED, AWAKE, A/O X 4. ABLE TO MAKE NEEDS KNOWN. ON 2LPM O2 VIA NASAL CANULA, IN NO ACUTE DISTRESS NOTED. BREATHING EVEN AND UNLABORED, ST HR 101 ON TELE MONITOR. KAMLESH MIDLINE PATENT AND INTACT.ALL SAFETY MEASURES IMPLEMENTED. KEPT ELEVATED HOB BED LOW LOCKED, SR UP X 3, BED ALARM IS ON AT ALL THE TIMES. CALL LIGHT WITHIN REACH, WILL CONTINUE TO MONITOR AND ASSESS FOR ANY CHANGES DURING SHIFT.
[2021-08-16 07:44] LABS: CALCIUM, SERUM 8.5 mg/dL (8.5-10.1); POTASSIUM 4.8 mmol/L (3.5-5.1)
[2021-08-16 08:00] VITALS: BP 97/59
[2021-08-16] MEDS: ALBUTEROL FS 2.5 MG/0.5 ML VIAL.NEB NEB SCH ×2 (08:01→11:30)
[2021-08-16] MEDS: IPRATROPIUM NEB FS 0.5 MG/2.5 ML AMPUL.NEB NEB SCH ×2 (08:01→11:30)
[2021-08-16] MEDS: CARVEDILOL 3.125 MG TABLET PO SCH (09:00)
[2021-08-16] MEDS: ACIDOPHILUS/BULGARICUS 1 EACH TAB.CHEW PO SCH (09:36)
[2021-08-16] MEDS: TRAZODONE 50 MG TABLET PO SCH (09:38)
[2021-08-16] MEDS: AMITRIPTYLINE HCL 25 MG TABLET PO SCH (09:39)
[2021-08-16] MEDS: predniSONE 20 MG TABLET PO SCH (09:39)
[2021-08-16] MEDS: PENTOXIFYLLINE 400 MG TABLET.SA PO SCH ×2 (09:40→12:55)
[2021-08-16] MEDS: ASPIRIN EC 81 MG TABLET.DR PO SCH (09:40)
[2021-08-16] MEDS: TAMSULOSIN 0.4 MG CAP.SR.24H PO SCH (09:40)
[2021-08-16] MEDS: FOLIC ACID 1 MG TABLET PO SCH (09:46)
[2021-08-16] MEDS: PANTOPRAZOLE 40 MG TABLET.DR PO SCH (09:46)
[2021-08-16] MEDS: FERROUS SULFATE (325 MG) 325 MG/TAB TABLET PO SCH (09:47)
[2021-08-16] MEDS: LEVETIRACETAM (250 MG) 250 MG TABLET PO SCH (09:47)
[2021-08-16] MEDS: MORPHINE SULFATE SR 15 MG TABLET.SA PO SCH (09:49)
[2021-08-16] MEDS: Z GUARD REMEDY 4 OZ OINT TP SCH (09:50)
[2021-08-16] MEDS: VITAMINS A AND D 56.7 GM TUBE TP SCH (09:51)
[2021-08-16] MEDS ORDERED: VANCOMYCIN 1.25 GM in IV D5W 250 ML IV SCH (10:00)
[2021-08-16] MEDS: MUPIROCIN OINT 2% 22 GM TUBE NS SCH (10:16)
[2021-08-16] MEDS: BLOOD SUGAR DIAGNOSTIC 1 EACH STRIP VI SCH ×2 (10:16→13:24)
--- NOTE | 2021-08-16 10:27 | NUR ---
RN NOTE VANCO TROUGH CAME RESULT CAME BACK AT 20. PER PHARMACY OK TO GIVE CURRENT DOSE OF VANCOMYCIN MED, WILL ADMINISTER NOW.
[2021-08-16] MEDS ORDERED: VANC1.2526 IV (11:26)
[2021-08-16] MEDS ORDERED: LEVO250T59 PO (11:26)
[2021-08-16] MEDS ORDERED: MUPI22OI7 NS (11:26)
[2021-08-16 12:00] VITALS: BP 105/70
[2021-08-16] MEDS: HYDROCODONE/APAP 5/325MG TABLET PO PRN (13:24)
--- NOTE | 2021-08-16 13:56 | NUR ---
RN NOTE PATIENT DISCHARGED IN STABLE CONDITION. BREATHING EVEN AND UNLABORED. NO SIGNS OF ACUTE DISTRESS NOTED AT THE TIME. PATIENT IS ALERT/ORIENTED X 3-4. ALL DUE MEDS GIVEN ORDERED. ALL NEEDS ATTENDED. KEPT PATIENT CLEAN DRY AND COMFORTABLE. REMOVED TELE MONITOR FROM PATIENT. REMOVED CONDOM CATH ON PATIENT, TOLERATED WELL. REMOVED IV ACCESS ON KAMLESH MIDLINE, NO BLEEDING NOTED ON SITE. PATIENT LEFT UNIT IN STABLE CONDITION VIA RMEDICINE PARK WITH 2 EMT CREW MEMBERS.
== END 2021-08-16 14:13 | DRG 133 ==
LOC: ER 20:33 → TELE1 23:11 → TELE-TD 23:42 → TELE1 08-13 14:17
PROVIDERS: ADMIT Registered Nurse; ATTEND Nurse Practitioner Acute Care
PROC: 5A09357 Assistance with Respiratory Ventilation, Less than 24 Consecutive Hours, Continuous Positive Airway Pressure (ICD-10-PCS; principal; 2021-08-11)
PROC: 05HB33Z Insertion of Infusion Device into Right Basilic Vein, Percutaneous Approach (ICD-10-PCS; 2021-08-11)
DX: J96.21 Acute and chronic respiratory failure with hypoxia (principal); N17.0 Acute kidney failure with tubular necrosis; I50.33 Acute on chronic diastolic (congestive) heart failure; R53.2 Functional quadriplegia; L03.115 Cellulitis of right lower limb; I69.354 Hemiplegia and hemiparesis following cerebral infarction affecting left non-dominant side; D63.8 Anemia in other chronic diseases classified elsewhere; D68.59 Other primary thrombophilia; J44.1 Chronic obstructive pulmonary disease with (acute) exacerbation; L03.116 Cellulitis of left lower limb; I11.0 Hypertensive heart disease with heart failure; G40.909 Epilepsy, unspecified, not intractable, without status epilepticus; Z85.038 Personal history of other malignant neoplasm of large intestine; Z88.2 Allergy status to sulfonamides; Z88.8 Allergy status to other drugs, medicaments and biological substances; Z91.041 Radiographic dye allergy status; Z91.013 Allergy to seafood; Z79.51 Long term (current) use of inhaled steroids; Z79.82 Long term (current) use of aspirin; Z79.899 Other long term (current) drug therapy; Z74.09 Other reduced mobility; E78.5 Hyperlipidemia, unspecified; Z86.718 Personal history of other venous thrombosis and embolism; Z91.19 Patient's noncompliance with other medical treatment and regimen; Z87.891 Personal history of nicotine dependence; N40.0 Benign prostatic hyperplasia without lower urinary tract symptoms; G89.4 Chronic pain syndrome; F11.20 Opioid dependence, uncomplicated; Z87.828 Personal history of other (healed) physical injury and trauma; W34.00XS Accidental discharge from unspecified firearms or gun, sequela; F32.A Depression, unspecified; E87.6 Hypokalemia; I25.10 Atherosclerotic heart disease of native coronary artery without angina pectoris; I25.2 Old myocardial infarction; E11.65 Type 2 diabetes mellitus with hyperglycemia; I87.2 Venous insufficiency (chronic) (peripheral); R23.4 Changes in skin texture; K29.70 Gastritis, unspecified, without bleeding; S81.802A Unspecified open wound, left lower leg, initial encounter; X58.XXXA Exposure to other specified factors, initial encounter; Y92.9 Unspecified place or not applicable; B95.8 Unspecified staphylococcus as the cause of diseases classified elsewhere; Z22.322 Carrier or suspected carrier of Methicillin resistant Staphylococcus aureus
CPT/HCPCS: 36410; 36415; 36600; 71045-TC; 80048-TC; 80053-TC; 80061-TC; 80076-TC; 80202-TC; 81001; 82962-TC; 83735-TC; 83880; 84100-TC; 84443-TC; 84484-TC; 85025-TC; 85730-TC; 87040-TC; 87070-TC; 87081-TC; 87086-TC; 94760-TC; 94799-TC; 97112-TC; 97530-TC; A4349; C9803; G0378; J1650; J1815; J1940; J2270; J2920; J3370; J3490; J7050; J7060; Q0162; Q0177

== ENCOUNTER 2022-03-23 07:18 | Inpatient (IN) | payer OTHER ==
[~2022-03-23] VITALS: Ht 172.7 cm; Wt 87.5 kg
[2022-03-23] VITALS (31 sets, daily range): BP systolic 129–160; BP diastolic 59–88
[~2022-03-23 07:18] MED LIST changes: +LEVO250T59 PO; +MUPI22OI7 NS; +VANC1.2526 IV
[2022-03-23] MEDS ORDERED: NTG 50 MG/D5W250 ML BOTTL 250 ML IV ONE ×2 (07:30→08:00)
[2022-03-23] MEDS ORDERED: ALBUTEROL FS 2.5 MG/3 ML VIAL.NEB NEB ONE (07:30)
[2022-03-23] MEDS ORDERED: FUROSEMIDE 40 MG/4 ML VIAL IV ONE (07:30)
--- NOTE | 2022-03-23 07:33 | NUR ---
PATIENT [facility]IBRA60 FROM [facility] C/O SOB. PATIENT ON C-PAP PARACHUTE LINE TIER. LABORED BREATHING. PATIENT CONNECTED TO COAL DUMPING EQUIPMENT OPERATOR AND POX.
--- NOTE | 2022-03-23 07:34 | NUR ---
RT AT BEDSIDE
--- NOTE | 2022-03-23 07:40 | NUR ---
pt brought to er via gurney awake but unable to follow commands placed into bipap machine due to increased work of breathing. bipap settings below set as ordered: ipap 18 epap 8 f 12 fio2 100% breath sounds diminished bilateral. bipap plugged into red outlet with alarms on and functioning bvm @ bedside Addendum: 03/23/22 at 0743 by CIRA CAMPBELL RT Amended: Links added.
[2022-03-23] MEDS ORDERED: FUROSEMIDE 40 MG/4 ML VIAL ONE (07:41)
--- NOTE | 2022-03-23 07:46 | NUR ---
RADIOLOGY AT BEDSIDE FOR CHEST XRAY.
[2022-03-23] MEDS ORDERED: ALBUTEROL FS 2.5 MG/3 ML VIAL.NEB ONE (07:51)
--- NOTE | 2022-03-23 07:58 | NUR ---
PLACED MEPILEX BETWEEN MASK AND SKIN TO PREVENT SKIN SORE. Addendum: 03/23/22 at 0800 by CIRA CAMPBELL RT Amended: Links added.
--- NOTE | 2022-03-23 07:59 | NUR ---
MOVE SHEET SUBMITTED
[2022-03-23 08:16] LABS: BASOPHILS % (AUTO) 0.3 % (0.0-2.0); EOSINOPHILS % (AUTO) 1.5 % (0.0-6.0); HEMATOCRIT 25 % (39-51); LYMPHOCYTES # (AUTO) 0.5 K/uL (0.8-4.8); MEAN CORPUSCULAR HGB CONC 32 g/dl (31.0-36.0); MEAN CORPUSCULAR VOLUME 94 fL (80-96); MONOCYTES # (AUTO) 0.7 K/uL (0.1-1.30); MONOCYTES % (AUTO) 6.5 % (2.0-12.0); NEUTROPHILS # (AUTO) 9.4 K/uL (1.8-8.9); NEUTROPHILS % (AUTO) 86.7 % (43.0-81.0); PLATELET COUNT (AUTO) 110 K/uL (150-450); RED BLOOD CELL COUNT(AUTO) 2.64 MIL/uL (4.5-6.0); WHITE BLOOD COUNT (AUTO) 10.8 K/uL (4.3-11.0)
[2022-03-23] MEDS ORDERED: VARE1TAB PO (08:30)
[2022-03-23] MEDS ORDERED: SPIR25TA6 PO (08:30)
[2022-03-23] MEDS ORDERED: EMPA10TA PO (08:30)
[2022-03-23] MEDS ORDERED: FLUO30CR11 TP (08:30)
[2022-03-23] MEDS ORDERED: LOPE2TAB25 PO (08:30)
[2022-03-23] MEDS ORDERED: LIDOCAINE PATCH TD (08:30)
[2022-03-23] MEDS ORDERED: CHOL200013 PO (08:30)
[2022-03-23 08:51] LABS: ABG BASE EXCESS -4.7 mmol/L; ABG PCO2 45.4 mmHg (35.0-45.0); ABG PH 7.294 (7.350-7.450); ABG PO2 496.7 mmHg (75.0-100.0); COHb 0.2 % (0.5-1.5); MetHb 0.2 % (0.0-1.5); O2Hb 99.3 % (94.0-97.0); SITE, ABG Right Radial; VENT MODE, BG IPAP 18 / EPAP 8
[2022-03-23 08:58] LABS: CARBON DIOXIDE 23 mmol/L (21-32); CHLORIDE 104 mmol/L (98-107); CREATININE 2.4 mg/dL (0.6-1.3); GLUCOSE 182 mg/dL (74-106); POTASSIUM 3.7 mmol/L (3.5-5.1); SODIUM SERUM 139 mmol/L (136-145); UREA NITROGEN, BLOOD 62 mg/dL (7-18)
[2022-03-23 09:04] LABS: ALANINE AMINOTRANSFERASE 16 U/L (12-78); ALBUMIN 2.6 g/dL (3.4-5.0); ALKALINE PHOSPHATASE 63 U/L (46-116); ASPARTATE AMINOTRANSFERASE 15 U/L (15-37); BILIRUBIN,DIRECT 0.1 mg/dL (0.0-0.2); BILIRUBIN,TOTAL 0.4 mg/dL (0.2-1.0); TOTAL PROTEIN, SERUM 6.2 g/dL (6.4-8.2)
[2022-03-23] MEDS ORDERED: FUROSEMIDE 40 MG/4 ML VIAL IV SCH (09:30)
[2022-03-23] MEDS ORDERED: MAGNESIUM HYDROXIDE 30 ML UDC PO PRN (09:30)
[2022-03-23] MEDS ORDERED: ENOXAPARIN SODIUM 40 MG/0.4 ML DISP.SYRIN SQ SCH (09:30)
[2022-03-23] MEDS ORDERED: Z GUARD REMEDY 4 OZ OINT TP PRN (09:30)
[2022-03-23] MEDS ORDERED: MAG HYDROX/AL HYDROX/SIMETH 30 ML UDC PO PRN (09:30)
[2022-03-23] MEDS ORDERED: ASPIRIN EC 325 MG TABLET.DR PO ONE (09:30)
[2022-03-23] MEDS ORDERED: IPRATROPIUM NEB FS 0.5 MG/2.5 ML AMPUL.NEB NEB PRN (09:30)
[2022-03-23] MEDS ORDERED: ONDANSETRON HCL/PF 4 MG/2 ML VIAL IVP PRN (09:30)
--- NOTE | 2022-03-23 09:41 | NUR ---
GOT BED 258
[2022-03-23] MEDS ORDERED: ASPIRIN 325 MG TABLET ONE (09:59)
[2022-03-23] MEDS ORDERED: HEPARIN INFUSION/D5W 500 ML IV PRN (10:00)
[2022-03-23] MEDS: IPRATROPIUM NEB FS 0.5 MG/2.5 ML AMPUL.NEB NEB SCH ×3 (10:00→19:35)
--- NOTE | 2022-03-23 10:06 | NUR ---
REPORT GIVEN TO ANNABELLA SANCHEZ FOR ANGELIC.
--- NOTE | 2022-03-23 10:18 | NUR ---
PT. IS AWAKE AND ALERT PLACED INTO NASAL CANNULA @ 3 LPM O2 FLOW. BIPAP ON STAND BY @ BEDSIDE. Addendum: 03/23/22 at 1018 by CIRA CAMPBELL RT Amended: Links added.
--- NOTE | 2022-03-23 10:28 | NUR ---
TRANSPORTED TO ICU.CONDITION: GUARDED
--- NOTE | 2022-03-23 10:30 | NUR ---
RN OPENING NOTES RECEIVED PATIENT FROM EMERGENCY DEPARTMENT. ON 4 LITERS SUPPLEMENTAL OS VIA NASAL CANULA, OXYGEN SATURATION AT 92%. PATIENT IS ALERT AND ORIENTED TIMES 4 AND ABLE TO MAKE NEEDS KNOWN. CURRENT TELEMETRY READING SHOWING NORMAL SINUS. IV ACCESS ON LEFT UPPER ARM PICC LINE AND LEFT HAND 20 GAUGE, FLUSHING EASILY WITHOUT RESISTANCE. SUCTIONED ONE TIME AT PATIENTS REQUEST. REFUSING ALVES CATHETER PLACEMENT BUT OKAY WITH CONDOM CATHETER. NITRO GLYCERIN DRIP DISCONTINUED AT THIS TIME. DEPENDENT EDEMA NOTED IN BILATERAL LEGS. SAFETY MEASURES IMPLEMENTED, WILL CONTINUE PLAN OF CARE AND ANTICIPATE NEEDS.
[2022-03-23 10:44] LABS: BILIRUBIN,URINE NEGATIVE (NEGATIVE); LEUKOCYTE ESTERASE ,URINE NEGATIVE (NEGATIVE); NITRITE, URINE NEGATIVE (NEGATIVE); PROTEIN,URINE 3+ mg/dl (NEGATIVE); UGLUCOSE NEGATIVE (NEGATIVE); UROBILINOGEN,URINE 0.2 EU/dL (0.2)
[2022-03-23 10:59] LABS: COLOR,URINE AMBER (YELLOW)
[2022-03-23] MEDS ORDERED: LEVOFLOXACIN 500 MG /D5W 100ML 100 ML IV ONE (11:00)
[2022-03-23] MEDS: IV NS 0.9% 250 ML IV PRN (11:05)
[2022-03-23] MEDS: LEVETIRACETAM (250 MG) 250 MG TABLET PO SCH ×2 (11:06→21:51)
[2022-03-23 11:11] LABS: BACTERIA,URINE None seen /HPF (None Seen); RBC,URINE 21-50 /HPF (0-2); SQUAMOUS EPITHELIAL CELL,UR Rare /HPF (None Seen)
[2022-03-23] MEDS ORDERED: HEPARIN SODIUM, PORCINE 5000 UNITS/1 ML VIAL IV ONE (12:00)
[2022-03-23] MEDS ORDERED: MORPHINE SULFATE SR 30 MG TABLET.SA PO SCH (13:30)
[2022-03-23] MEDS ORDERED: MORPHINE SULFATE IR 15 MG TABLET PO PRN (14:00)
--- NOTE | 2022-03-23 17:17 | NUR ---
PATIENT REPORTED FEELING SHORT OF BREATH ON 4 LITERS NASAL CANULA. REQUESTED TO BE PUT BACK ON BIPAP. PLACED MASK. ATTEMPTED PAGING RT TO GIVE PATIENT BREATHING TREATMENT BUT GOT NO ANSWER ON THE PHONE. WILL REATTEMPT IN A FEW MINUTES
--- NOTE | 2022-03-23 17:55 | NUR ---
CALLED RT AGAIN AND RECEIVED ANSWER. TOLD THEM PATIENT IS FEELING SHORT OF BREATH AND WOULD LIKE BREATHING TREATMENT.
--- NOTE | 2022-03-23 18:24 | NUR ---
PATIENT REQUESTED FOR FIO2 TO BE TURNED FROM 30% TO 50%. INFORMED HIM THAT RT IS RESPONSIBLE FOR MAKING CHANGES TO BIPAP SETTINGS. INFORMED THE PATIENT THAT RT HAS BEEN PAGED.
--- NOTE | 2022-03-23 18:46 | NUR ---
PATIENT PULLING ON BIPAP HOSE, DISCONNECTING TUBES, MOVING SIDE TO SIDE IN BED YELLING OUT "INTUBATE ME". STAT EKG AND ABG ORDERED. PATIENT ATTEMPTING TO GET OUT OF BED. STAYED WITH PATIENT TO ATTEMPT TO CALM HIM DOWN. UNABLE TO GET ACCURATE VITALS DUE TO PATIENT BEING UNABLE TO REMAIN STILL. RT AT BEDSIDE. HEPARIN STILL RUNNING ORDERED. CONDOM CATHETER IN PLACE NO OUTPUT AT THIS TIME. HAND OFF REPORT GIVEN TO CLAIMS ADMINISTRATOR LAURA CARTY, FOR CONTINUATION OF CARE.
[2022-03-23 19:20] LABS: ABG BASE EXCESS -3.3 mmol/L; ABG OXYGEN SATURATION 92.2 % (92.0-98.5); ABG PH 7.315 (7.350-7.450); ABG PO2 72.7 mmHg (75.0-100.0); AaDO2 87.2 mmHg; COHb 0.3 % (0.5-1.5); MetHb 0.2 % (0.0-1.5); O2Hb 91.7 % (94.0-97.0); SITE, ABG Left Radial; VENT MODE, BG ST 18/18 30% RR12
--- NOTE | 2022-03-23 19:21 | NUR ---
PT PLACED BACK ON BIPAP DUE TO SOB. STAT ABG DONE. RN NOTIFIED WITH THE RESULT. CONTINUE TO MONITOR.
--- NOTE | 2022-03-23 20:00 | NUR ---
RN NOTE RECEIVED PT AGITATED, TACHYCARDIC. CALMED DOWN AFTER AWHILE. ON BIPAP 18/8 FIO2 30%. PT AOX3. ON HEPARIN DRIP AT 1200U/HR. AWAITING FOR PTT RESULTS. WILL CONTINUE TO MONITOR.
--- NOTE | 2022-03-23 20:30 | NUR ---
RN NOTE PT NOW SLEEPING. SINUS RHYTHM ON TELE MONITOR WITH HR 73. NO DISTRESS NOTED. TOLERATING BIPAP SETTINGS, O2 SAT AT 95%. WILL CONTINUE TO MONITOR.
--- NOTE | 2022-03-23 20:46 | NUR ---
RN NOTE PTT 60.9. PER PROTOCOL NO CHANGE, CONTINUE WITH HEPARIN DRIP 1200U/HR.
[2022-03-23] MEDS ORDERED: MORPHINE SULFATE IR 15 MG TABLET PO SCH ×2 (21:00)
[2022-03-23] MEDS: ATORVASTATIN 40 MG TABLET PO SCH (21:51)
[2022-03-24] VITALS (26 sets, daily range): BP systolic 132–162; BP diastolic 58–97
[2022-03-24] MEDS: IPRATROPIUM NEB FS 0.5 MG/2.5 ML AMPUL.NEB NEB SCH ×4 (01:20→19:26)
[2022-03-24] MEDS: MORPHINE SULFATE IR 15 MG TABLET PO PRN (01:26)
[2022-03-24 04:44] LABS: BASOPHILS % (AUTO) 0.1 % (0.0-2.0); EOSINOPHILS % (AUTO) 0.2 % (0.0-6.0); HEMATOCRIT 22 % (39-51); HEMOGLOBIN 7.3 g/dL (13.5-17.5); LYMPHOCYTES # (AUTO) 0.6 K/uL (0.8-4.8); LYMPHOCYTES % (AUTO) 6.6 % (20.0-44.0); MEAN CORPUSCULAR HGB CONC 34 g/dl (31.0-36.0); MEAN CORPUSCULAR VOLUME 92 fL (80-96); MONOCYTES # (AUTO) 0.7 K/uL (0.1-1.30); MONOCYTES % (AUTO) 7.7 % (2.0-12.0); NEUTROPHILS # (AUTO) 7.7 K/uL (1.8-8.9); NEUTROPHILS % (AUTO) 85.4 % (43.0-81.0); PLATELET COUNT (AUTO) 84 K/uL (150-450); RED BLOOD CELL COUNT(AUTO) 2.33 MIL/uL (4.5-6.0)
[2022-03-24 05:11] LABS: ALBUMIN 2.4 g/dL (3.4-5.0); BILIRUBIN,TOTAL 0.3 mg/dL (0.2-1.0); CALCIUM, SERUM 7.6 mg/dL (8.5-10.1); CREATININE 2.6 mg/dL (0.6-1.3); MAGNESIUM 1.4 mg/dL (1.8-2.4); PHOSPHORUS 6.2 mg/dL (2.5-4.9); POTASSIUM 3.7 mmol/L (3.5-5.1)
[2022-03-24 05:40] LABS: LYMPHOCYTES % (MANUAL) 13 % (16-48); MONOCYTES % (MANUAL) 9 % (0-11.0); NEUTROPHILS % (MANUAL) 78 (42-76)
--- NOTE | 2022-03-24 06:51 | NUR ---
RN NOTE PT AWAKE, CAN BE AGGRESSIVE AT TIMES, NO SIGNS OF DISTRESS NOTED. TOLERATES BIPAP SETTINGS, 02 SAT AT 98%. LATEST PTT 51.5, CONTINUE WITH 1200 U/HR, INFUSING WELL. NO SIGNS OF INFILTRATION NOTES. SR ON TELE MONITOR, HR 83. ADEQUATE AMOUNT OF URINE OUTPUT. ALL NEEDS ATTENDED.
--- NOTE | 2022-03-24 07:05 | NUR ---
MASONRY INSTALLER OPENING NOTE: RECEIVED PT. IN BED, AWAKE, AOX4, ABLE TO VERBALIZE SIMPLE NEEDS. COMPLAINTS OF 7/10 CHEST PAIN, MORPHINE 15MG GIVEN AT 0126. PT. SAID HE FEELS BETTER WITH NITROGLYERIN PATCH. WILL LET DR. ESPINOZA KNOW. PT. IS RESTLESS, ANXIOUS AND CAN BE AGGRESIVE AT TIMES. THERAPEUTIC COMMUNICATION USED. ON O2 VIA BIPAP: 18/8; RATE - 12; FIO2 - 30%. NO S/S OF RESPIRATORY DISTRESS. GIRLS TENNIS COACH READS NSR WITH HR OF 80 BPM AT THIS TIME. BILATERAL LEG REDNESS NOTED, WILL DO WOUND TREATMENT AND SKIN PRECAUTIONS ORDERED. PT. ON CONDOM CATH, DRAINING TEA COLORED URINE, BAG BELOW BLADDER . IV ACCESS ON BULMARO PICC WITH HEPARIN RUNNING AT 1,200 UNITS/HR PER PROTOCOL. IV SITE DRESSING C/D/I WITH NO S/S OF INFILTRATION. SAFETY MEASURES IN PLACE: BED IN LOWEST AND LOCKED POSITION, HOB ELEVATED AT 30 DEGREES, BED ALARM ON, CALL LIGHT WITHIN REACH, SIDE RAILS UP X2. WILL TURN AND REPOSITION IN BED AT LEAST Q2H. WILL CONTINUE TO MONITOR PT. FOR ANY CHANGES.
[2022-03-24] MEDS: NITROGLYCERIN 30 GM TUBE TP SCH ×2 (08:16→21:41)
[2022-03-24] MEDS: ASPIRIN EC 81 MG TABLET.DR PO SCH (08:21)
[2022-03-24] MEDS: TAMSULOSIN 0.4 MG CAP.SR.24H PO SCH (08:21)
[2022-03-24] MEDS: AMITRIPTYLINE HCL 25 MG TABLET PO SCH (08:21)
[2022-03-24] MEDS: SPIRONOLACTONE 25 MG TABLET PO SCH (08:22)
[2022-03-24] MEDS: FOLIC ACID 1 MG TABLET PO SCH (08:22)
[2022-03-24] MEDS: LEVETIRACETAM (250 MG) 250 MG TABLET PO SCH ×2 (08:23→21:41)
[2022-03-24] MEDS: FLUOCINONIDE 0.05% CREAM 60 GM TUBE TP PRN (08:24)
[2022-03-24] MEDS ORDERED: BUMETANIDE INJ 16 MG in IV NS 0.9% 16 ML IV ONE (08:30)
[2022-03-24] MEDS ORDERED: FERROUS SULFATE (325 MG) 325 MG/TAB TABLET PO SCH (09:00)
[2022-03-24] MEDS: Magnesium 1GM/D5W 100ML PREMIX 100 ML IV SCH ×2 (09:09→10:27)
[2022-03-24] MEDS: HEPARIN SODIUM, PORCINE 5000 UNITS/1 ML VIAL SQ SCH ×2 (09:10→21:42)
[2022-03-24] MEDS: hydrALAZINE HCL IV 20 MG VIAL IV PRN (09:38)
[2022-03-24 09:57] LABS: ABG BASE EXCESS -4.1 mmol/L; ABG OXYGEN SATURATION 97.1 % (92.0-98.5); ABG PCO2 37.2 mmHg (35.0-45.0); ABG PH 7.365 (7.350-7.450); ABG PO2 105.7 mmHg (75.0-100.0); COHb 0.7 % (0.5-1.5); MetHb 0.3 % (0.0-1.5); O2Hb 96.1 % (94.0-97.0); SITE, ABG Right Radial
--- NOTE | 2022-03-24 10:00 | NUR ---
FRENCH EDGE OPERATOR NOTE: NITROGLYCERIN OINTMENT APPLIED ON LEFT CHEST WALL, PT. NOW VERBALIZED CHEST PAIN RELIEF. HYDRALAZINE 10 MG IV GIVEN AT 0938 FOR BP OF 162/81. BP NOW IS 134/97. WILL CONTINUE TO MONITOR PT.'S BP AND CHEST PAIN.
[2022-03-24] MEDS: LEVOFLOXACIN 250 MG /D5W 50 ML 250 MG in PREMIX 1 EA IV SCH (11:39)
[2022-03-24] MEDS ORDERED: Magnesium 1GM/D5W 100ML PREMIX 100 ML IV SCH (12:00)
--- NOTE | 2022-03-24 19:05 | NUR ---
DEPARTMENT ASSISTANT CLOSING NOTE: PT. REMAINS IN BED, AWAKE, AOX4, ABLE TO VERBALIZE SIMPLE NEEDS. NO COMPLAINTS OF PAIN/DISCOMFORT AT THIS TIME. PT. MORE CALM AND COOPERATIVE AFTER GIVING NITROGLYCERIN PATCH THIS AM. ON O2 VIA BIPAP: 18/8; RATE - 12; FIO2 - 40%. NO S/S OF RESPIRATORY DISTRESS. WHEN PT. WAS OFF BIPAP FOR MEALS AND WAS PUT ON 5L NASAL CANNULA, HE WAS SATURATING AT 97-99. PT. INSISTS TO LOOK AT THE MONITOR WHILE EATING AND WHEN HE SEES TACHYCARDIA AT 110-120'S BPM, EVEN WITH GOOD O2 SAT, HE WOULD BECOME WORRIED AND WOULD ASK TO PUT BACK THE BIPAP ON. PERIPHERAL VASCULAR TECH READS NSR WITH HR OF 91 BPM AT THIS TIME. SKIN PRECAUTIONS DONE ORDERED. PT. ON CONDOM CATH, DRAINED 1,325 ML TEA COLORED URINE THIS SHIFT. IV ACCESS ON BULMARO PICC WITH NS TKO. IV SITE DRESSING C/D/I WITH NO S/S OF INFILTRATION. SAFETY MEASURES MAINTAINED: BED IN LOWEST AND LOCKED POSITION, HOB ELEVATED AT 30 DEGREES, BED ALARM ON, CALL LIGHT WITHIN REACH, SIDE RAILS UP X2. TURNED AND REPOSITIONED IN BED AT LEAST Q2H. ENDORSED CONTINUITY OF CARE TO DONKEY DOCTOR RN KEYONA.
[2022-03-24] MEDS: ATORVASTATIN 40 MG TABLET PO SCH (21:40)
[2022-03-25] VITALS (34 sets, daily range): BP systolic 108–167; BP diastolic 59–96
[2022-03-25] MEDS: IPRATROPIUM NEB FS 0.5 MG/2.5 ML AMPUL.NEB NEB SCH ×4 (01:20→19:31)
[2022-03-25 05:16] LABS: BASOPHILS % (AUTO) 0.1 % (0.0-2.0); EOSINOPHILS % (AUTO) 0.3 % (0.0-6.0); LYMPHOCYTES # (AUTO) 0.5 K/uL (0.8-4.8); MEAN CORPUSCULAR HGB CONC 33 g/dl (31.0-36.0); MEAN CORPUSCULAR VOLUME 93 fL (80-96); MONOCYTES # (AUTO) 0.7 K/uL (0.1-1.30); MONOCYTES % (AUTO) 8.8 % (2.0-12.0); NEUTROPHILS # (AUTO) 6.4 K/uL (1.8-8.9); NEUTROPHILS % (AUTO) 83.8 % (43.0-81.0); PLATELET COUNT (AUTO) 92 K/uL (150-450); RED BLOOD CELL COUNT(AUTO) 2.19 MIL/uL (4.5-6.0); WHITE BLOOD COUNT (AUTO) 7.6 K/uL (4.3-11.0)
[2022-03-25 05:32] LABS: HEMOGLOBIN 6.7 g/dL (13.5-17.5)
[2022-03-25 05:34] LABS: HEMATOCRIT 20 % (39-51)
[2022-03-25 05:36] LABS: ALBUMIN 2.3 g/dL (3.4-5.0); BILIRUBIN,TOTAL 0.3 mg/dL (0.2-1.0); CALCIUM, SERUM 7.4 mg/dL (8.5-10.1); MAGNESIUM 1.9 mg/dL (1.8-2.4); PHOSPHORUS 6.1 mg/dL (2.5-4.9); POTASSIUM 3.5 mmol/L (3.5-5.1)
--- NOTE | 2022-03-25 07:15 | NUR ---
TANK FARM GAUGER OPENING NOTE: RECEIVED PT. IN BED, AWAKE, AOX4, ABLE TO VERBALIZE SIMPLE NEEDS. ON O2 VIA BIPAP: 18/8; RATE - 12; FIO2 - 30%. NO S/S OF RESPIRATORY DISTRESS. HR BUSINESS PARTNER CONSULTANT READS NSR WITH HR OF 98BPM AT THIS TIME. BILATERAL LEG REDNESS NOTED, WILL DO WOUND TREATMENT AND SKIN PRECAUTIONS ORDERED. PT. ON CONDOM CATH, DRAINING TEA COLORED URINE, BAG BELOW BLADDER . IV ACCESS ON BULMARO PICC IV SITE DRESSING C/D/I WITH NO S/S OF INFILTRATION. SAFETY MEASURES IN PLACE: BED IN LOWEST AND LOCKED POSITION, HOB ELEVATED AT 30 DEGREES, BED ALARM ON, CALL LIGHT WITHIN REACH, SIDE RAILS UP X2. WILL TURN AND REPOSITION IN BED AT LEAST Q2H. WILL CONTINUE TO MONITOR PT. FOR ANY CHANGES.
[2022-03-25] MEDS: AMITRIPTYLINE HCL 25 MG TABLET PO SCH (08:14)
[2022-03-25] MEDS: TAMSULOSIN 0.4 MG CAP.SR.24H PO SCH (08:15)
[2022-03-25] MEDS: FOLIC ACID 1 MG TABLET PO SCH (08:15)
[2022-03-25] MEDS: ASPIRIN EC 81 MG TABLET.DR PO SCH (08:15)
[2022-03-25] MEDS: LEVETIRACETAM (250 MG) 250 MG TABLET PO SCH ×2 (08:16→20:42)
[2022-03-25] MEDS: NITROGLYCERIN 30 GM TUBE TP SCH ×2 (08:17→20:52)
[2022-03-25] MEDS: SPIRONOLACTONE 25 MG TABLET PO SCH (08:17)
[2022-03-25] MEDS: hydrALAZINE HCL IV 20 MG VIAL IV PRN ×3 (08:22→17:16)
[2022-03-25] MEDS: hydrALAZINE HCL 50 MG TABLET PO SCH ×3 (08:25→17:15)
--- NOTE | 2022-03-25 08:26 | NUR ---
RN OTE PATIENT HAD ELEVATED BP 159?86 , APRESOLINE GIVEN IV 10 MG
[2022-03-25] MEDS: HEPARIN SODIUM, PORCINE 5000 UNITS/1 ML VIAL SQ SCH (08:27)
[2022-03-25 08:37] LABS: IRON, SERUM 12 ug/dl (50-175); TOTAL IRON BINDING CAPACITY 161 ug/dl (250-450)
[2022-03-25] MEDS: LEVOFLOXACIN 250 MG /D5W 50 ML 250 MG in PREMIX 1 EA IV SCH (10:23)
[2022-03-25 11:03] LABS: FERRITIN 1793 ng/mL (8-388)
--- NOTE | 2022-03-25 11:15 | NUR ---
RN NOTE PATIENT STARTED IN INFUSION LEVOFLAXACIN AT 1030 AM , AT 11 BLOOD WAS READY FOR TRANSFUSION , STOPED THE LEVOFLAXACIN , STARTED BLOOD TRANSFUSION AR 11:12 , PATIENT REFUSED FO ME TO START ANOTHER IV LINE ON HIM , CALLED [employer] ORDERED ANOTHR DOSE OF TYHE LEVOFLACAXIN TO BE ADMINISTERD AFTER THE BLOOD TRANASFUSION WILL BE DONE .
[2022-03-25 11:34] LABS: ABG OXYGEN SATURATION 97.6 % (92.0-98.5); ABG PCO2 39.3 mmHg (35.0-45.0); ABG PH 7.427 (7.350-7.450); AaDO2 99.9 mmHg; COHb 0.8 % (0.5-1.5); MetHb 0.3 % (0.0-1.5); O2Hb 96.5 % (94.0-97.0); SITE, ABG Right Radial
[2022-03-25] MEDS ORDERED: DEXAMETHASONE SOD PHOSPHATE 10 MG/ML VIAL IV SCH (12:30)
[2022-03-25] MEDS ORDERED: DEXTROSE 50%-WATER 50 ML DISP.SYRIN IV PRN (14:00)
[2022-03-25 14:25] LABS: LYMPHOCYTES % (MANUAL) 10 % (16-48); MONOCYTES % (MANUAL) 6 % (0-11.0); NEUTROPHILS % (MANUAL) 84 (42-76)
--- NOTE | 2022-03-25 14:50 | NUR ---
RN NOTE BLOOD TRANSFUSION COMPLITED AT 1443 .PATIENT TOLERATED TRANSFUSION WELL.
[2022-03-25] MEDS: DEXAMETHASONE SOD PHOSPHATE 10 MG/ML VIAL IV SCH (15:31)
[2022-03-25] MEDS: BLOOD SUGAR DIAGNOSTIC 1 EACH STRIP IN SCH ×2 (17:24→21:21)
[2022-03-25] MEDS: INSULIN REGULAR, HUMAN 100 UNIT/ML 3 ML VIAL SQ PRN (17:27)
[2022-03-25] MEDS: LORAZEPAM 0.5 MG TABLET PO PRN (18:11)
--- NOTE | 2022-03-25 19:15 | NUR ---
PATIENT RELATIONS DIRECTOR CLOSING NOTE: PT. REMAINS IN BED, AWAKE, AOX4, ABLE TO VERBALIZE SIMPLE NEEDS. NO COMPLAINTS OF PAIN/DISCOMFORT AT THIS TIME. PT. MORE CALM AND COOPERATIVE AFTER GIVING NITROGLYCERIN PATCH THIS AM. ON O2 VIA BIPAP: 18/8; RATE - 12; FIO2 - 40%. NO S/S OF RESPIRATORY DISTRESS. PT. ON CONDOM CATH, DRAINED 1,325 ML TEA COLORED URINE THIS SHIFT. IV ACCESS ON BULMARO PICC WITH NS TKO. IV SITE DRESSING C/D/I WITH NO S/S OF INFILTRATION. PATIENT AT 1830 DEVELOPED HR 124 , BP 167.87 , ECG WAS ORDERED , DR WARNER MEZAOTIFIED , NO NEW ORDERES , DR ROBLES ORDERED ATIVAN O.4 MG EVERY 6 HR NEEDED FOR ANXIETY SAFETY MEASURES MAINTAINED: BED IN LOWEST AND LOCKED POSITION, HOB ELEVATED AT 30 DEGREES, BED ALARM ON, CALL LIGHT WITHIN REACH, SIDE RAILS UP X2. TURNED AND REPOSITIONED IN BED AT LEAST Q2H. ENDORSED CONTINUITY OF CARE TO PAINTING SUPERVISOR RN
--- NOTE | 2022-03-25 19:33 | NUR ---
SWITCH REPAIRER. INITIAL ASSESSMENT. RECEIVED THE PT REST IN BED. AWAKE, ALERT. FOLLOW COMMANDS. INVESTMENT BROKER SHOWING NSR. OXYGEN BIPAP ON. SAT 98%. NO ACUTE DISTRESS NOTED. IV LT UPPER ARM PICC LINE. TKO RUNNING.PT C/O CHEST RT SIDE PAIN. DAY SHIFT RN NOTIFIED MD ESPINOZA. NO ORDER RECEIVED. WILL CONTINUE TO MONITOR.
--- NOTE | 2022-03-25 20:18 | NUR ---
PT IS AWAKE ALERT ON BIPAP TOLERATING SETTINGS NO DISTRESS. CONTINUE TO MONITOR. Addendum: 03/25/22 at 2019 by PAT AVILA RT Amended: Links added.
[2022-03-25] MEDS: ATORVASTATIN 40 MG TABLET PO SCH (21:23)
[2022-03-26] VITALS (24 sets, daily range): BP systolic 123–160; BP diastolic 60–100
[2022-03-26] MEDS: IPRATROPIUM NEB FS 0.5 MG/2.5 ML AMPUL.NEB NEB SCH ×4 (01:29→19:30)
--- NOTE | 2022-03-26 03:40 | NUR ---
SANDING LINE OPERATOR. AM CARE GIVEN. LINEN CHANGED, REMAINING SAME BIPAP SETTINGS TOLERATED WELL. SAT 98%. NO ACUTE DISTRESS NOTED, PAPER TUBE CUTTER SHOWING NSR, IV LT HAND PICC LINE, TKO ON. HOB ELEVATED. CONDOM CATH INTACT, URINE DRAINING. TURN AND REPOSITION Q2H. WILL CONTINUE TO MONITOR VITALS.
--- NOTE | 2022-03-26 07:05 | NUR ---
MEDICAL APPARATUS MODEL MAKER OPENING NOTE: RECEIVED PT. IN BED, AWAKE, AOX4, ABLE TO VERBALIZE SIMPLE NEEDS. . THERAPEUTIC COMMUNICATION USED. ON O2 VIA BIPAP: 18/8; RATE - 12; FIO2 - 30%. NO S/S OF RESPIRATORY DISTRESS. CARDIOLOGY TECHNOLOGIST READS NSR WITH HR OF 95 BPM AT THIS TIME. BILATERAL LEG REDNESS NOTED, WILL DO WOUND TREATMENT AND SKIN PRECAUTIONS ORDERED. PT. ON CONDOM CATH, DRAINING TEA COLORED URINE, BAG BELOW BLADDER . IV ACCESS ON BULMARO RUNNING NS TKO AT 10 ML/HR. IV SITE DRESSING C/D/I WITH NO S/S OF INFILTRATION. SAFETY MEASURES IN PLACE: BED IN LOWEST AND LOCKED POSITION, HOB ELEVATED AT 30 DEGREES, BED ALARM ON, CALL LIGHT WITHIN REACH, SIDE RAILS UP X2.
[2022-03-26] MEDS: BLOOD SUGAR DIAGNOSTIC 1 EACH STRIP IN SCH ×4 (07:44→21:04)
[2022-03-26] MEDS: AMITRIPTYLINE HCL 25 MG TABLET PO SCH (09:02)
[2022-03-26] MEDS: hydrALAZINE HCL 50 MG TABLET PO SCH ×3 (09:05→16:33)
[2022-03-26 09:06] LABS: BASOPHILS % (AUTO) 0.4 % (0.0-2.0); HEMATOCRIT 24 % (39-51); HEMOGLOBIN 7.8 g/dL (13.5-17.5); LYMPHOCYTES # (AUTO) 0.3 K/uL (0.8-4.8); LYMPHOCYTES % (AUTO) 5.6 % (20.0-44.0); MEAN CORPUSCULAR HGB CONC 33 g/dl (31.0-36.0); MEAN CORPUSCULAR VOLUME 92 fL (80-96); MONOCYTES # (AUTO) 0.3 K/uL (0.1-1.30); MONOCYTES % (AUTO) 5.8 % (2.0-12.0); NEUTROPHILS # (AUTO) 4.8 K/uL (1.8-8.9); NEUTROPHILS % (AUTO) 88.2 % (43.0-81.0); PLATELET COUNT (AUTO) 100 K/uL (150-450); RED BLOOD CELL COUNT(AUTO) 2.58 MIL/uL (4.5-6.0); WHITE BLOOD COUNT (AUTO) 5.5 K/uL (4.3-11.0)
[2022-03-26] MEDS: SPIRONOLACTONE 25 MG TABLET PO SCH (09:06)
[2022-03-26] MEDS: LEVETIRACETAM (250 MG) 250 MG TABLET PO SCH ×2 (09:06→21:05)
[2022-03-26] MEDS: DEXAMETHASONE SOD PHOSPHATE 10 MG/ML VIAL IV SCH (09:06)
[2022-03-26] MEDS: TAMSULOSIN 0.4 MG CAP.SR.24H PO SCH (09:06)
[2022-03-26] MEDS: ASPIRIN EC 81 MG TABLET.DR PO SCH (09:06)
[2022-03-26] MEDS: FOLIC ACID 1 MG TABLET PO SCH (09:11)
[2022-03-26] MEDS: NITROGLYCERIN 30 GM TUBE TP SCH ×2 (09:12→21:05)
[2022-03-26 09:22] LABS: ALBUMIN 2.3 g/dL (3.4-5.0); BILIRUBIN,TOTAL 0.4 mg/dL (0.2-1.0); CALCIUM, SERUM 7.9 mg/dL (8.5-10.1); CREATININE 3.4 mg/dL (0.6-1.3); MAGNESIUM 2.1 mg/dL (1.8-2.4); PHOSPHORUS 6.3 mg/dL (2.5-4.9); POTASSIUM 3.8 mmol/L (3.5-5.1); TOTAL PROTEIN, SERUM 6.2 g/dL (6.4-8.2)
--- NOTE | 2022-03-26 09:36 | NUR ---
RN NOTES: PT PLACED BY RT ON HIGH FLOW 40 LITER , 50%. PT VERBALIZED HE FEELS GREAT , O2 SAT 93%
--- NOTE | 2022-03-26 09:43 | NUR ---
LAURA NOTES PT VERBALIZES SHE CAN NOT BREATH, O2 SAT 96%, OFFERED TO USE BIPAP TO HELP HER BREATH BETTER CONTINUE TO REFUSE USING BIPAP. DR TYLER AWARE Addendum: 03/26/22 at 1925 by BRUNO LOCKWOOD RN wrong pt
--- NOTE | 2022-03-26 11:00 | NUR ---
RN NOTES: PT TOLERATED HIGH FLOW WELL, NO SOB OR DESTURATION, O2 SAT 96-98%
[2022-03-26] MEDS: LEVOFLOXACIN 250 MG /D5W 50 ML 250 MG in PREMIX 1 EA IV SCH (11:28)
[2022-03-26] MEDS: INSULIN REGULAR, HUMAN 100 UNIT/ML 3 ML VIAL SQ PRN ×2 (11:52→21:23)
[2022-03-26] MEDS: SOD FERRIC GLUC 125 MG in IV NS 0.9% 100 ML IV SCH (14:35)
[2022-03-26] MEDS: IV NS 0.9% 250 ML IV PRN (18:29)
--- NOTE | 2022-03-26 18:30 | NUR ---
RN notes:PM care provided, no pain or discomfort
--- NOTE | 2022-03-26 19:27 | NUR ---
MARKETING ROTATION ASSOCIATE CLOSING NOTE: PT. REMAINS IN BED, AWAKE, AOX4, ABLE TO VERBALIZE NEEDS. NO COMPLAINTS OF PAIN/DISCOMFORT AT THIS TIME. NO RESPIRATORY DISTRESS. WHEN PT. PT. INSISTS TO LOOK AT THE MONITOR W. FOREST NURSERY WORKER READS NSR TO ST WITH HR OF 91 -105 BPM AT THIS TIME. SKIN PRECAUTIONS DONE ORDERED. PT. ON CONDOM CATH, DRAINED TEA COLORED URINE THIS SHIFT. IV ACCESS ON BULMARO PICC WITH NS TKO. IV SITE DRESSING C/D/I WITH NO S/S OF INFILTRATION. SAFETY MEASURES MAINTAINED: BED IN LOWEST AND LOCKED POSITION, HOB ELEVATED AT 30 DEGREES, BED ALARM ON, CALL LIGHT WITHIN REACH, SIDE RAILS UP X2. TURNED AND REPOSITIONED IN BED AT LEAST Q2H. ENDORSED CONTINUITY OF CARE TO RN X RAY RN KEYONA.
[2022-03-26] MEDS: LORAZEPAM 0.5 MG TABLET PO PRN (19:40)
[2022-03-26] MEDS: ATORVASTATIN 40 MG TABLET PO SCH (21:04)
[2022-03-27] VITALS (29 sets, daily range): BP systolic 119–157; BP diastolic 69–97
[2022-03-27] MEDS: IPRATROPIUM NEB FS 0.5 MG/2.5 ML AMPUL.NEB NEB SCH ×4 (01:14→19:12)
[2022-03-27 04:29] LABS: BASOPHILS % (AUTO) 0.2 % (0.0-2.0); HEMATOCRIT 23 % (39-51); HEMOGLOBIN 7.7 g/dL (13.5-17.5); LYMPHOCYTES # (AUTO) 0.4 K/uL (0.8-4.8); LYMPHOCYTES % (AUTO) 5.4 % (20.0-44.0); MEAN CORPUSCULAR HGB CONC 33 g/dl (31.0-36.0); MEAN CORPUSCULAR VOLUME 92 fL (80-96); MONOCYTES # (AUTO) 0.4 K/uL (0.1-1.30); MONOCYTES % (AUTO) 4.5 % (2.0-12.0); NEUTROPHILS # (AUTO) 7.4 K/uL (1.8-8.9); NEUTROPHILS % (AUTO) 89.9 % (43.0-81.0); PLATELET COUNT (AUTO) 120 K/uL (150-450); RED BLOOD CELL COUNT(AUTO) 2.53 MIL/uL (4.5-6.0); WHITE BLOOD COUNT (AUTO) 8.2 K/uL (4.3-11.0)
[2022-03-27 04:48] LABS: ALBUMIN 2.2 g/dL (3.4-5.0); BILIRUBIN,TOTAL 0.3 mg/dL (0.2-1.0); CALCIUM, SERUM 7.6 mg/dL (8.5-10.1); CREATININE 3.7 mg/dL (0.6-1.3); MAGNESIUM 1.9 mg/dL (1.8-2.4); PHOSPHORUS 5.9 mg/dL (2.5-4.9); POTASSIUM 4.3 mmol/L (3.5-5.1)
--- NOTE | 2022-03-27 07:05 | NUR ---
ICU TN OPENING NOTES: RECEIVED PT IN BED AWAKE ALERT X 3-4, NO SOB NOTED , ON HIGH FLOW 40 LITER 50%, DENIED SOB, PICC LINE LEFT UPPER ARM PATENT FLUSHING WELL, NS RUNNING TKO. BED IN LOW AND LOCKED POSITION,SIDE RAILS UP , CALL LIGHT WITHIN REACH.WILL MONITOR
[2022-03-27] MEDS: BLOOD SUGAR DIAGNOSTIC 1 EACH STRIP IN SCH ×4 (07:32→21:04)
[2022-03-27] MEDS: MORPHINE SULFATE IR 15 MG TABLET PO PRN (07:40)
[2022-03-27] MEDS: AMITRIPTYLINE HCL 25 MG TABLET PO SCH (08:12)
[2022-03-27] MEDS: TAMSULOSIN 0.4 MG CAP.SR.24H PO SCH (08:12)
[2022-03-27] MEDS: FOLIC ACID 1 MG TABLET PO SCH (08:12)
[2022-03-27] MEDS: ASPIRIN EC 81 MG TABLET.DR PO SCH (08:13)
[2022-03-27] MEDS: hydrALAZINE HCL 50 MG TABLET PO SCH ×3 (08:13→17:33)
[2022-03-27] MEDS: LEVETIRACETAM (250 MG) 250 MG TABLET PO SCH ×2 (08:13→20:46)
[2022-03-27] MEDS: SPIRONOLACTONE 25 MG TABLET PO SCH (08:13)
[2022-03-27] MEDS: NITROGLYCERIN 30 GM TUBE TP SCH ×2 (08:14→20:46)
[2022-03-27] MEDS: DEXAMETHASONE SOD PHOSPHATE 10 MG/ML VIAL IV SCH (08:14)
[2022-03-27] MEDS: LORAZEPAM 0.5 MG TABLET PO PRN (09:04)
[2022-03-27] MEDS: AMLODIPINE BESYLATE 5 MG TABLET PO SCH (10:05)
[2022-03-27] MEDS: LEVOFLOXACIN (250MG) 250 MG TABLET PO SCH (11:30)
[2022-03-27] MEDS: SOD FERRIC GLUC 125 MG in IV NS 0.9% 100 ML IV SCH (14:39)
[2022-03-27] MEDS: INSULIN REGULAR, HUMAN 100 UNIT/ML 3 ML VIAL SQ PRN ×2 (17:44→21:07)
--- NOTE | 2022-03-27 19:01 | NUR ---
RN CLOSING NOTES PT IS AWAKE IN BED AOX3. RESPIRATIONS ARE EQUAL AND UNLABORED WITH NO SOB NOTED AT THIS TIME ON 6L NC AND TOLERATING IT WELL WITH 02 SATURATION AT 96%. IV ACCESS ON BULMARO PICC LINE PATENT AND INTACT. ALL DUE MEDS AND TX GIVEN ORDERED. ALL NEEDS ANTICIPATED. HOB ELEVATED TO PTS COMFORT. SIDERAILS UP A AT ALL TIMES. WILL ENDORSE TO ONCOMING NURSE.
--- NOTE | 2022-03-27 19:30 | NUR ---
RN OPENING NOTES PT IS AWAKE IN BED AOX3. SLEEPING AT THIS TIME, AT 6L NC TOLERATING IT WELL, 02 SATURATION AT 96%, IV ACCESS ON BULMARO PICC LINE PATENT AND INTACT, ALL NEEDS ANTICIPATED AND SAFETY PRECAUTIONS IN MAINTAINED, 2 SIDERAILS UP A AT ALL TIMES, CALL LIGHT W/I REACH, WILL CONTINUE TO MONITOR CLOSELY.
[2022-03-27] MEDS: ATORVASTATIN 40 MG TABLET PO SCH (21:04)
--- NOTE | 2022-03-27 23:52 | NUR ---
ENDORSED PATIENT TO KEYONA SANCHEZ FOR CONTINUATION OF CARE, PATIENT IN STABLE CONDITION AT 5LPM WITH O2 >97%.
[2022-03-28] VITALS (15 sets, daily range): BP systolic 117–156; BP diastolic 60–121
[2022-03-28] MEDS: IPRATROPIUM NEB FS 0.5 MG/2.5 ML AMPUL.NEB NEB SCH ×4 (01:30→19:30)
--- NOTE | 2022-03-28 02:06 | NUR ---
AUDIO VIDEO REPAIRER NO BM DOCUMENTED SINCE PT ADMITTED; MOM GIVEN.
[2022-03-28] MEDS: LORAZEPAM 0.5 MG TABLET PO PRN ×3 (04:10→22:03)
--- NOTE | 2022-03-28 04:10 | NUR ---
SHUTTLE OPERATOR PT UPSET/AGITATED WANTS TO BE PLACED ON BIPAP NO DISTRESS NOTED; PT THEN ASKED FOR ATIVAN AND GIVEN.
[2022-03-28 05:04] LABS: BASOPHILS % (AUTO) 0.3 % (0.0-2.0); HEMATOCRIT 25 % (39-51); HEMOGLOBIN 8.1 g/dL (13.5-17.5); LYMPHOCYTES # (AUTO) 0.7 K/uL (0.8-4.8); LYMPHOCYTES % (AUTO) 4.8 % (20.0-44.0); MEAN CORPUSCULAR HGB CONC 32 g/dl (31.0-36.0); MEAN CORPUSCULAR VOLUME 93 fL (80-96); MONOCYTES # (AUTO) 0.8 K/uL (0.1-1.30); MONOCYTES % (AUTO) 5.1 % (2.0-12.0); NEUTROPHILS # (AUTO) 13.3 K/uL (1.8-8.9); NEUTROPHILS % (AUTO) 89.8 % (43.0-81.0); PLATELET COUNT (AUTO) 131 K/uL (150-450); RED BLOOD CELL COUNT(AUTO) 2.71 MIL/uL (4.5-6.0); WHITE BLOOD COUNT (AUTO) 14.8 K/uL (4.3-11.0)
[2022-03-28 05:21] LABS: ALBUMIN 2.5 g/dL (3.4-5.0); BILIRUBIN,TOTAL 0.3 mg/dL (0.2-1.0); CALCIUM, SERUM 7.7 mg/dL (8.5-10.1); MAGNESIUM 2.1 mg/dL (1.8-2.4); PHOSPHORUS 6.4 mg/dL (2.5-4.9); POTASSIUM 4.7 mmol/L (3.5-5.1); TOTAL PROTEIN, SERUM 6.4 g/dL (6.4-8.2)
[2022-03-28] MEDS: FLUOCINONIDE 0.05% CREAM 60 GM TUBE TP PRN (05:39)
--- NOTE | 2022-03-28 07:30 | NUR ---
OPENING NOTE: REPORT RECEIVED FROM KEYONA SANCHEZ. ORDERS AND LABS REVIEWED DURING REPORT. PER REPORT PT GETS ANXIOUS FREQUENTLY. PT ALERT OX3 FOLLOWS COMMANDS BUT CAN BE DEMANDING. PT CHECKED ON HOURLY AND PRN BY NURSING STAFF.
[2022-03-28] MEDS: NITROGLYCERIN 30 GM TUBE TP SCH ×2 (08:20→20:15)
[2022-03-28] MEDS: BLOOD SUGAR DIAGNOSTIC 1 EACH STRIP IN SCH ×4 (08:27→22:03)
[2022-03-28] MEDS: TAMSULOSIN 0.4 MG CAP.SR.24H PO SCH (08:27)
[2022-03-28] MEDS: AMITRIPTYLINE HCL 25 MG TABLET PO SCH (08:27)
[2022-03-28] MEDS: AMLODIPINE BESYLATE 5 MG TABLET PO SCH (08:28)
[2022-03-28] MEDS: LEVETIRACETAM (250 MG) 250 MG TABLET PO SCH ×2 (08:28→20:14)
[2022-03-28] MEDS: ASPIRIN EC 81 MG TABLET.DR PO SCH (08:28)
[2022-03-28] MEDS: FOLIC ACID 1 MG TABLET PO SCH (08:28)
[2022-03-28] MEDS: hydrALAZINE HCL 50 MG TABLET PO SCH ×3 (08:28→16:42)
[2022-03-28] MEDS: DEXAMETHASONE SOD PHOSPHATE 10 MG/ML VIAL IV SCH (08:29)
[2022-03-28] MEDS: SPIRONOLACTONE 25 MG TABLET PO SCH (08:29)
--- NOTE | 2022-03-28 10:25 | NUR ---
PT TRANSFERRED TO ROOM 111-1 VIA BED USING ACLS PROTOCOL. PT SETTLED IN NEW ROOM, TELEMETRY APPLIED. BEDSIDE REPORT GIVEN TO MARY FOR CONTINUATION OF CARE. ALL BELONGINGS AND SUPPLIES BROUGHT WITH PATIENT. PT UNDERSTOOD MOVING TO NEW ROOM.
--- NOTE | 2022-03-28 10:30 | NUR ---
VICE PRESIDENT SUPPLY CHAIN NOTES PATIENT TRANSFERRED FROM ICU 258, AO X 3, EASILY GETS AGITATED. ON 3L O2 NASAL CANULA, NO DISTRESS, RESPIRATION UNLABORED, AFIB UNCONTROLLED TO SINUS TACH HR 109 ON MONITOR, DENIES CHEST PAIN/DISCOMFORT AT THIS TIME, BULMARO PICC LINE IN PLACE,FLUSHES WELL, SITE CLEAR.ON SEE NURSING FLOWSHEET FOR SKIN ISSUES, WEAKNESS ON BOTH LOWER EXTREMITIES. BED REST FOR NOW, CARDIAC DIET. CONDOM CATHETER IN PLACE. UNIT ORIENTATION DONE WITH USE OF CALL LIGHT. POC DISCUSSED. VERBALIZED UNDERSTANDING. SAFETY MEASURES IN PLACE. PROPER ISOLATION OBSERVED. BED LOW LOCKED, CALL LIGHT WITHIN IN REACH. WILL CONT TO MONITOR
[2022-03-28] MEDS: LEVOFLOXACIN (250MG) 250 MG TABLET PO SCH (11:27)
--- NOTE | 2022-03-28 12:43 | NUR ---
followup PCR result negative per lab c/o juli @[phone].dr. de la o notified.
--- NOTE | 2022-03-28 12:48 | NUR ---
covid negative ok nonisolation room per md.
[2022-03-28] MEDS: SOD FERRIC GLUC 125 MG in IV NS 0.9% 100 ML IV SCH (14:20)
--- NOTE | 2022-03-28 18:28 | NUR ---
CUSTOMER SUPPORT ASSOCIATE CLOSING NOTES PT IS AWAKE IN BED AOX3. RESPIRATIONS ARE EQUAL AND UNLABORED WITH NO SOB NOTED AT THIS TIME ON 3L NC AND TOLERATING IT WELL WITH 02 SATURATION AT 95%. IV ACCESS ON BULMARO PICC LINE PATENT AND INTACT. ALL DUE MEDS AND TX GIVEN ORDERED. HOB ELEVATED. SIDERAILS UP AT ALL TIMES. WILL ENDORSE TO HOURLY SHIFT NURSE.
--- NOTE | 2022-03-28 19:30 | NUR ---
YARN WASHER OPENING NOTE PATIENT AWAKE IN BED, ALERT/ORIENTED X 2-3 WITH SOME CONFUSION, PT ABLE TO MAKE NEEDS KNOWN. PATIENT STABLE ON 3 LPM OF O2 VIA NASAL CANNULA, NO S/S OF DISTRESS OR SOB NOTED, BREATHING EVEN AND UNLABORED. PATIENT ON EXTERNAL TRANSFER CLERK READING SINUS TACHY, HR: 115. IV ACCESS ON BULMARO PICC LINE INTACT AND SALINE LOCKED. CONDOM CATH IN PLACE AND DRAINING EMMANUEL URINE. SAFETY MEASURES IN PLACE: CALL LIGHT WITHIN REACH, SIDE RAILS UP X 2, BED LOCKED IN LOWEST POSITION, HOB ELEVATED, BED ALARM ON. WILL CONTINUE TO MONITOR PATIENT
[2022-03-28] MEDS: ATORVASTATIN 40 MG TABLET PO SCH (22:03)
[2022-03-28] MEDS: INSULIN REGULAR, HUMAN 100 UNIT/ML 3 ML VIAL SQ PRN (22:11)
[2022-03-29 00:30] VITALS: BP 151/70
[2022-03-29] MEDS: IPRATROPIUM NEB FS 0.5 MG/2.5 ML AMPUL.NEB NEB SCH ×4 (02:35→20:11)
--- NOTE | 2022-03-29 04:02 | NUR ---
PATTERN DRAFTER NOTE PATIENT ANXIOUS AND RESTLESS, WILL GIVE ATIVAN 0.5 MG TABLET ORDERED
[2022-03-29] MEDS: LORAZEPAM 0.5 MG TABLET PO PRN (04:04)
[2022-03-29 04:30] VITALS: BP 116/74
[2022-03-29 05:53] LABS: HEMATOCRIT 24 % (39-51); HEMOGLOBIN 7.9 g/dL (13.5-17.5); LYMPHOCYTES # (AUTO) 3.4 K/uL (0.8-4.8); LYMPHOCYTES % (AUTO) 24.6 % (20.0-44.0); MEAN CORPUSCULAR HGB CONC 33 g/dl (31.0-36.0); MEAN CORPUSCULAR VOLUME 91 fL (80-96); MONOCYTES # (AUTO) 2.4 K/uL (0.1-1.30); MONOCYTES % (AUTO) 17.5 % (2.0-12.0); NEUTROPHILS # (AUTO) 7.9 K/uL (1.8-8.9); NEUTROPHILS % (AUTO) 57.9 % (43.0-81.0); PLATELET COUNT (AUTO) 161 K/uL (150-450); RED BLOOD CELL COUNT(AUTO) 2.63 MIL/uL (4.5-6.0); WHITE BLOOD COUNT (AUTO) 13.6 K/uL (4.3-11.0)
[2022-03-29 06:10] LABS: CALCIUM, SERUM 7.6 mg/dL (8.5-10.1); MAGNESIUM 2.1 mg/dL (1.8-2.4); PHOSPHORUS 5.8 mg/dL (2.5-4.9); POTASSIUM 4.6 mmol/L (3.5-5.1)
--- NOTE | 2022-03-29 06:21 | NUR ---
HYPERBARIC WELDER DIVER CLOSING NOTE PATIENT SLEEPING IN BED, ALERT/ORIENTED X 2-3 WITH SOME PERIODS OF CONFUSION AND ANXIETY, PT ABLE TO MAKE NEEDS KNOWN. PATIENT STABLE ON 3 LPM OF O2 VIA NASAL CANNULA, NO S/S OF DISTRESS OR SOB NOTED, BREATHING EVEN AND UNLABORED, PT ON BIPAP DURING THE NIGHT, CURRENTLY STILL ON BIPAP TO BE REMOVED BY DAYSHIFT RT. PATIENT ON EXTERNAL FRONT SIGHT ATTACHER READING SINUS TACHY, HR: 110, PATIENT HAS PERIODS OF UNSUSTAINED A.FIB. IV ACCESS ON BULMARO PICC LINE INTACT AND SALINE LOCKED. CONDOM CATH IN PLACE AND DRAINING EMMANUEL URINE, OUTPUT OF 600 ML. NO SIGNIFICANT CHANGES THIS SHIFT, MEDICATIONS GIVEN ORDERED, PT NEEDS MET THROUGHOUT SHIFT. SAFETY MEASURES IN PLACE: CALL LIGHT WITHIN REACH, SIDE RAILS UP X 2, BED LOCKED IN LOWEST POSITION, HOB ELEVATED, BED ALARM ON. WILL ENDORSE TO DAYSHIFT RN FOR CONTINUITY OF CARE
[2022-03-29] MEDS: BLOOD SUGAR DIAGNOSTIC 1 EACH STRIP IN SCH ×4 (07:45→21:27)
--- NOTE | 2022-03-29 07:54 | NUR ---
JACKSPOOLER OPENING NOTES RECEIVED PT AWAKE IN BED AOX4. NO COMPLAINTS OF PAIN OR DISCOMFORT AT THIS TIME. PT IS CURRENTLY ON BIPAP TOLERATING IT WELL WITH 02 SATURATION AT 98%. IV ACCESS ON BULMARO PICC LINE SALINE LOCK PATENT AND INTACT. PT IS PO AND RECEIVES MEDS ORALLY. HOB ELEVATED TO PTS COMFORT. SIDERAILS UP AT ALL TIMES. CALL LIGHT WITHIN REACH. WILL ANTICIPATE NEEDS.
[2022-03-29 08:00] VITALS: BP 143/73
[2022-03-29] MEDS: FOLIC ACID 1 MG TABLET PO SCH (08:22)
[2022-03-29] MEDS: TAMSULOSIN 0.4 MG CAP.SR.24H PO SCH (08:22)
[2022-03-29] MEDS: LEVETIRACETAM (250 MG) 250 MG TABLET PO SCH ×2 (08:23→21:26)
[2022-03-29] MEDS: AMITRIPTYLINE HCL 25 MG TABLET PO SCH (08:23)
[2022-03-29] MEDS: AMLODIPINE BESYLATE 5 MG TABLET PO SCH (08:23)
[2022-03-29] MEDS: ASPIRIN EC 81 MG TABLET.DR PO SCH (08:23)
[2022-03-29] MEDS: hydrALAZINE HCL 50 MG TABLET PO SCH ×3 (08:23→16:43)
[2022-03-29] MEDS: NITROGLYCERIN 30 GM TUBE TP SCH ×2 (08:24→21:27)
[2022-03-29] MEDS: DEXAMETHASONE SOD PHOSPHATE 10 MG/ML VIAL IV SCH (08:56)
--- NOTE | 2022-03-29 09:03 | NUR ---
CREMATORIUM OPERATOR NOTES PT SEEN BY DR RIDDLE FOR PSYCH EVALUATION. PLACED PT ON NC 6L WHILE PT WAS TALKING WITH 02 SATURATION AT 97%. AFTER EVALUATION PT REQUESTED TO GO BACK ON BIPAP.
[2022-03-29] MEDS: LEVOFLOXACIN (250MG) 250 MG TABLET PO SCH (11:30)
[2022-03-29 12:00] VITALS: BP 136/70
[2022-03-29] MEDS: IV NS 0.9% 1,000 ML IV PRN (13:20)
[2022-03-29] MEDS: SOD FERRIC GLUC 125 MG in IV NS 0.9% 100 ML IV SCH (14:06)
[2022-03-29 16:00] VITALS: BP 132/62
--- NOTE | 2022-03-29 18:19 | NUR ---
METAL MACHINE OPERATOR CLOSING NOTES PT IS AWAKE IN BED. ALL DUE MEDS AND TX GIVEN ORDERED. PT TOLERATED EVERYTHING WELL. PT IS ON NC 5L AND TOLERATING IT WELL WITH 02 SATURATION AT 94%. IV ACCESS ON BULMARO PICC LINE PATENT AND INTACT. HOB ELEVATED TO PTS COMFORT. SIDERAILS UP AT ALL TIMES. CALL LIGHT WITHIN REACH. WILL ENDORSE TO ONCOMING NURSE.
--- NOTE | 2022-03-29 19:30 | NUR ---
RN OPENING NOTE PATIENT IN BED, SITTING UP, AWAKE. A/O X 3 AT THIS TIME, ABLE TO MAKE NEEDS KNOWN. PATIENT IS ON 5 LPM VIA NC, TOLERATING WELL, NO SOB NOTED AT THIS TIME. PATIENT SEEMS CALM. HE DOES NOT REPORT ANY PAIN, NOT IN ANY DISTRESS. BULMARO PICC LINE PATENT AND INTACT, FLUSHING WITH NS WELL. SAFETY MEASURES IN PLACE: BED LOCKED AND IN LOWEST POSITION, CALL LIGHT WITHIN REACH, SIDE RAILS UP. WILL MONITOR PATIENT CLOSELY.
[2022-03-29 20:00] VITALS: BP 121/66
[2022-03-29] MEDS: MORPHINE SULFATE IR 15 MG TABLET PO PRN (21:25)
[2022-03-29] MEDS: ATORVASTATIN 40 MG TABLET PO SCH (21:26)
--- NOTE | 2022-03-29 21:30 | NUR ---
PATIENT COMPLAINING OF SEVERE PAIN IN BETWEEN HIS HIPS, MORPHINE 15 MG TAB GIVEN. WILL REASSESS PATIENT'S PAIN AT A LATER TIME. BS 130 MG/DL, NO COVERAGE GIVEN. PATIENT OFFERED JUICES AND SNACKS.
[2022-03-30] VITALS: BP 122/67
[2022-03-30] MEDS: IPRATROPIUM NEB FS 0.5 MG/2.5 ML AMPUL.NEB NEB SCH ×4 (01:44→20:38)
[2022-03-30] MEDS: IV NS 0.9% 1,000 ML IV PRN ×2 (01:49→11:58)
[2022-03-30 04:00] VITALS: BP 147/72
[2022-03-30 05:56] LABS: BASOPHILS # (AUTO) 0.1 K/uL (0.0-0.2); BASOPHILS % (AUTO) 0.5 % (0.0-2.0); EOSINOPHILS % (AUTO) 0.2 % (0.0-6.0); HEMATOCRIT 23 % (39-51); HEMOGLOBIN 7.5 g/dL (13.5-17.5); LYMPHOCYTES # (AUTO) 0.8 K/uL (0.8-4.8); LYMPHOCYTES % (AUTO) 6.8 % (20.0-44.0); MEAN CORPUSCULAR HGB CONC 32 g/dl (31.0-36.0); MEAN CORPUSCULAR VOLUME 92 fL (80-96); MONOCYTES # (AUTO) 0.8 K/uL (0.1-1.30); MONOCYTES % (AUTO) 6.8 % (2.0-12.0); NEUTROPHILS # (AUTO) 10.5 K/uL (1.8-8.9); NEUTROPHILS % (AUTO) 85.7 % (43.0-81.0); PLATELET COUNT (AUTO) 151 K/uL (150-450); RED BLOOD CELL COUNT(AUTO) 2.54 MIL/uL (4.5-6.0); WHITE BLOOD COUNT (AUTO) 12.3 K/uL (4.3-11.0)
[2022-03-30 06:23] LABS: ALBUMIN 2.4 g/dL (3.4-5.0); BILIRUBIN,TOTAL 0.4 mg/dL (0.2-1.0); CREATININE 3.9 mg/dL (0.6-1.3); PHOSPHORUS 5.4 mg/dL (2.5-4.9); POTASSIUM 4.8 mmol/L (3.5-5.1); TOTAL PROTEIN, SERUM 5.8 g/dL (6.4-8.2)
--- NOTE | 2022-03-30 06:47 | NUR ---
RN CLOSING NOTE PATIENT IN BED, AWAKE, BIPAP STILL ON, TOLERATED WELL DURING THE SHIFT. A/O X 3 AT THIS TIME, ABLE TO MAKE NEEDS KNOWN. NO SOB NOTED AT THIS TIME. HE DOES NOT REPORT ANY PAIN, NOT IN ANY DISTRESS. BULMARO PICC LINE PATENT AND INTACT, WITH NS AT 100 ML/HR ONGOING. BUN 124 LEVEL REPORTED BY LAB, WILL NOTIFY MD. SAFETY MEASURES IN PLACE: BED LOCKED AND IN LOWEST POSITION, CALL LIGHT WITHIN REACH, SIDE RAILS UP. ALL NEEDS MET AND ATTENDED. ALL ORDERS CARRIED OUT. WILL ENDORSE TO DAY SHIFT NURSE FOR ANGELIC.
--- NOTE | 2022-03-30 07:30 | NUR ---
RN OPENING NOTE PATIENT IN BED, SITTING UP, AWAKE. A/O X 3 AT THIS TIME, ABLE TO MAKE NEEDS KNOWN. PATIENT IS ON 5 LPM BIPAP MACHINE ON TOLERATING WELL, NO SOB NOTED AT THIS TIME . HE DOES NOT REPORT ANY PAIN, NOT IN ANY DISTRESS. BULMARO PICC LINE PATENT AND INTACT, FLUSHING WITH NS WELL. SAFETY MEASURES IN PLACE: BED LOCKED AND IN LOWEST POSITION, CALL LIGHT WITHIN REACH, SIDE RAILS UP. WILL MONITOR PATIENT CLOSELY.
[2022-03-30] MEDS: BLOOD SUGAR DIAGNOSTIC 1 EACH STRIP IN SCH ×4 (07:39→21:34)
[2022-03-30 08:00] VITALS: BP 147/72
[2022-03-30] MEDS: INSULIN REGULAR, HUMAN 100 UNIT/ML 3 ML VIAL SQ PRN ×2 (08:27→21:34)
[2022-03-30] MEDS: LEVETIRACETAM (250 MG) 250 MG TABLET PO SCH ×2 (08:42→21:33)
[2022-03-30] MEDS: TAMSULOSIN 0.4 MG CAP.SR.24H PO SCH (08:42)
[2022-03-30] MEDS: AMITRIPTYLINE HCL 25 MG TABLET PO SCH (08:43)
[2022-03-30] MEDS: hydrALAZINE HCL 50 MG TABLET PO SCH ×3 (08:43→17:27)
[2022-03-30] MEDS: AMLODIPINE BESYLATE 5 MG TABLET PO SCH (08:43)
[2022-03-30] MEDS: FOLIC ACID 1 MG TABLET PO SCH (08:43)
[2022-03-30] MEDS: ASPIRIN EC 81 MG TABLET.DR PO SCH (08:44)
[2022-03-30] MEDS: NITROGLYCERIN 30 GM TUBE TP SCH ×2 (08:46→21:34)
[2022-03-30] MEDS: MORPHINE SULFATE IR 15 MG TABLET PO PRN (09:47)
[2022-03-30] MEDS: LORAZEPAM 0.5 MG TABLET PO PRN (10:20)
[2022-03-30] MEDS: LEVOFLOXACIN (250MG) 250 MG TABLET PO SCH (10:20)
--- NOTE | 2022-03-30 11:46 | NUR ---
RT NOTE PLACED PT ON VENTURI MASK DUE TO DESATURATION AND INCREASED WOB. STERLING RN NOTIFIED AND AWARE. MONITORING THE PATIENT CLOSELY FOR ANY CHANGES.
[2022-03-30 12:00] VITALS: BP 132/65
[2022-03-30] MEDS: SOD FERRIC GLUC 125 MG in IV NS 0.9% 100 ML IV SCH (14:59)
[2022-03-30 16:00] VITALS: BP 133/65
--- NOTE | 2022-03-30 18:40 | NUR ---
RN OPENING NOTE PATIENT IN BED , HIGH O N BED , AWAKE. A/O X 3 AT THIS TIME, ABLE TO MAKE NEEDS KNOWN. PATIENT IS ON 5 LPM BIPAP MACHINE ON TOLERATING WELL, NO SOB NOTED AT THIS TIME .C/O OF PAIN AND MS CARLOS FERRER ORDERED , NOTED TO BE ANXIOUS AND ATIVAN GIVEN ORDERED AND WITH HELP, NOW ON VENTURI MASK WITH 9L O2 AND . BULMARO PICC LINE PATENT AND INTACT WITH NS OF 100 ML /HOUR . . SAFETY MEASURES IN PLACE: BED LOCKED AND IN LOWEST POSITION, CALL LIGHT WITHIN REACH, SIDE RAILS UP. ENDORSED TO NEXT SHIFT . Addendum: 03/30/22 at 1856 by STERLING ALVAREZ RN DISREGARD THIS NOTES
--- NOTE | 2022-03-30 18:55 | NUR ---
RN CLOSING NOTE PATIENT IN BED , HIGH O N BED , AWAKE. A/O X 3 AT THIS TIME, ABLE TO MAKE NEEDS KNOWN. PATIENT IS ON 5 LPM BIPAP MACHINE ON TOLERATING WELL, NO SOB NOTED AT THIS TIME .C/O OF PAIN AND MS CARLOS FERRER ORDERED , NOTED TO BE ANXIOUS AND ATIVAN GIVEN ORDERED AND WITH HELP, NOW ON VENTURI MASK WITH 9L O2 AND . BULMARO PICC LINE PATENT AND INTACT WITH NS OF 100 ML /HOUR . . SAFETY MEASURES IN PLACE: BED LOCKED AND IN LOWEST POSITION, CALL LIGHT WITHIN REACH, SIDE RAILS UP. ENDORSED TO NEXT SHIFT .
--- NOTE | 2022-03-30 19:43 | NUR ---
RN OPENING NOTE PATIENT AWAKE IN BED. A/OX2. NO S/S OF DISTRESS, BREATHING WITHOUT DIFFICULTY ON VENTURI MASK 9L. BULMARO PICC INTACT AND PATENT W/ NS 100ML/HR. TELE READS ST 111. SAFETY MEASURES IN P[LACE: BED LOCKED AND AT LOWEST POSITION, RAILS UP X2, CALL PERRY WITHIN REACH. WILL CONTINUE TO MONITOR PATIENT.
[2022-03-30 20:00] VITALS: BP 117/74
[2022-03-30] MEDS: ATORVASTATIN 40 MG TABLET PO SCH (21:33)
[2022-03-31] VITALS (14 sets, daily range): BP systolic 123–153; BP diastolic 65–78
[2022-03-31] MEDS: IV NS 0.9% 1,000 ML IV PRN ×2 (00:34→10:28)
[2022-03-31] MEDS: IPRATROPIUM NEB FS 0.5 MG/2.5 ML AMPUL.NEB NEB SCH ×4 (01:41→20:10)
[2022-03-31 06:00] LABS: BASOPHILS % (AUTO) 0.2 % (0.0-2.0); EOSINOPHILS % (AUTO) 0.5 % (0.0-6.0); LYMPHOCYTES # (AUTO) 0.5 K/uL (0.8-4.8); LYMPHOCYTES % (AUTO) 4.5 % (20.0-44.0); MEAN CORPUSCULAR HGB CONC 32 g/dl (31.0-36.0); MEAN CORPUSCULAR VOLUME 92 fL (80-96); MONOCYTES # (AUTO) 0.7 K/uL (0.1-1.30); MONOCYTES % (AUTO) 5.7 % (2.0-12.0); NEUTROPHILS # (AUTO) 10.9 K/uL (1.8-8.9); NEUTROPHILS % (AUTO) 89.1 % (43.0-81.0); PLATELET COUNT (AUTO) 148 K/uL (150-450); RED BLOOD CELL COUNT(AUTO) 2.09 MIL/uL (4.5-6.0); WHITE BLOOD COUNT (AUTO) 12.3 K/uL (4.3-11.0)
--- NOTE | 2022-03-31 06:25 | NUR ---
RN CLOSING NOTE PATIENT AWAKE IN BED. A/OX2. NO S/S OF DISTRESS, BREATHING WITHOUT DIFFICULTY ON CPAP. BULMARO PICC INTACT AND PATENT W/ NS 100ML/HR. TELE READS ST 103. SAFETY MEASURES IN PLACE: BED LOCKED IN POSITION AND AT LOWEST POSITION, RAILS UP X2, CALL PERRY WITHIN REACH. WILL ENDORSE TO NEXT SHIFT FOR ANGELIC.
[2022-03-31 06:49] LABS: CREATININE 3.6 mg/dL (0.6-1.3); MAGNESIUM 1.9 mg/dL (1.8-2.4); PHOSPHORUS 5.1 mg/dL (2.5-4.9); POTASSIUM 4.8 mmol/L (3.5-5.1)
--- NOTE | 2022-03-31 07:06 | NUR ---
RN OPENING NOTE PATIENT AWAKE IN BED. A/OX2. COMPLAINING OF DIFFICULTY TO BREACH , PATIENT IS ON BIPAP , O 2 SAT 97 % , PATIENT APPEAR VERY ANXIOUS , WILL CALL rt AND GIVE TO THE PATIENT aTIVAN ORDERED FOR ANXIETY BULMARO PICC INTACT AND PATENT W/ NS 100ML/HR. TELE READS ST 104 SAFETY MEASURES IN P[LACE: BED LOCKED AND AT LOWEST POSITION, RAILS UP X2, CALL PERRY WITHIN REACH. WILL CONTINUE TO MONITOR PATIENT.
[2022-03-31] MEDS: LORAZEPAM 0.5 MG TABLET PO PRN ×3 (07:18→23:05)
--- NOTE | 2022-03-31 07:18 | NUR ---
rn note patient developed anxiety , ativan taken from the [facility] , unable to scan due to barcode damaged
--- NOTE | 2022-03-31 07:25 | NUR ---
brought empty container from the ativan to the [facility] , pharmasist Rahul took it and confirmed that it was un scannable
[2022-03-31 08:05] LABS: HEMATOCRIT 19 % (39-51); HEMOGLOBIN 6.2 g/dL (13.5-17.5)
[2022-03-31] MEDS: BLOOD SUGAR DIAGNOSTIC 1 EACH STRIP IN SCH ×4 (08:05→22:14)
[2022-03-31] MEDS: NITROGLYCERIN 30 GM TUBE TP SCH ×2 (08:20→21:17)
[2022-03-31] MEDS: AMLODIPINE BESYLATE 5 MG TABLET PO SCH (08:23)
[2022-03-31] MEDS: hydrALAZINE HCL 50 MG TABLET PO SCH ×3 (08:23→16:27)
[2022-03-31] MEDS: LEVETIRACETAM (250 MG) 250 MG TABLET PO SCH ×2 (08:23→21:00)
[2022-03-31] MEDS: ASPIRIN EC 81 MG TABLET.DR PO SCH (08:24)
[2022-03-31] MEDS: AMITRIPTYLINE HCL 25 MG TABLET PO SCH (08:24)
[2022-03-31] MEDS: FOLIC ACID 1 MG TABLET PO SCH (08:25)
[2022-03-31] MEDS: TAMSULOSIN 0.4 MG CAP.SR.24H PO SCH (08:27)
[2022-03-31] MEDS: LEVOFLOXACIN (250MG) 250 MG TABLET PO SCH (10:30)
[2022-03-31] MEDS: INSULIN REGULAR, HUMAN 100 UNIT/ML 3 ML VIAL SQ PRN ×2 (16:40→22:14)
--- NOTE | 2022-03-31 16:50 | NUR ---
RN NOTE PATIENT IS KEEP ASKING WHRE IS HIS MONEY , THERE WAS NO MONEY ON THE BELONGING LIST , EXPLAINED TO THE PATIENT HE IS SAYING THE WE STOLE HIS MONEY , CHARGE NURSE NOTIFIED .PATIENT REMOVED HIS OXYMETER , AND NOT LETTING ME TO PUT IT BACK UNABLE TO MONITOR HIS O2 SAT
[2022-03-31 16:53] LABS: BAND % (MANUAL) 8 % (0.0-5.0); BASOPHILS % (MANUAL) 0 % (0.0-2.0); EOSINOPHILS % (MANUAL) 1 % (0-4); LYMPHOCYTES % (MANUAL) 7 % (16-48); MONOCYTES % (MANUAL) 8 % (0-11.0); NEUTROPHILS % (MANUAL) 76 (42-76)
[2022-03-31] MEDS ORDERED: hydrOXYzine PAMOATE 25 MG CAPSULE PO PRN (18:00)
--- NOTE | 2022-03-31 19:13 | NUR ---
RN CLOSING NOTE PATIENT IS VERY ANXIOUS , NON COMPLIANT WITH INSTRUCTIONS , AT 1840 PM PATIENT REMOVED O2 MASK , O2 SAT DROPPED TO 86 % , PATIENT PUT ON O2 15 L NON REBREATHER MASK .O2 SAT WENT UP TO 99 % , HEAD OF BED ELEVATED .PATIENT CALMED DOWN . CALL LIGHT WITHIN REACH BED IS AT LOWEST POSITION, BED SIDE RAILS UP .WILL ENDORSE BODY BUILDER TO FALLOW POC
--- NOTE | 2022-03-31 19:30 | NUR ---
WAREHOUSE ENGINEER OPENING NOTES RECEIVED PATIENT ASLEEP IN BED, EASY TO AROUSE. A/O X2, ANXIOUS. ON O2 AT 15LPM VIA NON-REBREATHER MASK. NOT IN APPARENT DISTRESS. DENIES PAIN AT THIS TIME. ON TELE MONITOR READING UNCONTROLLED A-FIB AT 110 BPM. HAS LEFT UPPER ARM PICC LINE WITH NS RUNNING AT 100 ML/HR. NO S/S OF INFILTRATION NOTED. CONDOM CATHETER NOT IN PLACE. SAFETY PRECAUTIONS OBSERVED: BED LOCKED AND IN LOW POSITION, SIDE RAILS UP X3, CALL LIGHT WITHIN REACH. WILL CONTINUE POC.
[2022-03-31] MEDS: ATORVASTATIN 40 MG TABLET PO SCH (21:46)
--- NOTE | 2022-03-31 21:46 | NUR ---
TOXICOLOGY SUPERVISOR NOTES OFFERED MEDS TO PATIENT X3 BUT HE KEPT REFUSING. EXPLAINED RISKS AND BENEFITS, STILL REFUSED. PATIENT IS RESTLESS AND AGITATED. KEPT REMOVING HIS MASK AND PULLING HIS SPO2 LINE MONITOR.
--- NOTE | 2022-03-31 22:15 | NUR ---
ANIMAL ASSISTANT NOTES BS 117, NO INSULIN COVERAGE GIVEN.
[2022-04-01] VITALS (21 sets, daily range): BP systolic 132–156; BP diastolic 65–124
--- NOTE | 2022-04-01 00:25 | NUR ---
Pt placed on NOC BiPAP as ordered. Tolerating and SPO2 is being maintained at 92-94%.
[2022-04-01] MEDS: IV NS 0.9% 1,000 ML IV PRN ×2 (01:37→12:25)
[2022-04-01] MEDS: IPRATROPIUM NEB FS 0.5 MG/2.5 ML AMPUL.NEB NEB SCH ×4 (02:11→19:52)
[2022-04-01] MEDS: LORAZEPAM 0.5 MG TABLET PO PRN (05:17)
[2022-04-01 05:52] LABS: BASOPHILS % (AUTO) 0.2 % (0.0-2.0); EOSINOPHILS % (AUTO) 0.1 % (0.0-6.0); LYMPHOCYTES # (AUTO) 0.6 K/uL (0.8-4.8); LYMPHOCYTES % (AUTO) 4.6 % (20.0-44.0); MEAN CORPUSCULAR HGB CONC 32 g/dl (31.0-36.0); MEAN CORPUSCULAR VOLUME 90 fL (80-96); MONOCYTES # (AUTO) 0.6 K/uL (0.1-1.30); MONOCYTES % (AUTO) 4.8 % (2.0-12.0); NEUTROPHILS % (AUTO) 90.3 % (43.0-81.0); PLATELET COUNT (AUTO) 156 K/uL (150-450); RED BLOOD CELL COUNT(AUTO) 2.07 MIL/uL (4.5-6.0); WHITE BLOOD COUNT (AUTO) 12.2 K/uL (4.3-11.0)
--- NOTE | 2022-04-01 05:52 | NUR ---
Pt taken off NOC BiPAP and placed on Venti mask 12L 40% by Nimesh SANCHEZ. SPO2 91%.
[2022-04-01 06:07] LABS: CALCIUM, SERUM 7.5 mg/dL (8.5-10.1); CREATININE 3.3 mg/dL (0.6-1.3); MAGNESIUM 1.7 mg/dL (1.8-2.4); PHOSPHORUS 4.4 mg/dL (2.5-4.9); POTASSIUM 4.7 mmol/L (3.5-5.1)
[2022-04-01 06:19] LABS: HEMATOCRIT 19 % (39-51)
--- NOTE | 2022-04-01 06:22 | NUR ---
NEETA SANCHEZ NOTES CRITICAL LAB VALUE H/H: 09/18. NOTIFIED HOSPITALIST VIDHI, AWAITING FOR RESPONSE. Addendum: 04/01/22 at 0703 by August CHRIS SANCHEZ ORDER TO TRANSFUSE 1 UNIT PRBC NOTED AND CARRIED OUT.
[2022-04-01] MEDS: INSULIN REGULAR, HUMAN 100 UNIT/ML 3 ML VIAL SQ PRN (06:40)
[2022-04-01] MEDS: BLOOD SUGAR DIAGNOSTIC 1 EACH STRIP IN SCH ×4 (06:40→21:38)
--- NOTE | 2022-04-01 07:03 | NUR ---
MANAGER MONITORING CLOSING NOTES PATIENT IN BED AWAKE. YELLING AND PULLING LINES/EQUIPMENT THROUGHOUT THE NIGHT. COMBATIVE, ANXIOUS AND RESTLESS. NON-COMPLIANT, FREQUENT REORIENTATION NEEDED. ON O2 AT 12LPM FIO2 40% VIA VENTURI MASK. AFEBRILE. ON TELE MONITOR READING UNCONTROLLED AFIB AT 124 BPM. LEFT UPPER ARM PICC LINE INTACT, PATENT AND FLUSHING. HAS CONDOM CATHETER DRAINING CLOUDY EMMANUEL URINE OUTPUT. BILATERAL SOFT WRIST RESTRAINTS IN PLACE, CIRCULATION AND SKIN COLOR WNL. ALL DUE MEDS GIVEN AND NEEDS ATTENDED. SAFETY PRECAUTIONS MAINTAINED. WILL ENDORSE TO NEXT SHIFT FOR ANGELIC.
--- NOTE | 2022-04-01 07:30 | NUR ---
DIRECTOR PART AM NOTES RECEIVED PATIENT IN BED, OPENS EYES TO TOUCH AND LOCALIZED PAIN, A/O X1, ANXIOUS. VERY LETHARGIC, VENTURI MASK AT 15LPM, TACHYPNEIC, O2 SAT 94%, ON TELE MONITOR READING UNCONTROLLED A-FIB AT 120 BPM. HAS LEFT UPPER ARM PICC LINE WITH NS RUNNING AT 100 ML/HR. NO S/S OF INFILTRATION NOTED. CONDOM CATHETER NOT IN PLACE. SAFETY PRECAUTIONS OBSERVED: BED LOCKED AND IN LOW POSITION, SIDE RAILS UP X3, CALL LIGHT WITHIN REACH. WILL CONTINUE POC.
[2022-04-01 08:35] LABS: HEMOGLOBIN 5.8 g/dL (13.5-17.5)
[2022-04-01] MEDS: NITROGLYCERIN 30 GM TUBE TP SCH ×2 (09:05→21:08)
[2022-04-01] MEDS: LEVETIRACETAM (250 MG) 250 MG TABLET PO SCH ×2 (09:05→21:05)
[2022-04-01] MEDS: AMITRIPTYLINE HCL 25 MG TABLET PO SCH (09:05)
[2022-04-01] MEDS: TAMSULOSIN 0.4 MG CAP.SR.24H PO SCH (09:05)
[2022-04-01] MEDS: hydrALAZINE HCL 50 MG TABLET PO SCH ×3 (09:05→16:01)
[2022-04-01] MEDS: AMLODIPINE BESYLATE 5 MG TABLET PO SCH (09:06)
[2022-04-01] MEDS: FOLIC ACID 1 MG TABLET PO SCH (09:06)
[2022-04-01 10:40] LABS: ABG OXYGEN SATURATION 92.6 % (92.0-98.5); ABG PCO2 36.7 mmHg (35.0-45.0); ABG PH 7.405 (7.350-7.450); ABG PO2 70.1 mmHg (75.0-100.0); AaDO2 245.1 mmHg; COHb 1.2 % (0.5-1.5); MetHb 0.3 % (0.0-1.5); O2Hb 91.2 % (94.0-97.0); SITE, ABG Right Radial; VENT MODE, BG VM 50%
--- NOTE | 2022-04-01 10:55 | NUR ---
RN NOTES DR. TYLER AT BEDSIDE. ABG DONE TRANSFER TO ICU
[2022-04-01] MEDS: LEVOFLOXACIN (250MG) 250 MG TABLET PO SCH (11:00)
--- NOTE | 2022-04-01 11:02 | NUR ---
RN NOTES UNABLE TO GIVE MEDICINE. VERY LETHARGIC
--- NOTE | 2022-04-01 11:45 | NUR ---
RN NOTES PATIENT TRANSFERRED TO ICU 260. BEDSIDE REPORT GIVEN TO KATHY SANCHEZ FOR ANGELIC.
--- NOTE | 2022-04-01 11:55 | NUR ---
ICU/RN PT RECEIVED TO ROOM 260, REPORT RECEIVE AT BEDSIDE BY MARY SANCHEZ. PT PLACED ON BIPAP FIO2 35% SAT STABLE IN THE 90S. PT AFIB ON MONITOR HR 120S. ALVES CATH IN PLACE. LEFT UA PICC NOW IN PLACE, ONGOING PRBC TRANSFUSION STARTED AT 1035 BY MARY RN. BED LOCKED AND IN LOWEST POSITION, CALL LIGHT WITHIN REACH, 3 SIDE RAILS UP.
--- NOTE | 2022-04-01 12:22 | NUR ---
PT MOVED TO ICU PLACED ON BIPAP. PER MD ORDER. GILDARDO. BIPAP WELL AT THIS TIME
--- NOTE | 2022-04-01 13:15 | NUR ---
ICU/RN 1 UNIT PRBC COMPLETED. PT RESTING COMFORTABLY ON THE BIPAP
[2022-04-01 13:35] LABS: ABG BASE EXCESS -3.6 mmol/L; ABG OXYGEN SATURATION 95.6 % (92.0-98.5); ABG PCO2 35.3 mmHg (35.0-45.0); ABG PH 7.392 (7.350-7.450); ABG PO2 88.7 mmHg (75.0-100.0); AaDO2 119.8 mmHg; COHb 0.9 % (0.5-1.5); MetHb 0.5 % (0.0-1.5); O2Hb 94.3 % (94.0-97.0); SITE, ABG Right Radial
[2022-04-01 16:15] LABS: LYMPHOCYTES % (MANUAL) 4 % (16-48); MONOCYTES % (MANUAL) 2 % (0-11.0); NEUTROPHILS % (MANUAL) 94 (42-76)
--- NOTE | 2022-04-01 21:00 | NUR ---
RN OPENING NOTE PT RECEIVED FROM JOE. PT AWAKE AND ALERT. O2 SAT OF 96% ON BIPAP. SKIN IS WARM AND DRY. PT IS AGITATED AND DEMANDING WATER. INFORMED PT HE IS ON NPO STATUS WHILE ON BIPAP. BULMARO PICC LINE INTACT AND RUNNING NS AT 50 ML/HR. SAFETY PRECAUTIONS IN PLACE. BED LOCKED AND AT LOWEST LEVEL WITH 2 RAILS UP. CALL LIGHT WITHIN REACH.
[2022-04-01] MEDS: ATORVASTATIN 40 MG TABLET PO SCH (21:05)
[2022-04-02] VITALS (30 sets, daily range): BP systolic 122–166; BP diastolic 51–92
[2022-04-02] MEDS: IPRATROPIUM NEB FS 0.5 MG/2.5 ML AMPUL.NEB NEB SCH ×4 (01:46→20:04)
[2022-04-02 05:28] LABS: BASOPHILS % (AUTO) 0.2 % (0.0-2.0); EOSINOPHILS % (AUTO) 0.2 % (0.0-6.0); HEMOGLOBIN 6.3 g/dL (13.5-17.5); LYMPHOCYTES # (AUTO) 0.5 K/uL (0.8-4.8); LYMPHOCYTES % (AUTO) 4.6 % (20.0-44.0); MEAN CORPUSCULAR HGB CONC 33 g/dl (31.0-36.0); MEAN CORPUSCULAR VOLUME 90 fL (80-96); MONOCYTES # (AUTO) 0.7 K/uL (0.1-1.30); MONOCYTES % (AUTO) 5.5 % (2.0-12.0); NEUTROPHILS # (AUTO) 10.6 K/uL (1.8-8.9); NEUTROPHILS % (AUTO) 89.5 % (43.0-81.0); PLATELET COUNT (AUTO) 168 K/uL (150-450); RED BLOOD CELL COUNT(AUTO) 2.14 MIL/uL (4.5-6.0); WHITE BLOOD COUNT (AUTO) 11.9 K/uL (4.3-11.0)
[2022-04-02 05:29] LABS: HEMATOCRIT 19 % (39-51)
[2022-04-02 05:34] LABS: CALCIUM, SERUM 7.6 mg/dL (8.5-10.1); CREATININE 3.1 mg/dL (0.6-1.3); MAGNESIUM 1.6 mg/dL (1.8-2.4); PHOSPHORUS 5.1 mg/dL (2.5-4.9); POTASSIUM 4.3 mmol/L (3.5-5.1)
--- NOTE | 2022-04-02 06:48 | NUR ---
RN CLOSING NOTE PT A&OX2. O2 SAT OF 96% ON BIPAP. SKIN IS WARM AND DRY. PT IS AGITATED AND HAS BEEN DEMANDING WATER ALL NIGHT AND CONSTANTLY YELLING "HELP ME". INFORMED PT HE IS ON NPO STATUS WHILE ON BIPAP AND CAN HAVE WATER AFTER SHIFT CHANGE. BULMARO PICC LINE INTACT AND RUNNING NS AT 50 ML/HR. SAFETY PRECAUTIONS IN PLACE. BED LOCKED AND AT LOWEST LEVEL WITH 2 RAILS UP. CALL LIGHT WITHIN REACH.
--- NOTE | 2022-04-02 07:30 | NUR ---
HAT MARKER AM NOTES RECEIVED PATIENT IN BED, AO X 2, ANXIOUS, ON BIPAP 03/04 RATE 16 FIO2 35%. RESPIRATION UNLABORED. AOX 2, MORE ALERT, AFIB UNCONTROLLED TO SINUS TACH HR 91-118, DENIES PAIN, HAS LEFT UPPER ARM PICC LINE WITH NS RUNNING AT 50 ML/HR. NO S/S OF INFILTRATION NOTED. NPO FOR NOW. CONDOM CATHETER NOT IN PLACE. SAFETY PRECAUTIONS OBSERVED: BED LOCKED AND IN LOW POSITION, SIDE RAILS UP X3, CALL LIGHT WITHIN REACH. WILL CONTINUE POC. WILL MONITOR ACCORDINGLY
[2022-04-02] MEDS: BLOOD SUGAR DIAGNOSTIC 1 EACH STRIP IN SCH ×4 (07:49→21:20)
[2022-04-02] MEDS: NITROGLYCERIN 30 GM TUBE TP SCH ×2 (08:36→21:00)
[2022-04-02] MEDS: AMLODIPINE BESYLATE 5 MG TABLET PO SCH (08:38)
[2022-04-02] MEDS: LEVETIRACETAM (250 MG) 250 MG TABLET PO SCH ×2 (08:38→20:53)
[2022-04-02] MEDS: FOLIC ACID 1 MG TABLET PO SCH (08:39)
[2022-04-02] MEDS: TAMSULOSIN 0.4 MG CAP.SR.24H PO SCH (08:39)
[2022-04-02] MEDS: hydrALAZINE HCL 50 MG TABLET PO SCH ×3 (08:40→17:08)
[2022-04-02] MEDS: AMITRIPTYLINE HCL 25 MG TABLET PO SCH (08:41)
--- NOTE | 2022-04-02 09:30 | NUR ---
RN NOTES DUE MEDS GIVEN
--- NOTE | 2022-04-02 10:14 | NUR ---
RN NOTES DR. AMANDA HERNANDEZ NOTIFIED HGB 6.3, PER DR. TYLER MIGHT NEED GI CONSULT. ALSO FOR DIALYSIS PER DR. DE LA VEGA.
--- NOTE | 2022-04-02 10:16 | NUR ---
RN NOTES PER AMANDA HERNANDEZ TRAVEL AGENT - PT FOR EGD TOMORROW AND HE WILL PLACE HD LINE TODAY.
[2022-04-02] MEDS: IV D5W 1,000 ML IV PRN (11:08)
[2022-04-02] MEDS: Magnesium 1GM/D5W 100ML PREMIX 100 ML IV SCH ×3 (11:08→12:05)
[2022-04-02] MEDS: LEVOFLOXACIN (250MG) 250 MG TABLET PO SCH (11:09)
--- NOTE | 2022-04-02 12:30 | NUR ---
RN NOTES AMANDA HERNANDEZ CRIME LAB ANALYST AT BEDSIDE FOR HD CATH PLACEMENT RIGHT FEMORAL
--- NOTE | 2022-04-02 13:30 | NUR ---
RN NOTES BP MEDS NOT GIVEN. PATIENT FOR HD
--- NOTE | 2022-04-02 14:15 | NUR ---
RN NOTES HD STARTED
--- NOTE | 2022-04-02 14:51 | NUR ---
RN NOTES PATIENT ON HD. SPOKE TO PHARMACY WILL ADMINISTER FERRLECIT LATER AFTER HD
--- NOTE | 2022-04-02 16:35 | NUR ---
RN NOTES HD COMPLETED 2200 ML OUT. 2 UNITS PRBC GIVEN
[2022-04-02] MEDS ORDERED: HYDROCODONE/APAP 5/325MG TABLET PO PRN (17:00)
[2022-04-02] MEDS: SOD FERRIC GLUC 125 MG in IV NS 0.9% 100 ML IV SCH (17:03)
[2022-04-02 18:02] LABS: LYMPHOCYTES % (MANUAL) 6 % (16-48); MONOCYTES % (MANUAL) 4 % (0-11.0); NEUTROPHILS % (MANUAL) 90 (42-76)
--- NOTE | 2022-04-02 18:33 | NUR ---
ADVANCED PRACTICE PSYCHIATRIC NURSE CLOSING NOTES PATIENT IN BED, AO X 2, ASLEEP, ON 4L O2 NC, O2 SAT 94%. RESPIRATION UNLABORED. AFIB UNCONTROLLED TO SINUS TACH HR 91-110 DENIES PAIN, HAS LEFT UPPER ARM PICC LINE WITH D5W AT 75 ML/HR. NO S/S OF INFILTRATION NOTED. CLEAR LIQUID. ASSIST IN EATING. CONDOM CATHETER PULLED OUT BY HIM, DIAPERS FOR NOW. RESTRAINTS RELEASED FOR NOW. SAFETY PRECAUTIONS OBSERVED: BED LOCKED AND IN LOW POSITION, SIDE RAILS UP X3, CALL LIGHT WITHIN REACH. ALL NEEDS MET FOR NOW. WILL ENDORSE TO NEXT SHIFT FOR ANGELIC. RIGHT FEMORAL GROIN HD ACCESS IN PLACE. CDI DRESSING FOR EGD TOMORROW. CONSENT SIGNED NPO POST MIDNIGHT
--- NOTE | 2022-04-02 20:13 | NUR ---
NUCLEAR ENGINEERING TECHNICIAN OPENING NOTE PT RECEIVED IN BED, AWAKE, A&O X3, CALM, COOPERATIVE OF NOW. PT ON 5L NC WITH CURRENT O2SAT OF 93%; NOTED TO HAVE PRODUCTIVE COUGH, NO OTHER S/S OF RESP DISTRESS, NO SOB, NON-LABORED AND EQUAL BREATHING. PT ATTACHED TO BEDSIDE MONITOR, SR-ST WITH PVCS AND BIGEMINY WITH CURRENT HR OF 105. NEW CONDOM CATHETER APPLIED TO PT. BULMARO PICC LINE INTACT AND PATENT, FLUSHES EASILY WITH NO RESISTANCE, D5W INFUSING AT 75 ML/HR. RIGHT FEMORAL HD CATH INTACT AND PATENT WITH DRESSING C/D/I. BILATERAL SOFT WRIST RESTRAINTS OFF FOR NOW; WILL REPLACE NEEDED. BED IN LOWEST POSITION, CALL LIGHT WITHIN REACH, SIDE RAILS UP X3. WILL CONTINUE TO MONITOR THROUGHOUT THE NIGHT.
[2022-04-02] MEDS: ATORVASTATIN 40 MG TABLET PO SCH (21:01)
--- NOTE | 2022-04-02 21:23 | NUR ---
RN NOTE PT OFF RESTRAINTS, CURRENTLY CALM AND COOPERATIVE, SLEEPING. WILL REAPPLY NECESSARY.
--- NOTE | 2022-04-02 21:30 | NUR ---
RN NOTE UNABLE TO ADMINISTER NITROGLYCERIN; MED NOT IN CASETTE OR AT BEDSIDE. WILL FOLLOW UP WITH PHARMACY IN AM. PREVIOUS NITRO PATCH REMOVED AND SKIN CLEANSED.
[2022-04-02] MEDS: ACETAMINOPHEN 325 MG TABLET PO PRN (23:48)
--- NOTE | 2022-04-02 23:48 | NUR ---
RN NOTE PT REPORTS OF GENERALIZED BODY ACHES. PT ADMINISTERED TYLENOL 650 MG. WILL MONITOR FOR EFFECTIVENESS.
[2022-04-03] VITALS (45 sets, daily range): BP systolic 41–153; BP diastolic 26–101
[2022-04-03] MEDS: IPRATROPIUM NEB FS 0.5 MG/2.5 ML AMPUL.NEB NEB SCH ×4 (02:10→20:30)
[2022-04-03] MEDS: IV D5W 1,000 ML IV PRN ×2 (02:12→12:26)
[2022-04-03 04:52] LABS: BASOPHILS % (AUTO) 0.2 % (0.0-2.0); EOSINOPHILS % (AUTO) 0.8 % (0.0-6.0); HEMATOCRIT 26 % (39-51); HEMOGLOBIN 8.8 g/dL (13.5-17.5); LYMPHOCYTES # (AUTO) 0.6 K/uL (0.8-4.8); LYMPHOCYTES % (AUTO) 6.7 % (20.0-44.0); MEAN CORPUSCULAR HGB CONC 34 g/dl (31.0-36.0); MEAN CORPUSCULAR VOLUME 87 fL (80-96); MONOCYTES # (AUTO) 0.8 K/uL (0.1-1.30); NEUTROPHILS # (AUTO) 8.2 K/uL (1.8-8.9); NEUTROPHILS % (AUTO) 84.3 % (43.0-81.0); PLATELET COUNT (AUTO) 151 K/uL (150-450); RED BLOOD CELL COUNT(AUTO) 3.02 MIL/uL (4.5-6.0); WHITE BLOOD COUNT (AUTO) 9.7 K/uL (4.3-11.0)
[2022-04-03 05:24] LABS: BILIRUBIN,TOTAL 0.5 mg/dL (0.2-1.0); CREATININE 2.3 mg/dL (0.6-1.3); MAGNESIUM 1.6 mg/dL (1.8-2.4); POTASSIUM 3.4 mmol/L (3.5-5.1); TOTAL PROTEIN, SERUM 4.7 g/dL (6.4-8.2)
--- NOTE | 2022-04-03 06:18 | NUR ---
ETL MANAGER CLOSING NOTE PT REMAINS IN BED, ASLEEP BUT EASILY AROUSABLE, A&O X3 WITH PERIODS OF FORGETFULNESS AND IRRITABILITY. PT REMAINS ON NOCTURNAL BIPAP WITH SETTINGS 15/5, RATE 12, FIO2 35%; TOLERATED BIPAP WELL WITH O2SAT RANGING FROM 91%-100% THROUGHOUT THE NIGHT. CONTINUES TO HAVE PRODUCTIVE COUGH; NO OTHER S/S OF RESP DISTRESS, NO SOB, NON-LABORED AND EQUAL BREATHING. ATTACHED TO BEDSIDE MONITOR, SR-ST WITH PVCS AND BIGEMINY; HR RANGED FROM 89-117 THROUGHOUT THE NIGHT. CONDOM CATH IN PLACE, DRAINING CLEAR AND YELLOW URINE. PT REMAINED OFF BILATERAL RESTRAINTS THROUGHOUT THE NIGHT PT WAS CALM AND COOPERATIVE. BULMARO PICC INTACT AND PATENT, D5W INFUSING AT 75 ML/HR. ALL DUE MEDS ADMINISTERED DURING THE NIGHT. BED IN LOWEST POSITION, CALL LIGHT WITHIN REACH, SIDE RAILS UP X3. WILL ENDORSE TO DAYSHIFT NURSE TO CONTINUE CARE.
--- NOTE | 2022-04-03 08:00 | NUR ---
RN NOTES RECEIVED PATIENT ON BIPAP,RT WITH THE PATIENT CHANGING FOR NC 4L, BEDSIDE MONITOR SHOWS 96%, A/A&O X3, NO S/S OF RESP DISTRESS, NO SOB, NON-LABORED AND EQUAL BREATHING.SR WITH PVCS AND BIGEMINY; CONDOM CATH IN PLACE, DRAINING LIGHT YELLOW OUTPUT. BULMARO PICC INTACT AND PATENT, D5W INFUSING AT 75 ML/HR. PATIENT NPO SCHEDULED EGD, HELD AM MEDICATION. CALL LIGHT WITHIN REACH. WILL FOLLOW UP.
[2022-04-03] MEDS: BLOOD SUGAR DIAGNOSTIC 1 EACH STRIP IN SCH ×4 (08:08→22:50)
[2022-04-03] MEDS: hydrALAZINE HCL 50 MG TABLET PO SCH ×3 (09:00→18:09)
--- NOTE | 2022-04-03 09:45 | NUR ---
RN NOTES PATIENT DIRECTOR FUNDRAISING AT THIS TIME FOR EGD PROCEDURE VIA SENIOR FIRE PROTECTION ENGINEER. VSS. PATIENT ON NC 5L.
[2022-04-03] MEDS ORDERED: POTASSIUM CHLORIDE 10 MEQ TABLET.SA PO ONE (11:00)
--- NOTE | 2022-04-03 11:00 | NUR ---
RN NOTES PATIENT BACK FROM EGD PROCEDURE. A/OX3, REFUSED PAIN, ABLE TO SWALLOW, NO ACUTE RESPIRATORY DISTRESS, NEW ORDERS TAKEN AND RAY OUT.
[2022-04-03] MEDS: FOLIC ACID 1 MG TABLET PO SCH (11:09)
[2022-04-03] MEDS: LEVETIRACETAM (250 MG) 250 MG TABLET PO SCH ×2 (11:09→21:35)
[2022-04-03] MEDS: AMLODIPINE BESYLATE 5 MG TABLET PO SCH (11:10)
[2022-04-03] MEDS: LEVOFLOXACIN (250MG) 250 MG TABLET PO SCH (11:24)
[2022-04-03] MEDS: AMITRIPTYLINE HCL 25 MG TABLET PO SCH (11:24)
[2022-04-03] MEDS: TAMSULOSIN 0.4 MG CAP.SR.24H PO SCH (11:24)
[2022-04-03] MEDS: Magnesium 1GM/D5W 100ML PREMIX 100 ML IV SCH ×2 (11:24→12:40)
[2022-04-03] MEDS: IV NS 0.9% 250 ML IV PRN (11:46)
[2022-04-03] MEDS ORDERED: PANTOPRAZOLE 40 MG VIAL IV SCH (12:00)
[2022-04-03] MEDS: ACETAMINOPHEN 325 MG TABLET PO PRN (12:44)
--- NOTE | 2022-04-03 12:44 | NUR ---
rn notes Administered Tylenol 650 mg po prn for headache 07/10 per patient request , bs-89mg/dl. patient tolerated clear liquid diet 25%, due medication administered. infusing d5w@75 ml/hr, and MG @ 100ml at this time. needs attended and anticipated. calllight within to reach. patient stable after EGD procedure.will follow up.
[2022-04-03] MEDS: NITROGLYCERIN 30 GM TUBE TP SCH ×2 (13:57→21:36)
[2022-04-03] MEDS: SOD FERRIC GLUC 125 MG in IV NS 0.9% 100 ML IV SCH (13:57)
[2022-04-03] MEDS ORDERED: HYDROMORPHONE 1 MG/1 ML DISP.SYRIN IV ONE (14:00)
[2022-04-03] MEDS ORDERED: ONDANSETRON HCL/PF 4 MG/2 ML VIAL IV PRN (14:00)
--- NOTE | 2022-04-03 15:11 | NUR ---
RN NOTES ADMINISTERED DELUDED 0.5 MG/ML X1 IV PUSH FOR GENERALIZED PAIN.
--- NOTE | 2022-04-03 15:17 | NUR ---
RN NOTES ADMINISTERED ZOFRAN 4 MG/ML IV PUSH FOR NAUSEA.
[2022-04-03] MEDS: PANTOPRAZOLE 40 MG VIAL IV SCH (17:49)
--- NOTE | 2022-04-03 18:35 | NUR ---
rn notes BS-114 mg/dl, patient tolerated dinner 20% self, due medication administered, patient going to have hemodialyzed, due medication administered, assist turn and reposition q 2 hr, infusing d5w@75 ml/hr, and TKO. patient back to the BIPAP because of low saturation 88% oxygen, endorsed oncoming nurse kelly.
--- NOTE | 2022-04-03 19:46 | NUR ---
MANAGER HOSPITALITY OPENING NOTE PT RECEIVED IN BED, AWAKE, A&O X3. PT ON BIPAP WITH SETTINGS AT 15/5, RATE 12, FIO2 35% WITH CURRENT O2SAT OF 96%; NOTED TO HAVE NON-PRODUCTIVE COUGH. PT ATTACHED TO BEDSIDE MONITOR, SR WITH HR OF 95. DIALYSIS AT BEDSIDE SCHEDULED FOR 2 HR SESSION. CONDOM CATH IN PLACE, DRAINING CLEAR AND YELLOW URINE. BULMARO PICC INTACT AND PATENT, FLUSHES EASILY WITH NO RESISTANCE, D52 INFUSING 75 ML/HR. PT CURRENTLY OFF RESTRAINTS PT IS CALM AND COOPERATIVE. BED IN LOWEST POSITION, CALL LIGHT WITHIN REACH, SIDE RAILS UP X3. WILL CONTINUE TO MONITOR THROUGHOUT THE NIGHT. Addendum: 04/03/22 at 2208 by PRINCESS ADDIS SANCHEZ FIO2 40%
[2022-04-03] MEDS: ATORVASTATIN 40 MG TABLET PO SCH (21:37)
[2022-04-03] MEDS: INSULIN REGULAR, HUMAN 100 UNIT/ML 3 ML VIAL SQ PRN (22:50)
[2022-04-04] VITALS (23 sets, daily range): BP systolic 98–144; BP diastolic 38–91
[2022-04-04] MEDS: IPRATROPIUM NEB FS 0.5 MG/2.5 ML AMPUL.NEB NEB SCH ×4 (02:18→20:02)
[2022-04-04] MEDS: ACETAMINOPHEN 325 MG TABLET PO PRN ×2 (02:44→13:18)
--- NOTE | 2022-04-04 02:44 | NUR ---
RN NOTE PT REPORTS OF GENERALIZED BODY ACHES. PT ADMINISTERED TYLENOL 650 MG. WILL MONITOR FOR EFFECTIVENESS.
[2022-04-04] MEDS: IV D5W 1,000 ML IV PRN ×2 (02:56→15:28)
[2022-04-04 04:02] LABS: BASOPHILS % (AUTO) 0.3 % (0.0-2.0); HEMATOCRIT 24 % (39-51); HEMOGLOBIN 7.9 g/dL (13.5-17.5); LYMPHOCYTES # (AUTO) 0.5 K/uL (0.8-4.8); LYMPHOCYTES % (AUTO) 5.3 % (20.0-44.0); MEAN CORPUSCULAR HGB CONC 34 g/dl (31.0-36.0); MEAN CORPUSCULAR VOLUME 87 fL (80-96); MONOCYTES # (AUTO) 0.7 K/uL (0.1-1.30); MONOCYTES % (AUTO) 7.2 % (2.0-12.0); NEUTROPHILS # (AUTO) 8.6 K/uL (1.8-8.9); NEUTROPHILS % (AUTO) 83.2 % (43.0-81.0); PLATELET COUNT (AUTO) 144 K/uL (150-450); RED BLOOD CELL COUNT(AUTO) 2.71 MIL/uL (4.5-6.0); WHITE BLOOD COUNT (AUTO) 10.3 K/uL (4.3-11.0)
[2022-04-04 04:16] LABS: ALBUMIN 1.8 g/dL (3.4-5.0); BILIRUBIN,DIRECT 0.2 mg/dL (0.0-0.2); BILIRUBIN,TOTAL 0.5 mg/dL (0.2-1.0); TOTAL PROTEIN, SERUM 4.4 g/dL (6.4-8.2)
[2022-04-04 04:58] LABS: CALCIUM, SERUM 6.9 mg/dL (8.5-10.1); CREATININE 1.9 mg/dL (0.6-1.3); MAGNESIUM 1.7 mg/dL (1.8-2.4); POTASSIUM 3.6 mmol/L (3.5-5.1)
--- NOTE | 2022-04-04 07:32 | NUR ---
JUNIOR LOAN PROCESSOR CLOSING NOTE PT REMAINS IN BED, ASLEEP BUT EASILY AROUSABLE, A&O X3, CALM, COOPERATIVE. PT REMAINS ON BIPAP; TOLERATING BIPAP WELL. ATTACHED TO BEDSIDE MONITOR, SR-ST WITH PVCS AND BIGEMINY. CONDOM CATH IN PLACE, INTACT AND PATENT, DRAINING CLEAR AND YELLOW URINE. BULMARO PICC INTACT AND PATENT, INFUSING WITH NO RESISTANCE; D5W INFUSING AT 75 ML/HR. ALL DUE MEDS ADMINISTERED DURING THE NIGHT. BED IN LOWEST POSITION, CALL LIGHT WITHIN REACH, SIDE RAILS UP X3. WILL ENDORSE TO DAYSHIFT NURSE TO CONTINUE CARE.
[2022-04-04] MEDS: BLOOD SUGAR DIAGNOSTIC 1 EACH STRIP IN SCH ×4 (07:36→22:05)
--- NOTE | 2022-04-04 07:47 | NUR ---
MILLER HEAD WET PROCESS OPENING NOTE PT RECEIVED IN BED, AWAKE, A&O X3. PT ON BIPAP WITH SETTINGS AT 15/5, RATE 12, FIO2 35%, TOLERATING WELL, NOT IN DISTRESS, NOTED TO HAVE NON-PRODUCTIVE COUGH. PT ATTACHED TO BEDSIDE MONITOR, ST WITH HR OF 108. CONDOM CATH IN PLACE, DRAINING CLEAR AND YELLOW URINE. BULMARO PICC INTACT AND PATENT, FLUSHES EASILY WITH NO RESISTANCE, D52 INFUSING 75 ML/HR. PT CURRENTLY OFF RESTRAINTS PT IS CALM AND COOPERATIVE. BED IN LOWEST POSITION, CALL LIGHT WITHIN REACH, SIDE RAILS UP X3. PLAN OF CARE CONTINUE.
[2022-04-04] MEDS: PANTOPRAZOLE 40 MG VIAL IV SCH ×2 (08:39→18:03)
[2022-04-04] MEDS: TAMSULOSIN 0.4 MG CAP.SR.24H PO SCH (08:39)
[2022-04-04] MEDS: FOLIC ACID 1 MG TABLET PO SCH (08:39)
[2022-04-04] MEDS: LEVETIRACETAM (250 MG) 250 MG TABLET PO SCH ×2 (08:39→20:51)
[2022-04-04] MEDS: NITROGLYCERIN 30 GM TUBE TP SCH ×2 (08:40→20:53)
[2022-04-04] MEDS: AMITRIPTYLINE HCL 25 MG TABLET PO SCH (08:40)
[2022-04-04] MEDS: AMLODIPINE BESYLATE 5 MG TABLET PO SCH (09:00)
[2022-04-04] MEDS: hydrALAZINE HCL 50 MG TABLET PO SCH ×3 (09:00→17:00)
[2022-04-04] MEDS ORDERED: MAGNESIUM OXIDE 400 MG TABLET PO ONE (09:00)
--- NOTE | 2022-04-04 10:00 | NUR ---
SENIOR INTERNAL AUDITOR NOTES NOCTURNAL BIPAP WAS REMOVED BY RT, PATIENT TOLERATING WELL, PATIENT IS ALERT AND VERBALLY RESPONSIVE, CALM AND SLEEPING COMFORTABLY. PLAN OF CARE CONTINUE.
[2022-04-04] MEDS: LEVOFLOXACIN (250MG) 250 MG TABLET PO SCH (10:15)
--- NOTE | 2022-04-04 13:30 | NUR ---
ASPHALT SPREADER OPERATOR NOTES SEEN BY DR. ROBLES WITH NEW ORDER FOR NORCO 5-325MG Q6HR PRN FOR PAIN, NOTED AND CARRIED OUT, PLAN OF CARE CONTINUE.
--- NOTE | 2022-04-04 15:58 | NUR ---
VB DEVELOPER NOTES PATIENT ON GOING HEMODIALYSIS AT THIS MOMENT. PLAN OF CARE CONTINUE.
--- NOTE | 2022-04-04 16:09 | NUR ---
ALTO SINGER NOTES PATIENT IS REQUESTING DIET TO BE UPGRADED, INFORMED DR. HARSH PETERSEN, WITH ORDER TO UPGRADE DIET FROM CLEAR LIQUID TO SOFT DIET, NOTED AND CARRIED OUT. PLAN OF CARE CONTINUE.
[2022-04-04] MEDS: HYDROCODONE/APAP 5/325MG TABLET PO PRN (16:43)
[2022-04-04] MEDS: SOD FERRIC GLUC 125 MG in IV NS 0.9% 100 ML IV SCH (18:30)
--- NOTE | 2022-04-04 19:00 | NUR ---
STAFFING CONSULTANT CLOSING NOTE PATIENT RECEIVED FROM ICU DEPT. IN BED AWAKE, A&O X3. PT ON 5L 02 TOLERATING WELL, NOT IN DISTRESS, NOTED TO HAVE NON-PRODUCTIVE COUGH. PT ATTACHED TO BEDSIDE MONITOR, SR HR 99. CONDOM CATH IN PLACE, DRAINING CLEAR AND YELLOW URINE. BULMARO PICC INTACT AND PATENT, FLUSHES EASILY WITH NO RESISTANCE, D5W INFUSING 75 ML/HR. PT CURRENTLY OFF RESTRAINTS PT IS CALM AND COOPERATIVE. BED IN LOWEST POSITION, CALL LIGHT WITHIN REACH, SIDE RAILS UP X3. ENDORSE TO REGULATORY CONSULTANT NURSE FOR ANGELIC.
[2022-04-04] MEDS: ATORVASTATIN 40 MG TABLET PO SCH (21:43)
--- NOTE | 2022-04-04 22:58 | NUR ---
HUMBERTO RN OPENING NOTE PT RECEIVED IN BED, AWAKE, A&O X3, CALM, COOPERATIVE. PT PLACED ON BIPAP WITH SETTINGS OF 15/5, RATE AT 12, FIO2 35% WITH CURRENT O2SAT OF 995; NO S/S OF RESP DISTRESS, NO SOB OR COUGH, NON-LABORED AND EQUAL BREATHING. PT ATTACHED TO EXTERNAL MONITOR, ST WITH HR OF 121. CONDOM CATHETER IN PLACE, INTACT, DRAINING CLEAR AND YELLOW URINE. BULMARO PICC INTACT AND PATENT, FLUSHES EASILY WITH NO RESISTANCE, D5W INFUSING AT 75 ML/HR. RIGHT FEMORAL HD CATH DRESSING C/D/I. BED IN LOWEST POSITION, CALL LIGHT WITHIN REACH, SIDE RAILS UP X3. WILL CONTINUE TO MONITOR THROUGHOUT THE NIGHT.
[2022-04-05] VITALS (11 sets, daily range): BP systolic 114–139; BP diastolic 48–71
[2022-04-05] MEDS: IPRATROPIUM NEB FS 0.5 MG/2.5 ML AMPUL.NEB NEB SCH ×4 (02:07→18:41)
[2022-04-05 06:31] LABS: BASOPHILS % (AUTO) 0.3 % (0.0-2.0); HEMATOCRIT 21 % (39-51); LYMPHOCYTES # (AUTO) 0.8 K/uL (0.8-4.8); LYMPHOCYTES % (AUTO) 11.5 % (20.0-44.0); MEAN CORPUSCULAR HGB CONC 33 g/dl (31.0-36.0); MEAN CORPUSCULAR VOLUME 88 fL (80-96); MONOCYTES # (AUTO) 0.5 K/uL (0.1-1.30); MONOCYTES % (AUTO) 7.3 % (2.0-12.0); NEUTROPHILS # (AUTO) 5.7 K/uL (1.8-8.9); NEUTROPHILS % (AUTO) 78.9 % (43.0-81.0); PLATELET COUNT (AUTO) 125 K/uL (150-450); RED BLOOD CELL COUNT(AUTO) 2.34 MIL/uL (4.5-6.0); WHITE BLOOD COUNT (AUTO) 7.3 K/uL (4.3-11.0)
[2022-04-05 06:38] LABS: HEMOGLOBIN 6.8 g/dL (13.5-17.5)
--- NOTE | 2022-04-05 06:42 | NUR ---
RN NOTE CRITICAL CAME FROM LAB, HGB 6.8 NOTED TO BE TRENDING DOWN FROM 7.9. JANELL CABRERA NOTIFIED, AWAITING RESPONSE.
--- NOTE | 2022-04-05 07:05 | NUR ---
TD RN OPENING NOTES: PT RECEIVED IN BED, AWAKE, A&O X3. PT ON BIPAP WITH SETTINGS AT 15/5, RATE 12, FIO2 35%, TOLERATING WELL, NOT IN DISTRESS, NOTED TO HAVE NON-PRODUCTIVE COUGH. ON TELE MONITOR. CONDOM CATH IN PLACE, DRAINING CLEAR AND YELLOW URINE. BULMARO PICC INTACT AND PATENT, FLUSHES EASILY WITH NO RESISTANCE, D52 INFUSING 75 ML/HR. PT CURRENTLY OFF RESTRAINTS PT IS CALM AND COOPERATIVE. BED IN LOWEST POSITION AND LOCKED, CALL LIGHT WITHIN REACH, SIDE RAILS UP X3. WILL MONITOR
--- NOTE | 2022-04-05 07:15 | NUR ---
RN NOTES: SEEN BY DR DE LA VEGA WITH ORDER TO DC IV FLUID
[2022-04-05 07:22] LABS: ALBUMIN 1.7 g/dL (3.4-5.0); BILIRUBIN,TOTAL 0.4 mg/dL (0.2-1.0); CALCIUM, SERUM 7.1 mg/dL (8.5-10.1); CREATININE 1.8 mg/dL (0.6-1.3); MAGNESIUM 1.6 mg/dL (1.8-2.4); PHOSPHORUS 2.5 mg/dL (2.5-4.9); POTASSIUM 3.5 mmol/L (3.5-5.1); TOTAL PROTEIN, SERUM 4.5 g/dL (6.4-8.2)
--- NOTE | 2022-04-05 07:31 | NUR ---
HUMBERTO RN CLOSING NOTE PT REMAINS IN BED, AWAKE, CALM, COOPERATIVE. CONTINUES TO BE ON BIPAP WITH SAME SETTINGS; TOLERATED BIPAP WELL WITH O2SAT IN THE 90S. ATTACHED TO EXTERNAL MONITOR, SR-ST. CONDOM CATH CHANGED, INTACT AND PATENT, DRAINING CLEAR AND YELLOW URINE. BULMARO PICC INTACT AND PATENT, FLUSHES EASILY WITH NO RESISTANCE; DR. DE LA VEGA D/C'D D5W. RIGHT FEMORAL HD CATH CHANGED WITH NEW DRESSING. ALL DUE MEDS ADMINISTERED DURING THE NIGHT. BED IN LOWEST POSITION, CALL LIGHT WITHIN REACH, SIDE RAILS UP X3. WILL ENDORSE TO DAYSHIFT NURSE TO CONTINUE CARE.
[2022-04-05] MEDS: BLOOD SUGAR DIAGNOSTIC 1 EACH STRIP IN SCH ×4 (07:35→22:44)
[2022-04-05] MEDS: HYDROCODONE/APAP 5/325MG TABLET PO PRN ×3 (07:36→22:38)
[2022-04-05] MEDS: hydrALAZINE HCL 50 MG TABLET PO SCH ×3 (09:00→16:43)
--- NOTE | 2022-04-05 09:00 | NUR ---
RN notes: held apresoline pt will have dialysis, DR Oswald aware
[2022-04-05] MEDS: PANTOPRAZOLE 40 MG VIAL IV SCH ×2 (09:26→16:43)
[2022-04-05] MEDS: AMITRIPTYLINE HCL 25 MG TABLET PO SCH (09:27)
[2022-04-05] MEDS: LEVETIRACETAM (250 MG) 250 MG TABLET PO SCH ×2 (09:27→20:51)
[2022-04-05] MEDS: Fluoxetine 10 mg capsule PO SCH (09:27)
[2022-04-05] MEDS: NITROGLYCERIN 30 GM TUBE TP SCH ×2 (09:28→20:53)
[2022-04-05] MEDS: FOLIC ACID 1 MG TABLET PO SCH (09:28)
[2022-04-05] MEDS: TAMSULOSIN 0.4 MG CAP.SR.24H PO SCH (09:28)
--- NOTE | 2022-04-05 11:23 | NUR ---
RN NOTES: PT WITH LARGE WATERY BLACK STOOL, START TO CLEAN THE PT VERBALIZED HE IS HAVING SOB WANTS TO BE ON BIPAP, PLACED BIPAP, CLEANED THE PT VERBALIZED HE HAS SEVERE ABDOMINAL PAIN LEFT LOWER QUADRANT, LEFT MESSAGE TO DR TRAVIS QUINONES
[2022-04-05] MEDS: LEVOFLOXACIN (250MG) 250 MG TABLET PO SCH (11:35)
[2022-04-05] MEDS: Magnesium 1GM/D5W 100ML PREMIX 100 ML IV SCH ×2 (11:35→12:48)
--- NOTE | 2022-04-05 12:53 | NUR ---
RN NOTES: SEEN BY DR TRAVIS QUINONES AWARE OF ABDOMINAL PAIN WITH ORDER OF STAT KUB
--- NOTE | 2022-04-05 13:20 | NUR ---
RN NOTES: DIALYSIS COMPLETED WITHOUT COMPLICATION, 2LITER OUT,BP 125/54
[2022-04-05] MEDS: SOD FERRIC GLUC 125 MG in IV NS 0.9% 100 ML IV SCH (14:47)
[2022-04-05 17:17] LABS: EOSINOPHILS % (MANUAL) 2 % (0-4); LYMPHOCYTES % (MANUAL) 10 % (16-48); MONOCYTES % (MANUAL) 8 % (0-11.0); NEUTROPHILS % (MANUAL) 80 (42-76)
--- NOTE | 2022-04-05 19:30 | NUR ---
TD RN OPENING NOTES RECEIVED PT IN BED, ALERT/ORIENTED X3. DENIES PAIN/DISCOMFORT AT THIS TIME. CALM AND COOPERATIVE. PT ON 4LPM VIA NC, TOLERATING WELL, NO SOB. PT AFEBRILE. CONDOM CATH IN PLACED, DRAINING CLEAR AND YELLOW URINE. BULMARO PICC INTACT AND DRY. BED IN LOWEST POSITION, CALL LIGHT WITHIN REACH, SIDE RAILS UP X3. WILL CONT POC.
--- NOTE | 2022-04-05 19:41 | NUR ---
FLOOR SCRUBBER CLOSING NOTE PATIENT IN BED AWAKE, A&O X3. PT ON 5L 02 TOLERATING WELL, NOT IN DISTRESS, NOTED TO HAVE PRODUCTIVE COUGH. PT ATTACHED TO BEDSIDE MONITOR, SR HR 99. CONDOM CATH IN PLACE, DRAINING CLEAR AND YELLOW URINE. BULMARO PICC INTACT AND PATENT, FLUSHES EASILY WITH NO RESISTANCE, . PT CURRENTLY OFF RESTRAINTS PT IS CALM AND COOPERATIVE. BED IN LOWEST POSITION, CALL LIGHT WITHIN REACH, SIDE RAILS UP X3. ENDORSE TO CUSTOMER GREETER NURSE FOR ANGELIC.
--- NOTE | 2022-04-05 20:09 | NUR ---
TD RN NOTES 1 UNIT PRBC STARTED AT 2008 HRS CHECKED AND VERIFIED WITH 2 NURSES ,NO ASE NOTED.
[2022-04-05] MEDS: ATORVASTATIN 40 MG TABLET PO SCH (21:02)
[2022-04-05] MEDS: INSULIN REGULAR, HUMAN 100 UNIT/ML 3 ML VIAL SQ PRN (22:45)
--- NOTE | 2022-04-05 22:46 | NUR ---
NEETA SANCHEZ NOTES BLOOD SUGAR AT 2200 91MG/DL, NO INSULIN COVERAGE NEEDED. Addendum: 04/05/22 at 2255 by MAGNUS RAMIREZ RN TJ CAVANAUGH
--- NOTE | 2022-04-05 23:23 | NUR ---
TD RN NOTES BLOOD TRANSFUSION ENDED AT 2323, PT VS STABLE. NO ASE NOTED. NOT AFEBRILE, NO SOB, NO DISTRESS.
[2022-04-06] VITALS: BP 123/57
[2022-04-06] MEDS: IPRATROPIUM NEB FS 0.5 MG/2.5 ML AMPUL.NEB NEB SCH ×3 (01:17→13:34)
[2022-04-06] MEDS: ACETAMINOPHEN 325 MG TABLET PO PRN (02:32)
--- NOTE | 2022-04-06 02:32 | NUR ---
TD RN NOTES PT. C/O GENERALIZED BODY PAIN WITH PS 06/09, TYLENOL GIVEN ORDERED PER PT'S REQUEST. WILL REASSESS PT.
[2022-04-06 04:00] VITALS: BP 121/58
--- NOTE | 2022-04-06 06:30 | NUR ---
TD RN CLOSING NOTES RESIDENT SLEEPING COMFORTABLY IN BED. EASILY AWAKEN. NO SOB, NO RESP DISTRESS. AFEBRILE. NOC BIPAP WELL TOLERATED, CURRENTLY ON 4LPM VIA NC, SATTING 95%. S/P BLOOD TRANSFUSION, NO DELAYED ASE NOTED. VS REMAIN STABLE. CONDOM CATH IN PLACED, DRAINING YELLOW URINE. BULMARO PICC LINE INTACT, DRY AND PATENT. ALL NEEDS MET. SAFETY PRECAUTIONS IMPLEMENTED AT ALL TIMES. WILL ENDORSE TO AM SHIFT FOR ANGELIC.
[2022-04-06 06:57] LABS: BASOPHILS % (AUTO) 0.1 % (0.0-2.0); EOSINOPHILS % (AUTO) 1.5 % (0.0-6.0); HEMATOCRIT 22 % (39-51); HEMOGLOBIN 7.3 g/dL (13.5-17.5); LYMPHOCYTES # (AUTO) 0.7 K/uL (0.8-4.8); LYMPHOCYTES % (AUTO) 9.7 % (20.0-44.0); MEAN CORPUSCULAR HGB CONC 33 g/dl (31.0-36.0); MEAN CORPUSCULAR VOLUME 90 fL (80-96); MONOCYTES # (AUTO) 0.6 K/uL (0.1-1.30); MONOCYTES % (AUTO) 8.9 % (2.0-12.0); NEUTROPHILS # (AUTO) 5.4 K/uL (1.8-8.9); NEUTROPHILS % (AUTO) 79.8 % (43.0-81.0); PLATELET COUNT (AUTO) 120 K/uL (150-450); RED BLOOD CELL COUNT(AUTO) 2.49 MIL/uL (4.5-6.0); WHITE BLOOD COUNT (AUTO) 6.7 K/uL (4.3-11.0)
--- NOTE | 2022-04-06 07:30 | NUR ---
PATIENT IS AWAKE,ALERT,ORIENTEDX4, RESTING COMFORTABLY IN BED , NO SIGNS OF IN DISTRESS, VITAL SIGNS ARE STABLE, UNLABORED BREATHING, BED IN LOW POSITION, CALL LIGHT WITHIN REACH.
[2022-04-06] MEDS: BLOOD SUGAR DIAGNOSTIC 1 EACH STRIP IN SCH ×3 (07:33→17:13)
[2022-04-06 07:37] LABS: ALBUMIN 1.6 g/dL (3.4-5.0); BILIRUBIN,TOTAL 0.4 mg/dL (0.2-1.0); CREATININE 1.8 mg/dL (0.6-1.3); MAGNESIUM 1.9 mg/dL (1.8-2.4); PHOSPHORUS 2.4 mg/dL (2.5-4.9); POTASSIUM 3.1 mmol/L (3.5-5.1); TOTAL PROTEIN, SERUM 4.3 g/dL (6.4-8.2)
[2022-04-06 08:00] VITALS: BP 123/61
[2022-04-06] MEDS: AMITRIPTYLINE HCL 25 MG TABLET PO SCH (08:10)
[2022-04-06] MEDS: hydrALAZINE HCL 50 MG TABLET PO SCH ×3 (08:11→16:31)
[2022-04-06] MEDS: LEVETIRACETAM (250 MG) 250 MG TABLET PO SCH (08:12)
[2022-04-06] MEDS: FOLIC ACID 1 MG TABLET PO SCH (08:12)
[2022-04-06] MEDS: Fluoxetine 10 mg capsule PO SCH (08:12)
[2022-04-06] MEDS: TAMSULOSIN 0.4 MG CAP.SR.24H PO SCH (08:16)
[2022-04-06] MEDS: PANTOPRAZOLE 40 MG VIAL IV SCH ×2 (08:57→16:30)
[2022-04-06] MEDS: NITROGLYCERIN 30 GM TUBE TP SCH (09:27)
[2022-04-06] MEDS: LEVOFLOXACIN (250MG) 250 MG TABLET PO SCH (10:25)
[2022-04-06] MEDS ORDERED: POTASSIUM CHLORIDE 10 MEQ TABLET.SA PO ONE (11:00)
[2022-04-06 12:00] VITALS: BP 140/71
[2022-04-06] MEDS ORDERED: NEUTRA PHOS 1 POWD.PACKET PO ONE (12:00)
[2022-04-06] MEDS: SOD FERRIC GLUC 125 MG in IV NS 0.9% 100 ML IV SCH (15:28)
[2022-04-06 16:00] VITALS: BP 130/68
[2022-04-06 16:31] VITALS: BP 130/68
--- NOTE | 2022-04-06 16:59 | NUR ---
COVID TEST DONE (RAPID) PER ORDER.
[2022-04-06] MEDS: HYDROCODONE/APAP 5/325MG TABLET PO PRN (17:35)
--- NOTE | 2022-04-06 18:07 | NUR ---
RN NOTES RAPID TEST NEGATIVE HD CHAIR MWF RENAL HD CATH ACCESS RIGHT FEMORAL. DIANDRA CATH. CDI DRESSING. LAST DIALYSIS TODAY 04/06/2022, 2 LITERS OUT REFUSED PHOTO OF SKIN ISSUES. PATIENT TO BE DISCHARGED TO [facility] PER MD IN STABLE CONDITION. PROVIDES DC INSTRUCTIONS, MED RECON LIST, HEALTH TEACHINGS. TO FOLLOW UP WITH PCP IN 1 WEEK PER FACILITY PROTOCOL, IV ACCESS PICC LINE REMOVED APPLIED PRESSURE AND DRESSING, NO BLEEDING. BELONGINGS CHECKED AND RETURNED. ALL PAPER WORKS SIGNED. PICKED UP BY 2 AMBULANCE CREW TO TRANSPORT TO FACILITY.
[2022-04-06 20:41] LABS: LYMPHOCYTES % (MANUAL) 15 % (16-48); MONOCYTES % (MANUAL) 1 % (0-11.0); NEUTROPHILS % (MANUAL) 84 (42-76)
== END 2022-04-06 18:45 | DRG 133 ==
LOC: ER 07:19 → ICU 09:57 → TELE1 03-28 10:37 → ICU 04-01 11:16 → TELE1 04-04 18:46 → TELE-TD 04-04 21:43 → TELE1 04-06 13:49
PROC: 5A09457 Assistance with Respiratory Ventilation, 24-96 Consecutive Hours, Continuous Positive Airway Pressure (ICD-10-PCS; 2022-03-23)
PROC: 30233N1 Transfusion of Nonautologous Red Blood Cells into Peripheral Vein, Percutaneous Approach (ICD-10-PCS; 2022-03-25)
PROC: 06HM33Z Insertion of Infusion Device into Right Femoral Vein, Percutaneous Approach (ICD-10-PCS; 2022-04-02)
PROC: B54BZZA Ultrasonography of Right Lower Extremity Veins, Guidance (ICD-10-PCS; 2022-04-02)
PROC: 5A1D70Z Performance of Urinary Filtration, Intermittent, Less than 6 Hours Per Day (ICD-10-PCS; 2022-04-02)
PROC: 0DB68ZX Excision of Stomach, Via Natural or Artificial Opening Endoscopic, Diagnostic (ICD-10-PCS; principal; 2022-04-03)
DX: J96.21 Acute and chronic respiratory failure with hypoxia (principal); N17.0 Acute kidney failure with tubular necrosis; G93.41 Metabolic encephalopathy; I50.33 Acute on chronic diastolic (congestive) heart failure; J15.6 Pneumonia due to other Gram-negative bacteria; I21.A1 Myocardial infarction type 2; R53.2 Functional quadriplegia; D69.1 Qualitative platelet defects; E87.0 Hyperosmolality and hypernatremia; K26.9 Duodenal ulcer, unspecified as acute or chronic, without hemorrhage or perforation; I13.0 Hypertensive heart and chronic kidney disease with heart failure and stage 1 through stage 4 chronic kidney disease, or unspecified chronic kidney disease; J44.0 Chronic obstructive pulmonary disease with (acute) lower respiratory infection; J96.22 Acute and chronic respiratory failure with hypercapnia; D63.8 Anemia in other chronic diseases classified elsewhere; E83.39 Other disorders of phosphorus metabolism; I69.354 Hemiplegia and hemiparesis following cerebral infarction affecting left non-dominant side; E11.22 Type 2 diabetes mellitus with diabetic chronic kidney disease; I16.0 Hypertensive urgency; E78.5 Hyperlipidemia, unspecified; E87.6 Hypokalemia; G40.909 Epilepsy, unspecified, not intractable, without status epilepticus; G89.4 Chronic pain syndrome; K29.70 Gastritis, unspecified, without bleeding; Z20.822 Contact with and (suspected) exposure to COVID-19; Z87.891 Personal history of nicotine dependence; Z86.718 Personal history of other venous thrombosis and embolism; Z99.81 Dependence on supplemental oxygen; N18.9 Chronic kidney disease, unspecified; Y24.8XXS Other firearm discharge, undetermined intent, sequela; N40.0 Benign prostatic hyperplasia without lower urinary tract symptoms; Z79.891 Long term (current) use of opiate analgesic; F41.0 Panic disorder [episodic paroxysmal anxiety]; E66.9 Obesity, unspecified; Z68.29 Body mass index [BMI] 29.0-29.9, adult; I25.10 Atherosclerotic heart disease of native coronary artery without angina pectoris; J98.11 Atelectasis; F32.A Depression, unspecified; Z91.199 Patient's noncompliance with other medical treatment and regimen due to unspecified reason
CPT/HCPCS: 36415; 36600; 71045-TC; 74018; 76770-TC; 80048-TC; 80053-TC; 80076-TC; 81001; 82728-TC; 82803-TC; 82962-TC; 83540-TC; 83605-TC; 83690-TC; 83735-TC; 83880; 84100-TC; 84484-TC; 85025-TC; 85027-TC; 85730-TC; 86704; 86705; 86706; 86803; 86850-TC; 87040-TC; 87081-TC; 87340; 90935-TC; 93307-TC; 94660; 94760-TC; 94799-TC; 97112-TC; 97116-TC; 97530-TC; 99082-TC; A4216; A4349; C9113; C9803; G0378; J0360; J1100; J1170; J1644; J1815; J1940; J1956; J2405; J2704; J2916; J3475; J3490; J7030; J7050; J7070; P9016; Q0177; U0003

== ENCOUNTER 2022-04-17 15:15 | Inpatient (IN) | payer OTHER ==
[2022-04-17] VITALS (8 sets, daily range): BP systolic 93–121; BP diastolic 48–63
[~2022-04-17] VITALS: Ht 170.2 cm; Wt 82.6 kg
[~2022-04-17 15:15] MED LIST changes: -ACET650S11 RC; -ATRO2DRO4 SL; -BISA10SU11 RC; -CARV3.12 PO; +CHOL200013 PO; -DICL100G34 TP; -DOCU-141 PO; -DOXE50CA4 PO; +EMPA10TA PO; +FLUO30CR11 TP; -HYDR-3895 PO; -HYDR-500 PO; -IPRA3AMP23 IH; -LACT1CAP71 PO; -LAMO200T10 PO; -LEVO250T59 PO; +LIDOCAINE PATCH TD; -LISI20TA30 PO; +LOPE2TAB25 PO; -LORA10TA7 PO; -METO25TA6 PO; -NALO4SPR; -NITR0.4T48 SL; -PANT40TA2 PO; -PENT400T17 PO; -PRED20TA PO; +SPIR25TA6 PO; -TRAZ-182 PO; -VANC1.2526 IV; +VARE1TAB PO
[2022-04-17] MEDS ORDERED: DOCU-141 PO (15:59)
[2022-04-17] MEDS ORDERED: PANT40TA2 PO (15:59)
[2022-04-17] MEDS ORDERED: IPRA0.2S9 IH (15:59)
[2022-04-17] MEDS ORDERED: NA P133E RC (15:59)
[2022-04-17] MEDS ORDERED: INSU100V3 SQ (15:59)
[2022-04-17] MEDS ORDERED: HYDR100T27 PO (15:59)
[2022-04-17] MEDS ORDERED: ACET-868 PO (15:59)
[2022-04-17] MEDS ORDERED: NITR1OIN2 TD (15:59)
[2022-04-17] MEDS ORDERED: FLUO10CA29 PO (15:59)
[2022-04-17] MEDS ORDERED: BISA10SU11 RC (15:59)
[2022-04-17] MEDS ORDERED: HYDR-4303 PO (15:59)
[2022-04-17] MEDS ORDERED: AMIT25TA9 PO (15:59)
--- NOTE | 2022-04-17 16:22 | NUR ---
CALL CENTER RECRUITER IN ROOM
[2022-04-17] MEDS ORDERED: ASPIRIN 325 MG TABLET ONE (16:28)
[2022-04-17] MEDS ORDERED: ASPIRIN 325 MG TABLET PO ONE (16:30)
--- NOTE | 2022-04-17 16:30 | NUR ---
MOVE SHEET SUBMITTED.
[2022-04-17 17:01] LABS: BASOPHILS # (AUTO) 0.1 K/uL (0.0-0.2); EOSINOPHILS % (AUTO) 0.9 % (0.0-6.0); LYMPHOCYTES # (AUTO) 1.7 K/uL (0.8-4.8); LYMPHOCYTES % (AUTO) 32.3 % (20.0-44.0); MEAN CORPUSCULAR HGB CONC 33 g/dl (31.0-36.0); MEAN CORPUSCULAR VOLUME 90 fL (80-96); MONOCYTES # (AUTO) 0.4 K/uL (0.1-1.30); MONOCYTES % (AUTO) 8.2 % (2.0-12.0); NEUTROPHILS # (AUTO) 3.1 K/uL (1.8-8.9); NEUTROPHILS % (AUTO) 57.6 % (43.0-81.0); PLATELET COUNT (AUTO) 191 K/uL (150-450); WHITE BLOOD COUNT (AUTO) 5.4 K/uL (4.3-11.0)
[2022-04-17 17:08] LABS: RED BLOOD CELL COUNT(AUTO) 1.36 MIL/uL (4.5-6.0)
[2022-04-17 17:09] LABS: HEMATOCRIT 12 % (39-51); HEMOGLOBIN 4.1 g/dL (13.5-17.5)
[2022-04-17 17:13] LABS: CALCIUM, SERUM 7.4 mg/dL (8.5-10.1); CARBON DIOXIDE 32 mmol/L (21-32); CHLORIDE 102 mmol/L (98-107); CREATININE 1.3 mg/dL (0.6-1.3); GLUCOSE 118 mg/dL (74-106); POTASSIUM 3.6 mmol/L (3.5-5.1); SODIUM SERUM 140 mmol/L (136-145); UREA NITROGEN, BLOOD 45 mg/dL (7-18)
--- NOTE | 2022-04-17 17:17 | NUR ---
covid swab taken and sent to lab
--- NOTE | 2022-04-17 17:24 | NUR ---
[facility] CALLED ETA 45 MINS.
[2022-04-17 17:29] LABS: ALANINE AMINOTRANSFERASE 17 U/L (12-78); ALKALINE PHOSPHATASE 60 U/L (46-116); ASPARTATE AMINOTRANSFERASE 16 U/L (15-37); BILIRUBIN,DIRECT 0.1 mg/dL (0.0-0.2); BILIRUBIN,TOTAL 0.1 mg/dL (0.2-1.0); TOTAL PROTEIN, SERUM 5.3 g/dL (6.4-8.2)
[2022-04-17] MEDS ORDERED: ONDANSETRON HCL/PF 4 MG/2 ML VIAL IVP PRN (18:30)
[2022-04-17] MEDS ORDERED: DEXTROSE 50%-WATER 50 ML DISP.SYRIN IV PRN (18:30)
[2022-04-17] MEDS ORDERED: Z GUARD REMEDY 4 OZ OINT TP PRN (18:30)
[2022-04-17] MEDS ORDERED: MORPHINE SULFATE INJ 2 MG/ML DISP.SYRIN IV PRN (18:30)
[2022-04-17] MEDS ORDERED: MAGNESIUM HYDROXIDE 30 ML UDC PO PRN (18:30)
[2022-04-17] MEDS ORDERED: MAG HYDROX/AL HYDROX/SIMETH 30 ML UDC PO PRN (18:30)
[2022-04-17] MEDS ORDERED: ACETAMINOPHEN 325 MG TABLET PO PRN (18:30)
[2022-04-17] MEDS ORDERED: HYDROCODONE/APAP 5/325MG TABLET PO PRN (18:30)
[2022-04-17] MEDS ORDERED: TEMAZEPAM 15 MG CAPSULE PO PRN (18:30)
[2022-04-17] MEDS ORDERED: MORPHINE SULFATE INJ 2 MG/ML DISP.SYRIN ONE (18:54)
[2022-04-17] MEDS ORDERED: MORPHINE SULFATE INJ 2 MG/ML DISP.SYRIN IM ONE (19:00)
[2022-04-17] MEDS ORDERED: ACETAMINOPHEN ES 500 MG TABLET PO ONE (19:00)
--- NOTE | 2022-04-17 19:39 | NUR ---
HUMBERTO RM 101
--- NOTE | 2022-04-17 20:00 | NUR ---
BLOOD TRANSFUSION STARTED , VSS
--- NOTE | 2022-04-17 20:18 | NUR ---
REPORT GIVEN TO HUMBERTO SANCHEZ
--- NOTE | 2022-04-17 20:30 | NUR ---
PATIENT TRANSFERRED VSS.
--- NOTE | 2022-04-17 20:30 | NUR ---
MANAGER TECHNICAL TRAINING NOTE: RESIDENT ADMITTED TO ROOM 101 FROM ER WITH A DX FO CHEST PAIN POSSIBLE ACS. SEVERE ANEMIA POSSIBLE GI BLEED. 02 4LPM NC WITH ONE UNIT OF PRBC RUNNING AT 110ML/HR ON RIGHT UPPER MIDLINE. PRINCIPAL IOS DEVELOPER SINUS RHYTHM, SINUS TACHY BIGEMINAL. COMPLAINTS OF HAVING CHEST PAIN 8/10 AT ALL TIMES. ALERT TIMES FOUR. SKIN IS WARM AND DRY. PALE. HD CATHETER IN RIGHT FEMORAL WITH A CLEAN DRESSING. HOB ELEVATED. BILATERAL BILATERAL HALF SIDE RAILS UP 2X. BED IN LOW POSITION. LOCKED AND EXIT ALARM ON. CALL LIGHT IN REACH.
[2022-04-17 22:00] LABS: LYMPHOCYTES % (MANUAL) 28 % (16-48); MONOCYTES % (MANUAL) 6 % (0-11.0); NEUTROPHILS % (MANUAL) 66 (42-76)
--- NOTE | 2022-04-17 22:10 | NUR ---
SPOKE TO JAROD AT LAB FOR FOLLOW UP ON NEXT TWO UNITS OF BLOOD SECONDARY BLOOD TO BE TRANSFUSION TO COMPLETED SOON PER JRAOD TO CALL IN 30 MINUTES SECONDARY THE NEW PERSON WILL BE COMING AND WILL PROVIDE BLOOD. PATIENT IS ALERT AND ORIENTED, ABLE TO RESPOND TO VERBAL STIMULI. NO A/R. KEPT CLEAN AND COMFORTABLE.
--- NOTE | 2022-04-17 22:15 | NUR ---
FIRST UNIT OF PRBC COMPLETED. NO A/R.
[2022-04-17] MEDS: BLOOD SUGAR DIAGNOSTIC 1 EACH STRIP IN SCH (22:30)
[2022-04-17] MEDS: PANTOPRAZOLE 40 MG VIAL IV SCH (22:30)
--- NOTE | 2022-04-17 23:00 | NUR ---
SPOKE TO CHHAYA AT LAB TO FOLLOW UP BLOOD 2 MORE UNITS, AND SHE STATED THERE IS NO ACLS RIGHT NOW TO CALL IN ONE HOUR FOR BLOOD.
[2022-04-18] VITALS (20 sets, daily range): BP systolic 89–127; BP diastolic 57–76
--- NOTE | 2022-04-18 00:05 | NUR ---
SPOKE TO JONNY AT LAB FOR FOLLOW UP ON BLOOD STATED THE ACLS INCOMING PERSON IS IN THE WAY TO THE LAB.
--- NOTE | 2022-04-18 00:13 | NUR ---
AMANDA HERNANDEZ SET DECORATOR INFORMED THE OTHER 2 UNITS OF PRBCS NOT GIVEN YET AWAITING FOR LAB TO PROVIDE.
[2022-04-18] MEDS: MORPHINE SULFATE INJ 4 MG/ML DISP.SYRIN IV PRN ×5 (01:24→21:59)
--- NOTE | 2022-04-18 06:25 | NUR ---
HANDED 1 UNIT PRBC TO DIALYSIS NURSE TO GIVE WITH HD. CLOSING NOTE. RESIDENT IS ALERT AND ORIENTED TIMES FOUR. ON BIPAP ORDERED. AT THIS TIME HAVING HEMODIALYSIS. SCHOOL LUNCH MANAGER SINUS RHYTHM SINUS TACHY OCCASIONAL PVC'S. CONDOM CATHETER IN PLACE DRAINING CLEAR YELLOW URINE. DENIES PAIN OR DISCOMFORT AT THIS TIME. HOB ELEVATED. BILATERAL HALF SIDE RAILS UP X2. BED IN LOW POSITION. BED EXIT ALARM ON. CALL LIGHT IN REACH.
--- NOTE | 2022-04-18 07:46 | NUR ---
HUMBERTO RN NOTE PATIENT IN BED ALERT ORIENTED, ON 4L NC, OFF BIPAP ,NO SOB NOTED AT THIS TIME SATURATION 99% A5 AT THIS TIME, ON TELE MONITOR SR HR 95 , WIH CONDOM CATH WITH YELLOW COLOR URINE, HD COMPLETED 2L IS REMOVED BP 127/70 RT UPPER ARM MID LINE IN PLACE, BED IN LOWEST AND LOCKED POSITION , WILL CONT TO MONITOR SAFETY MEASURE IN PLACED Addendum: 04/18/22 at 0952 by BHUPINDER FUNG RN [id number] blood transfusion 1 unit completed by mill turnermold shifter ruby
[2022-04-18] MEDS: PANTOPRAZOLE 40 MG VIAL IV SCH ×2 (08:06→21:03)
[2022-04-18] MEDS: BLOOD SUGAR DIAGNOSTIC 1 EACH STRIP IN SCH ×4 (08:12→22:13)
[2022-04-18 09:22] LABS: BASOPHILS # (AUTO) 0.1 K/uL (0.0-0.2); BASOPHILS % (AUTO) 1.1 % (0.0-2.0); EOSINOPHILS % (AUTO) 1.6 % (0.0-6.0); LYMPHOCYTES # (AUTO) 1.2 K/uL (0.8-4.8); LYMPHOCYTES % (AUTO) 22.6 % (20.0-44.0); MEAN CORPUSCULAR HGB CONC 34 g/dl (31.0-36.0); MEAN CORPUSCULAR VOLUME 90 fL (80-96); MONOCYTES # (AUTO) 0.6 K/uL (0.1-1.30); MONOCYTES % (AUTO) 12.7 % (2.0-12.0); NEUTROPHILS # (AUTO) 3.2 K/uL (1.8-8.9); PLATELET COUNT (AUTO) 157 K/uL (150-450); RED BLOOD CELL COUNT(AUTO) 2.15 MIL/uL (4.5-6.0); WHITE BLOOD COUNT (AUTO) 5.1 K/uL (4.3-11.0)
--- NOTE | 2022-04-18 09:30 | NUR ---
telegraph service clerk note called to dr sawyer to [facility] to report hg 6.6 left a message with exchange service will f\u
[2022-04-18 09:35] LABS: CALCIUM, SERUM 7.2 mg/dL (8.5-10.1); CREATININE 1.1 mg/dL (0.6-1.3); MAGNESIUM 1.3 mg/dL (1.8-2.4); PHOSPHORUS 2.4 mg/dL (2.5-4.9)
[2022-04-18 09:41] LABS: HEMATOCRIT 20 % (39-51); HEMOGLOBIN 6.6 g/dL (13.5-17.5)
--- NOTE | 2022-04-18 10:40 | NUR ---
television tube inspector note left a message to dr rios gi dictor for gi consult
--- NOTE | 2022-04-18 11:05 | NUR ---
dusty rn note called [facility] again to page dr pichardo to report hg 6.6 will await for return call
--- NOTE | 2022-04-18 11:16 | NUR ---
dusty rn note spokr with dr pichardo aware that hg 6.6 ordered 1unit prbc and ok to eat no hneed kub order ststed that will call to dr gabriel yusuf self ,will f\u
--- NOTE | 2022-04-18 12:23 | NUR ---
HUMBERTO RN NOTE C\O SEVERE ABDOMINAL PAIN MORPHINE 4 MG IVP GIVEN ORDERED BP 104/70 SATURATION 98% AT THIS TIME, SEEN BY [facility] , CHECKED REDNEDSS ON X SACRAL AREA
--- NOTE | 2022-04-18 12:55 | NUR ---
dusty rn note blood transfusion 1 unit prbc started to transfuse as ordered will f\u
--- NOTE | 2022-04-18 15:11 | NUR ---
HUMBERTO RN NOTE TURN REPOSITION ,STATED THAT HAS ABDOMINAL DISTRESS, ASKED FOR TYLENOL PO ,GIVEN WILL F\U
[2022-04-18 15:39] LABS: EOSINOPHILS % (MANUAL) 3 % (0-4); LYMPHOCYTES % (MANUAL) 29 % (16-48); MONOCYTES % (MANUAL) 8 % (0-11.0); NEUTROPHILS % (MANUAL) 60 (42-76)
--- NOTE | 2022-04-18 15:45 | NUR ---
HUMBERTO RN NOTE BLOOD TRANSFUSION 1 UNIT PRBC COMPLETED, NO ADVERSE REACTION NOTED, PATIENT WATCHING TV , NOT IN DISTRESS ,WILL MONITOR
[2022-04-18] MEDS: Magnesium 1GM/D5W 100ML PREMIX 100 ML IV SCH ×2 (16:15→17:09)
--- NOTE | 2022-04-18 16:21 | NUR ---
BALE PILER NOTE \ PER DR PIÑA START KEEP NPO FOR FURTHER ORDERS
[2022-04-18] MEDS ORDERED: NEUTRA PHOS 1 POWD.PACKET PO ONE (17:00)
[2022-04-18] MEDS ORDERED: K PHOS NEUTRAL 250 MG TABLET PO ONE (17:00)
--- NOTE | 2022-04-18 18:20 | NUR ---
HUMBERTO RN NOTE PATIENT IN BED, ALERT ORIENTED, ON 4L NC ,NO SOB NOTED AT THIS TIME, ON TELE MONITOR SR -ST [id number] , WITH CONDOM CATH IN PLACE WITH YELLOW COLOR URINE NOTED . RT UPPER ARM MID LINE IN PLACED AND FLUSHED WELL , RT FEMORAL HL CATH IN PLACE AND INTACT , BED IN LOWEST AND LOCKED POSITION , SAFETY MEASURE IMPLEMENTED , CALL LIGHT WITHIN REACH ,WILL CONT TO MONITOR CLOSELY, KEEP NPO FOR POSSIBLE EGD PER DR PIÑA ORDER
--- NOTE | 2022-04-18 18:35 | NUR ---
HUMBERTO RN NOTE DR PETERSEN GI DOCTOR CALLED WITH ORDER EGD TOMORROW , NPO AFTER BREAKFAST OK TO GIVE JOSE ALEX, CONSENT FORE EGD SIGNED
--- NOTE | 2022-04-18 20:00 | NUR ---
HUMBERTO RN OPENING NOTE RECEIVED PT IN BED, A/O X 3, RESPIRATIONS EVEN AND UNLABORED, NC @ 4L, HAS CONDOM CATH, CLEAR AND YELLOW URINE, RIGHT UPPER ARM MIDLINE INTACT AND PATENT, BED IN LOWEST POSITION, CALL LIGHT WITHIN REACH; WILL CONTINUE TO MONITOR
--- NOTE | 2022-04-18 20:01 | NUR ---
HUMBERTO RN NOTE PT ON TELE SR 86, PT WITH RIGHT FEMORAL HD CATH, INTACT WITH DRESSING ON.
[2022-04-19] VITALS (14 sets, daily range): BP systolic 100–125; BP diastolic 34–72
[2022-04-19] MEDS: MORPHINE SULFATE INJ 4 MG/ML DISP.SYRIN IV PRN ×4 (05:31→23:40)
[2022-04-19 06:19] LABS: CALCIUM, SERUM 7.4 mg/dL (8.5-10.1); CREATININE 1.4 mg/dL (0.6-1.3); POTASSIUM 4.4 mmol/L (3.5-5.1)
--- NOTE | 2022-04-19 06:39 | NUR ---
HUMBERTO RN NOTE PT IN BED ASLEEP, REMAIN ON BIPAP. NO DISTRESS OR DISCOMFORT NOTED. PAIN MEDS GIVEN FOR GENERALIZED PAIN 11/09. EFFECTIIVE. KAMLESH MIDLINE INTACT AND PATENT. SIDE RAILS UP X 3 AND CALL LIGHT WITHIN REACH. VSS. WILL ENDORSE TO DAY SHIFT NURSE FOR CONTINUE TO CARE.
[2022-04-19] MEDS: BLOOD SUGAR DIAGNOSTIC 1 EACH STRIP IN SCH ×4 (07:45→23:37)
[2022-04-19 07:58] LABS: BASOPHILS % (AUTO) 0.6 % (0.0-2.0); EOSINOPHILS % (AUTO) 2.3 % (0.0-6.0); LYMPHOCYTES # (AUTO) 1.5 K/uL (0.8-4.8); LYMPHOCYTES % (AUTO) 28.9 % (20.0-44.0); MEAN CORPUSCULAR HGB CONC 34 g/dl (31.0-36.0); MEAN CORPUSCULAR VOLUME 87 fL (80-96); MONOCYTES # (AUTO) 0.7 K/uL (0.1-1.30); MONOCYTES % (AUTO) 12.8 % (2.0-12.0); NEUTROPHILS # (AUTO) 2.9 K/uL (1.8-8.9); NEUTROPHILS % (AUTO) 55.4 % (43.0-81.0); PLATELET COUNT (AUTO) 170 K/uL (150-450); WHITE BLOOD COUNT (AUTO) 5.2 K/uL (4.3-11.0)
[2022-04-19 07:59] LABS: RED BLOOD CELL COUNT(AUTO) 1.92 MIL/uL (4.5-6.0)
--- NOTE | 2022-04-19 08:00 | NUR ---
ATE BREAKFAST THEN KEEP NPO PER DR. NICOLA LEAVITT.
[2022-04-19 08:01] LABS: HEMATOCRIT 17 % (39-51); HEMOGLOBIN 5.6 g/dL (13.5-17.5)
--- NOTE | 2022-04-19 08:44 | NUR ---
patient low h/h dr. dwyer ordered 2 units prbc.
--- NOTE | 2022-04-19 08:45 | NUR ---
pt. refused HD but agreed with blood transfusion.DR. Maria NOTIFIED.
[2022-04-19] MEDS: PANTOPRAZOLE 40 MG VIAL IV SCH ×2 (09:00→23:47)
--- NOTE | 2022-04-19 09:00 | NUR ---
RN NOTE RETURNED TO ROOM FROM CT SCAN.
--- NOTE | 2022-04-19 09:40 | NUR ---
clarified with dr. pichardo without contrast for ct abdomen and pelvis since pt Hd.
[2022-04-19 10:40] LABS: EOSINOPHILS % (MANUAL) 1 % (0-4); LYMPHOCYTES % (MANUAL) 31 % (16-48); MONOCYTES % (MANUAL) 10 % (0-11.0); NEUTROPHILS % (MANUAL) 58 (42-76)
[2022-04-19] MEDS: INSULIN REGULAR, HUMAN 100 UNIT/ML 3 ML VIAL SQ PRN ×2 (12:19→17:55)
[2022-04-19 15:42] LABS: BASOPHILS # (AUTO) 0.1 K/uL (0.0-0.2); EOSINOPHILS % (AUTO) 2.9 % (0.0-6.0); HEMATOCRIT 21 % (39-51); HEMOGLOBIN 7.3 g/dL (13.5-17.5); LYMPHOCYTES # (AUTO) 1.4 K/uL (0.8-4.8); MEAN CORPUSCULAR HGB CONC 34 g/dl (31.0-36.0); MEAN CORPUSCULAR VOLUME 85 fL (80-96); MONOCYTES # (AUTO) 0.7 K/uL (0.1-1.30); MONOCYTES % (AUTO) 13.2 % (2.0-12.0); NEUTROPHILS # (AUTO) 2.8 K/uL (1.8-8.9); NEUTROPHILS % (AUTO) 54.9 % (43.0-81.0); PLATELET COUNT (AUTO) 158 K/uL (150-450); RED BLOOD CELL COUNT(AUTO) 2.51 MIL/uL (4.5-6.0); WHITE BLOOD COUNT (AUTO) 5.1 K/uL (4.3-11.0)
--- NOTE | 2022-04-19 19:38 | NUR ---
RN CLOSING NOTE PT IN BED, BREATHING ON 4L NC AT 100%. KAMLESH MIDLINE INTACT AND PATENT. SIDE RAILS UP X 3 AND CALL LIGHT WITHIN REACH. VSS. WILL ENDORSE TO LCSW NURSE FOR CONTINUE TO CARE.
--- NOTE | 2022-04-19 20:00 | NUR ---
HUMBERTO RN OPENING NOTE RECEIVE PT IN BED, A/O X 4, O2 VIA NC @ 4L, O2 SAT 100%. NO SIGNS OF DISTRESS NOTED. KAMLESH MIDLINE INTACT AND PATENT. TELE READING SR HR 80. HAS CONDOM CATH WITH CLEAR, YELLOW URINE. VSS. SENT FOR EGD @ 194.
[2022-04-19] MEDS ORDERED: ANESTHESIA TRAY IN PYXIS 1 EA TRAY MC ONE (21:10)
--- NOTE | 2022-04-19 21:45 | NUR ---
HUMBERTO RN NOTE PT ARRIVED FROM EGD PROCEDURE. A/O X4; O2 VIA NASAL CANULA @ 4L; NO DISTRESS NOTED. KAMLESH MIDLINE INTACT AND PATENT. VSS. BED IN LOWEST POSITION, CALL LIGHT WITHIN REACH; WILL CONTINUE TO MONITOR
--- NOTE | 2022-04-19 21:57 | NUR ---
PT GOT BACK FROM SURGERY AND RCVD ON 4L NC. PLACED ON NOCTURNAL BIPAP 15/5, RR 16, FIO2 30%. PT IS ALERT AND AWAKE. BIPAP PLUGGED INTO RED OUTLET , ALARMS ON AND AUDIBLE. NO SOB OR RESPIRATORY DISTRESS NOTED AT THIS TIME. WILL CONTINUE TO MONITOR T/O SHIFT.
[2022-04-20] VITALS (12 sets, daily range): BP systolic 108–141; BP diastolic 60–83
[2022-04-20] MEDS ORDERED: PANTOPRAZOLE 80 MG in IV NS 0.9% 100 ML IV ONE (00:30)
[2022-04-20] MEDS: PANTOPRAZOLE 80 MG in IV NS 0.9% 500 ML IV PRN ×2 (01:14→13:40)
[2022-04-20] MEDS: MORPHINE SULFATE INJ 4 MG/ML DISP.SYRIN IV PRN ×3 (03:12→18:46)
--- NOTE | 2022-04-20 05:56 | NUR ---
OFF BIPAP AT THIS TIME. SPO2 100% PLACED PT ON 3L NC. RN JOE NOTIFIED
[2022-04-20 06:21] LABS: EOSINOPHILS % (AUTO) 2.8 % (0.0-6.0); LYMPHOCYTES # (AUTO) 0.9 K/uL (0.8-4.8); LYMPHOCYTES % (AUTO) 23.8 % (20.0-44.0); MEAN CORPUSCULAR HGB CONC 33 g/dl (31.0-36.0); MEAN CORPUSCULAR VOLUME 87 fL (80-96); MONOCYTES # (AUTO) 0.5 K/uL (0.1-1.30); NEUTROPHILS # (AUTO) 2.3 K/uL (1.8-8.9); NEUTROPHILS % (AUTO) 59.4 % (43.0-81.0); PLATELET COUNT (AUTO) 152 K/uL (150-450); WHITE BLOOD COUNT (AUTO) 3.9 K/uL (4.3-11.0)
[2022-04-20 06:27] LABS: RED BLOOD CELL COUNT(AUTO) 1.85 MIL/uL (4.5-6.0)
[2022-04-20 06:29] LABS: HEMATOCRIT 16 % (39-51); HEMOGLOBIN 5.4 g/dL (13.5-17.5)
[2022-04-20 07:04] LABS: CALCIUM, SERUM 6.9 mg/dL (8.5-10.1); CREATININE 1.3 mg/dL (0.6-1.3); POTASSIUM 4.1 mmol/L (3.5-5.1)
--- NOTE | 2022-04-20 07:21 | NUR ---
HUMBERTO RN CLOSING NOTE PT IN BED, A/O X 4, ON 3L NC @100% O2 SAT. KAMLESH MIDLINE INTACT AND PATENT, SKIN IS WARM AND DRY; CONDOM CATH DRAINING CLEAR, YELLOW URINE. ALL DUE MEDS WERE GIVEN AND NEEDS ATTENDED; SAFETY PRECAUTIONS MAINTAINED; WILL ENDORSE TO ONCOMING NURSE FOR ANGELIC. CRITICAL LAB VALUES: HGB 5.4 AND HCT 16. MADE AWARE.
--- NOTE | 2022-04-20 07:30 | NUR ---
TJ RN AM NOTES RECEIVED PATIENT IN BED, AAO X 4,O2 VIA NC @ 4L, O2 SAT 100%. NO SIGNS OF DISTRESS NOTED. RESPIRATION UNLABORED. SR HR 86 ON MONITOR. DENIES PAIN AT THIS TIME, KAMLESH MIDLINE WITH PROTONIX DRIP AT 50 ML/HR INFUSING WELL, SITE CLEAR. RIGHT FEMORAL HD CATH ACCESS, CDI DRESSING. ALVES CATH IN PLACE WITH CLEAR YELLOW URINE DRAINING VIA GRAVITY. POC DISCUSSED. REMAINS NPO FOR NOW. SAFETY PRECAUTIONS OBSERVED: BED LOCKED AND IN LOW POSITION, SIDE RAILS UP X3, CALL LIGHT WITHIN REACH. WILL CONTINUE TO MONITOR.
[2022-04-20] MEDS: BLOOD SUGAR DIAGNOSTIC 1 EACH STRIP IN SCH ×4 (07:57→22:45)
--- NOTE | 2022-04-20 08:45 | NUR ---
RN NOTES PER KENIA PÉREZ FOR CLEAR LIQUID. NEW ORDER RECEIVED FOR [facility] BLEEDING SCAN. INFORM HIM OF RESULT.
[2022-04-20] MEDS: Fluoxetine 10 mg capsule PO SCH (08:59)
[2022-04-20] MEDS: LEVETIRACETAM (250 MG) 250 MG TABLET PO SCH ×2 (08:59→20:49)
--- NOTE | 2022-04-20 11:45 | NUR ---
RN NOTES SPOKE WITH CASE MANAGEMENT MICKY RE TRANSFER TO [facility] FOR GASTRIC ARTERY EMBOLIZATION PER DR. ZAVALA. PER MICKY THEY ARE STILL WORKING ON IT.
--- NOTE | 2022-04-20 13:40 | NUR ---
RN NOTES PATIENT JUST GOT BACK FROM NUCLEAR MEDICINE
--- NOTE | 2022-04-20 13:53 | NUR ---
RN NOTES PATIENT BACK FROM [facility] BLEEDING SCAN
--- NOTE | 2022-04-20 14:00 | NUR ---
RN NOTES PATIENT AGREED TO HAVE DIALYIS. 2 UNITS PRBC TO BE GIVEN WITH HD JENNIFER HD NURSE AWARE
--- NOTE | 2022-04-20 17:20 | NUR ---
ms rn received report from Henrietta, patient on going dialysis, one unit of blood just finished w/ hd.patient is awake ,alert,oriented x4,no distress noted, tolerating he well, will monitor patient.
--- NOTE | 2022-04-20 17:24 | NUR ---
RN NOTES 1 PRBC PER [facility]. WILL ORDER ANOTHER TYPE AND SCREEN
--- NOTE | 2022-04-20 17:41 | NUR ---
RN NOTES ENDORSED TO KOREY RN FOR ANGELIC
--- NOTE | 2022-04-20 17:50 | NUR ---
ms rn called lab for second unit, spoke to willie, not yet ready, will call if ready.
--- NOTE | 2022-04-20 17:56 | NUR ---
ms design intern done w/ 1 liter output, vitals stable,draw blood for type and cross.
[2022-04-20] MEDS: AMITRIPTYLINE HCL 25 MG TABLET PO SCH (18:46)
--- NOTE | 2022-04-20 19:08 | NUR ---
ms rn on bed, eating, no distress, still blood is not yet ready.
[2022-04-20] MEDS: IPRATROPIUM NEB FS 0.5 MG/2.5 ML AMPUL.NEB IH SCH (20:00)
--- NOTE | 2022-04-20 20:00 | NUR ---
HUMBERTO RN OPENING NOTE RECEIVED PT IN BED, A/O X 4, O2 VIA NC @ 4L, O2 SAT 100%. NO SIGNS OF DISTRESS NOTED. RESPIRATIONS EVEN AND UNLABORED. SR HR 86. KAMLESH MIDLINE INTACT AND PATENT. RIGHT FEMORAL HD CATH ACCESS, CONDOM CATH IN PLACE WITH CLEAR YELLOW URINE DRAINING; BED IN LOWEST POSITION, SIDE RAILS UP X3, CALL LIGHT WITHIN REACH. WILL CONTINUE TO MONITOR.
--- NOTE | 2022-04-20 20:18 | NUR ---
RN NOTE BLOOD TRANSFUSION STARTED. BP 121/71, HR 47, TEMP 97.6, 100% O2SAT, RR 20. WILL MONITOR PT.
--- NOTE | 2022-04-20 20:19 | NUR ---
RCVD PT ON 3L NC AND PLACED PT ON NOC BIPAP PER MD'S ORDER. LAURA CUTLER NOTIFIED . SPO2 100% . Q6 BREATHING TX GIVEN , NO ADVERSE REACTION NOTED. NO RESPIRATORY DISTRESS NOTED AT THIS TIME. WILL CONTINUE TO MONITOR T/O THE SHIFT.
--- NOTE | 2022-04-20 20:34 | NUR ---
RN NOTE 1ST 15-MIN VS ARE FOLLOWS: BP 108/60, HR 80, TEMP 96.5, 98%O2SAT, RR 20.
--- NOTE | 2022-04-20 20:54 | NUR ---
RN NOTE 2ND 15-MINUTE VS ARE FOLLOWS: BP 111/61, HR 77, 98.0 TEMP, 100% O2SAT, RR 22. PT TOLERATING TRANSFUSION WELL; RATE INCREASED FROM 90 ML/HR TO 120 ML/HR. WILL CONTINUE TO MONITOR.
--- NOTE | 2022-04-20 21:04 | NUR ---
RN NOTES Received a call from Urvashi at [facility]; read casework manager's notes as awaiting for authorization still. Urvashi made aware
[2022-04-20] MEDS ORDERED: TAMSULOSIN 0.4 MG CAP.SR.24H PO SCH (22:00)
--- NOTE | 2022-04-20 23:26 | NUR ---
HUMBERTO RN NOTE BLOOD TRANSFUSION COMPLETED @ 1886; VSS; TOLERATING THE TRANSFUSION WELL. WILL CONTINUE TO MONITOR.
[2022-04-21] VITALS (14 sets, daily range): BP systolic 110–126; BP diastolic 61–87
[2022-04-21] MEDS: PANTOPRAZOLE 80 MG in IV NS 0.9% 500 ML IV PRN ×2 (00:45→10:44)
[2022-04-21] MEDS: IPRATROPIUM NEB FS 0.5 MG/2.5 ML AMPUL.NEB IH SCH ×5 (01:09→19:56)
[2022-04-21 02:58] LABS: BASOPHILS % (MANUAL) 0 % (0.0-2.0); EOSINOPHILS % (MANUAL) 2 % (0-4); LYMPHOCYTES % (MANUAL) 21 % (16-48); MONOCYTES % (MANUAL) 14 % (0-11.0); NEUTROPHILS % (MANUAL) 63 (42-76)
[2022-04-21] MEDS: MORPHINE SULFATE INJ 4 MG/ML DISP.SYRIN IV PRN ×4 (06:12→20:06)
--- NOTE | 2022-04-21 07:06 | NUR ---
HUMBERTO RN CLOSING NOTE PT IN BED, ASLEEP, O2 VIA NC @ 3L, SKIN IS WARM AND DRY, KAMLESH INTACT AND PATENT, PROTONIX RUNNING @ 50 ML/HR, CONDOM CATH IN PLACE; DRAINING CLEAR YELLOW URINE, ALL DUE MEDS WERE GIVEN AND NEEDS ATTENDED, SAFETY PRECAUTIONS MAINTAINED; WILL ENDORSE TO ONCOMING NURSE FOR ANGELIC.
[2022-04-21 07:08] LABS: EOSINOPHILS % (AUTO) 4.6 % (0.0-6.0); LYMPHOCYTES # (AUTO) 1.3 K/uL (0.8-4.8); LYMPHOCYTES % (AUTO) 27.8 % (20.0-44.0); MEAN CORPUSCULAR HGB CONC 35 g/dl (31.0-36.0); MEAN CORPUSCULAR VOLUME 89 fL (80-96); MONOCYTES # (AUTO) 0.7 K/uL (0.1-1.30); MONOCYTES % (AUTO) 13.9 % (2.0-12.0); NEUTROPHILS # (AUTO) 2.5 K/uL (1.8-8.9); NEUTROPHILS % (AUTO) 52.7 % (43.0-81.0); PLATELET COUNT (AUTO) 142 K/uL (150-450); WHITE BLOOD COUNT (AUTO) 4.8 K/uL (4.3-11.0)
[2022-04-21 07:19] LABS: RED BLOOD CELL COUNT(AUTO) 1.99 MIL/uL (4.5-6.0)
[2022-04-21 07:20] LABS: HEMOGLOBIN 6.1 g/dL (13.5-17.5)
[2022-04-21 07:21] LABS: HEMATOCRIT 18 % (39-51)
--- NOTE | 2022-04-21 07:26 | NUR ---
RN NOTE RECEIVED PT ON BED, A/O X 4, O2 VIA NC @ 3L, O2 SAT WNL, NO SIGNS OF DISTRESS NOTED. RESPIRATIONS EVEN AND UNLABORED. KAMLESH MIDLINE INTACT AND PATENT. RIGHT FEMORAL HD CATH ACCESS, CONDOM CATH IN PLACE WITH CLEAR YELLOW URINE DRAINING; BED IN LOWEST POSITION, SIDE RAILS UP X3, CALL LIGHT WITHIN REACH. WILL CONTINUE TO MONITOR.
[2022-04-21 07:32] LABS: CALCIUM, SERUM 7.2 mg/dL (8.5-10.1); CREATININE 1.2 mg/dL (0.6-1.3); POTASSIUM 4.1 mmol/L (3.5-5.1)
[2022-04-21] MEDS: BLOOD SUGAR DIAGNOSTIC 1 EACH STRIP IN SCH ×3 (08:11→16:30)
[2022-04-21] MEDS: Fluoxetine 10 mg capsule PO SCH (08:11)
[2022-04-21] MEDS: LEVETIRACETAM (250 MG) 250 MG TABLET PO SCH (08:11)
--- NOTE | 2022-04-21 09:45 | NUR ---
RN NOTES LAB NOTIFIED REGARDING 2 UNITS OF PRBC STAT.
--- NOTE | 2022-04-21 10:39 | NUR ---
RN NOTES PT REFUSED TO HAVE SKIN PHOTO DONE
--- NOTE | 2022-04-21 10:39 | NUR ---
RN NOTES FIRST UNIT OF BLOOD STARTED, VSS STABLE CONTINUE TO MONITOR
[2022-04-21 10:41] LABS: BAND % (MANUAL) 2 % (0.0-5.0); EOSINOPHILS % (MANUAL) 3 % (0-4); LYMPHOCYTES % (MANUAL) 28 % (16-48); MONOCYTES % (MANUAL) 9 % (0-11.0); NEUTROPHILS % (MANUAL) 58 (42-76)
--- NOTE | 2022-04-21 12:56 | NUR ---
RN NOTES PT RECEIVED ONE UNIT OF PRBC ,VSS STABLE ,
--- NOTE | 2022-04-21 13:00 | NUR ---
RN NOTES SECOND UNIT OF PRBC STARTED , VSS STABLE ,CONTINUE TO MONITOR
--- NOTE | 2022-04-21 16:30 | NUR ---
RN NOTES REPORT GIVEN TO DAVID SANCHEZ AT [facility] .
[2022-04-21] MEDS: AMITRIPTYLINE HCL 25 MG TABLET PO SCH (17:03)
--- NOTE | 2022-04-21 18:11 | NUR ---
RN NOTES PT RECEIVED TWO UNITS OF PRBC'S ON THIS SHIFT , NO ACTIVE BLEEDING NOTED, VSS STABLE , PT REFUSED TRANSFER SKIN PHOTO TAKEN . IV SITE CDI, SR UP x3, CALL LIGHT WITHIN EASY REACH, BED LOCKED AND IN LOWEST POSITION, WILL ENDORSE TO PILE DRIVER ENGINEER NURSE FOR CONTINUITY OF CARE
[2022-04-21 18:17] LABS: HEMOGLOBIN 8.8 g/dL (13.5-17.5)
--- NOTE | 2022-04-21 19:30 | NUR ---
RN OPENING NOTE RECEIVED PT IN BED, AWAKE, A/O X 4, ABLE TO MAKE NEEDS KNOWN. CURRENTLY ON 4L O2 VIA NC, TOLERATING WELL. NO S/SX OF ACUTE RESPI DISTRESS NOTED AT THIS TIME. NO SOB; BREATHING IS EVEN AND UNLABORED. TELE MONITOR READS SR WITH HR IN THE 80s. IV ACCESS ON KAMLESH ML INFUSING PROTONIX DRIP AND R FEMORAL HD CATH NOTED. PT ON CONDOM CATH, DRAINING YELLOW URINE BY GRAVITY. ALL SAFETY MEASURES IN PLACE: BED LOCKED IN LOW POSITION, BED ALARM ON, CALL LIGHT WITHIN REACH. PT AWAITING TRANSPO FOR PRODUCTION EDITOR, TO TRANSFER TO [facility].
--- NOTE | 2022-04-21 20:10 | NUR ---
RN NOTE PT ASKED FOR MORPHINE FOR PAIN. GIVEN ORDERED.
--- NOTE | 2022-04-21 20:48 | NUR ---
2047 Picked up by ambulance for transfer to [facility]. Patient in stable condition.
--- NOTE | 2022-04-21 20:52 | NUR ---
RN NOTE PT PICKED UP, FOR TRANSFER TO [facility].
== END 2022-04-21 20:48 | disposition short-term general hospital (02) | DRG 241 ==
LOC: ER 15:17 → TELE-TD 19:45
PROVIDERS: ADMIT Nurse Practitioner Acute Care; ATTEND Internal Medicine
PROC: 30233N1 Transfusion of Nonautologous Red Blood Cells into Peripheral Vein, Percutaneous Approach (ICD-10-PCS; principal; 2022-04-17)
PROC: 05HB33Z Insertion of Infusion Device into Right Basilic Vein, Percutaneous Approach (ICD-10-PCS; 2022-04-17)
PROC: 5A09457 Assistance with Respiratory Ventilation, 24-96 Consecutive Hours, Continuous Positive Airway Pressure (ICD-10-PCS; 2022-04-18)
PROC: 5A1D70Z Performance of Urinary Filtration, Intermittent, Less than 6 Hours Per Day (ICD-10-PCS; 2022-04-18)
PROC: 0DB68ZX Excision of Stomach, Via Natural or Artificial Opening Endoscopic, Diagnostic (ICD-10-PCS; 2022-04-19)
DX: K26.4 Chronic or unspecified duodenal ulcer with hemorrhage (principal); J96.21 Acute and chronic respiratory failure with hypoxia; G93.41 Metabolic encephalopathy; D68.59 Other primary thrombophilia; E87.0 Hyperosmolality and hypernatremia; E87.4 Mixed disorder of acid-base balance; I13.2 Hypertensive heart and chronic kidney disease with heart failure and with stage 5 chronic kidney disease, or end stage renal disease; N18.6 End stage renal disease; D63.8 Anemia in other chronic diseases classified elsewhere; E11.22 Type 2 diabetes mellitus with diabetic chronic kidney disease; I69.354 Hemiplegia and hemiparesis following cerebral infarction affecting left non-dominant side; Z20.822 Contact with and (suspected) exposure to COVID-19; I50.9 Heart failure, unspecified; K29.71 Gastritis, unspecified, with bleeding; J44.9 Chronic obstructive pulmonary disease, unspecified; E78.5 Hyperlipidemia, unspecified; G40.909 Epilepsy, unspecified, not intractable, without status epilepticus; Z99.2 Dependence on renal dialysis; Z91.15 Patient's noncompliance with renal dialysis; Z85.038 Personal history of other malignant neoplasm of large intestine; Z88.2 Allergy status to sulfonamides; Z88.8 Allergy status to other drugs, medicaments and biological substances; Z91.041 Radiographic dye allergy status; Z91.013 Allergy to seafood; Z79.51 Long term (current) use of inhaled steroids; Z79.4 Long term (current) use of insulin; Z79.899 Other long term (current) drug therapy; I25.10 Atherosclerotic heart disease of native coronary artery without angina pectoris; Z87.891 Personal history of nicotine dependence; Z74.01 Bed confinement status; Z74.09 Other reduced mobility; W34.00XS Accidental discharge from unspecified firearms or gun, sequela; G89.4 Chronic pain syndrome; N40.0 Benign prostatic hyperplasia without lower urinary tract symptoms; M89.8X9 Other specified disorders of bone, unspecified site; E61.1 Iron deficiency; F41.0 Panic disorder [episodic paroxysmal anxiety]; F25.9 Schizoaffective disorder, unspecified; S01.93XS Puncture wound without foreign body of unspecified part of head, sequela; S81.8 Open wound of lower leg
CPT/HCPCS: 36415; 71045-TC; 80048-TC; 80076-TC; 82962-TC; 83735-TC; 83880; 84100-TC; 84484-TC; 85025-TC; 85027-TC; 85610-TC; 85730-TC; 86706; 86850-TC; 87081-TC; 87340; 88305-TC; 88312-TC; 88342; 90935-TC; 94799-TC; A4349; A6403; A9512; C9113; C9803; G0378; J1815; J2270; J2704; J3475; J3490; J7030; J7040; J7050; P9016

== ENCOUNTER 2022-04-26 18:47 | Inpatient (IN) | payer OTHER ==
[~2022-04-26] VITALS: Ht 177.8 cm; Wt 86.2 kg
[~2022-04-26 18:47] MED LIST changes: +ACET-868 PO; -ASPI-1420 PO; +BISA10SU11 RC; -CAPS42.55 TP; -CHOL200013 PO; +DOCU-141 PO; -EMPA10TA PO; -FERR325T23 PO; +FLUO10CA29 PO; -FLUO30CR11 TP; -FLUT1BLS6 IH; +HYDR-4303 PO; +HYDR100T27 PO; +INSU100V3 SQ; +IPRA0.2S9 IH; -LIDOCAINE PATCH TD; -LOPE2TAB25 PO; -MORP15TA PO; -MUPI22OI7 NS; +NA P133E RC; +NITR1OIN2 TD; -ONDA4TAB11 SL; +PANT40TA2 PO; -SPIR25TA6 PO; -TIOT4MIS5 IH; -VARE1TAB PO
--- NOTE | 2022-04-26 19:00 | NUR ---
[id number] from [facility], c/o abd pain, d/c yesterday for same reason. PLACED IN BED, AAOX4, BREATHING EVEN AND UNLABORED SATURATING AT 96%RA.
--- NOTE | 2022-04-26 19:23 | NUR ---
REMEDIATION PROJECT ENGINEER AT BEDSIDE
--- NOTE | 2022-04-26 19:33 | NUR ---
URINE SAMPLE SENT TO LAB
[2022-04-26 20:01] LABS: BILIRUBIN,URINE NEGATIVE (NEGATIVE); COLOR,URINE YELLOW (YELLOW); LEUKOCYTE ESTERASE ,URINE NEGATIVE (NEGATIVE); NITRITE, URINE NEGATIVE (NEGATIVE); PH,URINE 6.5 (5.0-8.0); PROTEIN,URINE 1+ mg/dl (NEGATIVE); UGLUCOSE NEGATIVE (NEGATIVE); UROBILINOGEN,URINE 0.2 EU/dL (0.2)
[2022-04-26 20:03] LABS: BASOPHILS % (AUTO) 0.5 % (0.0-2.0); EOSINOPHILS % (AUTO) 2.6 % (0.0-6.0); HEMATOCRIT 26 % (39-51); HEMOGLOBIN 8.4 g/dL (13.5-17.5); LYMPHOCYTES # (AUTO) 0.7 K/uL (0.8-4.8); LYMPHOCYTES % (AUTO) 17.7 % (20.0-44.0); MEAN CORPUSCULAR HGB CONC 33 g/dl (31.0-36.0); MEAN CORPUSCULAR VOLUME 91 fL (80-96); MONOCYTES # (AUTO) 0.7 K/uL (0.1-1.30); MONOCYTES % (AUTO) 17.5 % (2.0-12.0); NEUTROPHILS # (AUTO) 2.4 K/uL (1.8-8.9); NEUTROPHILS % (AUTO) 61.7 % (43.0-81.0); PLATELET COUNT (AUTO) 205 K/uL (150-450)
--- NOTE | 2022-04-26 20:13 | NUR ---
PT TAKEN TO CT VIA GLADYS
--- NOTE | 2022-04-26 20:26 | NUR ---
PT RETURNED TO ER BED [address]
[2022-04-26 20:44] LABS: ALBUMIN 1.7 g/dL (3.4-5.0); BILIRUBIN,DIRECT 0.1 mg/dL (0.0-0.2); BILIRUBIN,TOTAL 0.3 mg/dL (0.2-1.0); CALCIUM, SERUM 7.5 mg/dL (8.5-10.1); CREATININE 1.6 mg/dL (0.6-1.3); POTASSIUM 4.9 mmol/L (3.5-5.1); TOTAL PROTEIN, SERUM 5.1 g/dL (6.4-8.2)
--- NOTE | 2022-04-26 21:44 | NUR ---
SWAB FOR COVID19 SENT TO LAB
--- NOTE | 2022-04-26 21:46 | NUR ---
George aranda in [facility] - 04/26/22 at 2147 by MADISYN mulu faith
[2022-04-26] MEDS ORDERED: MORPHINE SULFATE INJ 2 MG/ML DISP.SYRIN IM ONE (22:00)
[2022-04-26] MEDS ORDERED: MORPHINE SULFATE INJ 4 MG/ML DISP.SYRIN ONE (22:00)
[2022-04-26 22:43] LABS: BACTERIA,URINE None seen /HPF (None Seen); RBC,URINE 51-80 /HPF (0-2); SQUAMOUS EPITHELIAL CELL,UR 0-2 /HPF (None Seen); WBC,URINE 0-2 /HPF (0-3)
[2022-04-26 22:52] LABS: BAND % (MANUAL) 1 % (0.0-5.0); EOSINOPHILS % (MANUAL) 1 % (0-4); LYMPHOCYTES % (MANUAL) 17 % (16-48); MONOCYTES % (MANUAL) 11 % (0-11.0); NEUTROPHILS % (MANUAL) 70 (42-76)
--- NOTE | 2022-04-27 00:06 | NUR ---
[facility] PANEL ON THE PHONE FOR ADMISSION, LALY SEWELL NP
[2022-04-27] MEDS ORDERED: ACETAMINOPHEN 325 MG TABLET PO PRN (01:30)
[2022-04-27] MEDS ORDERED: MAG HYDROX/AL HYDROX/SIMETH 30 ML UDC PO PRN (01:30)
[2022-04-27] MEDS ORDERED: BISACODYL SUPP (10 MG) 10 MG/SUPP.RECT SUPP.RECT RC PRN (01:30)
[2022-04-27] MEDS ORDERED: DEXTROSE 50%-WATER 50 ML DISP.SYRIN IV PRN (01:30)
[2022-04-27] MEDS ORDERED: ONDANSETRON HCL/PF 4 MG/2 ML VIAL IVP PRN (01:30)
[2022-04-27] MEDS ORDERED: Z GUARD REMEDY 4 OZ OINT TP PRN (01:30)
[2022-04-27] MEDS ORDERED: MAGNESIUM HYDROXIDE 30 ML UDC PO PRN (01:30)
--- NOTE | 2022-04-27 01:45 | NUR ---
ADLS DONE; MEDIUM INCONTINENT BM NOTED. 400ML URINE OUTPUT VIA URINAL. PT KEPT CLEAN AND DRY. REPOSITIONED PT.
--- NOTE | 2022-04-27 03:06 | NUR ---
Report given to Mehreen SANCHEZ
--- NOTE | 2022-04-27 03:15 | NUR ---
Transferred to room 113-1 via ana with RN.
--- NOTE | 2022-04-27 03:20 | NUR ---
SENIOR MICROSTRATEGY DEVELOPER NOTE RECEIVED 61 Y/O M PATIENT FROM ER A/O X 4, ABLE TO MAKE NEEDS KNOWN, ON O2 VIA NC AT 4LPM, TOLERATING WELL SATING 100%, PT DIAGNOSE WITH PNA, ADMISSION CARE RENDERED, SKIN ASSESSMENT DONE, PICTURES TAKEN AND PLACED ON CHART, NO IV ACCESS AT THIS TIME, PER ER NURSE PT IS HARDSTICK AND AWAITING FOR MIDLINE INSERTION IN AM, OFFERED TO RE-INSERT IV ACCES, PT STILL REFUSED VERBALIZED APPLICATIONS ENGINEER MANUFACTURING "I DON'T WANT TO BE POKE AGAIN, I'LL WAIT FOR THE ML NURSE IN THE MORNING". UNABLE TO ADMINISTER SCHEDULED ABX AT THIS TIME, CN MADE AWARE. SAFETY MEASURES IN PLACED, BED IN LOWEST AND LOCKED POSITION, BED ALARM ON, CALL LIGHT WITHIN REACH AND INSTRUCTED TO CALL FOR ASSISTANCE, WILL CONTINUE TO MONITOR THROUGHOUT THE SHIFT.
[2022-04-27] MEDS ORDERED: CEFEPIME 1 GM in IV D5W 50 ML IV SCH (03:26)
[2022-04-27] MEDS ORDERED: CEFEPIME 1 GM VIAL ONE (03:48)
[2022-04-27 04:00] VITALS: BP 126/71
[2022-04-27] MEDS: ZOLPIDEM TARTRATE 5 MG TABLET PO PRN (04:41)
--- NOTE | 2022-04-27 06:43 | NUR ---
MS RN CLOSING NOTES: PT IN BED AWAKE, A/O X4, NO SOB OR CARDIAC DISTRESS NOTED. PT ON O2 INHALATION AT 4LPM VIA NC AND TOLERATING WELL. NO IV ACCESS AT THIS TIME AWAITING FOR MIDLINE INSERTION, CN MADE AWARE, ALL NEEDS ATTENDED, KEPT DRY AND CLEAN, SAFETY MEASURES MAINTAINED. BED LOCKED AND IN LOWEST POSITION, SIDE RAILS UP X2 CALL LIGHT IN EASY REACH. WILL ENDORSE TO AM SHIFT NURSE FOR CONTINUITY OF CARE.
--- NOTE | 2022-04-27 07:30 | NUR ---
MS RN OPENING NOTES: PT IN BED AWAKE, A/O X4, NO SOB OR CARDIAC DISTRESS NOTED. PT ON O2 INHALATION AT 4LPM VIA NC AND TOLERATING WELL. NO IV ACCESS AT THIS TIME AWAITING FOR MIDLINE INSERTION, CN MADE AWARE, SAFETY MEASURES MAINTAINED. BED LOCKED AND IN LOWEST POSITION, SIDE RAILS UP X2 CALL LIGHT IN EASY REACH. WILL CONTINUE TO MONITOR.
[2022-04-27] MEDS: BLOOD SUGAR DIAGNOSTIC 1 EACH STRIP IN SCH ×4 (08:46→21:45)
[2022-04-27] MEDS ORDERED: HYDROCODONE/APAP 5/325MG TABLET PO PRN (09:00)
[2022-04-27] MEDS: Fluoxetine 10 mg capsule PO SCH (09:29)
[2022-04-27] MEDS: CEFEPIME 2 GM in IV D5W 100 ML IV SCH (09:29)
[2022-04-27] MEDS: PANTOPRAZOLE 40 MG VIAL IV SCH (09:29)
[2022-04-27] MEDS: LEVETIRACETAM (250 MG) 250 MG TABLET PO SCH ×2 (09:29→20:21)
[2022-04-27] MEDS: FOLIC ACID 1 MG TABLET PO SCH (09:29)
[2022-04-27] MEDS: hydrALAZINE HCL 50 MG TABLET PO SCH ×3 (09:30→17:16)
[2022-04-27] MEDS: DOCUSATE SODIUM 100 MG CAPSULE PO SCH (09:30)
[2022-04-27] MEDS: IV NS 0.9% 1,000 ML IV PRN (09:31)
[2022-04-27 13:00] LABS: BASOPHILS % (AUTO) 0.5 % (0.0-2.0); HEMATOCRIT 25 % (39-51); HEMOGLOBIN 8.4 g/dL (13.5-17.5); LYMPHOCYTES # (AUTO) 0.5 K/uL (0.8-4.8); LYMPHOCYTES % (AUTO) 13.9 % (20.0-44.0); MEAN CORPUSCULAR HGB CONC 33 g/dl (31.0-36.0); MEAN CORPUSCULAR VOLUME 91 fL (80-96); MONOCYTES # (AUTO) 0.5 K/uL (0.1-1.30); MONOCYTES % (AUTO) 15.7 % (2.0-12.0); NEUTROPHILS # (AUTO) 2.3 K/uL (1.8-8.9); NEUTROPHILS % (AUTO) 67.9 % (43.0-81.0); PLATELET COUNT (AUTO) 187 K/uL (150-450); RED BLOOD CELL COUNT(AUTO) 2.79 MIL/uL (4.5-6.0); WHITE BLOOD COUNT (AUTO) 3.4 K/uL (4.3-11.0)
[2022-04-27] MEDS: ENSURE CLEAR 237 ML LIQUID (MIX BERRY) PO SCH ×2 (13:14→17:15)
[2022-04-27 13:52] LABS: CALCIUM, SERUM 7.3 mg/dL (8.5-10.1); CREATININE 1.6 mg/dL (0.6-1.3); MAGNESIUM 1.4 mg/dL (1.8-2.4); PHOSPHORUS 4.3 mg/dL (2.5-4.9); POTASSIUM 4.1 mmol/L (3.5-5.1)
[2022-04-27 14:05] VITALS: BP 128/68
[2022-04-27 14:49] LABS: OCCULT BLOOD STOOL NEGATIVE (NEGATIVE)
[2022-04-27 15:38] LABS: EOSINOPHILS % (MANUAL) 3 % (0-4); LYMPHOCYTES % (MANUAL) 16 % (16-48); MONOCYTES % (MANUAL) 19 % (0-11.0); NEUTROPHILS % (MANUAL) 62 (42-76)
[2022-04-27] MEDS: AMITRIPTYLINE HCL 25 MG TABLET PO SCH (17:16)
--- NOTE | 2022-04-27 18:54 | NUR ---
MS RN CLOSING NOTES: PT IN BED AWAKE, A/O X4, NO SOB OR CARDIAC DISTRESS NOTED. PT ON O2 INHALATION AT 4LPM VIA NC AND TOLERATING WELL. NEW IV ACCESS AT BULMARO MIDLINE WITH NS AT 75ML/HR. ALL NEEDS ATTENDED, DUE MEDS GIVEN. KEPT DRY AND CLEAN, SAFETY MEASURES MAINTAINED. BED LOCKED AND IN LOWEST POSITION, SIDE RAILS UP X2 CALL LIGHT IN EASY REACH. WILL ENDORSE TO FILTERATION OPERATOR NURSE FOR CONTINUITY OF CARE.
--- NOTE | 2022-04-27 19:30 | NUR ---
MS RN OPENING NOTES RECEIVED PATIENT IN BED WITH CLOSED EYES. OPENS HIS EYES UPON CALLING HIS NAME. PATIENT IS A/O TIMES 4. NO PAIN NOTED. NO SOB NOTED. NO DISTRESS NOTED. ON O2 INHALATION VIA NASAL CANNULA AT 4L/MIN. O2 SAT NOTED 98%. PATIENT HAVING CONDOM CATHETER. KAMLESH MIDLINE INTACT AND RUNNING NS AT 75 ML/HR. ALL NEEDS ATTENDED. REMINDED THE PATIENT TO PRESS CALL LIGHT FOR ANY ASSISTANCE. VERBALIZED UNDERSTANDING. ALL SAFETY MEASURES IN PLACE. BED LOCKED IN THE LOWEST POSITION. CALL LIGHT AND TABLE IN EASY REACH. SIDE RAILS UP TIMES 2. WILL CONTINUE TO MONITOR CLOSELY.
[2022-04-27 20:24] VITALS: BP 120/70
[2022-04-27] MEDS: IPRATROPIUM NEB FS 0.5 MG/2.5 ML AMPUL.NEB IH SCH (20:24)
[2022-04-27] MEDS: POLYETHYLENE GLYCOL 3350 17 GM POWD.PACK PO SCH (21:32)
[2022-04-27] MEDS: ATORVASTATIN 40 MG TABLET PO SCH (21:32)
[2022-04-27] MEDS: TAMSULOSIN 0.4 MG CAP.SR.24H PO SCH (21:32)
[2022-04-28] MEDS: IV NS 0.9% 1,000 ML IV PRN (00:02)
[2022-04-28] MEDS: IPRATROPIUM NEB FS 0.5 MG/2.5 ML AMPUL.NEB IH SCH ×4 (01:56→20:12)
[2022-04-28] MEDS: BLOOD SUGAR DIAGNOSTIC 1 EACH STRIP IN SCH ×4 (05:55→21:49)
[2022-04-28 05:58] LABS: BASOPHILS % (AUTO) 0.7 % (0.0-2.0); EOSINOPHILS % (AUTO) 4.1 % (0.0-6.0); HEMATOCRIT 24 % (39-51); HEMOGLOBIN 7.8 g/dL (13.5-17.5); LYMPHOCYTES # (AUTO) 0.6 K/uL (0.8-4.8); LYMPHOCYTES % (AUTO) 23.3 % (20.0-44.0); MEAN CORPUSCULAR HGB CONC 33 g/dl (31.0-36.0); MEAN CORPUSCULAR VOLUME 90 fL (80-96); MONOCYTES # (AUTO) 0.5 K/uL (0.1-1.30); MONOCYTES % (AUTO) 20.5 % (2.0-12.0); NEUTROPHILS # (AUTO) 1.3 K/uL (1.8-8.9); NEUTROPHILS % (AUTO) 51.4 % (43.0-81.0); PLATELET COUNT (AUTO) 186 K/uL (150-450); RED BLOOD CELL COUNT(AUTO) 2.63 MIL/uL (4.5-6.0); WHITE BLOOD COUNT (AUTO) 2.5 K/uL (4.3-11.0)
[2022-04-28 06:27] LABS: CALCIUM, SERUM 7.2 mg/dL (8.5-10.1); CREATININE 1.5 mg/dL (0.6-1.3); MAGNESIUM 1.3 mg/dL (1.8-2.4); PHOSPHORUS 4.3 mg/dL (2.5-4.9)
--- NOTE | 2022-04-28 06:37 | NUR ---
MS RN CLOSING NOTES PATIENT IN BED WITH CLOSED EYES. OPENS HIS EYES UPON CALLING HIS NAME. PATIENT IS A/O TIMES 4. NO PAIN NOTED. NO SOB NOTED. NO DISTRESS NOTED. ON O2 INHALATION VIA NASAL CANNULA AT 4L/MIN. O2 SAT NOTED 99%. PATIENT HAVING CONDOM CATHETER. BULMARO MIDLINE INTACT AND RUNNING NS AT 75 ML/HR. ALL NEEDS ATTENDED. REMINDED THE PATIENT TO PRESS CALL LIGHT FOR ANY ASSISTANCE. VERBALIZED UNDERSTANDING. ALL DUE MEDS GIVEN ORDERED. ALL SAFETY MEASURES IN PLACE. BED LOCKED IN THE LOWEST POSITION. CALL LIGHT AND TABLE IN EASY REACH. SIDE RAILS UP TIMES 2. WILL ENDORSE FOR ANGELIC.
[2022-04-28] MEDS: ENSURE CLEAR 237 ML LIQUID (MIX BERRY) PO SCH ×3 (08:00→17:29)
--- NOTE | 2022-04-28 08:11 | NUR ---
RN OPENING NOTE PATIENT AWAKE IN BED RESTING, A/O X 4. NO S/S OF PAIN NOTED AT THIS TIME. ON 4L OXYGEN, NO DISTRESS OR SHORTNESS OF BREATH NOTED. IV ACCESS KAMLESH MIDLINE, INTACT, PATENT AND FLUSHING WELL. PATIENT HAVE A CONDOM CATH. IN PLACE AND DRAINING WELL. FALL AND SAFETY MEASURES IN PLACE, BED ALARM ON, BED IN LOW AND LOCK POSITION, CALL LIGHT AND TABLE WITHIN EASY REACH, SIDE RAILS UP X2. WILL CONTINUE TO MONITOR.
[2022-04-28] MEDS: PANTOPRAZOLE 40 MG VIAL IV SCH (08:26)
[2022-04-28] MEDS: CEFEPIME 2 GM in IV D5W 100 ML IV SCH (08:26)
[2022-04-28] MEDS: LEVETIRACETAM (250 MG) 250 MG TABLET PO SCH ×2 (08:26→21:30)
[2022-04-28] MEDS: DOCUSATE SODIUM 100 MG CAPSULE PO SCH (08:27)
[2022-04-28] MEDS: FOLIC ACID 1 MG TABLET PO SCH (08:27)
[2022-04-28] MEDS: Fluoxetine 10 mg capsule PO SCH (08:27)
[2022-04-28] MEDS: hydrALAZINE HCL 50 MG TABLET PO SCH ×3 (08:28→17:28)
[2022-04-28 10:42] VITALS: BP 128/69
[2022-04-28] MEDS: Magnesium 1GM/D5W 100ML PREMIX 100 ML IV SCH ×2 (11:44→12:54)
[2022-04-28 11:58] LABS: BAND % (MANUAL) 2 % (0.0-5.0); BASOPHILS % (MANUAL) 0 % (0.0-2.0); EOSINOPHILS % (MANUAL) 3 % (0-4); LYMPHOCYTES % (MANUAL) 21 % (16-48); MONOCYTES % (MANUAL) 18 % (0-11.0); NEUTROPHILS % (MANUAL) 56 (42-76)
--- NOTE | 2022-04-28 12:00 | NUR ---
RN NOTE PERSONNEL FROM [facility] CALLED TO CONFIRMED THE MEDICAL RECORDS REQUEST. WAITING FOR [facility] TO SEND PATIENT MEDICAL RECORDS. CHARGE NURSE AWARE.
[2022-04-28 16:15] VITALS: BP 131/65
[2022-04-28] MEDS: AMITRIPTYLINE HCL 25 MG TABLET PO SCH (17:28)
--- NOTE | 2022-04-28 17:39 | NUR ---
RECEIVED PATIENT ON 4LNC SATURATIONS AT 98%. HHN TXS GILDARDO WELL WITH NO ADVERSE REACTION NOTED. Addendum: 04/28/22 at 1740 by JEANA BROOKS RT NO SOB NOTED.
[2022-04-28] MEDS: INSULIN REGULAR, HUMAN 100 UNIT/ML 3 ML VIAL SQ PRN ×2 (17:42→21:50)
--- NOTE | 2022-04-28 18:35 | NUR ---
RN CLOSING NOTE PATIENT AWAKE IN BED RESTING, A/O X 4. NO S/S OF PAIN NOTED AT THIS TIME. ON 4L OXYGEN VIA NC, NO DISTRESS OR SHORTNESS OF BREATH NOTED. IV ACCESS KAMLESH MIDLINE, INTACT, PATENT AND FLUSHING WELL. PATIENT HAVE A CONDOM CATH. IN PLACE AND DRAINING WELL, OUTPUT 600ML. SCHEDULE MEDICATIONS ADMINISTERED. PATIENT WAS ENCOURAGE AND HELPED TO TURNED AND REPOSITIONED PER PROTOCOL. FALL AND SAFETY MEASURES IN PLACE, BED ALARM ON, BED IN LOW AND LOCK POSITION, CALL LIGHT AND TABLE WITHIN EASY REACH, SIDE RAILS UP X2. ALL NEEDS ATTENDED AND ANTICIPATED. WILL ENDORSE TO SMALL ORDER CUTTER NURSE.
--- NOTE | 2022-04-28 19:30 | NUR ---
RN NOTES RECEIVED REPORT FROM MORNING SHIFT RN. A/O X4 ABLE TO MAKE NEEDS KNOWN. ON NASAL CANULA AT 4LPM SATING 98% NO SOB NO DISTRESS NOTED AT THIS TIME. WITH IV ACCESS AT KAMLESH MIDLINE PATENT FLUSHES WELL. VITAL SIGNS TAKEN AND RECORDED AFEBRILE. ALL SAFETY [id number] IN PLACE AT ALL TIMES. HOB ELEVATED. CALL LIGHT WITHIN REACH. WILL CLOSELY MONITOR THE PATIENT
[2022-04-28] MEDS: TAMSULOSIN 0.4 MG CAP.SR.24H PO SCH (21:30)
[2022-04-28] MEDS: ATORVASTATIN 40 MG TABLET PO SCH (21:30)
[2022-04-28] MEDS: oxyCODONE IR immediate release 5 MG PO PRN (21:50)
[2022-04-28] MEDS: POLYETHYLENE GLYCOL 3350 17 GM POWD.PACK PO SCH (21:51)
[2022-04-28] MEDS ORDERED: DIPHENOXYLATE HCL/ATROP SULF 1 UDTAB TABLET PO PRN (22:00)
[2022-04-28] MEDS ORDERED: DIPHENOXYLATE HCL/ATROP SULF 1 UDTAB TABLET ONE (23:47)
[2022-04-28] MEDS: DIPHENOXYLATE HCL/ATROP SULF 1 UDTAB TABLET PO PRN (23:48)
[2022-04-29] MEDS: IPRATROPIUM NEB FS 0.5 MG/2.5 ML AMPUL.NEB IH SCH ×4 (01:40→19:34)
[2022-04-29 06:31] LABS: BASOPHILS % (AUTO) 0.9 % (0.0-2.0); EOSINOPHILS % (AUTO) 4.4 % (0.0-6.0); HEMATOCRIT 29 % (39-51); HEMOGLOBIN 9.7 g/dL (13.5-17.5); LYMPHOCYTES # (AUTO) 0.6 K/uL (0.8-4.8); LYMPHOCYTES % (AUTO) 31.9 % (20.0-44.0); MEAN CORPUSCULAR HGB CONC 33 g/dl (31.0-36.0); MEAN CORPUSCULAR VOLUME 90 fL (80-96); MONOCYTES # (AUTO) 0.4 K/uL (0.1-1.30); MONOCYTES % (AUTO) 22.8 % (2.0-12.0); NEUTROPHILS # (AUTO) 0.7 K/uL (1.8-8.9); PLATELET COUNT (AUTO) 169 K/uL (150-450); RED BLOOD CELL COUNT(AUTO) 3.23 MIL/uL (4.5-6.0)
--- NOTE | 2022-04-29 06:37 | NUR ---
RN NOTES PT IN BED AWAKE, A/O X4, NO SOB OR CARDIAC DISTRESS NOTED. PT ON O2 INHALATION AT 4LPM VIA NC DURING DAYTIME AND NOCTURNAL BIPAP IV ACCESS AT BULMARO MIDLINE PATENT FLUSHES WELL. ALL NEEDS ATTENDED, DUE MEDS GIVEN. KEPT DRY AND CLEAN, SAFETY MEASURES MAINTAINED. BED LOCKED AND IN LOWEST POSITION, SIDE RAILS UP X2 CALL LIGHT IN EASY REACH. WILL ENDORSE TO CADD TECHNICIAN NURSE FOR CONTINUITY OF CARE.
[2022-04-29 06:54] LABS: WHITE BLOOD COUNT (AUTO) 1.8 K/uL (4.3-11.0)
[2022-04-29 07:02] LABS: CALCIUM, SERUM 7.3 mg/dL (8.5-10.1); CREATININE 1.7 mg/dL (0.6-1.3); MAGNESIUM 1.6 mg/dL (1.8-2.4)
[2022-04-29] MEDS: BLOOD SUGAR DIAGNOSTIC 1 EACH STRIP IN SCH ×4 (07:05→21:36)
[2022-04-29 07:25] LABS: POTASSIUM 4.2 mmol/L (3.5-5.1)
[2022-04-29] MEDS: FOLIC ACID 1 MG TABLET PO SCH (07:51)
[2022-04-29] MEDS: LEVETIRACETAM (250 MG) 250 MG TABLET PO SCH ×2 (07:51→21:35)
[2022-04-29] MEDS: DOCUSATE SODIUM 100 MG CAPSULE PO SCH (07:51)
[2022-04-29] MEDS: Fluoxetine 10 mg capsule PO SCH (07:51)
[2022-04-29] MEDS: ENSURE CLEAR 237 ML LIQUID (MIX BERRY) PO SCH ×3 (07:53→16:18)
[2022-04-29] MEDS: PANTOPRAZOLE 40 MG VIAL IV SCH (07:53)
[2022-04-29] MEDS: hydrALAZINE HCL 50 MG TABLET PO SCH ×3 (08:18→16:18)
[2022-04-29] MEDS: CEFEPIME 2 GM in IV D5W 100 ML IV SCH (08:19)
--- NOTE | 2022-04-29 10:37 | NUR ---
INFORMED DR HERNANDEZ RE: WBC-1.8 TODAY.
[2022-04-29] MEDS ORDERED: MAGNESIUM OXIDE 400 MG TABLET PO ONE (11:00)
[2022-04-29] MEDS: oxyCODONE IR immediate release 5 MG PO PRN (12:21)
--- NOTE | 2022-04-29 12:29 | NUR ---
PATIENT REFUSED THE TYLENOL AFTER I SCANNED IT, WANTED OXYCODONE, GIVEN D/T C/O ABDOMINAL PAIN 11/09.
[2022-04-29 16:21] LABS: EOSINOPHILS % (MANUAL) 4 % (0-4); LYMPHOCYTES % (MANUAL) 34 % (16-48); MONOCYTES % (MANUAL) 16 % (0-11.0); NEUTROPHILS % (MANUAL) 46 (42-76)
[2022-04-29] MEDS: DICYCLOMINE HCL 10 MG CAPSULE PO SCH ×2 (17:16→23:45)
[2022-04-29] MEDS: AMITRIPTYLINE HCL 25 MG TABLET PO SCH (17:17)
[2022-04-29] MEDS: INSULIN REGULAR, HUMAN 100 UNIT/ML 3 ML VIAL SQ PRN ×2 (17:20→21:54)
[2022-04-29] MEDS: TBO-FILGRASTIM 480 MCG/0.8 ML ML SQ SCH (17:31)
[2022-04-29 17:33] LABS: D-DIMER 3.11 mg/L(FEU (0.17-0.50)
--- NOTE | 2022-04-29 18:30 | NUR ---
PATIENT IS AWAKE,ALERT,ORIENTEDX3, NO COMPLAINT OF PAIN,NO SIGNS OF IN DISTRESS, UNLABORED BREATHING ON 2L/MIN OF O2, SPO2-98%, VITAL SIGNS ARE STABLE, BED IN LOW POSITION, CALL LIGHT WITHIN REACH.
[2022-04-29] MEDS: DIPHENOXYLATE HCL/ATROP SULF 1 UDTAB TABLET PO PRN (19:24)
--- NOTE | 2022-04-29 19:26 | NUR ---
MS RN NOTE PATIENT IS AWAKE,ALERT,ORIENTEDX3, NO COMPLAINT OF PAIN,NO SIGNS OF IN DISTRESS, UNLABORED BREATHING ON 2L/MIN OF O2, SPO2-98%, ALL NEEDS MET PRN ANTIDIARRHEA MEDICATION GIVEN AT PTS REQUEST. ALL NEEDS MET AT THIS TIME. CALL LIGHT WITHIN REACH. TABLE WITH REACH. BED IN LOW LOCKED POSITION.
[2022-04-29] MEDS: MORPHINE SULFATE IR 15 MG TABLET PO PRN (20:56)
--- NOTE | 2022-04-29 20:57 | NUR ---
RN NOTE PRN MORPHINE GIVEN FOR PAIN 8/10 ON A NUMERIC PAIN SCALE TOLERATE WELL.
[2022-04-29] MEDS: POLYETHYLENE GLYCOL 3350 17 GM POWD.PACK PO SCH (21:32)
[2022-04-29] MEDS: ATORVASTATIN 40 MG TABLET PO SCH (21:35)
[2022-04-29] MEDS: TAMSULOSIN 0.4 MG CAP.SR.24H PO SCH (21:36)
[2022-04-30] MEDS: IPRATROPIUM NEB FS 0.5 MG/2.5 ML AMPUL.NEB IH SCH ×4 (01:15→20:00)
[2022-04-30] MEDS: DICYCLOMINE HCL 10 MG CAPSULE PO SCH ×4 (06:27→23:06)
[2022-04-30 07:13] LABS: BASOPHILS % (AUTO) 0.6 % (0.0-2.0); EOSINOPHILS % (AUTO) 2.8 % (0.0-6.0); HEMATOCRIT 22 % (39-51); HEMOGLOBIN 7.3 g/dL (13.5-17.5); LYMPHOCYTES # (AUTO) 0.8 K/uL (0.8-4.8); LYMPHOCYTES % (AUTO) 20.6 % (20.0-44.0); MEAN CORPUSCULAR HGB CONC 33 g/dl (31.0-36.0); MEAN CORPUSCULAR VOLUME 90 fL (80-96); MONOCYTES # (AUTO) 0.7 K/uL (0.1-1.30); MONOCYTES % (AUTO) 19.4 % (2.0-12.0); NEUTROPHILS # (AUTO) 2.1 K/uL (1.8-8.9); NEUTROPHILS % (AUTO) 56.6 % (43.0-81.0); PLATELET COUNT (AUTO) 166 K/uL (150-450); RED BLOOD CELL COUNT(AUTO) 2.44 MIL/uL (4.5-6.0); WHITE BLOOD COUNT (AUTO) 3.7 K/uL (4.3-11.0)
--- NOTE | 2022-04-30 07:35 | NUR ---
RN OPENING NOTES PT IN BED AWAKE, A/O X4, NO SOB OR CARDIAC DISTRESS NOTED. PT ON O2 INHALATION AT 4LPM VIA NC, TOLERATING WELL, IV ACCESS AT BULMARO MIDLINE PATENT FLUSHES WELL. KEPT DRY AND CLEAN, SAFETY MEASURES MAINTAINED. BED LOCKED AND IN LOWEST POSITION, SIDE RAILS UP X2 CALL LIGHT IN EASY REACH. PLAN OF CARE CONTINUE.
[2022-04-30 07:38] LABS: D-DIMER 2.35 mg/L(FEU (0.17-0.50)
[2022-04-30] MEDS: ENSURE CLEAR 237 ML LIQUID (MIX BERRY) PO SCH ×3 (07:52→16:05)
[2022-04-30] MEDS: BLOOD SUGAR DIAGNOSTIC 1 EACH STRIP IN SCH ×4 (07:52→21:28)
--- NOTE | 2022-04-30 08:29 | NUR ---
notified to Dr Conklin and Dr Mandeep Hernández regarding hbg 7.3 hct 22 and wbc 3.7 waiting for returning call back
[2022-04-30] MEDS: FOLIC ACID 1 MG TABLET PO SCH (08:37)
[2022-04-30] MEDS: CEFEPIME 2 GM in IV D5W 100 ML IV SCH (08:37)
[2022-04-30] MEDS: Fluoxetine 10 mg capsule PO SCH (08:37)
[2022-04-30] MEDS: LEVETIRACETAM (250 MG) 250 MG TABLET PO SCH ×2 (08:37→21:27)
[2022-04-30] MEDS: hydrALAZINE HCL 50 MG TABLET PO SCH ×3 (08:38→16:44)
[2022-04-30] MEDS: DOCUSATE SODIUM 100 MG CAPSULE PO SCH (08:42)
[2022-04-30 08:46] LABS: CALCIUM, SERUM 7.5 mg/dL (8.5-10.1); CREATININE 1.9 mg/dL (0.6-1.3); MAGNESIUM 1.5 mg/dL (1.8-2.4); PHOSPHORUS 3.6 mg/dL (2.5-4.9); POTASSIUM 4.4 mmol/L (3.5-5.1)
[2022-04-30 08:58] LABS: C-REACTIVE PROTEIN 2.9 mg/dL (0.0-0.9)
[2022-04-30] MEDS ORDERED: PANTOPRAZOLE 40 MG TABLET.DR PO SCH (09:00)
--- NOTE | 2022-04-30 09:00 | NUR ---
HELD DSS DUE TO PATIENT IS HAVING DIARRHEA.
[2022-04-30 09:21] LABS: BAND % (MANUAL) 2 % (0.0-5.0); EOSINOPHILS % (MANUAL) 4 % (0-4); LYMPHOCYTES % (MANUAL) 20 % (16-48); MONOCYTES % (MANUAL) 13 % (0-11.0); NEUTROPHILS % (MANUAL) 61 (42-76)
[2022-04-30] MEDS ORDERED: MAGNESIUM OXIDE 400 MG TABLET PO ONE (10:00)
--- NOTE | 2022-04-30 10:54 | NUR ---
TRIED REMOVING BLOOD FROM MIDLINE FOR LAB DRAW, PATIENT REFUSED TO BE POKE, UNABLE TO OBTAIN BLOOD FROM MIDLINE, MIDLINE FLUSHES WELL, PATIENT STATED "WHY DON'T YOU GUYS PUT PICC LINE", NOTIFIED AMANDA HERNANDEZ THAT PATIENT REFUSED TO BE POKE FOR BLOOD DRAW. PLAN OF CARE CONTINUE.
[2022-04-30 11:03] LABS: THYROID STIMULATING HORMONE 4.1 uIU/mL (0.358-3.74)
[2022-04-30 11:37] LABS: HEMOGLOBIN 7.5 g/dL (13.5-17.5)
--- NOTE | 2022-04-30 11:52 | NUR ---
redrwa blood per Mandeep Hernández now ghb 7.5 and hct 23 notified to David Hernández and ;S strategy specialist esd notified at this time
--- NOTE | 2022-04-30 11:53 | NUR ---
INFORMED ROBY BABY STROLLER RENTAL CLERK OF THE HEMOGLOBIN 7.5, NO NEW ORDER.PLAN OF CARE CONTINUE.
[2022-04-30] MEDS ORDERED: ACETAMINOPHEN 325 MG TABLET PO ONE (12:30)
[2022-04-30] MEDS ORDERED: diphenhydrAMINE HCL 50 MG/ML VIAL IV ONE (12:30)
--- NOTE | 2022-04-30 14:00 | NUR ---
PATIENT SIGNED ALL CONSENT FORMS. PLAN OF CARE CONTINUE.
--- NOTE | 2022-04-30 14:24 | NUR ---
PATIENT ALLOWED GREEN BELT TO DRAW BLOOD. PLAN OF CARE CONTINUE.
--- NOTE | 2022-04-30 14:58 | NUR ---
PATIENT ON MED SURG STATUS, AND INFORMED THAT TELE MONITOR NEEDS TO BE REMOVED, PATIENT STARTED YELLING AND SAYING HE NEEDS IT, EDUCATE PATIENT HE DON'T NEED IT, PATIENT STATED HE WILL GET BLOOD TRANSFUSION AND HE NEEDS THE HEART MONITOR, INFORMED PATIENT THAT HE ONLY NEEDS BLOOD PRESSURE CHECK, PATIENT STARTED BEING VERBALLY ABUSIVE. INFORMED CHARGE NURSE.
[2022-04-30] MEDS: TBO-FILGRASTIM 480 MCG/0.8 ML ML SQ SCH (16:17)
[2022-04-30] MEDS: AMITRIPTYLINE HCL 25 MG TABLET PO SCH (17:07)
[2022-04-30] MEDS: MORPHINE SULFATE IR 15 MG TABLET PO PRN (17:58)
--- NOTE | 2022-04-30 18:15 | NUR ---
RN CLOSING NOTES PT IN BED AWAKE, A/O X4, NO SOB OR CARDIAC DISTRESS NOTED. PT ON O2 INHALATION AT 4LPM VIA NC, TOLERATING WELL, IV ACCESS AT BULMARO MIDLINE PATENT AND INTACT FLUSHES WELL. KEPT DRY AND CLEAN, SAFETY MEASURES MAINTAINED. BED LOCKED AND IN LOWEST POSITION, SIDE RAILS UP X2 CALL LIGHT IN EASY REACH. WILL ENDORSE TO NIGHT NURSE FOR ANGELIC.
--- NOTE | 2022-04-30 19:30 | NUR ---
RECEIVED PT IN BED AWAKE, A/O X4, PT ON O2 AT 4LPM VIA NC, TOLERATING WELL, IV ACCESS AT BULMARO MIDLINE. SAFETY MEASURES IN PLACE. WILL CONTINUE PLAN OF CARE.
[2022-04-30] MEDS ORDERED: diphenhydrAMINE HCL 50 MG/ML VIAL ONE (19:48)
[2022-04-30 20:00] VITALS: BP 140/73
[2022-04-30 20:15] VITALS: BP 128/66
[2022-04-30 20:45] VITALS: BP 108/72
[2022-04-30] MEDS: TAMSULOSIN 0.4 MG CAP.SR.24H PO SCH (21:27)
[2022-04-30] MEDS: POLYETHYLENE GLYCOL 3350 17 GM POWD.PACK PO SCH (21:27)
[2022-04-30] MEDS: ATORVASTATIN 40 MG TABLET PO SCH (21:27)
[2022-04-30] MEDS: PANTOPRAZOLE 40 MG VIAL IV SCH (21:27)
[2022-04-30] MEDS: INSULIN REGULAR, HUMAN 100 UNIT/ML 3 ML VIAL SQ PRN (21:43)
[2022-04-30 21:45] VITALS: BP 129/69
[2022-04-30] MEDS: ZOLPIDEM TARTRATE 5 MG TABLET PO PRN (23:06)
[2022-04-30 23:11] VITALS: BP 133/70
[2022-05-01] MEDS: IPRATROPIUM NEB FS 0.5 MG/2.5 ML AMPUL.NEB IH SCH ×4 (02:39→20:15)
[2022-05-01] MEDS: DICYCLOMINE HCL 10 MG CAPSULE PO SCH ×4 (05:27→23:17)
--- NOTE | 2022-05-01 06:24 | NUR ---
PT IN BED AWAKE, A/O X4, PT ON O2 AT 4LPM VIA NC, TOLERATING WELL, IV ACCESS AT BULMARO MIDLINE. DUE MEDS AND PRN MEDS GIVEN NEEDED AND OREDERED. 1 UNIT PRBC TRANSFUDKEPT CLEAN AND DRY. NEEDS ATTENDED. ALL SAFETY MEASURES MAINTAINED. WILL ENDORSE TO NEXT NURSE ON DUTY FOR CONTINUITY OF CARE.
--- NOTE | 2022-05-01 06:25 | NUR ---
PT IN BED AWAKE, A/O X4, PT ON O2 AT 4LPM VIA NC, TOLERATING WELL, IV ACCESS AT [facility]LINE. DUE MEDS AND PRN MEDS GIVEN NEEDED AND OREDERED. 1 UNIT PRBC TRANSFUSED. PT TOLERATED PROCEDURE WELL. KEPT CLEAN AND DRY. NEEDS ATTENDED. ALL SAFETY MEASURES MAINTAINED. WILL ENDORSE TO NEXT NURSE ON DUTY FOR CONTINUITY OF CARE.
[2022-05-01 07:19] LABS: CALCIUM, SERUM 7.7 mg/dL (8.5-10.1); MAGNESIUM 1.3 mg/dL (1.8-2.4); PHOSPHORUS 3.8 mg/dL (2.5-4.9); POTASSIUM 4.8 mmol/L (3.5-5.1)
--- NOTE | 2022-05-01 07:20 | NUR ---
RN OPEN NOTES PT IN BED AWAKE, A/O X4, NO SOB OR CARDIAC DISTRESS NOTED. PT ON O2 INHALATION AT 4LPM VIA NC, TOLERATING WELL, IV ACCESS AT [facility] PATENT AND INTACT FLUSHES WELL. PATIENT IS ON NRO DIET DUE TO EGD SCHEDULED FOR TODAY SAFETY MEASURES MAINTAINED. BED LOCKED AND IN LOWEST POSITION, SIDE RAILS UP X2 CALL LIGHT IN EASY REACH. WILL CONTINUE TO MO MONITOR
[2022-05-01 07:21] LABS: BASOPHILS % (AUTO) 0.6 % (0.0-2.0); HEMATOCRIT 29 % (39-51); HEMOGLOBIN 9.8 g/dL (13.5-17.5); LYMPHOCYTES # (AUTO) 0.9 K/uL (0.8-4.8); LYMPHOCYTES % (AUTO) 21.8 % (20.0-44.0); MEAN CORPUSCULAR HGB CONC 34 g/dl (31.0-36.0); MEAN CORPUSCULAR VOLUME 88 fL (80-96); MONOCYTES # (AUTO) 0.9 K/uL (0.1-1.30); MONOCYTES % (AUTO) 23.8 % (2.0-12.0); NEUTROPHILS % (AUTO) 49.8 % (43.0-81.0); PLATELET COUNT (AUTO) 183 K/uL (150-450); RED BLOOD CELL COUNT(AUTO) 3.31 MIL/uL (4.5-6.0); WHITE BLOOD COUNT (AUTO) 3.9 K/uL (4.3-11.0)
[2022-05-01 07:25] LABS: D-DIMER 2.44 mg/L(FEU (0.17-0.50)
[2022-05-01] MEDS: BLOOD SUGAR DIAGNOSTIC 1 EACH STRIP IN SCH ×4 (07:31→21:49)
[2022-05-01 08:38] LABS: BAND % (MANUAL) 7 % (0.0-5.0); EOSINOPHILS % (MANUAL) 3 % (0-4); LYMPHOCYTES % (MANUAL) 20 % (16-48); MONOCYTES % (MANUAL) 24 % (0-11.0); NEUTROPHILS % (MANUAL) 46 (42-76)
[2022-05-01] MEDS: ENSURE CLEAR 237 ML LIQUID (MIX BERRY) PO SCH ×3 (09:06→17:00)
[2022-05-01 09:07] LABS: *ANA ANTI-CENTROMERE B AB <0.2 AI (0.0-0.9); *ANA ANTI-DNA(DS) AB, QN <1 IU/mL (0-9); *ANA ANTI-JO-1 <0.2 AI (0.0-0.9); *ANA ANTICHROMATIN ANTIBODY <0.2 AI (0.0-0.9); *ANA RNP ANTIBODIES <0.2 AI (0.0-0.9); *ANA SJOGREN'S ANTI-SS-A <0.2 AI (0.0-0.9); *ANA SJOGREN'S ANTI-SS-B <0.2 AI (0.0-0.9); *ANAANTI-SCLERODERMA-70 AB <0.2 AI (0.0-0.9); *ANASMITH AB <0.2 AI (0.0-0.9)
[2022-05-01] MEDS: FOLIC ACID 1 MG TABLET PO SCH (09:12)
[2022-05-01] MEDS: CEFEPIME 2 GM in IV D5W 100 ML IV SCH (09:12)
[2022-05-01] MEDS: DOCUSATE SODIUM 100 MG CAPSULE PO SCH (09:13)
[2022-05-01] MEDS: Fluoxetine 10 mg capsule PO SCH (09:13)
[2022-05-01] MEDS: LEVETIRACETAM (250 MG) 250 MG TABLET PO SCH ×2 (09:13→20:48)
[2022-05-01] MEDS: hydrALAZINE HCL 50 MG TABLET PO SCH ×3 (09:13→17:00)
[2022-05-01] MEDS: PANTOPRAZOLE 40 MG VIAL IV SCH ×2 (09:14→20:48)
[2022-05-01] MEDS: MORPHINE SULFATE IR 15 MG TABLET PO PRN ×2 (09:35→20:48)
[2022-05-01 10:07] LABS: IMMUNOGLOBULIN A, SERUM 419 mg/dL (61-437); IMMUNOGLOBULIN G, SERUM 434 mg/dL (603-1613); IMMUNOGLOBULIN M, SERUM 8 mg/dL (20-172)
[2022-05-01] MEDS ORDERED: MAGNESIUM OXIDE 400 MG TABLET PO ONE (11:30)
[2022-05-01 15:06] LABS: *SPE A/G RATIO 0.8 (0.7-1.7); *SPE ALPHA-1-GLOBULIN 0.3 g/dL (0.0-0.4); *SPE ALPHA-2-GLOBULIN 0.9 g/dL (0.4-1.0); *SPE BETA GLOBULIN 0.8 g/dL (0.7-1.3); *SPE M-SPIKE Not Observed g/dL (Not Observed)
[2022-05-01] MEDS: AMITRIPTYLINE HCL 25 MG TABLET PO SCH (17:22)
--- NOTE | 2022-05-01 18:54 | NUR ---
RN closing NOTES PT IN BED AWAKE, A/O X4, NO SOB OR CARDIAC DISTRESS NOTED. PT ON O2 INHALATION AT 4LPM VIA NC, TOLERATING WELL, IV ACCESS AT [facility] PATENT AND INTACT FLUSHES WELL. PATIENT IS TAKEN TO EDG PROCEDURE AT 640 PM
--- NOTE | 2022-05-01 19:30 | NUR ---
RECEIVED REPORT FOR PT IN EGD FROM 183, WILL ASSESS, PLACE SAFETY MEASURES AND CONTINUE PLAN OF CARE WHEN PT RETURNS TO ROOM.
[2022-05-01] MEDS: POLYETHYLENE GLYCOL 3350 17 GM POWD.PACK PO SCH (21:50)
[2022-05-01] MEDS: INSULIN REGULAR, HUMAN 100 UNIT/ML 3 ML VIAL SQ PRN (21:50)
[2022-05-01] MEDS: TAMSULOSIN 0.4 MG CAP.SR.24H PO SCH (21:50)
[2022-05-01] MEDS: ATORVASTATIN 40 MG TABLET PO SCH (21:50)
[2022-05-01] MEDS: ZOLPIDEM TARTRATE 5 MG TABLET PO PRN (23:17)
[2022-05-02] MEDS: IPRATROPIUM NEB FS 0.5 MG/2.5 ML AMPUL.NEB IH SCH ×4 (02:19→19:54)
[2022-05-02] MEDS: DICYCLOMINE HCL 10 MG CAPSULE PO SCH ×4 (05:13→23:41)
--- NOTE | 2022-05-02 06:44 | NUR ---
PT IN BED ASLEEP. A/O X4, PT BIPAP. TOLERATING WELL, IV ACCESS AT [facility] ON SL, PATENT AND INTACT. DUE MEDS AND PRN MEDS GIVEN NEEDED AND OREDERED. NEEDS ATTENDED. KEPT CLEAN AND DRY. REPOSITIONED FOR COMFORT AND SKIN MANAGEMENT; ALL SAFETY MEASURES MAINTAINED. WILL ENDORSE TO NEXT NURSE ON DUTY FOR CONTINUITY OF CARE.
[2022-05-02 07:55] LABS: BASOPHILS % (AUTO) 0.5 % (0.0-2.0); EOSINOPHILS % (AUTO) 1.8 % (0.0-6.0); HEMATOCRIT 30 % (39-51); HEMOGLOBIN 9.9 g/dL (13.5-17.5); LYMPHOCYTES # (AUTO) 1.2 K/uL (0.8-4.8); LYMPHOCYTES % (AUTO) 25.9 % (20.0-44.0); MEAN CORPUSCULAR HGB CONC 33 g/dl (31.0-36.0); MEAN CORPUSCULAR VOLUME 89 fL (80-96); MONOCYTES # (AUTO) 1.3 K/uL (0.1-1.30); NEUTROPHILS # (AUTO) 2.1 K/uL (1.8-8.9); NEUTROPHILS % (AUTO) 44.8 % (43.0-81.0); PLATELET COUNT (AUTO) 188 K/uL (150-450); RED BLOOD CELL COUNT(AUTO) 3.38 MIL/uL (4.5-6.0); WHITE BLOOD COUNT (AUTO) 4.7 K/uL (4.3-11.0)
--- NOTE | 2022-05-02 07:56 | NUR ---
RN OPEN NOTES PT IN BED AWAKE, A/O X4, NO SOB OR CARDIAC DISTRESS NOTED. PT ON O2 INHALATION AT 4LPM VIA NC, TOLERATING WELL, IV ACCESS AT [facility] PATENT AND INTACT FLUSHES WELL. SAFETY MEASURES MAINTAINED. BED LOCKED AND IN LOWEST POSITION, SIDE RAILS UP X2 CALL LIGHT IN EASY REACH.
[2022-05-02 08:00] VITALS: BP 131/71
[2022-05-02] MEDS: ENSURE CLEAR 237 ML LIQUID (MIX BERRY) PO SCH ×3 (08:00→17:00)
[2022-05-02 08:08] LABS: CREATININE 2.1 mg/dL (0.6-1.3); MAGNESIUM 1.4 mg/dL (1.8-2.4); PHOSPHORUS 4.4 mg/dL (2.5-4.9); POTASSIUM 4.9 mmol/L (3.5-5.1)
[2022-05-02 08:14] LABS: D-DIMER 1.88 mg/L(FEU (0.17-0.50)
[2022-05-02] MEDS: BLOOD SUGAR DIAGNOSTIC 1 EACH STRIP IN SCH ×4 (08:31→21:09)
[2022-05-02] MEDS: CEFEPIME 2 GM in IV D5W 100 ML IV SCH (08:31)
[2022-05-02] MEDS: Fluoxetine 10 mg capsule PO SCH (08:32)
[2022-05-02] MEDS: FOLIC ACID 1 MG TABLET PO SCH (08:32)
[2022-05-02] MEDS: DOCUSATE SODIUM 100 MG CAPSULE PO SCH (08:32)
[2022-05-02] MEDS: LEVETIRACETAM (250 MG) 250 MG TABLET PO SCH ×2 (08:32→21:08)
[2022-05-02] MEDS: PANTOPRAZOLE 40 MG VIAL IV SCH (08:32)
[2022-05-02] MEDS: hydrALAZINE HCL 50 MG TABLET PO SCH ×3 (08:33→17:17)
[2022-05-02] MEDS: INSULIN REGULAR, HUMAN 100 UNIT/ML 3 ML VIAL SQ PRN ×3 (08:35→17:35)
[2022-05-02] MEDS: MORPHINE SULFATE IR 15 MG TABLET PO PRN (08:52)
[2022-05-02 10:41] LABS: BAND % (MANUAL) 8 % (0.0-5.0); LYMPHOCYTES % (MANUAL) 29 % (16-48); MONOCYTES % (MANUAL) 23 % (0-11.0); NEUTROPHILS % (MANUAL) 40 (42-76)
[2022-05-02] MEDS ORDERED: MAGNESIUM OXIDE 400 MG TABLET PO ONE (12:00)
--- NOTE | 2022-05-02 14:15 | NUR ---
RN NOTE RECEIVED MORPHINE ORDER 1MG IV Q4H PRN. ORDERS PLACED
[2022-05-02] MEDS: MORPHINE SULFATE INJ 2 MG/ML DISP.SYRIN IV PRN ×2 (14:26→19:20)
[2022-05-02 16:00] VITALS: BP 126/71
[2022-05-02] MEDS: AMITRIPTYLINE HCL 25 MG TABLET PO SCH (17:16)
--- NOTE | 2022-05-02 18:37 | NUR ---
RN CLOSING NOTES PT IN BED AWAKE, A/O X4, NO SOB NOTED. PT ON O2 INHALATION AT 4LPM VIA NC, TOLERATING WELL, IV ACCESS AT [facility] PATENT AND INTACT FLUSHES WELL. KEPT DRY AND CLEAN, SAFETY MEASURES MAINTAINED. BED LOCKED AND IN LOWEST POSITION, SIDE RAILS UP X2 CALL LIGHT IN EASY REACH. WILL ENDORSE TO NIGHT NURSE FOR ANGELIC.
--- NOTE | 2022-05-02 19:30 | NUR ---
PT IN BED AWAKE, A/O X4, NO SOB OR CARDIAC DISTRESS NOTED. COMPLAINS OF GENERALIZED PAIN 7/10 ON PAIN SCALE. PT ON O2 INHALATION AT 4LPM VIA NC, TOLERATING WELL, IV ACCESS AT [facility] ON SL, PATENT AND INTACT FLUSHES WELL. CONDOM CATH IN PLACE. SAFETY MEASURES IN PLACE. WILL CONTINUE PLAN OF CARE.
[2022-05-02] MEDS: TAMSULOSIN 0.4 MG CAP.SR.24H PO SCH (21:09)
[2022-05-02] MEDS: PANTOPRAZOLE 40 MG TABLET.DR PO SCH (21:09)
[2022-05-02] MEDS: POLYETHYLENE GLYCOL 3350 17 GM POWD.PACK PO SCH ×2 (21:09→21:33)
[2022-05-02] MEDS: ATORVASTATIN 40 MG TABLET PO SCH (21:09)
--- NOTE | 2022-05-02 22:05 | NUR ---
RT NOTE PT PLACED ON BIPAP AT THIS TIME. MEPILEX IN PLACE. MASK SECURED. NO RESPIRATORY DISTRESS NOTED. ALARMS ON AND AUDIBLE. BIPAP PLUGGED TO RED OUTLET.
[2022-05-02] MEDS: ZOLPIDEM TARTRATE 5 MG TABLET PO PRN (23:41)
[2022-05-03] VITALS: BP 123/57
[2022-05-03] MEDS: IPRATROPIUM NEB FS 0.5 MG/2.5 ML AMPUL.NEB IH SCH ×4 (01:07→19:42)
[2022-05-03] MEDS: DICYCLOMINE HCL 10 MG CAPSULE PO SCH ×4 (05:17→23:27)
[2022-05-03 06:41] LABS: BASOPHILS % (AUTO) 0.4 % (0.0-2.0); EOSINOPHILS % (AUTO) 3.5 % (0.0-6.0); HEMATOCRIT 28 % (39-51); HEMOGLOBIN 9.4 g/dL (13.5-17.5); LYMPHOCYTES # (AUTO) 1.6 K/uL (0.8-4.8); LYMPHOCYTES % (AUTO) 30.8 % (20.0-44.0); MEAN CORPUSCULAR HGB CONC 33 g/dl (31.0-36.0); MEAN CORPUSCULAR VOLUME 88 fL (80-96); MONOCYTES # (AUTO) 1.4 K/uL (0.1-1.30); MONOCYTES % (AUTO) 26.2 % (2.0-12.0); NEUTROPHILS % (AUTO) 39.1 % (43.0-81.0); PLATELET COUNT (AUTO) 172 K/uL (150-450); RED BLOOD CELL COUNT(AUTO) 3.21 MIL/uL (4.5-6.0); WHITE BLOOD COUNT (AUTO) 5.2 K/uL (4.3-11.0)
[2022-05-03 06:56] LABS: CALCIUM, SERUM 7.6 mg/dL (8.5-10.1); CREATININE 2.2 mg/dL (0.6-1.3); POTASSIUM 4.9 mmol/L (3.5-5.1)
--- NOTE | 2022-05-03 06:58 | NUR ---
PT IN BED ASLEEP. A/O X4, NO SOB OR CARDIAC DISTRESS NOTED. PT ON BIPAP, REQUESTED TO KEEP IT ON, TOLERATING WELL, IV ACCESS AT BULMARO MIDLINE ON SL, PATENT AND INTACT FLUSHES WELL. CONDOM CATH IN PLACE. DUE MEDS GIVEN. NEEDS ATTENDED. KEPT CLEAN AND DRY. SAFETY MEASURES MAINTAINED. WILL ENDORSE TO NEXT NURSE ON DUTY FOR CONTINUITY OF CARE.
[2022-05-03] MEDS: BLOOD SUGAR DIAGNOSTIC 1 EACH STRIP IN SCH ×4 (07:10→21:57)
[2022-05-03] MEDS: ENSURE CLEAR 237 ML LIQUID (MIX BERRY) PO SCH ×3 (07:11→16:26)
[2022-05-03] MEDS: Fluoxetine 10 mg capsule PO SCH (07:53)
[2022-05-03] MEDS: DOCUSATE SODIUM 100 MG CAPSULE PO SCH (07:53)
[2022-05-03] MEDS: PANTOPRAZOLE 40 MG TABLET.DR PO SCH ×2 (07:53→20:32)
[2022-05-03] MEDS: FOLIC ACID 1 MG TABLET PO SCH (07:53)
[2022-05-03] MEDS: LEVETIRACETAM (250 MG) 250 MG TABLET PO SCH ×2 (07:53→20:32)
[2022-05-03] MEDS: hydrALAZINE HCL 50 MG TABLET PO SCH ×3 (07:54→16:26)
[2022-05-03] MEDS: CEFEPIME 2 GM in IV D5W 100 ML IV SCH (07:55)
[2022-05-03 08:00] VITALS: BP 120/62
[2022-05-03] MEDS: MORPHINE SULFATE IR 15 MG TABLET PO PRN (11:30)
--- NOTE | 2022-05-03 11:53 | NUR ---
MORPHINE 15MG PO GIVEN DUE TO C/O HIP PAIN, 10/09. BP 129/70
[2022-05-03 12:45] LABS: BASOPHILS % (MANUAL) 0 % (0.0-2.0); EOSINOPHILS % (MANUAL) 3 % (0-4); LYMPHOCYTES % (MANUAL) 28 % (16-48); MONOCYTES % (MANUAL) 24 % (0-11.0); NEUTROPHILS % (MANUAL) 45 (42-76)
[2022-05-03] MEDS: MORPHINE SULFATE INJ 2 MG/ML DISP.SYRIN IV PRN ×2 (13:59→21:56)
--- NOTE | 2022-05-03 14:01 | NUR ---
PATIENT C/O OF HIP PAIN 11/09, ASKED FOR MORPHINE IV, RN GAVE MORPHINE 1MG IVP, BP 124/84, HR 98/ SPO2 98% VIA NC ON 4L/MIN. REASSESS AFTER AN HOUR.
[2022-05-03 16:00] VITALS: BP 114/70
[2022-05-03] MEDS: AMITRIPTYLINE HCL 25 MG TABLET PO SCH (17:02)
--- NOTE | 2022-05-03 18:52 | NUR ---
CLOSING NOTES PT IN BED AWAKE, A/O X4, NO SOB NOTED. PT ON O2 INHALATION AT 4LPM VIA NC, TOLERATING WELL, IV ACCESS AT BULMARO MIDLINE PATENT AND INTACT FLUSHES WELL. KEPT DRY AND CLEAN, SAFETY MEASURES MAINTAINED. BED LOCKED AND IN LOWEST POSITION, SIDE RAILS UP X2 CALL LIGHT IN EASY REACH. WILL ENDORSE TO NIGHT NURSE.
--- NOTE | 2022-05-03 19:30 | NUR ---
RN OPENING NOTE RECEIVED PT IN BED AWAKE, A/O X4, ABLE TO VERBALIZE NEEDS. CURRENTLY ON O2 VIA NC @ 4L, SATING @ >95%. NO SOB, NO S/SX OF ACUTE CARDIAC DISTRESS NOTED AT THIS TIME. IV ACCESS AT BULMARO MIDLINE, SL, PATENT AND INTACT; FLUSHES WELL. ALL SAFETY MEASURES IN PLACE: BED LOCKED AND IN LOWEST POSITION, SIDE RAILS UP X2; CALL LIGHT WITHIN EASY REACH. WILL CONTINUE TO MONITOR PT.
[2022-05-03] MEDS: ATORVASTATIN 40 MG TABLET PO SCH (21:40)
[2022-05-03] MEDS: POLYETHYLENE GLYCOL 3350 17 GM POWD.PACK PO SCH (21:41)
[2022-05-03] MEDS: TAMSULOSIN 0.4 MG CAP.SR.24H PO SCH (21:41)
[2022-05-03] MEDS: INSULIN REGULAR, HUMAN 100 UNIT/ML 3 ML VIAL SQ PRN (21:57)
--- NOTE | 2022-05-03 22:30 | NUR ---
RCVD PT ON 5L NC. PLACED PT ON NOC BIPAP 15/5, RR 16, FIO2 30% PER MD'S ORDER. NO SOB OR RESPIRATORY DISTRESS NOTED. WILL CONTINUE TO MONITOR T/O SHIFT.
[2022-05-04] MEDS: IPRATROPIUM NEB FS 0.5 MG/2.5 ML AMPUL.NEB IH SCH ×3 (01:18→13:30)
[2022-05-04] MEDS: MORPHINE SULFATE INJ 2 MG/ML DISP.SYRIN IV PRN ×2 (02:24→12:22)
[2022-05-04 04:00] VITALS: BP 118/85
[2022-05-04] MEDS: DICYCLOMINE HCL 10 MG CAPSULE PO SCH ×3 (05:27→18:04)
--- NOTE | 2022-05-04 06:14 | NUR ---
RN NOTE NO SIGNIFICANT CHANGE T/O THE NIGHT. PT REMAINED STABLE. VS WNL. ALL DUE MEDS AND PRN PAIN MEDS GIVEN. PM CARE DONE. TURNED AND REPOSITIONED. WILL ENDORSE TO AM SHIFT NURSE FOR ANGELIC.
[2022-05-04] MEDS: MORPHINE SULFATE IR 15 MG TABLET PO PRN (06:25)
--- NOTE | 2022-05-04 07:15 | NUR ---
RN OPEN NOTE PT IN BED AWAKE, A/O X4, NO SOB OR DISTRESS NOTED. PT ON O2 VIA NC AT 4LPM, TOLERATING WELL, IV ACCESS AT BULMARO MIDLINE PATENT AND INTACT FLUSHES WELL. SAFETY MEASURES MAINTAINED. BED LOCKED AND IN LOWEST POSITION, SIDE RAILS UP X2 CALL LIGHT IN EASY REACH.
[2022-05-04] MEDS: BLOOD SUGAR DIAGNOSTIC 1 EACH STRIP IN SCH ×3 (07:35→17:40)
[2022-05-04] MEDS: ENSURE CLEAR 237 ML LIQUID (MIX BERRY) PO SCH ×3 (07:52→17:16)
[2022-05-04] MEDS: LEVETIRACETAM (250 MG) 250 MG TABLET PO SCH (09:09)
[2022-05-04] MEDS: hydrALAZINE HCL 50 MG TABLET PO SCH ×3 (09:09→17:00)
[2022-05-04] MEDS: PANTOPRAZOLE 40 MG TABLET.DR PO SCH (09:09)
[2022-05-04] MEDS: DOCUSATE SODIUM 100 MG CAPSULE PO SCH (09:09)
[2022-05-04] MEDS: FOLIC ACID 1 MG TABLET PO SCH (09:09)
[2022-05-04] MEDS: CEFEPIME 2 GM in IV D5W 100 ML IV SCH (09:10)
[2022-05-04] MEDS: Fluoxetine 10 mg capsule PO SCH (09:14)
[2022-05-04 12:00] VITALS: BP 114/60
[2022-05-04 17:00] VITALS: BP 113/52
[2022-05-04] MEDS: AMITRIPTYLINE HCL 25 MG TABLET PO SCH (18:04)
--- NOTE | 2022-05-04 18:30 | NUR ---
PATIENTS CONDITION STABLE, DISCHARGED PER ORDER. ALL DISCHARGE INSTRUCTIONS GIVEN, EDUCATION PROVIDED. VITAL SIGNS: B/P 129/62; HR 84; O2 98 ON 2L VIA NC. PT CONTINUE TO USE O2 VIA NC, DUE TO LOW SATURATION WHEN TRIED TO KEEP ON RA. LEFT UPPER ARM MIDLINE TAKEN OUT, URINE CONDOM CATHETER DISCONNECTED. TAKEN TO THE [facility] BY PARAMEDICS, REPORT OVER THE PHONE GIVEN TO THE [facility] FIELD ARTILLERY SENIOR SERGEANT.
[2022-05-10] MEDS ORDERED: DOXY100T2 PO (10:38)
[2022-05-10] MEDS ORDERED: FURO-144 PO (10:38)
== END 2022-05-04 19:04 | DRG 241 ==
LOC: ER 18:53 → TELE1 04-27 02:53 → MEDSG1 04-27 04:54
PROVIDERS: ADMIT Nurse Practitioner Family; ATTEND Internal Medicine
PROC: 05HA33Z Insertion of Infusion Device into Left Brachial Vein, Percutaneous Approach (ICD-10-PCS; 2022-04-27)
PROC: 30233N1 Transfusion of Nonautologous Red Blood Cells into Peripheral Vein, Percutaneous Approach (ICD-10-PCS; 2022-04-30)
PROC: 0DJ08ZZ Inspection of Upper Intestinal Tract, Via Natural or Artificial Opening Endoscopic (ICD-10-PCS; principal; 2022-05-01)
PROC: 5A09357 Assistance with Respiratory Ventilation, Less than 24 Consecutive Hours, Continuous Positive Airway Pressure (ICD-10-PCS; 2022-05-03)
DX: K26.4 Chronic or unspecified duodenal ulcer with hemorrhage (principal); J15.6 Pneumonia due to other Gram-negative bacteria; D61.818 Other pancytopenia; D68.59 Other primary thrombophilia; I13.0 Hypertensive heart and chronic kidney disease with heart failure and stage 1 through stage 4 chronic kidney disease, or unspecified chronic kidney disease; D63.1 Anemia in chronic kidney disease; I50.9 Heart failure, unspecified; E11.22 Type 2 diabetes mellitus with diabetic chronic kidney disease; D72.821 Monocytosis (symptomatic); K29.71 Gastritis, unspecified, with bleeding; J84.9 Interstitial pulmonary disease, unspecified; K75.3 Granulomatous hepatitis, not elsewhere classified; I69.354 Hemiplegia and hemiparesis following cerebral infarction affecting left non-dominant side; Z20.822 Contact with and (suspected) exposure to COVID-19; Z88.2 Allergy status to sulfonamides; N18.9 Chronic kidney disease, unspecified; Z85.038 Personal history of other malignant neoplasm of large intestine; Z88.8 Allergy status to other drugs, medicaments and biological substances; Z91.041 Radiographic dye allergy status; Z91.013 Allergy to seafood; Z79.51 Long term (current) use of inhaled steroids; Z79.4 Long term (current) use of insulin; Z79.899 Other long term (current) drug therapy; I25.10 Atherosclerotic heart disease of native coronary artery without angina pectoris; Z87.09 Personal history of other diseases of the respiratory system; Y95 Nosocomial condition; Z87.19 Personal history of other diseases of the digestive system; G40.909 Epilepsy, unspecified, not intractable, without status epilepticus; J44.0 Chronic obstructive pulmonary disease with (acute) lower respiratory infection; Z74.01 Bed confinement status; E78.5 Hyperlipidemia, unspecified; F25.9 Schizoaffective disorder, unspecified; G89.4 Chronic pain syndrome; F11.21 Opioid dependence, in remission; K59.00 Constipation, unspecified; N40.0 Benign prostatic hyperplasia without lower urinary tract symptoms; F41.0 Panic disorder [episodic paroxysmal anxiety]; R19.7 Diarrhea, unspecified
CPT/HCPCS: 36410; 36415; 71045-TC; 80048-TC; 80061-TC; 80076-TC; 81001; 82272-TC; 82607-TC; 82668; 82728-TC; 82784; 82962-TC; 83540-TC; 83605-TC; 83690-TC; 83735-TC; 84100-TC; 84155; 84165; 84439-TC; 84443-TC; 85025-TC; 85027-TC; 85045-TC; 85396; 85730-TC; 86140-TC; 86225; 86235; 86334; 86431-TC; 86706; 86803; 86850-TC; 87040-TC; 87081-TC; 87340; 87806; 94660; 94799-TC; A4349; C9113; C9803; G0378; J0692; J1200; J1447; J1815; J2270; J2704; J3475; J3490; J7030; J7050; J7060; P9016

== ENCOUNTER 2022-05-06 11:25 | Inpatient (IN) | payer OTHER ==
[~2022-05-06] VITALS: Ht 177.8 cm; Wt 85.7 kg
--- NOTE | 2022-05-06 11:38 | NUR ---
GASTROENTEROLOGY TECHNICIAN AT BEDSIDE
--- NOTE | 2022-05-06 11:47 | NUR ---
REQUESTED MIDLINE NURSE TO PUT AN IV PERIPHERAL LINE.
[2022-05-06 11:58] LABS: BASOPHILS % (AUTO) 0.5 % (0.0-2.0); EOSINOPHILS % (AUTO) 1.6 % (0.0-6.0); HEMATOCRIT 28 % (39-51); HEMOGLOBIN 9.1 g/dL (13.5-17.5); LYMPHOCYTES # (AUTO) 1.4 K/uL (0.8-4.8); LYMPHOCYTES % (AUTO) 16.2 % (20.0-44.0); MEAN CORPUSCULAR HGB CONC 33 g/dl (31.0-36.0); MEAN CORPUSCULAR VOLUME 89 fL (80-96); MONOCYTES # (AUTO) 1.1 K/uL (0.1-1.30); MONOCYTES % (AUTO) 12.9 % (2.0-12.0); NEUTROPHILS # (AUTO) 6.1 K/uL (1.8-8.9); NEUTROPHILS % (AUTO) 68.8 % (43.0-81.0); PLATELET COUNT (AUTO) 196 K/uL (150-450); RED BLOOD CELL COUNT(AUTO) 3.14 MIL/uL (4.5-6.0); WHITE BLOOD COUNT (AUTO) 8.9 K/uL (4.3-11.0)
--- NOTE | 2022-05-06 12:05 | NUR ---
MOVE SHEET SUBMITTED.
[2022-05-06 12:28] LABS: ALANINE AMINOTRANSFERASE 13 U/L (12-78); ALBUMIN 1.7 g/dL (3.4-5.0); ALKALINE PHOSPHATASE 90 U/L (46-116); ASPARTATE AMINOTRANSFERASE 14 U/L (15-37); BILIRUBIN,DIRECT 0.1 mg/dL (0.0-0.2); BILIRUBIN,TOTAL 0.2 mg/dL (0.2-1.0); CALCIUM, SERUM 7.7 mg/dL (8.5-10.1); CARBON DIOXIDE 27 mmol/L (21-32); CHLORIDE 106 mmol/L (98-107); CREATININE 1.9 mg/dL (0.6-1.3); GLUCOSE 93 mg/dL (74-106); POTASSIUM 4.4 mmol/L (3.5-5.1); SODIUM SERUM 138 mmol/L (136-145); TOTAL PROTEIN, SERUM 5.4 g/dL (6.4-8.2); UREA NITROGEN, BLOOD 37 mg/dL (7-18)
[2022-05-06] MEDS: MORPHINE SULFATE INJ 2 MG/ML DISP.SYRIN IV ONE ×2 (12:30→14:50)
[2022-05-06] MEDS ORDERED: ASPIRIN 325 MG TABLET PO ONE (12:30)
--- NOTE | 2022-05-06 12:45 | NUR ---
rapid covid swab done and sent to lab
[2022-05-06] MEDS ORDERED: VANCOMYCIN 1 GM in IV D5W 250 ML IV ONE (13:00)
[2022-05-06] MEDS ORDERED: AZITHROMYCIN 500 MG in IV D5W 250 ML IV ONE (13:00)
[2022-05-06] MEDS: PIPERACILLIN /TAZOBACTAM 3.375 G in IV D5W 50 ML IV ONE ×2 (13:00→14:50)
[2022-05-06] MEDS ORDERED: ASPIRIN 325 MG TABLET ONE (13:07)
[2022-05-06] MEDS ORDERED: FUROSEMIDE 20 MG/2 ML VIAL IV ONE (14:00)
--- NOTE | 2022-05-06 14:16 | NUR ---
[facility] CALLED VALVE MACHINE OPERATOR PAGED.
--- NOTE | 2022-05-06 14:30 | NUR ---
midline inserted at left upper arm, ok to use per midline nurse
[2022-05-06] MEDS ORDERED: MORPHINE SULFATE INJ 2 MG/ML DISP.SYRIN ONE (14:44)
[2022-05-06] MEDS ORDERED: FUROSEMIDE 20 MG/2 ML VIAL ONE (14:45)
--- NOTE | 2022-05-06 15:16 | NUR ---
GOT BED 313-1 ADMITTING INFORMED.
--- NOTE | 2022-05-06 15:20 | NUR ---
UA COLLECTED AND READY FOR ELECTRONIC COMPONENTS ASSEMBLER
[2022-05-06 16:01] LABS: EOSINOPHILS % (MANUAL) 2 % (0-4); LYMPHOCYTES % (MANUAL) 20 % (16-48); MONOCYTES % (MANUAL) 9 % (0-11.0); NEUTROPHILS % (MANUAL) 69 (42-76)
--- NOTE | 2022-05-06 16:05 | NUR ---
REPORT GIVEN TO LASHAY SANCHEZ OF TELE UNIT
[2022-05-06 16:15] VITALS: BP 137/75
--- NOTE | 2022-05-06 16:15 | NUR ---
SENIOR FIRE PROTECTION ENGINEERICT ACCOUNT MANAGER NOTES RECEIVED PATIENT FORM ER ENDORSED BY LAURA DAWSON VIA STRETCHER. PATIENT IS AWAKE AND A/O X4. ON O2 AT 4LPM VIA NASAL CANNULA TOLERATING WELL. NO SOB NOTED. NOT IN DISTRESS. WITH COMPLAINTS OF CHEST PAIN AND PAIN ON BOTH HIPS AT THE SCALE OF 4/10. COMFORT MEASURES PROVIDED. ON TELE MONITOR READING NORMAL SINUS RHYTHM AT 75BPM. WITH LEFT UPPER ARM G18 MIDLINE SALINE LOCKED, PATENT AND INTACT. SKIN ASSESSMENT DONE, PHOTOS TAKEN AND PLACED IN THE CHART. SAFETY MEASURES IN PLACED. CALL LIGHT WITHIN REACH. BED ON LOWEST LOCKED POSITION, SIDE RAILS UP X2. WILL CONTINUE TO MONITOR.
[2022-05-06] MEDS ORDERED: ACETAMINOPHEN 325 MG TABLET PO PRN ×2 (17:30)
[2022-05-06] MEDS ORDERED: MAGNESIUM HYDROXIDE 30 ML UDC PO PRN (17:30)
[2022-05-06] MEDS ORDERED: ONDANSETRON HCL/PF 4 MG/2 ML VIAL IVP PRN (17:30)
[2022-05-06] MEDS ORDERED: Z GUARD REMEDY 4 OZ OINT TP PRN (17:30)
[2022-05-06] MEDS ORDERED: BISACODYL SUPP (10 MG) 10 MG/SUPP.RECT SUPP.RECT RC PRN (17:30)
[2022-05-06] MEDS ORDERED: MAG HYDROX/AL HYDROX/SIMETH 30 ML UDC PO PRN (17:30)
[2022-05-06] MEDS ORDERED: NA PHOS,M-B/NA PHOS,DI-BA 1 EA ENEMA RC PRN (17:30)
--- NOTE | 2022-05-06 17:30 | NUR ---
RN NOTE PATIENT WAS COMPLAINING OF BILATERAL HIP PAIN AND CHEST PAIN AT THE SCALE OF 9/10. PATIENT IS REFUSING FOR NORCO PO MEDICATION FOR PAIN AND WOULD LIKE TO GET MORPHINE 4MG IV Q4H FOR PAIN. DR. CABRERA MADE AWARE AND WANTS TO CONTINUE HIS PO MEDICATION FOR PAIN.
[2022-05-06 18:00] VITALS: BP 128/80
[2022-05-06] MEDS ORDERED: IPRATROPIUM NEB FS 0.5 MG/2.5 ML AMPUL.NEB IH SCH (18:00)
--- NOTE | 2022-05-06 18:00 | NUR ---
RN NOTE PATIENT IS CONTINENT. HAVE USED URINAL BUT REQUESTED TO APPLY CONDOM CATHETER ON HIM. APPLIED CONDOM CATHETER ON PATIENT. WILL MONITOR.
--- NOTE | 2022-05-06 19:36 | NUR ---
received in bed alert and orientated x4 eating his dinner diaper on midline left upper arm eyeglasses concrete analyst light within his reach
[2022-05-06 20:00] VITALS: BP 107/75
--- NOTE | 2022-05-06 20:17 | NUR ---
OFFICE DIRECTOR CLOSING NOTES PATIENT IS AWAKE AND A/O X4. ON O2 AT 4LPM VIA NASAL CANNULA TOLERATING WELL. NO SOB NOTED. NOT IN DISTRESS. WITH COMPLAINTS OF CHEST PAIN AND PAIN ON BOTH HIPS AT THE SCALE OF 9/10. COMFORT MEASURES PROVIDED. ON TELE MONITOR READING NORMAL SINUS RHYTHM AT 78BPM. WITH LEFT UPPER ARM G18 MIDLINE SALINE LOCKED, PATENT AND INTACT. DUE MEDS GIVEN. SAFETY MEASURES IN PLACED. CALL LIGHT WITHIN REACH. BED ON LOWEST LOCKED POSITION, SIDE RAILS UP X2. WILL ENDORSE TO NEXT SHIFT NURSE FOR ANGELIC.
--- NOTE | 2022-05-06 20:20 | NUR ---
received in bed alert and orientated x4 purchase price analyst tarun here at pt bedside pt stated NORCO for pain does not help she also is aware he is asking for BIPAP scds on and working explained to the pt need for them is important patient color pale h/h 9
[2022-05-06] MEDS ORDERED: ZOSYN IVPB 3.375 G in IV D5W 50ml IV SCH (21:00)
[2022-05-06] MEDS: LEVETIRACETAM (250 MG) 250 MG TABLET PO SCH (21:10)
[2022-05-06] MEDS: NITROGLYCERIN PACKET 1 GM PACKET TD SCH (21:11)
[2022-05-06] MEDS: ATORVASTATIN 40 MG TABLET PO SCH (21:11)
[2022-05-06] MEDS: TAMSULOSIN 0.4 MG CAP.SR.24H PO SCH (21:11)
[2022-05-06] MEDS: ZOLPIDEM TARTRATE 5 MG TABLET PO PRN (21:28)
[2022-05-06] MEDS ORDERED: CEFEPIME 1 GM in IV D5W 50 ML IV SCH (23:30)
[2022-05-06] MEDS ORDERED: CEFEPIME 1 GM VIAL ONE (23:31)
[2022-05-07] VITALS (7 sets, daily range): BP systolic 125–150; BP diastolic 65–79
[2022-05-07 00:06] LABS: BILIRUBIN,URINE NEGATIVE (NEGATIVE); COLOR,URINE YELLOW (YELLOW); LEUKOCYTE ESTERASE ,URINE NEGATIVE (NEGATIVE); NITRITE, URINE NEGATIVE (NEGATIVE); PROTEIN,URINE 2+ mg/dl (NEGATIVE); UGLUCOSE NEGATIVE (NEGATIVE); UROBILINOGEN,URINE 0.2 EU/dL (0.2)
[2022-05-07 00:14] LABS: BACTERIA,URINE Few /HPF (None Seen); RBC,URINE TOO NUMEROUS TO COUN /HPF (0-2); SQUAMOUS EPITHELIAL CELL,UR Few /HPF (None Seen)
[2022-05-07 00:15] LABS: FINE GRANULAR CASTS,URINE Few /LPF (None Seen)
[2022-05-07] MEDS ORDERED: IPRATROPIUM NEB FS 0.5 MG/2.5 ML AMPUL.NEB ONE (04:55)
[2022-05-07] MEDS ORDERED: IPRATROPIUM NEB FS 0.5 MG/2.5 ML AMPUL.NEB NEB PRN (05:00)
--- NOTE | 2022-05-07 05:02 | NUR ---
CLOSING NOTES; alert and orientated x4 requesting resp treatment . I called resp and they called the [facility] and got a PRN order. 02 on 4 liters resp even and unlabored able to talk sentences w/o becoming SOB no c/o of chestpain this 12 hours slept thru most of the night 8 hrs to 9 hours of sleep excessive fluid drinker wearing a condom cath urine color clear (like water) no edema noted
--- NOTE | 2022-05-07 05:05 | NUR ---
RT NOTE TX ORDER CLARIFIED WITH WINDOW SHADE RING SEWER. PATIENT REQUESTING BREATHING TX AT THIS TIME. PT STATES HE IS FEELING SHORT OF BREATH. BREATH SOUNDS WERE DIMINISHED UPON AUSCULTATION. FOUND PATIENT SPO2 AT 98% ON 5LPM. PRN TREATMENT INITIATED. WILL CONTINUE TO MONITOR PATIENT.
[2022-05-07 06:37] LABS: BASOPHILS % (AUTO) 0.3 % (0.0-2.0); EOSINOPHILS % (AUTO) 2.7 % (0.0-6.0); HEMATOCRIT 25 % (39-51); HEMOGLOBIN 8.3 g/dL (13.5-17.5); LYMPHOCYTES # (AUTO) 1.3 K/uL (0.8-4.8); MEAN CORPUSCULAR HGB CONC 34 g/dl (31.0-36.0); MEAN CORPUSCULAR VOLUME 88 fL (80-96); MONOCYTES # (AUTO) 1.1 K/uL (0.1-1.30); MONOCYTES % (AUTO) 11.9 % (2.0-12.0); NEUTROPHILS # (AUTO) 6.5 K/uL (1.8-8.9); NEUTROPHILS % (AUTO) 71.1 % (43.0-81.0); PLATELET COUNT (AUTO) 184 K/uL (150-450); RED BLOOD CELL COUNT(AUTO) 2.82 MIL/uL (4.5-6.0); WHITE BLOOD COUNT (AUTO) 9.2 K/uL (4.3-11.0)
[2022-05-07 06:56] LABS: CALCIUM, SERUM 7.5 mg/dL (8.5-10.1); CREATININE 1.7 mg/dL (0.6-1.3); PHOSPHORUS 3.7 mg/dL (2.5-4.9); POTASSIUM 4.3 mmol/L (3.5-5.1)
[2022-05-07] MEDS ORDERED: PANTOPRAZOLE 40 MG TABLET.DR PO SCH (07:30)
--- NOTE | 2022-05-07 07:30 | NUR ---
PT RECEIVED RESTING COMFORTABLY IN BED WITH EYES CLOSED. NO S/S OR C/O PAIN OR DISTRESS NOTED. SIDE RAILS UP X2, CALL LIGHT LEFT WITHIN REACH. WILL CONTINUE PLAN OF CARE.
[2022-05-07] MEDS: IPRATROPIUM NEB FS 0.5 MG/2.5 ML AMPUL.NEB NEB SCH ×3 (08:21→19:49)
[2022-05-07] MEDS: FOLIC ACID 1 MG TABLET PO SCH (08:46)
[2022-05-07] MEDS: LEVETIRACETAM (250 MG) 250 MG TABLET PO SCH ×2 (08:46→21:42)
[2022-05-07] MEDS: NITROGLYCERIN PACKET 1 GM PACKET TD SCH ×2 (08:46→21:42)
[2022-05-07] MEDS: DOCUSATE SODIUM 100 MG CAPSULE PO SCH (08:46)
[2022-05-07] MEDS: FUROSEMIDE 40 MG/4 ML VIAL IV SCH (08:46)
[2022-05-07] MEDS: hydrALAZINE HCL 50 MG TABLET PO SCH ×3 (08:46→16:42)
[2022-05-07] MEDS: PANTOPRAZOLE 40 MG TABLET.DR PO SCH (08:47)
[2022-05-07] MEDS: Fluoxetine 10 mg capsule PO SCH (08:47)
[2022-05-07] MEDS ORDERED: Magnesium 1 GM/2 ML VIAL IV ONE (10:00)
[2022-05-07] MEDS: Magnesium 1GM/D5W 100ML PREMIX 100 ML IV SCH ×7 (10:18→19:52)
[2022-05-07] MEDS: HYDROCODONE/APAP 5/325MG TABLET PO PRN ×2 (12:16→22:49)
[2022-05-07] MEDS: CEFEPIME 1 GM in IV D5W 50 ML IV SCH ×2 (13:08→23:09)
[2022-05-07] MEDS ORDERED: VANCOMYCIN 1.25 GM in IV D5W 250 ML IV SCH (15:00)
--- NOTE | 2022-05-07 19:47 | NUR ---
HEATING AND AIR CONDITIONING MECHANIC OPENING NOTES: RECEIVED PATIENT SLEEP IN BED COMFORTABLY, AROUSABLE TO VERBAL STIMULI, BED IN LOW POSITION CALL LIGHTS WITHIN REACH, NO COMPLAIN OF PAIN AND DISCOMFORT AT THIS TIME, ON ON O2 INHALATION AT 3LPH SATURATING WELL, PATIENT ON TELE MONITOR- SR-99 WITH PAC, IV LINE AT [facility], PATIENT IS A/OX4 ABLE TO MAKE NEEDS KNOWN, KEPT CLEAN AND DRY ALL NEEDS MET WILL CONTINUE TO MONITOR.
[2022-05-07] MEDS: ATORVASTATIN 40 MG TABLET PO SCH (21:42)
[2022-05-07] MEDS: DOXYCYCLINE HYCLATE (100 MG) 100 MG TABLET PO SCH (21:42)
[2022-05-07] MEDS: TAMSULOSIN 0.4 MG CAP.SR.24H PO SCH (21:42)
[2022-05-07] MEDS: ZOLPIDEM TARTRATE 5 MG TABLET PO PRN (22:48)
[2022-05-08] VITALS: BP 144/73
[2022-05-08] MEDS: IPRATROPIUM NEB FS 0.5 MG/2.5 ML AMPUL.NEB NEB SCH ×4 (01:36→20:01)
[2022-05-08 04:00] VITALS: BP 142/75
[2022-05-08 06:56] LABS: BASOPHILS % (AUTO) 0.4 % (0.0-2.0); EOSINOPHILS % (AUTO) 4.1 % (0.0-6.0); HEMATOCRIT 29 % (39-51); HEMOGLOBIN 9.4 g/dL (13.5-17.5); LYMPHOCYTES # (AUTO) 1.5 K/uL (0.8-4.8); MEAN CORPUSCULAR HGB CONC 33 g/dl (31.0-36.0); MEAN CORPUSCULAR VOLUME 88 fL (80-96); MONOCYTES # (AUTO) 0.8 K/uL (0.1-1.30); MONOCYTES % (AUTO) 9.2 % (2.0-12.0); NEUTROPHILS # (AUTO) 6.2 K/uL (1.8-8.9); NEUTROPHILS % (AUTO) 69.3 % (43.0-81.0); PLATELET COUNT (AUTO) 186 K/uL (150-450); RED BLOOD CELL COUNT(AUTO) 3.25 MIL/uL (4.5-6.0); WHITE BLOOD COUNT (AUTO) 8.9 K/uL (4.3-11.0)
--- NOTE | 2022-05-08 07:03 | NUR ---
INSPECTOR FINAL ASSEMBLY MECHANICAL CLOSING NOTES; RECEIVED PATIENT SLEEP IN BED COMFORTABLY, AROUSABLE TO VERBAL STIMULI., BED IN LOW POSITION CALL LIGHTS WITHIN REACH, NO COMPLAIN OF PAIN AND DISCOMFORT AT THIS TIME, ON BIPAP, NO SOB WAS OBSERVED, ON TELE MONITOR- SR 79 WITH PAC, PATIENT KEPT CLEAN AND DRY ALL NEEDS MET ENDORSE TO INCOMING SHIFT.
[2022-05-08 07:21] LABS: CALCIUM, SERUM 7.8 mg/dL (8.5-10.1); CREATININE 1.8 mg/dL (0.6-1.3); MAGNESIUM 2.4 mg/dL (1.8-2.4); PHOSPHORUS 3.6 mg/dL (2.5-4.9); POTASSIUM 4.6 mmol/L (3.5-5.1)
--- NOTE | 2022-05-08 07:38 | NUR ---
SHORT ORDER COOK OPENING NOTE Patient asleep. A/O x 4. On Bipap, no SOB or s/s of distress notes. IV access on BULMARO midline SL intact and patent. On tele monitoring showing SR with PACs, HR on the 70's. Safety precautions in harper burrell: bed in low, locked position; siderails up x2; call light within reach. Will continue to monitor. Addendum: 05/08/22 at 1536 by DEBBIE LEYVA RN ADD: Condom catheter in place draining to an rebeka colored urine.
--- NOTE | 2022-05-08 07:54 | NUR ---
RT NOTE Received patient on Bipap and placed Nasal Cannula 5 LPM before giving tx. No sob or resp. distress noted.
[2022-05-08 08:00] VITALS: BP_SYST 138; BP_SYST 139; BP_DIAS 77; BP_DIAS 89
[2022-05-08] MEDS: PANTOPRAZOLE 40 MG TABLET.DR PO SCH (08:43)
[2022-05-08] MEDS: hydrALAZINE HCL 50 MG TABLET PO SCH ×3 (08:43→16:52)
[2022-05-08] MEDS: FUROSEMIDE 40 MG/4 ML VIAL IV SCH (08:43)
[2022-05-08] MEDS: NITROGLYCERIN PACKET 1 GM PACKET TD SCH ×2 (08:44→20:23)
[2022-05-08] MEDS: FOLIC ACID 1 MG TABLET PO SCH (08:44)
[2022-05-08] MEDS: Fluoxetine 10 mg capsule PO SCH (08:44)
[2022-05-08] MEDS: DOXYCYCLINE HYCLATE (100 MG) 100 MG TABLET PO SCH ×2 (08:44→20:23)
[2022-05-08] MEDS: DOCUSATE SODIUM 100 MG CAPSULE PO SCH (08:44)
[2022-05-08] MEDS: LEVETIRACETAM (250 MG) 250 MG TABLET PO SCH ×2 (08:44→20:23)
[2022-05-08 09:09] LABS: BAND % (MANUAL) 6 % (0.0-5.0); EOSINOPHILS % (MANUAL) 1 % (0-4); LYMPHOCYTES % (MANUAL) 12 % (16-48); MONOCYTES % (MANUAL) 12 % (0-11.0); NEUTROPHILS % (MANUAL) 69 (42-76)
[2022-05-08] MEDS: CEFEPIME 1 GM in IV D5W 50 ML IV SCH ×2 (10:59→23:15)
[2022-05-08 12:00] VITALS: BP 119/64
--- NOTE | 2022-05-08 12:00 | NUR ---
RN NOTE Patient's Temp at 0800 was 99.6. Cooling measures given. Temp this 12 nn is 98. Will continue to monitor.
--- NOTE | 2022-05-08 15:12 | NUR ---
RN NOTE Report given to LAURA Camacho for ANGELIC.
--- NOTE | 2022-05-08 15:13 | NUR ---
RN NOTE PATIENT CARE TRANSFERRED TO KRYSTIN SANCHEZ FROM FOUZIA SANCHEZ.
[2022-05-08 16:00] VITALS: BP 130/70
[2022-05-08] MEDS: MORPHINE SULFATE SR 15 MG TABLET.SA PO SCH ×2 (16:15→20:24)
--- NOTE | 2022-05-08 18:00 | NUR ---
RN NOTES PATIENT WANTED $20 AND CARD TO BE PUT WITH WALLET IN SAFE. CALLED FACILITY OPERATIONS MANAGER TO SEE IF THEY CAN ADD. NOT ABLE TO ADD AT THIS TIME, ITEMS GIVEN BACK TO PATIENT.
--- NOTE | 2022-05-08 18:49 | NUR ---
COUNTY DIRECTOR WELFARE CLOSING NOTE PATIENT IN BED, ON PHONE. A/Ox4 ABLE TO MAKE NEEDS KNOWN. ON NC O2 4L. NO S/S OF RESPIRATORY DISTRESS. PATIENT IV ACCESS BULMARO MIDLINE S/L. INTACT AND PATENT. ON TELE MONITORING SHOWING SINUS TACH W/ PACs HR 108. NO C/O OF CHEST PAIN OR DISCOMFORT. CONDOM CATHETER IN PLACE, DRAINING YELLOW URINE. SKIN ISSUES: SACRAL REDNESS. SAFETY MEASURES MAINTAINED: BED LOCKED AND IN LOWEST POSITION, HOB ELEVATED, BED ALARM ON, CALL LIGHT WITHIN REACH. WILL ENDORSE TO NEXT SHIFT ANY ANGELIC.
--- NOTE | 2022-05-08 19:30 | NUR ---
MEDIA LIAISON OFFICER OPENING NOTE RECEIVED PATIENT AWAKE IN BED. PATIENT IS A/Ox4 ABLE TO MAKE NEEDS KNOWN. ON NC O2 4L/MIN. 02 SAT NOTED 98%. NO RESPIRATORY DISTRESS NOTED. IV ACCESS BULMARO MIDLINE S/L. INTACT AND PATENT. ON TELE MONITOR READING ST WITH PACs HR 107. NO C/O OF CHEST PAIN OR DISCOMFORT NOTED. CONDOM CATHETER IN PLACE, DRAINING YELLOW URINE. ALL SAFETY MEASURES IN PLACE. BED LOCKED AND IN LOWEST POSITION, HOB ELEVATED, BED ALARM ON, CALL LIGHT WITHIN REACH. SIDE RAIL UP TIMES 2. REMINDED THE PATIENT TO PRESS CALL LIGHT FOR ANY ASSISTANCE.WILL CONTINUE TO MONITOR CLOSELY.
[2022-05-08 20:33] VITALS: BP 114/67
[2022-05-08] MEDS: TAMSULOSIN 0.4 MG CAP.SR.24H PO SCH (21:11)
[2022-05-08] MEDS: ATORVASTATIN 40 MG TABLET PO SCH (21:11)
--- NOTE | 2022-05-08 22:28 | NUR ---
RT NOTE PT PLACED ON BIPAP AT THIS TIME. MASK SECURED WITH MEPILEX ON. ALARMS ON AND AUDIBLE. NO RESPIRATORY DISTRESS NOTED AT THIS TIME. WILL CONTINUE TO MONITOR.
[2022-05-09] VITALS: BP 133/73
[2022-05-09] MEDS: HYDROCODONE/APAP 5/325MG TABLET PO PRN ×2 (01:10→16:35)
--- NOTE | 2022-05-09 01:10 | NUR ---
RN NOTES PRN NORCO 5/325 MG 1 CAP GIVEN FOR 8/10 BACK PAIN PER PATIENT REQUEST AT 0110. WILL REASSESS THE PAIN IN 1 HOUR.
[2022-05-09] MEDS: IPRATROPIUM NEB FS 0.5 MG/2.5 ML AMPUL.NEB NEB SCH ×4 (02:04→20:08)
[2022-05-09 04:00] VITALS: BP 104/71
[2022-05-09 06:27] LABS: BASOPHILS % (AUTO) 0.4 % (0.0-2.0); EOSINOPHILS % (AUTO) 4.2 % (0.0-6.0); HEMATOCRIT 26 % (39-51); HEMOGLOBIN 8.7 g/dL (13.5-17.5); LYMPHOCYTES # (AUTO) 1.8 K/uL (0.8-4.8); LYMPHOCYTES % (AUTO) 20.2 % (20.0-44.0); MEAN CORPUSCULAR HGB CONC 33 g/dl (31.0-36.0); MEAN CORPUSCULAR VOLUME 89 fL (80-96); MONOCYTES # (AUTO) 0.8 K/uL (0.1-1.30); MONOCYTES % (AUTO) 8.8 % (2.0-12.0); NEUTROPHILS % (AUTO) 66.4 % (43.0-81.0); PLATELET COUNT (AUTO) 172 K/uL (150-450); RED BLOOD CELL COUNT(AUTO) 2.95 MIL/uL (4.5-6.0); WHITE BLOOD COUNT (AUTO) 9.1 K/uL (4.3-11.0)
--- NOTE | 2022-05-09 06:43 | NUR ---
DISPLAY FABRICATION SUPERVISOR CLOSING NOTE PATIENT AWAKE IN BED. PATIENT IS A/Ox4 ABLE TO MAKE NEEDS KNOWN. ON NC O2 4L/MIN. 02 SAT NOTED 97%. NO RESPIRATORY DISTRESS NOTED. IV ACCESS BULMARO MIDLINE S/L. INTACT AND PATENT. ON TELE MONITOR READING ST WITH PACs HR 105. NO C/O OF CHEST PAIN OR DISCOMFORT NOTED. CONDOM CATHETER IN PLACE, DRAINING YELLOW URINE. OUTPUT NOTED 700 ML. ALL DUE MEDS GIVEN ORDERED.ALL SAFETY MEASURES IN PLACE. BED LOCKED AND IN LOWEST POSITION, HOB ELEVATED, BED ALARM ON, CALL LIGHT WITHIN REACH. SIDE RAIL UP TIMES 2. REMINDED THE PATIENT TO PRESS CALL LIGHT FOR ANY ASSISTANCE.WILL ENDORSE FOR ANGELIC.
[2022-05-09 06:52] LABS: CALCIUM, SERUM 7.7 mg/dL (8.5-10.1); CREATININE 1.8 mg/dL (0.6-1.3); MAGNESIUM 1.9 mg/dL (1.8-2.4); PHOSPHORUS 3.9 mg/dL (2.5-4.9); POTASSIUM 4.7 mmol/L (3.5-5.1)
[2022-05-09 08:00] VITALS: BP 134/76
--- NOTE | 2022-05-09 08:00 | NUR ---
RAG INSPECTOR OPENING NOTE Patient awake. A/O x 4, able to make needs known. On Bipap at night and 4 LPM or O2 via NC during the day, no SOB or s/s of distress notes. IV access on BULMARO midline SL intact and patent. On tele monitoring showing SR with PACs, HR on the 90's. Condom catheter in place draining to a yellow colored urine. Safety precautions in place: bed in low, locked position; siderails up x2; call light within reach. Will continue to monitor.
[2022-05-09] MEDS: FUROSEMIDE 40 MG/4 ML VIAL IV SCH (08:29)
[2022-05-09] MEDS: NITROGLYCERIN PACKET 1 GM PACKET TD SCH ×2 (08:30→20:41)
[2022-05-09] MEDS: DOCUSATE SODIUM 100 MG CAPSULE PO SCH (08:30)
[2022-05-09] MEDS: FOLIC ACID 1 MG TABLET PO SCH (08:30)
[2022-05-09] MEDS: DOXYCYCLINE HYCLATE (100 MG) 100 MG TABLET PO SCH ×2 (08:31→20:41)
[2022-05-09] MEDS: Fluoxetine 10 mg capsule PO SCH (08:31)
[2022-05-09] MEDS: MORPHINE SULFATE SR 15 MG TABLET.SA PO SCH ×2 (08:31→20:41)
[2022-05-09] MEDS: PANTOPRAZOLE 40 MG TABLET.DR PO SCH (08:31)
[2022-05-09] MEDS: LEVETIRACETAM (250 MG) 250 MG TABLET PO SCH ×2 (08:31→20:41)
[2022-05-09] MEDS: hydrALAZINE HCL 50 MG TABLET PO SCH ×3 (08:32→16:36)
[2022-05-09] MEDS: CEFEPIME 1 GM in IV D5W 50 ML IV SCH (11:16)
[2022-05-09 12:00] VITALS: BP 138/68
[2022-05-09 12:48] LABS: BAND % (MANUAL) 7 % (0.0-5.0); EOSINOPHILS % (MANUAL) 5 % (0-4); LYMPHOCYTES % (MANUAL) 33 % (16-48); MONOCYTES % (MANUAL) 5 % (0-11.0); NEUTROPHILS % (MANUAL) 50 (42-76)
[2022-05-09] MEDS ORDERED: ALPRAZOLAM 0.25 MG TABLET PO ONE (15:00)
--- NOTE | 2022-05-09 15:00 | NUR ---
RN NOTE Patient's belongings, wallet with ghosh, credit cards, and IDs and check book placed in nursing office safe. Patient signed new belonging sheet form.
[2022-05-09 16:00] VITALS: BP 128/62
--- NOTE | 2022-05-09 19:21 | NUR ---
SENIOR COST ACCOUNTANT OPENING NOTE Patient in bed, resting. A/O x 4, able to make needs known. On Bipap at night and 4 LPM or O2 via NC during the day, no SOB or s/s of distress notes. IV access on BULMARO midline SL intact and patent. On tele monitoring showing Sinus tachycardia, with PACs and PJCs HR 108. Condom catheter in place draining to a yellow colored urine with an output of 1100cc. All needs attended to. Due meds given. Safety precautions in place: bed in low, locked position; siderails up x2; call light within reach. Will endorse to cage shift manager nurse for ANGELIC.
--- NOTE | 2022-05-09 19:30 | NUR ---
BAR WAITER/WAITRESS OPENING NOTE RECEIVED PATIENT AWAKE IN BED. PATIENT IS A/Ox4 ABLE TO MAKE NEEDS KNOWN. ON O2 INHALATION VIA NASAL CANNULA NOTED 4L/MIN. 02 SAT NOTED 98%. NO RESPIRATORY DISTRESS NOTED. IV ACCESS BULMARO MIDLINE S/L. INTACT AND PATENT. ON TELE MONITOR READING ST WITH PACs HR 103. NO C/O OF CHEST PAIN OR DISCOMFORT NOTED. CONDOM CATHETER IN PLACE, DRAINING YELLOW URINE. ALL SAFETY MEASURES IN PLACE. BED LOCKED AND IN LOWEST POSITION, HOB ELEVATED, BED ALARM ON, CALL LIGHT WITHIN REACH. SIDE RAIL UP TIMES 2. REMINDED THE PATIENT TO PRESS CALL LIGHT FOR ANY ASSISTANCE.WILL CONTINUE TO MONITOR CLOSELY.
[2022-05-09 20:00] VITALS: BP 118/74
[2022-05-09] MEDS: ATORVASTATIN 40 MG TABLET PO SCH (21:18)
[2022-05-09] MEDS: TAMSULOSIN 0.4 MG CAP.SR.24H PO SCH (21:19)
--- NOTE | 2022-05-09 23:37 | NUR ---
RT NOTE PT PLACED ON NOC BIPAP AT THIS TIME. MASK SECURED WITH MEPILEX. PT ASLEEP COMFORTABY. NO RESPIRATORY DISTRESS NOTED. WILL CONTINUE TO MONITOR CLOSELY.
[2022-05-10] VITALS: BP 108/56
[2022-05-10] MEDS: IPRATROPIUM NEB FS 0.5 MG/2.5 ML AMPUL.NEB NEB SCH ×5 (01:48→16:46)
[2022-05-10] MEDS: ZOLPIDEM TARTRATE 5 MG TABLET PO PRN (02:41)
--- NOTE | 2022-05-10 07:30 | NUR ---
RN OPENING NOTE- PATIENT AWAKE IN BED. AOX4 O2 VIA NASAL CANNULA NOTED 4L/MIN. 02 SAT NOTED 96%. NO RESPIRATORY DISTRESS NOTED. IV ACCESS BULMARO MIDLINE S/L. INTACT AND PATENT. ON TELE MONITOR READING ST WITH PACs HR 88. DENIES CHEST PAIN. CONDOM CATHETER IN PLACE, DRAINING YELLOW URINE. ALL SAFETY MEASURES IN PLACE. BED LOCKED AND IN LOWEST POSITION, HOB ELEVATED, BED ALARM ON, CALL LIGHT WITHIN REACH. SIDE RAILS UP. MONITOR / ASSIST
--- NOTE | 2022-05-10 07:43 | NUR ---
WATER PURIFIER CLOSING NOTE PATIENT AWAKE IN BED. PATIENT IS A/Ox4 ABLE TO MAKE NEEDS KNOWN. ON NC O2 4L/MIN. 02 SAT NOTED 97%. NO RESPIRATORY DISTRESS NOTED. IV ACCESS BULMARO MIDLINE S/L. INTACT AND PATENT. ON TELE MONITOR READING SR WITH PACs HR 86. NO C/O OF CHEST PAIN OR DISCOMFORT NOTED. CONDOM CATHETER IN PLACE, DRAINING YELLOW URINE. OUTPUT NOTED 450 ML. ALL DUE MEDS GIVEN ORDERED.ALL SAFETY MEASURES IN PLACE. BED LOCKED AND IN LOWEST POSITION, HOB ELEVATED, BED ALARM ON, CALL LIGHT WITHIN REACH. SIDE RAIL UP TIMES 2. REMINDED THE PATIENT TO PRESS CALL LIGHT FOR ANY ASSISTANCE.WILL ENDORSE FOR ANGELIC.
[2022-05-10 08:00] VITALS: BP 141/85
[2022-05-10] MEDS: MORPHINE SULFATE SR 15 MG TABLET.SA PO SCH (08:23)
[2022-05-10] MEDS: DOXYCYCLINE HYCLATE (100 MG) 100 MG TABLET PO SCH (08:24)
[2022-05-10] MEDS: Fluoxetine 10 mg capsule PO SCH (08:24)
[2022-05-10] MEDS: DOCUSATE SODIUM 100 MG CAPSULE PO SCH (08:24)
[2022-05-10] MEDS: PANTOPRAZOLE 40 MG TABLET.DR PO SCH (08:24)
[2022-05-10] MEDS: FOLIC ACID 1 MG TABLET PO SCH (08:24)
[2022-05-10] MEDS: LEVETIRACETAM (250 MG) 250 MG TABLET PO SCH (08:24)
[2022-05-10] MEDS: hydrALAZINE HCL 50 MG TABLET PO SCH ×3 (08:25→17:00)
[2022-05-10] MEDS: NITROGLYCERIN PACKET 1 GM PACKET TD SCH (08:25)
[2022-05-10] MEDS: FUROSEMIDE 40 MG/4 ML VIAL IV SCH (08:26)
[2022-05-10] MEDS ORDERED: FURO-144 PO (10:38)
[2022-05-10] MEDS ORDERED: DOXY100T2 PO (10:38)
--- NOTE | 2022-05-10 13:00 | NUR ---
RN NOTE- PT O2 WEANED DOWN FROM 5LPM TO 4LPM. SATS AT 91%
--- NOTE | 2022-05-10 15:00 | NUR ---
RN NOTE- O2 SATS WEANING DOWN . 4LPM TO 3LPM. PT SATS DROPPED TO 89 - 90% REPLACED AT 4LPM
[2022-05-10 15:56] VITALS: BP 125/58
[2022-05-10 16:00] VITALS: BP 125/58
[2022-05-10 17:00] VITALS: BP 104/74
[2022-05-10] MEDS ORDERED: EPOETIN ALFA (10,000 UNIT) 10,000 UNIT/ML VIAL SQ SCH (18:00)
--- NOTE | 2022-05-10 18:27 | NUR ---
RN NOTE- PT DC AT THIS TIME TO ASSISTED LIVING. O2 SATS AT 95% ON 4LPM VIA NC, VS STABLE, BELONGINGS RETURNED, ID WRISTBAND REMOVED, IV DC'D. ESCORTED OFF UNIT BY AMBULANCE STAFF
== END 2022-05-10 18:30 | DRG 194 ==
LOC: ER 11:34 → TELE 15:35 → MED 05-10 15:18
PROVIDERS: ADMIT Student in an Organized Health Care Education/Training Program; ATTEND Nurse Practitioner Acute Care
PROC: 05HA33Z Insertion of Infusion Device into Left Brachial Vein, Percutaneous Approach (ICD-10-PCS; principal; 2022-05-06)
DX: I13.0 Hypertensive heart and chronic kidney disease with heart failure and stage 1 through stage 4 chronic kidney disease, or unspecified chronic kidney disease (principal); N17.0 Acute kidney failure with tubular necrosis; E43 Unspecified severe protein-calorie malnutrition; D61.818 Other pancytopenia; D68.59 Other primary thrombophilia; D63.1 Anemia in chronic kidney disease; K26.9 Duodenal ulcer, unspecified as acute or chronic, without hemorrhage or perforation; F25.9 Schizoaffective disorder, unspecified; J90 Pleural effusion, not elsewhere classified; E11.22 Type 2 diabetes mellitus with diabetic chronic kidney disease; I25.10 Atherosclerotic heart disease of native coronary artery without angina pectoris; I50.43 Acute on chronic combined systolic (congestive) and diastolic (congestive) heart failure; L03.115 Cellulitis of right lower limb; I69.354 Hemiplegia and hemiparesis following cerebral infarction affecting left non-dominant side; L03.116 Cellulitis of left lower limb; Z20.822 Contact with and (suspected) exposure to COVID-19; R07.81 Pleurodynia; Z85.038 Personal history of other malignant neoplasm of large intestine; Z88.2 Allergy status to sulfonamides; Z88.8 Allergy status to other drugs, medicaments and biological substances; Z91.041 Radiographic dye allergy status; Z91.013 Allergy to seafood; Z79.51 Long term (current) use of inhaled steroids; Z79.4 Long term (current) use of insulin; Z79.899 Other long term (current) drug therapy; Z87.19 Personal history of other diseases of the digestive system; G40.909 Epilepsy, unspecified, not intractable, without status epilepticus; E83.42 Hypomagnesemia; N18.9 Chronic kidney disease, unspecified; E78.5 Hyperlipidemia, unspecified; G89.4 Chronic pain syndrome; Z74.01 Bed confinement status; N40.0 Benign prostatic hyperplasia without lower urinary tract symptoms; F41.0 Panic disorder [episodic paroxysmal anxiety]; D72.822 Plasmacytosis; D72.821 Monocytosis (symptomatic); K59.00 Constipation, unspecified; K75.3 Granulomatous hepatitis, not elsewhere classified; K29.70 Gastritis, unspecified, without bleeding; K25.9 Gastric ulcer, unspecified as acute or chronic, without hemorrhage or perforation; F11.20 Opioid dependence, uncomplicated; R19.7 Diarrhea, unspecified; J44.9 Chronic obstructive pulmonary disease, unspecified
CPT/HCPCS: 36415; 71045-TC; 80048-TC; 80076-TC; 80202-TC; 81001; 83735-TC; 83880; 84100-TC; 84484-TC; 85025-TC; 87081-TC; 87086-TC; 94799-TC; 97112-TC; 97530-TC; A4349; C9803; G0378; J0456; J0692; J0885; J1940; J2270; J2543; J3370; J3475; J7050; J7060

== ENCOUNTER 2022-05-12 07:31 | Inpatient (IN) | payer OTHER ==
[~2022-05-12] VITALS: Ht 177.8 cm; Wt 80.3 kg
[~2022-05-12 07:31] MED LIST changes: -AMIT25TA9 PO; +DOXY100T2 PO; +FURO-144 PO
--- NOTE | 2022-05-12 07:50 | NUR ---
TECH AT BEDSIDE FOR EKG
[2022-05-12 08:13] LABS: BASOPHILS % (AUTO) 0.3 % (0.0-2.0); HEMATOCRIT 24 % (39-51); HEMOGLOBIN 7.9 g/dL (13.5-17.5); LYMPHOCYTES # (AUTO) 1.1 K/uL (0.8-4.8); LYMPHOCYTES % (AUTO) 12.7 % (20.0-44.0); MEAN CORPUSCULAR HGB CONC 33 g/dl (31.0-36.0); MEAN CORPUSCULAR VOLUME 88 fL (80-96); MONOCYTES # (AUTO) 0.4 K/uL (0.1-1.30); MONOCYTES % (AUTO) 4.7 % (2.0-12.0); NEUTROPHILS # (AUTO) 6.7 K/uL (1.8-8.9); NEUTROPHILS % (AUTO) 78.3 % (43.0-81.0); PLATELET COUNT (AUTO) 175 K/uL (150-450); RED BLOOD CELL COUNT(AUTO) 2.72 MIL/uL (4.5-6.0); WHITE BLOOD COUNT (AUTO) 8.5 K/uL (4.3-11.0)
--- NOTE | 2022-05-12 08:20 | NUR ---
MIDLINE NURSE ETA 45MINS PER HOUSE SUP
--- NOTE | 2022-05-12 08:22 | NUR ---
CALLED FOR MIDLINE.
--- NOTE | 2022-05-12 08:23 | NUR ---
URINE SAMPLE COLLECTED AND SENT TO LAB
[2022-05-12 08:29] LABS: BILIRUBIN,URINE NEGATIVE (NEGATIVE); COLOR,URINE YELLOW (YELLOW); LEUKOCYTE ESTERASE ,URINE NEGATIVE (NEGATIVE); NITRITE, URINE NEGATIVE (NEGATIVE); PROTEIN,URINE 2+ mg/dl (NEGATIVE); UGLUCOSE NEGATIVE (NEGATIVE); UROBILINOGEN,URINE 0.2 EU/dL (0.2)
[2022-05-12 08:39] LABS: BACTERIA,URINE Few /HPF (None Seen); RBC,URINE 21-50 /HPF (0-2)
--- NOTE | 2022-05-12 08:39 | NUR ---
COVID SWAB COLLECTED AND SENT TO LAB
[2022-05-12 08:40] LABS: SQUAMOUS EPITHELIAL CELL,UR None Seen /HPF (None Seen)
--- NOTE | 2022-05-12 08:50 | NUR ---
[facility] PAGED. AWAITING HOSPITALIST CALL BACK.
--- NOTE | 2022-05-12 08:53 | NUR ---
MIDLINE NURSE AT BEDSIDE
--- NOTE | 2022-05-12 08:57 | NUR ---
BED 117-1
[2022-05-12] MEDS ORDERED: NITROGLYCERIN PACKET 1 GM PACKET TD ONE (09:00)
[2022-05-12] MEDS ORDERED: ASPIRIN 325 MG TABLET PO ONE (09:00)
[2022-05-12] MEDS ORDERED: NITROGLYCERIN PACKET 1 GM PACKET ONE (09:05)
[2022-05-12] MEDS ORDERED: ASPIRIN 325 MG TABLET ONE (09:05)
--- NOTE | 2022-05-12 09:08 | NUR ---
PT REPORT GIVEN TO LAURA GAYLE
[2022-05-12 09:09] LABS: CALCIUM, SERUM 8.1 mg/dL (8.5-10.1); CARBON DIOXIDE 25 mmol/L (21-32); CHLORIDE 107 mmol/L (98-107); CREATININE 1.9 mg/dL (0.6-1.3); GLUCOSE 89 mg/dL (74-106); POTASSIUM 4.6 mmol/L (3.5-5.1); SODIUM SERUM 140 mmol/L (136-145); UREA NITROGEN, BLOOD 38 mg/dL (7-18)
--- NOTE | 2022-05-12 09:14 | NUR ---
PT ASKED FOR MORPHINE MEDICATION FOR PAIN; DR FLORES MADE AWARE W/ ORDER FOR MORPHINE 2MG IV X1 DOSE, ORDER READ BACK AND VERIFIED.
[2022-05-12] MEDS ORDERED: MORPHINE SULFATE INJ 2 MG/ML DISP.SYRIN ONE (09:17)
[2022-05-12 09:22] LABS: ALANINE AMINOTRANSFERASE 12 U/L (12-78); ALBUMIN 1.8 g/dL (3.4-5.0); ALKALINE PHOSPHATASE 82 U/L (46-116); ASPARTATE AMINOTRANSFERASE 13 U/L (15-37); BILIRUBIN,DIRECT 0.1 mg/dL (0.0-0.2); BILIRUBIN,TOTAL 0.2 mg/dL (0.2-1.0); TOTAL PROTEIN, SERUM 5.9 g/dL (6.4-8.2)
--- NOTE | 2022-05-12 09:29 | NUR ---
ASPIRIN PO, NITRO PATCH, AND MORPHINE IV GIVEN INDICATED, GILDARDO WELL.
[2022-05-12] MEDS ORDERED: MORPHINE SULFATE INJ 2 MG/ML DISP.SYRIN IV ONE ×2 (09:30→18:30)
[2022-05-12] MEDS ORDERED: CEFTRIAXONE 1GM BAG (ER ONLY) 50 ML IV ONE ×2 (10:00→10:06)
--- NOTE | 2022-05-12 10:36 | NUR ---
PT TRANSFERRED TO 117 [facility]IA [facility] ACLS PROTOCOL. WARM HANDOFF GIVEN TO LAURA GAYLE.
--- NOTE | 2022-05-12 10:40 | NUR ---
COMMERCIAL CORRESPONDENT NOTE PATIENT WAS TRANSFERRED FROM THE ER , WAS ADMITTED WITH PRIMARY DIAGNOSIS OF THE CHEST PAIN .PATIENT IS ALERT , ORIENTED TIMES 3.PATIENT IS BED BOUND .SKIN IS INTACT .APPLIED CONDOM CATHETER , DARNING CLEAR YELLOW URINE.PATIENT HAS IV KAMLESH 18 G , TKO RUNNING AT 10 ML/HR.UPON ARRIVING TO THE TELE UNIT PATIENT DENIALS ANY PAIN OR DISCOMFORT.BED IS AT LOWEST POSITION , CALL LIGHT WITHIN REACH , BED SIDE RAILS ARE UP.WILL CONTINUE TO MONITOR
[2022-05-12 12:49] VITALS: BP 130/68
[2022-05-12 16:00] VITALS: BP 126/71
--- NOTE | 2022-05-12 18:38 | NUR ---
RN CLOSING NOTE PATIENT IS ALERT , ORIENTED TIMES 3.PATIENT IS BED BOUND .SKIN IS INTACT .APPLIED CONDOM CATHETER , DARNING CLEAR YELLOW URINE.PATIENT HAS IV KAMLESH 18 G , TKO RUNNING AT 10 ML/HR.UPON , ADMISSION ORDERERS NOT PLACE YET . CALL LIGHT WITHIN REACH , BED SIDE RAILS ARE UP.WILL ENSORSE ER TECH NURSE TO CONTINUE TO MONITOR .
--- NOTE | 2022-05-12 19:30 | NUR ---
RN NOTE PT RECEIVED IN BED, AAOX3. VERBALLY REPONSIVE. DENIES PAIN/DISCOMFORT AT THIS TIME. ON 4L O2 VIA NC, WELL GILADRDO, NO SOB, NO ACUTE RESP DISTRESS NOTED. AFEBRILE. KAMLESH ML CLEAN, DRY AND PATENT, NO S/SX OF INFX. CONDOM CATH IN PLACED, PATENT, DRAINING CLEAR YELLOW URINE. SAFETY PRECAUTIONS IMPLEMENTED. WILL CONT POC.
[2022-05-12 20:00] VITALS: BP 140/72
[2022-05-12] MEDS ORDERED: ONDANSETRON HCL/PF 4 MG/2 ML VIAL IVP PRN (20:30)
[2022-05-12] MEDS ORDERED: MAGNESIUM HYDROXIDE 30 ML UDC PO PRN (20:30)
[2022-05-12] MEDS ORDERED: *INSULIN REGULAR(HUMULIN R)HUM 100 UNIT/ML VIAL SQ PRN (20:30)
[2022-05-12] MEDS ORDERED: ACETAMINOPHEN 325 MG TABLET PO PRN (20:30)
[2022-05-12] MEDS ORDERED: MAG HYDROX/AL HYDROX/SIMETH 30 ML UDC PO PRN (20:30)
[2022-05-12] MEDS ORDERED: INSULIN REGULAR, HUMAN 100 UNIT/ML 3 ML VIAL SQ PRN (20:30)
[2022-05-12] MEDS ORDERED: BUMETANIDE INJ 6 MG in IV NS 0.9% 36 ML IV ONE (20:30)
[2022-05-12] MEDS ORDERED: Z GUARD REMEDY 4 OZ OINT TP PRN (20:30)
[2022-05-12] MEDS ORDERED: HYDROCODONE/APAP 5/325MG TABLET PO PRN (20:30)
[2022-05-12] MEDS ORDERED: DEXTROSE 50%-WATER 50 ML DISP.SYRIN IV PRN (20:30)
[2022-05-12] MEDS ORDERED: BUMETANIDE INJ 0.25 MG/ML VIAL ONE ×2 (22:00→22:01)
[2022-05-12] MEDS: ENOXAPARIN SODIUM 40 MG/0.4 ML DISP.SYRIN SQ SCH (22:22)
[2022-05-12] MEDS: LEVETIRACETAM (250 MG) 250 MG TABLET PO SCH (22:23)
[2022-05-12] MEDS: TAMSULOSIN 0.4 MG CAP.SR.24H PO SCH (22:23)
[2022-05-12] MEDS: DOXYCYCLINE HYCLATE (100 MG) 100 MG TABLET PO SCH (22:23)
[2022-05-12] MEDS: NITROGLYCERIN PACKET 1 GM PACKET TD SCH (22:24)
[2022-05-12] MEDS: MORPHINE SULFATE INJ 2 MG/ML DISP.SYRIN IV PRN (22:32)
[2022-05-12] MEDS: ATORVASTATIN 40 MG TABLET PO SCH (22:34)
[2022-05-12] MEDS: BLOOD SUGAR DIAGNOSTIC 1 EACH STRIP IN SCH (23:47)
[2022-05-13] VITALS: BP 137/80
--- NOTE | 2022-05-13 00:44 | NUR ---
EVALUATOR NOTES SPOKE TO ROSANGELA PTS REQUEST FOR BIPAP NOC , WITH ORDER NOC BIPAP 15/5 FIO2 30% ORDER NOTED AND CARRIED OUR tr NAGI MADE AWARE.
[2022-05-13] MEDS: POTASSIUM CHLORIDE 20 MEQ TAB.PRT.SR PO ONE ×3 (02:00→04:34)
--- NOTE | 2022-05-13 03:00 | NUR ---
RN NOTE ORDER FOR K-DUR 20MEQ HELD PER MD'S ORDER, PT'S POTASSIUM LEVEL 4.6. NOTIFIED TRIAL MGR ROSANGELA WITH ORDER TO HOLD K-DUR. Addendum: 05/13/22 at 0708 by MAGNUS RAMIREZ RN ADD: K-DUR 20MEQ X2 TABS.
[2022-05-13 04:00] VITALS: BP 144/80
--- NOTE | 2022-05-13 07:00 | NUR ---
RN NOTE PT REMAINS IN STABLE CONDITION. AFEBRILE. CURRENTLY SLEEPING, ON NOC BIPAP ORDERED, WELL GILDARDO. PT NOTED WITH C/O PAIN THROUGHOUT THE SHIFT, PRN PAIN MEDICATIN GIVEN ORDERED PER PT'S REQ, EFFECTIVE. VSS. URINE OUTPUT 1400ML. ALL NEEDS MET. KEPT PT CLEAN AND DRY AT ALL TIMES. WILL ENDORSE TO AM SHIFT.
--- NOTE | 2022-05-13 07:30 | NUR ---
DROP HAMMER SETTER UP NOTES PT IN BED, AAO X 4, BIPAP IN PLACE. O2 SAT 99%. NOS OB, NO DISTRESS, RESPIRATION UNLABORED. SR WITH PACs HR 80 ON MONITOR. DENIES CHEST PAIN/DISCOMFORT AT THIS TIME. HAS KAMLESH MIDLINE G 18 FLUSHES WELL, SITE CLEAR. CCHO DIET. WITH CONDOM CATH. BED REST FOR NOW. SEE NURSING FLOWSHEET FOR SKIN ISSUES. POC DISCUSSED. VERBALIZED UNDERSTANDING. SAFETY MEASURES IN PLACE. BED LOW LOCKED. CALL LIGHT WITHIN REACH. WILL CONT TO MONITOR
[2022-05-13 07:42] LABS: BASOPHILS % (AUTO) 0.6 % (0.0-2.0); EOSINOPHILS % (AUTO) 3.8 % (0.0-6.0); HEMATOCRIT 23 % (39-51); HEMOGLOBIN 7.5 g/dL (13.5-17.5); LYMPHOCYTES % (AUTO) 13.4 % (20.0-44.0); MEAN CORPUSCULAR HGB CONC 33 g/dl (31.0-36.0); MEAN CORPUSCULAR VOLUME 90 fL (80-96); MONOCYTES # (AUTO) 0.5 K/uL (0.1-1.30); MONOCYTES % (AUTO) 6.7 % (2.0-12.0); NEUTROPHILS # (AUTO) 5.5 K/uL (1.8-8.9); NEUTROPHILS % (AUTO) 75.5 % (43.0-81.0); PLATELET COUNT (AUTO) 161 K/uL (150-450); RED BLOOD CELL COUNT(AUTO) 2.58 MIL/uL (4.5-6.0); WHITE BLOOD COUNT (AUTO) 7.3 K/uL (4.3-11.0)
[2022-05-13] MEDS: BLOOD SUGAR DIAGNOSTIC 1 EACH STRIP IN SCH ×2 (07:49→11:37)
[2022-05-13 08:00] VITALS: BP 143/79
[2022-05-13] MEDS: PANTOPRAZOLE 40 MG TABLET.DR PO SCH (08:05)
[2022-05-13 08:21] LABS: CREATININE 1.8 mg/dL (0.6-1.3); MAGNESIUM 1.4 mg/dL (1.8-2.4); PHOSPHORUS 4.5 mg/dL (2.5-4.9); POTASSIUM 4.9 mmol/L (3.5-5.1)
--- NOTE | 2022-05-13 08:30 | NUR ---
RT NOTE ATTEMPTED TO REMOVE NOC BIPAP AND PLACE PATIENT ON NC. PATIENT REFUSED TO REMOVE MASK STATING HE WANTS TO STAY ON FOR A LITTLE LONGER. CAMPUS RECRUITING INTERNSHIP NOTIFIED AND AWARE. NO SOB NOTED AT THIS TIME.
[2022-05-13] MEDS: DOXYCYCLINE HYCLATE (100 MG) 100 MG TABLET PO SCH ×2 (09:28→21:18)
[2022-05-13] MEDS: hydrALAZINE HCL 50 MG TABLET PO SCH ×3 (09:28→17:32)
[2022-05-13] MEDS: LEVETIRACETAM (250 MG) 250 MG TABLET PO SCH ×2 (09:28→21:18)
[2022-05-13] MEDS: FUROSEMIDE 40 MG TABLET PO SCH (09:28)
--- NOTE | 2022-05-13 09:30 | NUR ---
RN NOTES DUE MEDS GIVEN
[2022-05-13] MEDS: NITROGLYCERIN PACKET 1 GM PACKET TD SCH ×2 (09:32→22:59)
[2022-05-13] MEDS: Fluoxetine 10 mg capsule PO SCH (09:32)
[2022-05-13] MEDS: MORPHINE SULFATE INJ 2 MG/ML DISP.SYRIN IV PRN ×4 (09:33→23:09)
[2022-05-13] MEDS ORDERED: MAGNESIUM OXIDE 400 MG TABLET PO ONE (11:00)
--- NOTE | 2022-05-13 11:15 | NUR ---
RT NOTES REMOVED PATIENT OFF BIPAP AND PLACED ON 4LPM NC. RN NOTIFIED AND AWARE. NO SOB NOTED AT THIS TIME.
[2022-05-13 12:00] VITALS: BP 128/79
--- NOTE | 2022-05-13 15:10 | NUR ---
RN NOTES MONEY COUNTED AND CREDIT CARDS PLACED ON A BELONGINGS ENVELOPE, SIGNED BY CHARGE NURSE SOON AND THIS NURSE AND SENT TO NURSING HEAD SCHOOL CUSTODIAN BOX.
[2022-05-13 16:00] VITALS: BP 121/60
--- NOTE | 2022-05-13 18:18 | NUR ---
PROFESSOR OF ART CLOSING NOTES PT IN BED, RESTING, AAO X 4, ON 4L O2 SAT >95%. NOS SOB, NO DISTRESS, RESPIRATION UNLABORED. SR WITH PACs HR 97 ON MONITOR. DENIES CHEST PAIN/DISCOMFORT AT THIS TIME. HAS KAMLESH MIDLINE G 18 FLUSHES WELL, SITE CLEAR. CCHO DIET. WITH CONDOM CATH. BED REST FOR NOW. SAFETY MEASURES IN PLACE. BED LOW LOCKED. CALL LIGHT WITHIN REACH. WILL ENDORSE TO NEXT SHIFT FOR ANGELIC. ALL NEEDS MET FOR NOW. PM CARE DONE. ASSISTED IN TURNING AND REPOSITIONING Q 2 HOURS HEELS OFF LOADED
[2022-05-13 20:00] VITALS: BP 122/72
[2022-05-13] MEDS: ATORVASTATIN 40 MG TABLET PO SCH (21:20)
[2022-05-13] MEDS: TAMSULOSIN 0.4 MG CAP.SR.24H PO SCH (21:20)
[2022-05-13] MEDS: ENOXAPARIN SODIUM 40 MG/0.4 ML DISP.SYRIN SQ SCH (21:24)
--- NOTE | 2022-05-13 21:24 | NUR ---
ANTICOAGULANT H/H 7.08/22 PLT 161 No active bleeding. Given Lovenox injection, co signed by LAURA Kaminski.
[2022-05-14] VITALS: BP 119/69
[2022-05-14 04:00] VITALS: BP 121/66
--- NOTE | 2022-05-14 05:39 | NUR ---
END OF SHIFT REPORT Patient in bed, A/O x4. Sinus rhythm with PAC HR 80's in the Tele monitor. Oxygen sat high 90's in 4L NC. BIPAP at night. KAMLESH Midline intact. Leg/lower back pain managed with IV Morphine. Denies chest pain, no c/o N/V. Good appetite. Plan for continue Diuresis, oxygen supplement. Voided urine condom catheter device, no BM during the shift. Will endorse to oncoming RN.
[2022-05-14] MEDS: MORPHINE SULFATE INJ 2 MG/ML DISP.SYRIN IV PRN ×4 (06:43→21:15)
[2022-05-14 06:52] LABS: BASOPHILS % (AUTO) 0.7 % (0.0-2.0); EOSINOPHILS % (AUTO) 6.5 % (0.0-6.0); HEMATOCRIT 22 % (39-51); HEMOGLOBIN 7.2 g/dL (13.5-17.5); LYMPHOCYTES # (AUTO) 1.1 K/uL (0.8-4.8); LYMPHOCYTES % (AUTO) 17.7 % (20.0-44.0); MEAN CORPUSCULAR HGB CONC 33 g/dl (31.0-36.0); MEAN CORPUSCULAR VOLUME 89 fL (80-96); MONOCYTES # (AUTO) 0.5 K/uL (0.1-1.30); MONOCYTES % (AUTO) 8.5 % (2.0-12.0); NEUTROPHILS # (AUTO) 4.2 K/uL (1.8-8.9); NEUTROPHILS % (AUTO) 66.6 % (43.0-81.0); PLATELET COUNT (AUTO) 164 K/uL (150-450); RED BLOOD CELL COUNT(AUTO) 2.48 MIL/uL (4.5-6.0); WHITE BLOOD COUNT (AUTO) 6.4 K/uL (4.3-11.0)
[2022-05-14 07:04] LABS: CALCIUM, SERUM 7.7 mg/dL (8.5-10.1); CREATININE 1.7 mg/dL (0.6-1.3); PHOSPHORUS 4.3 mg/dL (2.5-4.9); POTASSIUM 4.5 mmol/L (3.5-5.1)
[2022-05-14 07:07] LABS: MAGNESIUM 1.2 mg/dL (1.8-2.4)
--- NOTE | 2022-05-14 07:15 | NUR ---
RN OPEN TELE NOTE: ASLEEP WITH BIPAP ON ON PRESCRIBED SETTINGS. SKIN IS WARM AND DRY. FINNISH RUBBER SINUS RHYTHM 84 WITH OCCASIONAL PAC'S. KAMLESH MIDLINE PATENT. HOB ELEVATED SEMI-FOWLERS POSITION, BILATERAL HALF SIDE RAILS UP X2. BED IN LOW POSITION, LOCKED, AND EXIT ALARM ON. CALL LIGHT WITHIN REACH. NO S/S OF PAIN OR DISCOMFORT.
[2022-05-14 08:00] VITALS: BP 134/65
[2022-05-14] MEDS: PANTOPRAZOLE 40 MG TABLET.DR PO SCH (09:03)
[2022-05-14] MEDS: NITROGLYCERIN PACKET 1 GM PACKET TD SCH ×2 (09:44→21:13)
[2022-05-14] MEDS: DOXYCYCLINE HYCLATE (100 MG) 100 MG TABLET PO SCH ×2 (09:44→21:13)
[2022-05-14] MEDS: FUROSEMIDE 40 MG TABLET PO SCH (09:44)
[2022-05-14] MEDS: hydrALAZINE HCL 50 MG TABLET PO SCH ×3 (09:45→18:05)
[2022-05-14] MEDS: Fluoxetine 10 mg capsule PO SCH (09:45)
[2022-05-14] MEDS: LEVETIRACETAM (250 MG) 250 MG TABLET PO SCH ×2 (09:45→21:13)
[2022-05-14] MEDS: Magnesium 1GM/D5W 100ML PREMIX 100 ML IV SCH ×2 (09:58→11:17)
[2022-05-14 12:00] VITALS: BP 110/50
[2022-05-14 16:00] VITALS: BP 112/52
--- NOTE | 2022-05-14 18:50 | NUR ---
RN CLOSING TELE NOTE: AWAKE, ALERT TIMES FOUR. UNLABORED BREATHING WITH 02 4LPM NC SATING AT 99%. SKIN IS WARM AND DRY. RADIO RECORDER SINUS RHYTHM WITH OCCASIONAL PAC'S. KAMLESH MIDLINE PATENT. KEPT CLEAN AND DRY. CONDOM CATH WITH YELLOW URINE. HOB ELEVATED SEMI-FOWLERS POSITION, BILATERAL HALF SIDE RAILS UP X2. BED IN LOW POSITION, LOCKED, AND EXIT ALARM ON. CALL LIGHT WITHIN REACH. NO S/S OF PAIN OR DISCOMFORT. TURNED AND REPOSITIONED. ON PAIN MANAGEMENT WITH PRN MORPHINE GIVEN ORDERED AND EFFECTIVE. PATIENT TO HAVE A LEFT HEART CATH. VISITED BY .
--- NOTE | 2022-05-14 19:30 | NUR ---
RN OPENING NOTE RECEIVED PT AWAKE, ALERT TIMES FOUR. UNLABORED BREATHING WITH 02 4LPM NC SATING AT 99%. NO S/S OF PAIN OR DISCOMFORT. SKIN IS WARM AND DRY. VESSEL ORDINARY SEAMAN SINUS RHYTHM WITH OCCASIONAL PAC'S. KAMLESH MIDLINE INTACT AND PATENT. CONDOM CATH WITH YELLOW URINE. HOB ELEVATED SEMI-FOWLERS POSITION, BILATERAL SIDE RAILS UP X2. BED IN LOW POSITION, LOCKED, AND EXIT ALARM ON. CALL LIGHT WITHIN REACH. WILL CONTINUE TO MONITOR THROUGHOUT THE SHIFT.
[2022-05-14 20:00] VITALS: BP 113/64
[2022-05-14] MEDS: ENOXAPARIN SODIUM 40 MG/0.4 ML DISP.SYRIN SQ SCH (20:30)
--- NOTE | 2022-05-14 21:00 | NUR ---
RN NOTE SCHEDULED LOVENOX HELD AT THIS TIME D/T PT GOING TO SURGERY IN AM FOR L HEART CATH WITH DR. WALLAEC. PT REQUESTING FOR SLEEPING PILL AT NIGHT. NO PRN ORDERS YET, VENEER SORTER MADE AWARE, AWAITING FOR RESPONSE.
[2022-05-14] MEDS: TAMSULOSIN 0.4 MG CAP.SR.24H PO SCH (21:12)
[2022-05-14] MEDS: ATORVASTATIN 40 MG TABLET PO SCH (21:13)
[2022-05-14] MEDS: ZOLPIDEM TARTRATE 5 MG TABLET PO PRN (23:33)
--- NOTE | 2022-05-14 23:33 | NUR ---
RN NOTE MD ORDERED AMBIEN 5 MG PO FOR INSOMNIA, ORDER TAKEN AND CARRIED OUT. PT TOLERATED WELL. WILL CONT TO MONITOR.
--- NOTE | 2022-05-14 23:50 | NUR ---
RT NOTE PT PLACED ON BIPAP AT THIS TIME. MASK SECURED AND MEPILEX APPLIED TO MASK. ALARMS ON AND AUDIBLE. NO RESPIRATORY DISTRESS NOTED. WILL CONTINUE TO MONITOR.
[2022-05-15] VITALS (10 sets, daily range): BP systolic 122–150; BP diastolic 55–81
--- NOTE | 2022-05-15 06:55 | NUR ---
RN CLOSING NOTE PT SLEEPING IN BED, ALERT AND ORIENTED X FOUR. PT ON NOC BIPAP, TOLERATING WELL SATING 99% NO S/S OF PAIN OR DISCOMFORT. SKIN IS WARM AND DRY. DIE TECHNICIAN SINUS RHYTHM WITH OCCASIONAL PAC'S. KAMLESH MIDLINE INTACT AND PATENT. CONDOM CATH WITH YELLOW URINE. HOB ELEVATED, ALL DUE MEDS GIVEN, KEPT DRY AND CLEAN, SEMI-FOWLERS POSITION, BILATERAL SIDE RAILS UP X2. BED IN LOW POSITION, LOCKED, AND EXIT ALARM ON. KEPT PT NPO POST MN FOR SX, CALL LIGHT WITHIN REACH. WILL ENDORSE TO AM, SHIFT NURSE FOR CONTINUITY OF CARE.
--- NOTE | 2022-05-15 07:10 | NUR ---
PLUG ASSEMBLER OPENING NOTES: RECEIVED PATIENT IN BED ASLEEP WITH BIPAP ON ORDERED. PATIENT IS ALERT, ORIENTED X 4. NO RESPIRATORY DISTRESS NOTED, BREATHING EVEN AND UNLABORED, ON OXYGEN SATURATION OF 98%. ON SR WITH HR OF 77 PER TELE MONITOR. HAS IV ACCESS ON RIGHT UPPER ARM MIDLINE, INTACT, PATENT AND FLUSHES WELL, NO S/S INFILTRATION ON THE SITE. CONDOM CATHETER INTACT, DRAINING WITH YELLOW COLORED URINE. ALL SAFETY MEASURES IN PLACE, BED LOCKED AND IN LOWEST POSITION WITH BED ALARM ON. CALL LIGHT WITHIN REACH. WILL CONTINUE TO MONITOR PATIENT THROUGHPUT SHIFT.
[2022-05-15] MEDS: hydrALAZINE HCL 50 MG TABLET PO SCH ×3 (08:54→16:52)
[2022-05-15] MEDS: LEVETIRACETAM (250 MG) 250 MG TABLET PO SCH ×2 (08:54→21:46)
[2022-05-15] MEDS: FUROSEMIDE 40 MG TABLET PO SCH (08:54)
[2022-05-15] MEDS: Fluoxetine 10 mg capsule PO SCH (08:54)
[2022-05-15] MEDS: DOXYCYCLINE HYCLATE (100 MG) 100 MG TABLET PO SCH ×2 (08:54→21:46)
[2022-05-15] MEDS: NITROGLYCERIN PACKET 1 GM PACKET TD SCH ×2 (08:55→21:46)
[2022-05-15] MEDS: PANTOPRAZOLE 40 MG VIAL IV SCH (08:56)
[2022-05-15 09:04] LABS: BASOPHILS % (AUTO) 0.3 % (0.0-2.0); EOSINOPHILS % (AUTO) 7.6 % (0.0-6.0); HEMATOCRIT 21 % (39-51); LYMPHOCYTES % (AUTO) 15.9 % (20.0-44.0); MEAN CORPUSCULAR HGB CONC 33 g/dl (31.0-36.0); MEAN CORPUSCULAR VOLUME 89 fL (80-96); MONOCYTES # (AUTO) 0.6 K/uL (0.1-1.30); MONOCYTES % (AUTO) 9.7 % (2.0-12.0); NEUTROPHILS # (AUTO) 4.3 K/uL (1.8-8.9); NEUTROPHILS % (AUTO) 66.5 % (43.0-81.0); PLATELET COUNT (AUTO) 165 K/uL (150-450); RED BLOOD CELL COUNT(AUTO) 2.35 MIL/uL (4.5-6.0); WHITE BLOOD COUNT (AUTO) 6.5 K/uL (4.3-11.0)
[2022-05-15 09:10] LABS: CALCIUM, SERUM 7.9 mg/dL (8.5-10.1); CREATININE 1.8 mg/dL (0.6-1.3); POTASSIUM 4.7 mmol/L (3.5-5.1)
[2022-05-15 09:33] LABS: HEMOGLOBIN 6.9 g/dL (13.5-17.5)
[2022-05-15] MEDS: MORPHINE SULFATE INJ 2 MG/ML DISP.SYRIN IV PRN ×4 (09:33→23:00)
--- NOTE | 2022-05-15 09:50 | NUR ---
RECEIVED CALL FROM THE LAB WITH HEMOGLOBIN OF 6.9. DR CHOW CONTACTED WITH AN ORDER FOR TYPE AND CROSS AND 1 UNIT OF PRBC, ORDER NOTED AND CARRIED OUT.
--- NOTE | 2022-05-15 11:00 | NUR ---
NURSE CAME TO TRY TO [place]BIEE ARCHITECT THE PATIENT FOR HIS PROCEDURE BUT WAS INFORMED OF PATIENT'S HEMOGLOBIN RESULT. NURSE CONTACTED THE SURGERY DEPT FOR FURTHER ORDERS
[2022-05-15] MEDS ORDERED: IV NS 0.9% 500 ML IV ONE (11:06)
[2022-05-15] MEDS ORDERED: IV SET PRIMARY PUMP SET 1 EA INFUS.SET MC ONE (11:06)
[2022-05-15] MEDS ORDERED: NITROGLYCERIN IN 5 % DEXTROSE 250 ML IV ONE (11:07)
[2022-05-15] MEDS ORDERED: IODIXANOL 0 ML IV ONE (11:07)
[2022-05-15] MEDS ORDERED: LIDOCAINE HCL/MPF 1% 30 ML VIAL IJ ONE (11:08)
--- NOTE | 2022-05-15 11:43 | NUR ---
PATIENT LEFT VIA GURNEY FOR HIS HEART CATHETERIZATION. PATIENT LEFT IN NO ACUTE DISTRESS
[2022-05-15] MEDS ORDERED: Magnesium 1GM/D5W 100ML PREMIX 100 ML IV SCH (12:30)
--- NOTE | 2022-05-15 12:34 | NUR ---
PATIENT'S BACK ACCOMPANIED BY AN RN AND STATED THAT THE PROCEDURE WAS NOT DONE BECAUSE THE PATIENT WAS ALLERGIC TO DYE. WILL TRY TO DO THE PROCEDURE AGAIN TOMORROW.
--- NOTE | 2022-05-15 16:30 | NUR ---
STARTED BLOOD TRANSFUSION ORDERED BY . CONSENT WAS PREVIOUSLY WITNESSED AND IS IN THE PATIENT'S CHART V/S FOLLOWS: BP 132/59, HR 90, TEMP 97.9, RR 20, ON OXYGEN @ 4L/MIN VIA N/C WITH OXYGEN SATURATION OF 98%.
--- NOTE | 2022-05-15 16:45 | NUR ---
PATIENT DID NOT EXHIBIT ANY IMMEDIATE REACTION TO THE BLOOD. RECHECKED PATIENT'S V/S FOLLOWS: BP 131/63, HR 88, TEMP 97.6, RR 20 ON OXYGEN @ 4L/MIN VIA N/C WITH SATURATION OF 96%. NO SOB NOTED, BREATHING EVEN AND UNLABORED. NO TRANSFUSION REACTION NOTED.
--- NOTE | 2022-05-15 17:34 | NUR ---
DR CHOW ORDERED XANAX PRN ANXIETY, ORDER NOTED AND CARRIED OUT. PATIENT INFORMED AND HE SAID THAT THE PROCEDURE WILL BE DONE SUNDAY.
[2022-05-15] MEDS: ALPRAZOLAM 0.5 MG TABLET PO PRN (17:52)
--- NOTE | 2022-05-15 18:56 | NUR ---
CHILD CARE PROVIDER OPENING NOTES: PATIENT IN BED AWAKE, ALERT.ORIENTED X 4. NO RESPIRATORY DISTRESS NOTED THROUGHOUT SHIFT. ON O2 @ 4L/MIN VIA N/C WITH OXYGEN SATURATION OF 98%. ON SR WITH HR OF 91 PER TELE MONITOR. IV ACCESS ON RIGHT UPPER ARM MIDLINE, INTACT, STILL FINISHING HIS BLOOD TRANSFUSION, NO S/S INFILTRATION NOTED ON THE SITE. CONDOM CATHETER INTACT, EMPTIED 1050 ML OF YELLOW COLORED URINE. NO HEMATURIA AND NO SEDIMENTATION NOTED. ALL SAFETY MEASURES IMPLEMENTED. BED LOCKED AND IN LOWEST POSITION WITH BED ALARM ON. CALL LIGHT WITHIN REACH. WILL ENDORSE TO INCOMING NURSE FOR CONTINUITY OF CARE.
--- NOTE | 2022-05-15 19:05 | NUR ---
PATIENT FINISHED HIS BLOOD TRANSFUSION. PATIENT IN NO ACUTE DISTRESS. NO SOB NOTED. VS FOLLOWS: BP 126/60 HR 85, RR 18. TEMP 98.0 OXYGEN SATURATION OF 98% ON O2 @ 4L/MIN.
--- NOTE | 2022-05-15 19:55 | NUR ---
RN OPENING NOTE PATIENT ASLEEP IN BED. NO S/S OF DISTRESS, BREATHING WITHOUT DIFFICULTY ON 4L NC. KAMLESH MIDLINE #18 TKO INTACT AND PATENT. TELE READS SR 77. SAFETY MEASURES IN PLACE: BED LOCKED AND AT LOWEST POSITION, RAILS UP X2, CALL PERRY WITHIN REACH. WILL CONTINUE TO MONITOR PATIENT.
[2022-05-15] MEDS: ENOXAPARIN SODIUM 40 MG/0.4 ML DISP.SYRIN SQ SCH (19:58)
[2022-05-15 20:16] LABS: HEMOGLOBIN 7.9 g/dL (13.5-17.5)
[2022-05-15] MEDS: TAMSULOSIN 0.4 MG CAP.SR.24H PO SCH (21:46)
[2022-05-15] MEDS: ATORVASTATIN 40 MG TABLET PO SCH (21:46)
[2022-05-15] MEDS: ZOLPIDEM TARTRATE 5 MG TABLET PO PRN (21:48)
[2022-05-16] VITALS: BP 129/70
[2022-05-16 04:00] VITALS: BP 132/81
[2022-05-16] MEDS: MORPHINE SULFATE INJ 2 MG/ML DISP.SYRIN IV PRN ×3 (05:48→21:07)
[2022-05-16 06:30] LABS: CREATININE 1.8 mg/dL (0.6-1.3); POTASSIUM 4.7 mmol/L (3.5-5.1)
--- NOTE | 2022-05-16 06:44 | NUR ---
RN CLOSING NOTE PATIENT ASLEEP IN BED. A/OX4. NO S/S OF DISTRESS, BREATHING WITHOUT DIFFICULTY ON 4L NC. KAMLESH ML #18 SL INTACT AND PATENT. TELE READS SR 71. SAFETY MEASURES IN PLACE: BED LOCKED AND AT LOWEST POSITION, RAILS UP X3, CALL PERRY WITHIN REACH. WILL ENDORSE TO NEXT SHIFT FOR ANGELIC.
--- NOTE | 2022-05-16 07:20 | NUR ---
LITHOGRAPH PRESS FEEDER OPENING NOTES: RECEIVED PATIENT IN BED ASLEEP BUT EASILY AROUSES TO VOICE AND TACTILE STIMULI. PATIENT IS ALERT.ORIENTED X 4. NO NO SOB NOTED, BREATHING EVEN AND UNLABORED. ON OXYGEN @ 4L/MIN VIA N/C WITH OXYGEN SATURATION OF 97%. ON SR PER TELE MONITOR WITH HR OF 86. IV ACCESS ON RIGHT UPPER ARM MIDLINE, INTACT, ON TKO, NO S/S INFILTRATION NOTED ON THE SITE, SITE PATENT. CONDOM CATHETER IN PLACE, DRAINING WITH YELLOW COLORED URINE. NO HEMATURIA AND NO SEDIMENTATION NOTED. NO C/O PAIN OR DISCOMFORT NOTED AT THIS TIME. ALL SAFETY MEASURES IN PLACE. BED LOCKED AND IN LOWEST POSITION WITH BED ALARM ON. CALL LIGHT WITHIN REACH. WILL CONTINUE TO MONITOR PATIENT THROUGHOUT SHIFT.
[2022-05-16 08:00] VITALS: BP 134/70
[2022-05-16] MEDS: PANTOPRAZOLE 40 MG VIAL IV SCH (08:29)
[2022-05-16] MEDS: Fluoxetine 10 mg capsule PO SCH (08:29)
[2022-05-16] MEDS: FUROSEMIDE 40 MG TABLET PO SCH (08:30)
[2022-05-16] MEDS: DOXYCYCLINE HYCLATE (100 MG) 100 MG TABLET PO SCH ×2 (08:30→20:27)
[2022-05-16] MEDS: LEVETIRACETAM (250 MG) 250 MG TABLET PO SCH ×2 (08:30→20:27)
[2022-05-16] MEDS: NITROGLYCERIN PACKET 1 GM PACKET TD SCH ×2 (08:31→20:42)
[2022-05-16] MEDS: hydrALAZINE HCL 50 MG TABLET PO SCH ×3 (08:32→16:47)
[2022-05-16] MEDS ORDERED: predniSONE 20 MG TABLET PO ONE ×2 (11:00→23:00)
[2022-05-16 12:00] VITALS: BP 133/67
[2022-05-16] MEDS ORDERED: Magnesium 1GM/D5W 100ML PREMIX 100 ML IV SCH (12:00)
--- NOTE | 2022-05-16 13:33 | NUR ---
patient complain and wants change diet to regular notified md and ok to change it,dietary notified.
[2022-05-16] MEDS: ALPRAZOLAM 0.5 MG TABLET PO PRN (15:21)
[2022-05-16 16:00] VITALS: BP 112/66
--- NOTE | 2022-05-16 19:01 | NUR ---
CROP RESEARCH SCIENTIST CLOSING NOTES: PATIENT IN BED AWAKE, ALERT.ORIENTED X 4. NO RESPIRATORY DISTRESS NOTED THE ENTIRE SHIFT AND NO C/O PAIN OR DISCOMFORT NOTED. ON OXYGEN @ 4L/MIN VIA N/C WITH OXYGEN SATURATION OF 97%. ON SR WITH HR OF 79 PER TELE MONITOR. IV ACCESS ON RIGHT UPPER ARM MIDLINE, INTACT, PATENT, FLUSHES WELL AND NO S/S INFILTRATION NOTED ON THE SITE. CONDOM CATHETER INTACT, EMPTIED 750 ML OF YELLOW COLORED URINE. NO HEMATURIA AND NO SEDIMENTATION NOTED. ALL SAFETY MEASURES IMPLEMENTED. BED LOCKED AND IN LOWEST POSITION WITH BED ALARM ON. CALL LIGHT WITHIN REACH. WILL ENDORSE TO INCOMING NURSE FOR CONTINUITY OF CARE.
--- NOTE | 2022-05-16 19:30 | NUR ---
RN OPENING NOTE RECEIVED PATIENT IN BED, AWAKE, A/O X 4. ABLE TO VERBALIZE NEEDS. CURRENTLY ON O2 VIA NC @ 4L, TOLERATING WELL, SATING @ 99%. NO S/SX OF ACUTE RESPI DISTRESS NOTED AT THIS TIME. NO SOB, BREATHING IS EVEN AND UNLABORED. EXCELLENCE CONSULTANT READS SR WITH HR IN THE 80s. IV ACCESS IN KAMLESH MIDLINE #18, TKO INTACT AND PATENT. ALL SAFETY MEASURES IN PLACE: BED LOCKED IN LOWEST POSITION, SIDE RAILS UP X2, CALL PERRY WITHIN REACH. WILL CONTINUE TO MONITOR PATIENT.
[2022-05-16 20:00] VITALS: BP 142/73
[2022-05-16] MEDS: ENOXAPARIN SODIUM 40 MG/0.4 ML DISP.SYRIN SQ SCH (20:15)
--- NOTE | 2022-05-16 20:16 | NUR ---
RN NOTE HELD STEVE PT DUE FOR L HEART CATH PLACEMENT TOMORROW.
[2022-05-16] MEDS: TAMSULOSIN 0.4 MG CAP.SR.24H PO SCH (21:07)
[2022-05-16] MEDS: ATORVASTATIN 40 MG TABLET PO SCH (21:07)
[2022-05-17] VITALS: BP 141/78
--- NOTE | 2022-05-17 00:10 | NUR ---
RN NOTE PT HAS BLOOD WAITING IN THE LAB FOR TRANSFUSION. PT NEW HGB IS 7.9 OF 05/15. INFORMED COMPLIANCE AND CONTROL ANALYST, YEN DOUBLING MACHINE OPERATOR REGARDING PT'S NEW HGB AND ORDER TO TRANSFUSE 1 UNIT PRBC PRN, COMPLIANCE AND CONTROL ANALYST SAID DO NOT TRANSFUSE. WILL CARRY OUT ORDER.
[2022-05-17] MEDS: MORPHINE SULFATE INJ 2 MG/ML DISP.SYRIN IV PRN ×6 (01:10→22:28)
[2022-05-17 04:00] VITALS: BP 139/81
[2022-05-17] MEDS ORDERED: predniSONE 20 MG TABLET ONE (04:48)
--- NOTE | 2022-05-17 04:49 | NUR ---
RN NOTE ERRONEOUSLY TOOK OUT ONLY ONE TAB FOR PREDNISONE MED FOR 0500 FROM [facility]. RETURNED MEDICATION AND ASKED CHARGE NURSE TO OVERRIDE MEDICATION REMOVAL FOR PREDNISONE 20 MG X 3 TABS. MED ADMINISTERED.
[2022-05-17] MEDS ORDERED: predniSONE 20 MG TABLET PO ONE ×2 (05:00→11:00)
[2022-05-17 08:00] VITALS: BP 142/73
[2022-05-17 10:12] LABS: BASOPHILS % (AUTO) 0.5 % (0.0-2.0); EOSINOPHILS % (AUTO) 0.3 % (0.0-6.0); HEMATOCRIT 28 % (39-51); HEMOGLOBIN 9.2 g/dL (13.5-17.5); LYMPHOCYTES # (AUTO) 0.2 K/uL (0.8-4.8); LYMPHOCYTES % (AUTO) 3.2 % (20.0-44.0); MEAN CORPUSCULAR HGB CONC 33 g/dl (31.0-36.0); MEAN CORPUSCULAR VOLUME 88 fL (80-96); MONOCYTES # (AUTO) 0.1 K/uL (0.1-1.30); MONOCYTES % (AUTO) 1.3 % (2.0-12.0); NEUTROPHILS # (AUTO) 7.1 K/uL (1.8-8.9); NEUTROPHILS % (AUTO) 94.7 % (43.0-81.0); PLATELET COUNT (AUTO) 195 K/uL (150-450); RED BLOOD CELL COUNT(AUTO) 3.21 MIL/uL (4.5-6.0); WHITE BLOOD COUNT (AUTO) 7.5 K/uL (4.3-11.0)
[2022-05-17] MEDS: PANTOPRAZOLE 40 MG VIAL IV SCH (10:15)
[2022-05-17] MEDS: LEVETIRACETAM (250 MG) 250 MG TABLET PO SCH ×2 (10:15→21:38)
[2022-05-17] MEDS: FUROSEMIDE 40 MG TABLET PO SCH (10:15)
[2022-05-17] MEDS: Fluoxetine 10 mg capsule PO SCH (10:16)
[2022-05-17] MEDS: hydrALAZINE HCL 50 MG TABLET PO SCH ×3 (10:17→17:00)
[2022-05-17] MEDS ORDERED: MAGNESIUM OXIDE 400 MG TABLET PO ONE (10:30)
[2022-05-17] MEDS: DOXYCYCLINE HYCLATE (100 MG) 100 MG TABLET PO SCH ×2 (10:41→21:38)
[2022-05-17] MEDS: NITROGLYCERIN PACKET 1 GM PACKET TD SCH ×2 (10:42→21:37)
[2022-05-17 11:14] LABS: CALCIUM, SERUM 8.4 mg/dL (8.5-10.1)
[2022-05-17 11:23] LABS: POTASSIUM 6.3 mmol/L (3.5-5.1)
[2022-05-17 12:00] VITALS: BP 142/73
[2022-05-17] MEDS ORDERED: IV SET PRIMARY PUMP SET 1 EA INFUS.SET MC ONE (12:54)
[2022-05-17] MEDS ORDERED: LIDOCAINE HCL/MPF 1% 30 ML VIAL IJ ONE (12:54)
[2022-05-17] MEDS ORDERED: IV NS 0.9% 0 ML ONE (12:54)
[2022-05-17] MEDS ORDERED: IODIXANOL 150 ML IV ONE (12:54)
[2022-05-17] MEDS ORDERED: NITROGLYCERIN IN 5 % DEXTROSE 250 ML IV ONE (13:07)
[2022-05-17] MEDS ORDERED: IV NS 0.9% 500 ML IV ONE (13:12)
[2022-05-17] MEDS ORDERED: FENTANYL PF 100MCG/2ML AMPUL ONE (13:41)
[2022-05-17] MEDS ORDERED: MIDAZOLAM HCL 2 MG/2ML VIAL ONE (13:41)
[2022-05-17] MEDS ORDERED: diphenhydrAMINE HCL 50 MG/ML VIAL ONE (13:48)
--- NOTE | 2022-05-17 14:15 | NUR ---
RECEIVED PT. SUPINE POSITION,AWAKE ALERT ,NO BLEEDNG,TR BAND IN PLACE,VS ,WILL CONTINUE TO MONITOR.
[2022-05-17 16:00] VITALS: BP 142/73
--- NOTE | 2022-05-17 16:21 | NUR ---
pt. midline unable to flush,pt. refused to have peripheral iv reinserted c/o difficult veins,pt. uoset and demanding to have midline .
--- NOTE | 2022-05-17 16:23 | NUR ---
nursing supervisor line department Yohana notified.
--- NOTE | 2022-05-17 16:24 | NUR ---
vs stable no bleeding.
[2022-05-17] MEDS ORDERED: SODIUM POLYSTYRENE SULF. PWD 15 GM UDC PO ONE (17:00)
--- NOTE | 2022-05-17 17:00 | NUR ---
tr band 4ml air released ,tolerated no bleeding.quality lab assoc nurse tried to put peripheral iv pt. refused.ff. up with nursing sup midline nurse.
--- NOTE | 2022-05-17 17:15 | NUR ---
removed 5ml air slowly from tr band.
--- NOTE | 2022-05-17 17:24 | NUR ---
per nursing sup midline nurse on way.
--- NOTE | 2022-05-17 17:44 | NUR ---
slight bleeding noted ,inflate TR BAND with 5ml air.will continue to monitor.
--- NOTE | 2022-05-17 17:49 | NUR ---
midline g 18 inserted.
--- NOTE | 2022-05-17 18:19 | NUR ---
no bleeding,deflated tr band 4ml air slowly tolerated .no bleeding.
--- NOTE | 2022-05-17 19:28 | NUR ---
deflated TR band w/ 5ml air.no bleeding. endorse to night rn.
--- NOTE | 2022-05-17 19:40 | NUR ---
RN NOTES: DEFLATED TR BAND WITH 5 ML AIR. NO BLEEDING NOTED. WILL CONTINUE TO MONITOR.
--- NOTE | 2022-05-17 19:45 | NUR ---
RN OPENING NOTES: RECEIVED PT IN BED AWAKE, ALERT/ORIENTED X4 AND VERBALLY RESPONSIVE. BREATHING EVEN AND UNLABORED. ON 4L/MIN VIA N/C AND PT TOLERATED WELL. IV ACCESS ON BULMARO MIDLINE#18G INTACT AND PATENT. ON S/P L HEART CATH WITH R TR BAND. STILL ASKING FOR MORPHINE, EXPLAINED TO HIM, NOT DUE YET. PT UNDERSTOOD. ALL SAFETY MEASURES IN PLACE. BED IN LOWEST POSITION AND LOCKED. SIDE RAILS UP X2, PLACE CALL LIGHT WITHIN REACH. WILL CONTINUE TO MONITOR
--- NOTE | 2022-05-17 19:52 | NUR ---
PATIENT AWAKE IN BED.AAOX4 NO S/S OF DISTRESS, BREATHING WITHOUT DIFFICULTY ON 4L NC. NEW BULMARO ML #18 SL INTACT AND PATENT. SR ON TELE. S/P L HEART CATH WITH R TR BAND. SEE CHARGE NURSE NOTES. SAFETY MEASURES IN PLACE: BED LOCKED AND AT LOWEST POSITION, CALL PERRY WITHIN REACH.
[2022-05-17 20:00] VITALS: BP 137/64
--- NOTE | 2022-05-17 20:00 | NUR ---
RN NOTES: DEFLATED TR BAND WITH 5ML OF AIR. NO BLEEDING NOTED. WILL CONTINUE TO MONITOR
--- NOTE | 2022-05-17 20:15 | NUR ---
RN NOTES: DEFLATED TR BAND WITH 5ML OF AIR. NO BLEEDING NOTED. WILL CONTINUE TO MONITOR
--- NOTE | 2022-05-17 21:00 | NUR ---
RN NOTES: AT 2029, 2044 AND 2099 DEFLATED TR BAND WITH 5ML OF AIR. NO BLEEDING NOTED. PT TOLERATED WELL. WILL CONTINUE TO MONITOR
[2022-05-17] MEDS: ATORVASTATIN 40 MG TABLET PO SCH (21:37)
[2022-05-17] MEDS: TAMSULOSIN 0.4 MG CAP.SR.24H PO SCH (21:38)
[2022-05-17] MEDS: ENOXAPARIN SODIUM 40 MG/0.4 ML DISP.SYRIN SQ SCH (21:44)
--- NOTE | 2022-05-17 21:44 | NUR ---
RN NOTES: RELEASED THE TR BAND. NO ACTIVE BLEEDING NOTED. COVER WITH DRY DRESSING. DR. BARLOW AWARE. ORDER TO HOLD THE LOVENOX TODAY. NOTED AND CARRIED OUT.
--- NOTE | 2022-05-17 22:28 | NUR ---
HUMBERTO RN NOTE PT COMPLAIN OF 10/10 GENERALIZED BODY PAIN. MORPHINE 4 MG GIVEN. WILL CONTINUE TO MONITOR.
[2022-05-18] VITALS: BP 129/62
[2022-05-18] MEDS: ZOLPIDEM TARTRATE 5 MG TABLET PO PRN (00:13)
[2022-05-18] MEDS: ALPRAZOLAM 0.5 MG TABLET PO PRN (00:13)
--- NOTE | 2022-05-18 00:20 | NUR ---
HUMBERTO RN NOTE PT COMPLAIN OF ANXIETY AND UNABLE TO SLEEP. XANAX AND AMBIEN GIVEN TOGETHER PER PATIENT'S REQUEST. WILL CONTINUE TO MONITOR.
[2022-05-18 04:00] VITALS: BP 152/83
[2022-05-18] MEDS: MORPHINE SULFATE INJ 2 MG/ML DISP.SYRIN IV PRN ×3 (06:19→16:55)
--- NOTE | 2022-05-18 06:52 | NUR ---
HUMBERTO RN CLOSING NOTE PT IN BED AWAKE, A/O X4, O2 VIA NC @ 4L, TOLERATING WELL, BREATHING EVEN AND UNLABORED. ON TELE MONITOR ST WITH BBB AND OCCASIONAL PVC'S. IV ACCESS ON BULMARO MIDLINE #18G, INTACT AND PATENT, NO S/SX OF INFILTRATION. HAS CONDOM CATH DRAINING CLEAR, YELLOW URINE. INTACT AND PATENT. PT COMPLAINED OF 10/10 PAIN, PRN MORPHINE 4 ML GIVEN @ 0619, REASSESSED @ 0649, NO S/SX OF DISTRESS NOTED. VSS. ALL SAFETY MEASURES IN PLACE. BED LOCKED AND IN LOWEST POSITION, SIDE RAILS UP X2, PLACE CALL LIGHT WITHIN REACH. WILL ENDORSE TO ONCOMING NURSE FOR ANGELIC.
[2022-05-18 06:56] LABS: BASOPHILS % (AUTO) 0.4 % (0.0-2.0); EOSINOPHILS % (AUTO) 0.3 % (0.0-6.0); HEMATOCRIT 25 % (39-51); HEMOGLOBIN 8.2 g/dL (13.5-17.5); LYMPHOCYTES # (AUTO) 1.3 K/uL (0.8-4.8); LYMPHOCYTES % (AUTO) 14.3 % (20.0-44.0); MEAN CORPUSCULAR HGB CONC 33 g/dl (31.0-36.0); MEAN CORPUSCULAR VOLUME 88 fL (80-96); MONOCYTES # (AUTO) 0.9 K/uL (0.1-1.30); MONOCYTES % (AUTO) 10.1 % (2.0-12.0); NEUTROPHILS % (AUTO) 74.9 % (43.0-81.0); PLATELET COUNT (AUTO) 240 K/uL (150-450); RED BLOOD CELL COUNT(AUTO) 2.84 MIL/uL (4.5-6.0); WHITE BLOOD COUNT (AUTO) 9.3 K/uL (4.3-11.0)
[2022-05-18 07:10] LABS: CREATININE 2.1 mg/dL (0.6-1.3); MAGNESIUM 1.7 mg/dL (1.8-2.4); POTASSIUM 5.8 mmol/L (3.5-5.1)
--- NOTE | 2022-05-18 07:40 | NUR ---
HUMBERTO RN OPENING NOTE PT IN BED AWAKE, A/O X4, O2 VIA NC @ 4L, TOLERATING WELL, BREATHING EVEN AND UNLABORED. ON TELE MONITOR SR 92. IV ACCESS ON BULMARO MIDLINE #18G, INTACT AND PATENT, NO S/SX OF INFILTRATION. HAS CONDOM CATH DRAINING CLEAR, YELLOW URINE. INTACT AND PATENT. ALL SAFETY MEASURES IN PLACE. BED LOCKED AND IN LOWEST POSITION, SIDE RAILS UP X2, PLACE CALL LIGHT WITHIN REACH. BED ALARM ON
[2022-05-18 08:00] VITALS: BP 132/76
[2022-05-18] MEDS: LEVETIRACETAM (250 MG) 250 MG TABLET PO SCH (09:00)
[2022-05-18] MEDS: PANTOPRAZOLE 40 MG VIAL IV SCH (09:00)
[2022-05-18] MEDS: FUROSEMIDE 40 MG TABLET PO SCH (09:00)
[2022-05-18] MEDS: DOXYCYCLINE HYCLATE (100 MG) 100 MG TABLET PO SCH (09:00)
[2022-05-18] MEDS: NITROGLYCERIN PACKET 1 GM PACKET TD SCH (09:01)
[2022-05-18] MEDS: hydrALAZINE HCL 50 MG TABLET PO SCH ×2 (09:08→12:46)
[2022-05-18] MEDS: Fluoxetine 10 mg capsule PO SCH (09:08)
[2022-05-18] MEDS: SODIUM POLYSTYRENE SULFONATE 15 G/60 ML BOTTLE PO ONE ×2 (09:11→11:22)
[2022-05-18 12:00] VITALS: BP 146/73
[2022-05-18] MEDS ORDERED: PANTOPRAZOLE 40 MG TABLET.DR PO SCH (12:00)
[2022-05-18] MEDS ORDERED: MAGNESIUM OXIDE 400 MG TABLET PO ONE (12:00)
--- NOTE | 2022-05-18 12:43 | NUR ---
protonix iv given earlier
--- NOTE | 2022-05-18 12:48 | NUR ---
rn note pt complaing of severe pain in leg/hip area,. morphine prn given. pt alert and oriented x4, pt stable
--- NOTE | 2022-05-18 15:30 | NUR ---
telegraph inspector not e per dr ed iverson to discharge aware that k 5.3
--- NOTE | 2022-05-18 15:40 | NUR ---
rn note called Alissa at [facility] notifying that pt will be there after 1700. called
[2022-05-18 16:00] VITALS: BP 125/73
--- NOTE | 2022-05-18 16:55 | NUR ---
rn note pt complaing of severe pain 10/10 in leg/hip area,. morphine prn given. pt alert and oriented x4, pt stable. vital signs with normal limits
--- NOTE | 2022-05-18 18:47 | NUR ---
edge burnisher note pt left in stable condition. gave discharge instructions to pt. pt verbalized understanding and signed paperwork. removed tele monitor box and midline. ambulance team picked up patient. pt discharged with all belongings. picked up pt money from nursing aluminum boat assembly supervisor. went over pt money with another RN álvaro present in room. pt had all his money present. and discharged with it
== END 2022-05-18 19:15 | DRG 191 ==
LOC: ER 07:36 → TELE1 09:50 → TELE-TD 05-17 15:11
PROVIDERS: ADMIT Nurse Practitioner Acute Care; ATTEND Internal Medicine
PROC: 05H933Z Insertion of Infusion Device into Right Brachial Vein, Percutaneous Approach (ICD-10-PCS; 2022-05-12)
PROC: 5A09457 Assistance with Respiratory Ventilation, 24-96 Consecutive Hours, Continuous Positive Airway Pressure (ICD-10-PCS; 2022-05-15)
PROC: 30233N1 Transfusion of Nonautologous Red Blood Cells into Peripheral Vein, Percutaneous Approach (ICD-10-PCS; 2022-05-15)
PROC: 4A023N7 Measurement of Cardiac Sampling and Pressure, Left Heart, Percutaneous Approach (ICD-10-PCS; principal; 2022-05-17)
PROC: B211YZZ Fluoroscopy of Multiple Coronary Arteries using Other Contrast (ICD-10-PCS; 2022-05-17)
PROC: 05HC33Z Insertion of Infusion Device into Left Basilic Vein, Percutaneous Approach (ICD-10-PCS; 2022-05-17)
DX: I25.110 Atherosclerotic heart disease of native coronary artery with unstable angina pectoris (principal); N17.0 Acute kidney failure with tubular necrosis; I50.33 Acute on chronic diastolic (congestive) heart failure; D68.59 Other primary thrombophilia; I69.354 Hemiplegia and hemiparesis following cerebral infarction affecting left non-dominant side; D63.8 Anemia in other chronic diseases classified elsewhere; L03.115 Cellulitis of right lower limb; J90 Pleural effusion, not elsewhere classified; L03.116 Cellulitis of left lower limb; N18.9 Chronic kidney disease, unspecified; I13.0 Hypertensive heart and chronic kidney disease with heart failure and stage 1 through stage 4 chronic kidney disease, or unspecified chronic kidney disease; Z85.038 Personal history of other malignant neoplasm of large intestine; Z88.2 Allergy status to sulfonamides; Z88.8 Allergy status to other drugs, medicaments and biological substances; Z91.041 Radiographic dye allergy status; Z91.013 Allergy to seafood; Z79.51 Long term (current) use of inhaled steroids; Z79.4 Long term (current) use of insulin; Z79.899 Other long term (current) drug therapy; E78.5 Hyperlipidemia, unspecified; F32.A Depression, unspecified; F41.9 Anxiety disorder, unspecified; Z74.01 Bed confinement status; J44.9 Chronic obstructive pulmonary disease, unspecified; Z76.5 Malingerer [conscious simulation]; Z87.11 Personal history of peptic ulcer disease; K29.70 Gastritis, unspecified, without bleeding; G89.4 Chronic pain syndrome; F11.20 Opioid dependence, uncomplicated; E87.5 Hyperkalemia; E11.22 Type 2 diabetes mellitus with diabetic chronic kidney disease; G40.909 Epilepsy, unspecified, not intractable, without status epilepticus; J98.11 Atelectasis; N40.0 Benign prostatic hyperplasia without lower urinary tract symptoms; Z98.890 Other specified postprocedural states; Z86.59 Personal history of other mental and behavioral disorders; Z74.09 Other reduced mobility
CPT/HCPCS: 36415; 71045-TC; 76770-TC; 80048-TC; 80061-TC; 80076-TC; 81001; 82962-TC; 83605-TC; 83735-TC; 83880; 84100-TC; 84132-TC; 84484-TC; 85025-TC; 85027-TC; 85610-TC; 85730-TC; 86850-TC; 87040-TC; 87081-TC; 87086-TC; 94660; 94762-TC; 94799-TC; A4223; A4349; C9113; C9803; G0378; G0500; J0696; J1200; J1644; J1650; J1815; J2250; J2270; J3010; J3475; J3490; J7030; J7040; J7050; P9016; Q9967